=== PATIENT | male | born 1935 | race Caucasian/White ===

== ENCOUNTER 2016-05-16 05:19 | Emergency (ER) | payer MEDICARE ==
[~2016-05-16] VITALS: Ht 195.6 cm; Wt 102.0 kg
[~2016-05-16 05:19] MED LIST: ALLO100T PO; ASPI81TA45 PO; ATOR40TA PO; GLIM2TAB PO; GLIM4 PO; HYDR-2768 PO; KETO2%T TOP; LISI40TA PO; METF500 PO; METO25 PO
[2016-05-16 05:22] VITALS: BP 165/77; PULSE 86; RESP 16; TEMP 98.1; O2SAT 97
[2016-05-16] MEDS ORDERED: HYDR25TA5 PO (05:30)
[2016-05-16] MEDS ORDERED: METO25TA3 PO (05:30)
[2016-05-16] MEDS ORDERED: LISI40TA PO (05:30)
[2016-05-16] MEDS ORDERED: KETO2CRE TOPICAL (05:30)
[2016-05-16] MEDS ORDERED: GLIM2TAB PO (05:30)
[2016-05-16] MEDS ORDERED: ENTE325T PO (05:30)
[2016-05-16] MEDS ORDERED: ATOR40TA16 PO (05:30)
[2016-05-16] MEDS ORDERED: METF500T PO (05:30)
[2016-05-16] MEDS ORDERED: ALLO100T PO (05:30)
--- NOTE | 2016-05-16 05:36 | PD ---
HPI Chief Complaint: General Weakness Time Seen by Provider: 05:31 Travel History International Travel<30 days: No Contact w/Intl Traveler<30days: No Traveled to known affect area: No History of Present Illness HPI The patient is an 81-year-old male that apparently fell to his knees in the shower early tonight, no loss of consciousness, and no injury. The patient states he feels fine but he is had a "cold" for the last 3 or 4 days and his niece wanted him checked out in the ambulance to take him to the emergency department. The patient denies any fever, shortness of breath, chest pain, abdominal pain, nausea, vomiting or diarrhea. He does have a cough and rhinorrhea. The cough is mostly nonproductive. He denies any sore throat or ear pain. PFS Past Medical History Atrial Fibrillation: Yes Diabetes: Yes Patient Takes Glucophage: Yes Gout: Yes Hypertension: Yes ?: Not Past Surgical History Abdominal Surgery: Yes (HERNIA REPAIR) Social History Alcohol Use: Yes (RARE) Tobacco Use: No Substance Use: No Allergies-Medications (Allergen,Severity, Reaction): Coded Allergies: No Known Allergies (Unverified , 05/16/16) Reported Meds & Prescriptions Reported Meds & Active Scripts Active Reported Metoprolol Tartrate 25 Mg Tab 25 Mg PO BID Metformin (Metformin HCl) 500 Mg Tab 500 Mg PO BIDPC With meals Lisinopril 40 Mg Tab 40 Mg PO BID Ketoconazole Topical 2% Cream 1 Applic TOPICAL BID Hydrochlorothiazide 25 Mg Tab 25 Mg PO DAILY Glimepiride 2 Mg Tab 2 Mg PO DAILY Take with breakfast or first main meal Glimepiride 2 Mg Tab 2 Mg PO DAILY Take with breakfast or first main meal Atorvastatin (Atorvastatin Calcium) 40 Mg Tab 40 Mg PO HS Enteric Coated Aspirin (Aspirin) 325 Mg Tabdr 81 Mg PO DAILY Allopurinol 100 Mg Tab 100 Mg PO DAILY Review of Systems Except as stated in HPI: all other systems reviewed are Neg Physical Exam Narrative GENERAL: The patient is alert, oriented 3 in no apparent distress. Specifically, he is in no respiratory distress. His blood pressure 165/77 and the rest the vital signs are normal. SKIN: Warm and dry. HEAD: Atraumatic. Normocephalic. EYES: Pupils equal and round. No scleral icterus. No injection or drainage. ENT: No nasal bleeding or discharge. Mucous membranes pink and moist. Throat is clear without erythema, exudate or abscess. Neither tympanic membrane can be adequately seen due to heavy wax in both ears. The canals are nontender. NECK: Trachea midline. No JVD. CARDIOVASCULAR: Regular rate and rhythm. No murmur appreciated. RESPIRATORY: No accessory muscle use. Clear to auscultation. Breath sounds equal bilaterally. GASTROINTESTINAL: Abdomen soft, non-tender, nondistended. Hepatic and splenic margins not palpable. No guarding or rebound is present. No surgical scars are present on the abdomen. MUSCULOSKELETAL: No obvious deformities. No clubbing. No cyanosis. No edema. NEUROLOGICAL: Awake and alert. No obvious cranial nerve deficits. Motor grossly within normal limits. Normal speech. PSYCHIATRIC: Appropriate mood and affect; insight and judgment normal. Data Data Last Documented VS Vital Signs Date Time Temp Pulse Resp B/P Pulse Ox O2 Delivery O2 Flow Rate FiO2 05/16/16 05:27 97 Room Air 05/16/16 05:22 98.1 86 16 165/77 Orders Electrocardiogram (05/16/16 05:36) Complete Blood Count With Diff (05/16/16 05:36) Basic Metabolic Panel (Bmp) (05/16/16 05:36) Troponin I (05/16/16 05:36) Chest, Pa & Lat (05/16/16 05:36) Labs Laboratory Tests Test 05/16/16 05:45 White Blood Count 12.6 TH/MM3 Red Blood Count 3.94 MIL/MM3 Hemoglobin 11.8 GM/DL Hematocrit 35.8 % Mean Corpuscular Volume 90.7 FL Mean Corpuscular Hemoglobin 30.0 PG Mean Corpuscular Hemoglobin 33.1 % Concent Red Cell Distribution Width 13.3 % Platelet Count 310 TH/MM3 Mean Platelet Volume 8.6 FL Neutrophils (%) (Auto) 77.3 % Lymphocytes (%) (Auto) 10.9 % Monocytes (%) (Auto) 7.5 % Eosinophils (%) (Auto) 3.7 % Basophils (%) (Auto) 0.6 % Neutrophils # (Auto) 9.8 TH/MM3 Lymphocytes # (Auto) 1.4 TH/MM3 Monocytes # (Auto) 0.9 TH/MM3 Eosinophils # (Auto) 0.5 TH/MM3 Basophils # (Auto) 0.1 TH/MM3 CBC Comment DIFF FINAL Differential Comment Sodium Level 144 MEQ/L Potassium Level 4.6 MEQ/L Chloride Level 109 MEQ/L Carbon Dioxide Level 26.1 MEQ/L Anion Gap 9 MEQ/L Blood Urea Nitrogen 28 MG/DL Creatinine 1.30 MG/DL Estimat Glomerular Filtration 53 ML/MIN Rate Random Glucose 124 MG/DL Calcium Level 9.1 MG/DL Troponin I LESS THAN 0.02 NG/ML MDM Medical Decision Making Medical Screen Exam Complete: Yes Emergency Medical Condition: Yes Medical Record Reviewed: Yes Interpretation(s) The chest x-ray shows no acute cardiopulmonary disease. The right proximal humerus shows an abnormal appearance likely an old fracture. The CBC shows a white count 12,600 with a hemoglobin of 11.8 and hematocrit of 35.8 with 77% neutrophils. The basic metabolic profile shows a BUN of 28, GFR 53, glucose 124 but is otherwise unremarkable. The troponin I is normal. Differential Diagnosis Viral upper respiratory infection, ear infection, pharyngitis, pneumonia, bronchitis, intestinal infection, electrolyte disorder, anemia, dehydration Narrative Course The patient appears to have a viral upper respiratory infection. Diagnosis Primary Impression: Viral upper respiratory infection Additional Instructions: As we discussed, it is necessary to increase your liquid intake. It appears you are slightly dehydrated. This is particularly important when you have a viral illness. Disposition: DISCHARGE HOME Condition: Stable Teo Child MD May 16, 2016 05:36
[2016-05-16 05:55] LABS: AUTOMATED NEUTROPHIL # 9.8 TH/MM3 (1.8-7.7); BASOPHIL # 0.1 TH/MM3 (0-0.2); BASOPHIL % 0.6 % (0.0-2.0); EOSINOPHIL # 0.5 TH/MM3 (0-0.4); EOSINOPHIL % 3.7 % (0.0-4.0); HEMATOCRIT 35.8 % (39.0-51.0); HEMO FLAGS DIFF FINAL; LYMPH % 10.9 % (9.0-44.0); LYMPHOCYTE # 1.4 TH/MM3 (1.0-4.8); MEAN CELL VOLUME 90.7 FL (80.0-100.0); MEAN CORPUSCULAR HGB CONC 33.1 % (32.0-36.0); MONO % 7.5 % (0.0-8.0); NEUT % 77.3 % (16.0-70.0); PLATELET COUNT 310 TH/MM3 (150-450); RED BLOOD COUNT 3.94 MIL/MM3 (4.50-5.90); RED CELL DISTRIBUTION WIDTH 13.3 % (11.6-17.2); WHITE BLOOD COUNT 12.6 TH/MM3 (4.0-11.0)
[2016-05-16 06:12] LABS: CHLORIDE 109 MEQ/L (98-107); POTASSIUM 4.6 MEQ/L (3.5-5.1); SODIUM (NA) 144 MEQ/L (136-145)
[2016-05-16 06:15] LABS: ANION GAP 9 MEQ/L (5-15); BICARBONATE 26.1 MEQ/L (21.0-32.0); BLOOD UREA NITROGEN 28 MG/DL (7-18)
[2016-05-16 06:18] LABS: GLOMERULAR FILTRATION RATE 53 ML/MIN (>89)
--- NOTE | 2016-05-16 06:29 | RADHPO ---
EXAM DATE/TIME: 05/16/2016 05:54 [facility] COMPARISON: No previous studies available for comparison. INDICATIONS : General weakness. MEDICAL HISTORY : Hypertension. AFIB, Gout, Diabetes SURGICAL HISTORY : Hernia repair ENCOUNTER: Initial ACUITY: 1 day PAIN SCORE: 0/10 LOCATION: Bilateral chest FINDINGS: AP and lateral views of the chest demonstrate a normal-sized cardiac silhouette. There is no effusion , consolidation, or pneumothorax. The bones and soft tissues demonstrate no acute abnormality. There are degenerative changes of the thoracic spine. The right proximal humerus has an abnormal appearance likely to old fracture with malunion. CONCLUSION: 1. No acute cardiopulmonary abnormality is identified. 2. Abnormal appearance of the right proximal humerus likely related to old fracture with malunion giv en the appearance. Suggest correlation with the clinical history. Mason Bellamy MD on May 16, 2016 at 6:26 Board Certified Radiologist. This report was verified electronically.
[2016-05-16 06:31] VITALS: BP 177/92; PULSE 87; RESP 16; O2SAT 97
--- NOTE | 2016-05-16 12:13 | EKG ---
Date Performed: 05/16/2016 Time Performed: 05:41:42 PTAGE: 81 years EKG: Sinus rhythm with PVC(s). Right ventricular hypertrophy Since previous tracing, no significant change noted Abnor mal ECG PREVIOUS TRACING : 11/21/2014 17.01 DOCTOR: Lisa Reeder Interpretating Date/Time 05/16/2016 12:12:25
== END 2016-05-16 06:59 | disposition home or self-care (01) ==
LOC: PHED 05:19
DX: J06.9 Acute upper respiratory infection, unspecified (principal); I51.7 Cardiomegaly; I49.3 Ventricular premature depolarization
CPT/HCPCS: 71020; 80048; 84484; 85025; 93005

== ENCOUNTER 2016-09-03 08:03 | Inpatient (IN) | payer MEDICARE ==
[~2016-09-03] VITALS: Ht 182.9 cm; Wt 101.6 kg
[2016-09-03] VITALS (9 sets, daily range): BP systolic 108–125; BP diastolic 58–71; PULSE 90–120; RESP 18–34; TEMP 97.8–99.9; O2SAT 89–99
[~2016-09-03 08:03] MED LIST changes: -ASPI81TA45 PO; -ATOR40TA PO; +ATOR40TA16 PO; +ENTE325T PO; -GLIM4 PO; -HYDR-2768 PO; +HYDR25TA5 PO; -KETO2%T TOP; +KETO2CRE TOPICAL; -METF500 PO; +METF500T PO; -METO25 PO; +METO25TA3 PO
[2016-09-03] MEDS ORDERED: SODIUM CHLOR 0.9% 1000 ML INJ 1,000 ML IV SCH (08:16)
[2016-09-03] MEDS ORDERED: NAME10TA PO (08:17)
[2016-09-03] MEDS ORDERED: PANTOPRAZOLE INJ 80 MG in SODIUM CHLORIDE 0.9% INJ 35 ML IV ONE (08:30)
[2016-09-03] MEDS ORDERED: ONDANSETRON HCL 4 MG/2 ML VIAL IVP ONE (08:30)
[2016-09-03] MEDS ORDERED: SODIUM CHLORIDE 0.9% FLUSH 10 ML FLUSH IVF PRN (08:30)
[2016-09-03 08:36] LABS: AUTOMATED NEUTROPHIL # 15.4 TH/MM3 (1.8-7.7); BASOPHIL # 0.1 TH/MM3 (0-0.2); BASOPHIL % 0.6 % (0.0-2.0); EOSINOPHIL # 0.1 TH/MM3 (0-0.4); EOSINOPHIL % 0.5 % (0.0-4.0); HEMO FLAGS DIFF FINAL; LYMPH % 8.1 % (9.0-44.0); LYMPHOCYTE # 1.5 TH/MM3 (1.0-4.8); MEAN CELL VOLUME 85.2 FL (80.0-100.0); MEAN CORPUSCULAR HEMOGLOBIN 27.5 PG (27.0-34.0); MEAN CORPUSCULAR HGB CONC 32.2 % (32.0-36.0); MONO % 6.2 % (0.0-8.0); NEUT % 84.6 % (16.0-70.0); PLATELET COUNT 404 TH/MM3 (150-450); RED CELL DISTRIBUTION WIDTH 15.3 % (11.6-17.2); WHITE BLOOD COUNT 18.2 TH/MM3 (4.0-11.0)
[2016-09-03 08:45] LABS: APTT (PATIENT) 27.3 SEC (24.3-30.1); INTERNATIONAL NORMALIZED RATIO 1.1 RATIO; PROTHROMBIN TIME - PATIENT 12.4 SEC (9.8-11.6)
[2016-09-03 08:59] LABS: ANION GAP 10 MEQ/L (5-15); AST (GOT) 15 U/L (15-37); BICARBONATE 25.7 MEQ/L (21.0-32.0); BLOOD UREA NITROGEN 39 MG/DL (7-18); CHLORIDE 103 MEQ/L (98-107); GLOMERULAR FILTRATION RATE 40 ML/MIN (>89); POTASSIUM 4.5 MEQ/L (3.5-5.1); SODIUM (NA) 139 MEQ/L (136-145)
[2016-09-03 09:03] LABS: ALKALINE PHOSPHATASE 133 U/L (45-117); ALT (GPT) 19 U/L (12-78); TOTAL BILIRUBIN ADULT 0.2 MG/DL (0.2-1.0)
--- NOTE | 2016-09-03 09:28 | PD ---
HPI Chief Complaint: GI Complaint Time Seen by Provider: 08:16 Travel History International Travel<30 days: No Contact w/Intl Traveler<30days: No Traveled to known affect area: No History of Present Illness HPI Patient is 81 years old and arrives by EMS due to coffee-ground emesis this morning. No bright red blood is been observed in the emesis. EMS reports on scene his heart rate was 110 or so and the blood pressure is 118/60. Evidently one month prior similar event occurred. The patient reports feeling dizzy however has no other medical complaint. He takes no anticoagulation. He denies a history of endoscopy/colonoscopy. No abdominal pain or fever. PFSH Past Medical History Atrial Fibrillation: Yes Diabetes: Yes Patient Takes Glucophage: Yes Gout: Yes Hypertension: Yes Tetanus Vaccination: > 5 Years Influenza Vaccination: Yes Past Surgical History Abdominal Surgery: Yes (HERNIA REPAIR) Social History Alcohol Use: Yes (RARE) Tobacco Use: No Substance Use: No Allergies-Medications (Allergen,Severity, Reaction): Coded Allergies: No Known Allergies (Unverified , 09/03/16) Reported Meds & Prescriptions Reported Meds & Active Scripts Active Reported Namenda (Memantine) 10 Mg Tab 10 Mg PO DAILY Metoprolol Tartrate 25 Mg Tab 25 Mg PO BID Metformin (Metformin HCl) 500 Mg Tab 500 Mg PO BIDPC With meals Lisinopril 40 Mg Tab 40 Mg PO BID Ketoconazole Topical 2% Cream 1 Applic TOPICAL BID Hydrochlorothiazide 25 Mg Tab 25 Mg PO DAILY Glimepiride 2 Mg Tab 2 Mg PO DAILY Take with breakfast or first main meal Glimepiride 2 Mg Tab 2 Mg PO DAILY Take with breakfast or first main meal Atorvastatin (Atorvastatin Calcium) 40 Mg Tab 40 Mg PO HS Enteric Coated Aspirin (Aspirin) 325 Mg Tabdr 81 Mg PO DAILY Allopurinol 100 Mg Tab 100 Mg PO DAILY Review of Systems Except as stated in HPI: all other systems reviewed are Neg General / Constitutional: No: Fever Gastrointestinal: Positive: Vomiting, Hematemesis Physical Exam Narrative GENERAL: 81-year-old male well-nourished well-developed pleasant SKIN: Focused skin assessment warm/dry. Dried coffee-ground emesis about face. HEAD: Atraumatic. Normocephalic. EYES: Pupils equal and round. No scleral icterus. No injection or drainage. ENT: No nasal bleeding or discharge. Mucous membranes pink and moist. NECK: Trachea midline. No JVD. CARDIOVASCULAR: Regular. Minimal tachycardia, rate about 100. RESPIRATORY: No accessory muscle use. Clear to auscultation. Breath sounds equal bilaterally. GASTROINTESTINAL: Abdomen soft, non-tender, nondistended. Hepatic and splenic margins not palpable. MUSCULOSKELETAL: No obvious deformities. No clubbing. No cyanosis. No edema. NEUROLOGICAL: Awake and alert. No obvious cranial nerve deficits. Motor grossly within normal limits. Normal speech. Patient is somewhat forgetful. PSYCHIATRIC: Appropriate mood and affect; insight and judgment normal. Data Data Last Documented VS Vital Signs Date Time Temp Pulse Resp B/P Pulse Ox O2 Delivery O2 Flow Rate FiO2 09/03/16 09:43 110 18 108/61 95 Room Air 09/03/16 08:07 97.8 VS reviewed Orders Complete Blood Count With Diff (09/03/16 08:16) Comprehensive Metabolic Panel (09/03/16 08:16) Lipase (09/03/16 08:16) Prothrombin Time / Inr (Pt) (09/03/16 08:16) Act Partial Throm Time (Ptt) (09/03/16 08:16) Type And Screen (09/03/16 08:16) Red Blood Cells (Rbc) (09/03/16 08:16) Ecg Monitoring (09/03/16 08:16) Iv Access Insert/Monitor (09/03/16 08:16) Oximetry (09/03/16 08:16) Ondansetron Inj (Zofran Inj) (09/03/16 08:30) Sodium Chlor 0.9% 1000 Ml Inj (Ns 1000 M (09/03/16 08:16) Sodium Chloride 0.9% Flush (Ns Flush) (09/03/16 08:30) Pantoprazole Inj (Protonix Inj) (09/03/16 08:30) Pantoprazole Inj (Protonix Inj) (09/03/16 08:30) Ceftriaxone Inj (Rocephin Inj) (09/03/16 09:30) Blood Product Administration .UPON TRANSFUSION (09/03/16 09:28) Sodium Chlor 0.9% 250 Ml Inj (Ns 250 Ml (09/03/16 09:30) Admit To Inpatient (09/03/16 ) Code Status (09/03/16 10:04) Vital Signs (Adult) Q4H (09/03/16 10:04) Activity Oob With Assistance (09/03/16 10:04) Cloth Printer Helper / Telemetry .CONTINUOUS (09/03/16 10:04) Diet Npo (09/03/16 Lunch) Sodium Chloride 0.9% Flush (Ns Flush) (09/03/16 10:15) Sodium Chloride 0.9% Flush (Ns Flush) (09/03/16 21:00) Acetaminophen (Tylenol) (09/03/16 10:15) Ondansetron Inj (Zofran Inj) (09/03/16 10:15) Basic Metabolic Panel (Bmp) (09/04/16 06:00) Complete Blood Count With Diff (09/04/16 06:00) Complete Blood Count With Diff (09/05/16 06:00) Complete Blood Count With Diff (09/06/16 06:00) Complete Blood Count With Diff (09/07/16 06:00) Electrocardiogram (09/03/16 10:04) Resp Oxygen Pedro C Titrat 1-4 L (09/03/16 ) Pt Request For Service (09/03/16 10:04) Scd Bilateral/Knee High KATIE.BID (09/03/16 10:04) Naloxone Inj (Narcan Inj) (09/03/16 10:15) Magnesium Hydroxide Liq (Milk Of Magnesi (09/03/16 10:15) Inpatient Certification (09/03/16 ) Consult Gastroenterology (09/03/16 ) Insulin Aspart Supplemtl Scale (Novolog (09/03/16 11:00) Admit Order (Ed Use Only) (09/03/16 10:09) Labs Laboratory Tests Test 09/03/16 09/03/16 08:20 09:10 White Blood Count 18.2 TH/MM3 Red Blood Count 2.70 MIL/MM3 Hemoglobin 7.4 GM/DL Hematocrit 23.0 % Mean Corpuscular Volume 85.2 FL Mean Corpuscular Hemoglobin 27.5 PG Mean Corpuscular Hemoglobin 32.2 % Concent Red Cell Distribution Width 15.3 % Platelet Count 404 TH/MM3 Mean Platelet Volume 9.5 FL Neutrophils (%) (Auto) 84.6 % Lymphocytes (%) (Auto) 8.1 % Monocytes (%) (Auto) 6.2 % Eosinophils (%) (Auto) 0.5 % Basophils (%) (Auto) 0.6 % Neutrophils # (Auto) 15.4 TH/MM3 Lymphocytes # (Auto) 1.5 TH/MM3 Monocytes # (Auto) 1.1 TH/MM3 Eosinophils # (Auto) 0.1 TH/MM3 Basophils # (Auto) 0.1 TH/MM3 CBC Comment DIFF FINAL Differential Comment Prothrombin Time 12.4 SEC Prothromb Time International 1.1 RATIO Ratio Activated Partial 27.3 SEC Thromboplast Time Sodium Level 139 MEQ/L Potassium Level 4.5 MEQ/L Chloride Level 103 MEQ/L Carbon Dioxide Level 25.7 MEQ/L Anion Gap 10 MEQ/L Blood Urea Nitrogen 39 MG/DL Creatinine 1.64 MG/DL Estimat Glomerular Filtration 40 ML/MIN Rate Random Glucose 284 MG/DL Calcium Level 8.8 MG/DL Total Bilirubin 0.2 MG/DL Aspartate Amino Transf 15 U/L (AST/SGOT) Alanine Aminotransferase 19 U/L (ALT/SGPT) Alkaline Phosphatase 133 U/L Total Protein 6.2 GM/DL Albumin 2.3 GM/DL Lipase 65 U/L Blood Type A POSITIVE A POSITIVE Antibody Screen NEGATIVE Crossmatch Leukocyte-Reduced Red Blood Cells Blood Bank Comment MDM Medical Decision Making Medical Screen Exam Complete: Yes Emergency Medical Condition: Yes Medical Record Reviewed: Yes Differential Diagnosis UGIB, LGIB, hemoptysis, sepsis Narrative Course CBC & BMP Diagram 09/03/16 08:20 Protonix bolus w gtt started 2U PRBCs ordered Rocephin 1g IV d/w Dr Scanlon: endoscopy planned for today, NPO, IVF d/w Dr Mccurdy [place] [facility] [facility] [place] Care Narrative Aggregate critical care time was 35 minutes. Time to perform other separately billable procedures was not included in the critical care time. My time did not include minutes spent treating any other patients simultaneously or on activities that did not directly contribute to the patient's treatment. The services I provided to this patient were to treat and/or prevent clinically significant deterioration that could result in: hemorrhagic shock I provided critical care services requiring my management, as noted below: Chart data review, documentation time, medication orders and management, vital sign assessments/reviewing monitor data, ordering and reviewing lab tests, ordering and interpreting/reviewing x-rays and diagnostic studies, care of the patient and discussion of the patient with the admitting physicians. Diagnosis Primary Impression: UGI bleed Additional Impression: Anemia Admitting Information Admitting Physician Requests: Admit Yair Ness MD September 03, 2016 09:28
[2016-09-03] MEDS ORDERED: cefTRIAXone INJ 1,000 MG in SODIUM CHLORIDE 0.9% INJ 100 ML IV ONE (09:30)
[2016-09-03] MEDS ORDERED: SODIUM CHLOR 0.9% 250 ML INJ 250 ML IV ONE (09:30)
[2016-09-03] MEDS ORDERED: SODIUM CHLORIDE 0.9% FLUSH 10 ML FLUSH IV FLUSH PRN (10:15)
[2016-09-03] MEDS ORDERED: ACETAMINOPHEN 325 MG TAB PO PRN (10:15)
[2016-09-03] MEDS ORDERED: MAGNESIUM HYDROXIDE SUSP 30 ML CUP PO PRN (10:15)
[2016-09-03] MEDS ORDERED: NALOXONE HCL 0.4 MG/ML AMP IV PRN (10:15)
[2016-09-03] MEDS: PANTOPRAZOLE INJ 80 MG in SODIUM CHLORIDE 0.9% INJ 100 ML IV SCH ×2 (10:48→17:48)
[2016-09-03] MEDS: INSULIN ASPART SUPPLEMENTAL SCALE SQ SCH ×3 (11:00→20:20)
--- NOTE | 2016-09-03 11:09 | PD.CONS ---
HPI History of Present Illness This is a 81 year old male with past medical hx of A-fib on Aspirin, DM, gout, HTN is here for upper GI bleed and anemia. Patient states he got up this morning around 6 am to use the bathroom ( urinate) then he felt dizzy where he had to sit down or he was going to fall. Shortly after, he coughed one time and that resulted in bloody output. States this was only one time. Reports nausea but no vomiting. He denies abdomen pain, GERD, melena or hematochezia. He endorses one month duration of diarrhea. This is 2-3 times daily, loose, watery. He denies sick contact, suspicious foods, or recent travel. He was seen at PCP office, stools studies ordered but not done, Metformin was held thinking it maybe causing the diarrhea. He was also told he had anemia and was scheduled to see GI sometimes in September for eval. Patient denies previous hx of this. He denies alcohol or NSAIDs. He never had EGD/colonoscopy before. H&H 7.4/23.0, WBC 18.2, BUN 39, Creat. 1.64, GFR 40. He is receiving blood transfusion. His pants seem to be covered with bloody stains (Elisabet Pedroza) PFSH Past Medical History HTN DM Gout A-fib Past Surgical History Hernia repair (Elisabet Pedroza) Coded Allergies: No Known Allergies (Unverified , 09/03/16) Medications Current Medications Medications (Trade) Dose Ordered Sig/Zachary Route Start Time Stop Time Status Last Admin Sodium Chloride 2 ml 2 ml UNSCH PRN IVF 09/03/16 08:30 Pantoprazole Sodium 80 mg/ Sodium Chloride 100 ml @ 10 mls/hr Q10H IV 09/03/16 08:30 (NS 250 ml Inj) 250 ml @ 15 mls/hr ONCE ONCE IV 09/03/16 09:30 09/04/16 02:09 09/03/16 10:32 (NS Flush) 2 ml UNSCH PRN IV FLUSH 09/03/16 10:15 (NS Flush) 2 ml BID IV FLUSH 09/03/16 21:00 (Tylenol) 650 mg Q4H PRN PO 09/03/16 10:15 (Zofran Inj) 4 mg Q6H PRN IVP 09/03/16 10:15 (Narcan Inj) 0.4 mg UNSCH PRN IV 09/03/16 10:15 (Milk Of Magnesia Liq) 30 ml Q12H PRN PO 09/03/16 10:15 Family History Non contributory Social History No alcohol No smoking No illicit drug use (Elisabet Pedroza) Review of Systems Constitutional: COMPLAINS OF: Fatigue, Dizziness Endocrine: DENIES: Polyuria Eyes: DENIES: Double Vision Respiratory: DENIES: Shortness of breath Cardiovascular: DENIES: Lower Extremity Edema Gastrointestinal: COMPLAINS OF: Diarrhea, Nausea, Hematemesis, DENIES: Abdominal pain, Black stools, Bloody stools, Constipation, Vomiting, Difficulty Swallowing, Anorexia, Odynophagia, Swelling of Abdomen, Heartburn Genitourinary: DENIES: Hematuria Musculoskeletal: DENIES: Neck pain Integumentary: DENIES: Jaundice Hematologic/lymphatic: DENIES: Bruising Immunologic/allergic: DENIES: Eczema Neurologic: DENIES: Abnormal gait Psychiatric: DENIES: Anxiety (Elisabet Pedroza) GI Exam Vitals I&O Vital Signs Date Time Temp Pulse Resp B/P Pulse Ox O2 Delivery O2 Flow Rate FiO2 09/03/16 10:30 98.8 110 18 117/62 96 Room Air 09/03/16 09:43 110 18 108/61 95 Room Air 09/03/16 08:21 20 95 Room Air 09/03/16 08:18 20 09/03/16 08:18 110 20 110/70 95 Room Air 09/03/16 08:07 97.8 117 20 110/70 Laboratory Test 09/03/16 09/03/16 08:20 09:10 White Blood Count 18.2 TH/MM3 Red Blood Count 2.70 MIL/MM3 Hemoglobin 7.4 GM/DL Hematocrit 23.0 % Mean Corpuscular Volume 85.2 FL Mean Corpuscular Hemoglobin 27.5 PG Mean Corpuscular Hemoglobin 32.2 % Concent Red Cell Distribution Width 15.3 % Platelet Count 404 TH/MM3 Mean Platelet Volume 9.5 FL Neutrophils (%) (Auto) 84.6 % Lymphocytes (%) (Auto) 8.1 % Monocytes (%) (Auto) 6.2 % Eosinophils (%) (Auto) 0.5 % Basophils (%) (Auto) 0.6 % Neutrophils # (Auto) 15.4 TH/MM3 Lymphocytes # (Auto) 1.5 TH/MM3 Monocytes # (Auto) 1.1 TH/MM3 Eosinophils # (Auto) 0.1 TH/MM3 Basophils # (Auto) 0.1 TH/MM3 CBC Comment DIFF FINAL Differential Comment Prothrombin Time 12.4 SEC Prothromb Time International 1.1 RATIO Ratio Activated Partial 27.3 SEC Thromboplast Time Sodium Level 139 MEQ/L Potassium Level 4.5 MEQ/L Chloride Level 103 MEQ/L Carbon Dioxide Level 25.7 MEQ/L Anion Gap 10 MEQ/L Blood Urea Nitrogen 39 MG/DL Creatinine 1.64 MG/DL Estimat Glomerular Filtration 40 ML/MIN Rate Random Glucose 284 MG/DL Calcium Level 8.8 MG/DL Total Bilirubin 0.2 MG/DL Aspartate Amino Transf 15 U/L (AST/SGOT) Alanine Aminotransferase 19 U/L (ALT/SGPT) Alkaline Phosphatase 133 U/L Total Protein 6.2 GM/DL Albumin 2.3 GM/DL Lipase 65 U/L Blood Type A POSITIVE A POSITIVE Antibody Screen NEGATIVE Crossmatch Leukocyte-Reduced Red Blood Cells Blood Bank Comment Physical Examination HEENT: normocephalic; atraumatic; no jaundice. NECK: Neck is supple, no JVD, no lymphadenopathy. CHEST: Chest is clear to auscultation and percussion. CARDIAC: tacky cardic ABDOMEN: Soft, nondistended, nontender; no hepatosplenomegaly; bowel sounds are present in all four quadrants. EXTREMITIES: No clubbing, cyanosis, or edema. SKIN: Normal; no rash; no jaundice. BUSINESS SERVICES ANALYST: No focal deficits; alert and oriented times three. (Kasia,Elisabet CAPITAL PROJECT ENGINEER) Assessment and Plan Plan - Anemia/upper GI bleed- Started this am with a cough that resulted in bloody output, no more episodes, no melena or hematochezia No previous hx of this, tacky cardiac, hypotensive he is on ASA . hh 7.4/23.0 , receiving blood, PPI Gtt - Diarrhea X one month- This is 2-3 times daily, loose, watery. He denies sick contact, suspicious foods, or recent travel. He was seen at PCP office, stools studies ordered but not done, Metformin was held thinking it maybe causing the diarrhea - Leukocytosis- likely reactive - Acute kidney failure - HTN, gout, DM, Afib per attending Plan: - NPO - EGD today - If above negative, consider colonoscopy - Stool studies - Cont. PPI Gtt - Monitor HH - Transfuse as needed - Supportive care - Patient seen and examined by Dr. Horvath and myself and this note is written on his behalf (Elisabet Pedroza) Physician Comments Patient seen and examined Agree with above Continue with current supportive care Monitor labs Plan for EGD today (Arnoldo Scanlon MD) Elisabet Pedroza September 03, 2016 11:09 Arnoldo Scanlon MD September 03, 2016 11:55
[2016-09-03] MEDS: SODIUM CHLOR 0.9% 1000 ML INJ 1,000 ML IV SCH ×3 (11:15→13:35)
[2016-09-03] MEDS ORDERED: TRAD5TAB PO (11:17)
[2016-09-03] MEDS ORDERED: PROPOFOL 200 MG/20 ML AMP IV ONE (11:31)
[2016-09-03] MEDS ORDERED: EPINEPHrine HCL (1:10,000) 1 MG/10 ML SYRINGE OTHER ONE (11:40)
--- NOTE | 2016-09-03 11:58 | PD.PROCEDR ---
GI Procedure REFERRING PHYSICIAN Dr. Bradford PROCEDURE PERFORMED EGD with epinephrine injection and cautery and biopsy INDICATION FOR PROCEDURE Coffee-ground emesis PROCEDURE: The procedure, risks and benefits were discussed with Mr. Jo and informed consent was obtained. Anesthesia sedated him with Diprivan. He was placed in the left lateral decubitus position. EGD: The Pentax videoscope was introduced through the oropharynx and advanced to the second portion of the duodenum under direct visualization. Retroflexion was performed in the stomach. FINDINGS: The esophagus this was normal The stomach there was a large clot obscuring vision of the fundus and part of the gastric body there was a large deep ulcer on the lesser curve mostly towards the antrum there was a large clot inside the ulcer which had raised edges the clot was removed but I still couldn't see clearly the base of the ulcer this was diffusely infiltrated with epinephrine and cauterized biopsies were taken from the edges of this is concerning to a degree for a malignancy the antrum was unremarkable The duodenum this too was unremarkable ESTIMATED BLOOD LOSS: No active bleeding during the procedure no blood loss SPECIMENS REMOVED: Antral ulcer biopsies from the edges COMPLICATIONS: None IMPRESSION: Large antral ulcer Incomplete evaluation of the stomach PLAN: Await biopsy Continue Protonix drip Avoid anticoagulants and antiplatelets EGD in 2 months Keep nothing by mouth If any active bleeding then we will ask for embolization Arnoldo Scanlon MD September 03, 2016 11:58
[2016-09-03] MEDS: METOPROLOL TARTRATE 25 MG TAB PO SCH ×2 (12:00→20:18)
[2016-09-03] MEDS ORDERED: *ONDANSETRON 4 MG VIAL PERIprocedural Use ONLY ONE (12:18)
[2016-09-03] MEDS ORDERED: *PROMETHAZINE 25 MG/ML VIAL PERIprocedural use ONLY ONE (12:37)
[2016-09-03] MEDS ORDERED: DO NOT ADM ANY ANTICOAGULANT DRUGS PRN (12:45)
--- NOTE | 2016-09-03 16:02 | HHI.HP ---
HPI Service [facility] Hospitalists Primary Care Physician Dr. Emeka Rivera Admission Diagnosis UGIB, Acute Anemia Chief Complaint: Hematemesis Travel History International Travel<30 Days: No Contact w/Intl Traveler <30 Da: No Traveled to Known Affected Are: No History of Present Illness Mr. Jo is an 81 y/o male with A. fib on ASA, diabetes, HTN, CKD, stage 3, and chronic diastolic CHF who presented to the ED at [facility] on 09/03/16 for reported hematemesis. Patient reportedly woke up this morning around 6AM to use the bathroom and felt dizzy. He then had an episode of regurgitation with some bloody emesis noted. This occurred only once. He denies any previous similar episodes. There was no reported abdominal pain, GERD, melena or hematochezia. He does report that he has been having issues with diarrhea for the last month. He reports that this seems to occur after food intake, around 15 minutes later he will have a loose watery stool. This occurs 2-3 times daily. He denies sick contact, suspicious foods, or recent travel. He was seen by his PCP, Dr. Rivera , a few days ago regarding this and stool studies were ordered but pt had not done this yet. He was prescribed Flagyl as well but he had not started taking this. He was also told at that time that his blood count was low (Hgb 9.4/Hct 30.2) and was scheduled to see GI in September. He takes ASA daily but no other NSAIDs reported. Denies any alcohol use. He never had EGD/colonoscopy before. Labs at admission revealed that his H/H had decreased further to H/H 7.4/23.0. He is receiving blood transfusion. Pt has been seen by GI and underwent evaluation with EGD (09/03) which noted a large antral ulcer, biopsies taken and incomplete evaluation of the stomach. Review of Systems Constitutional: DENIES: Fever, Chills Eyes: DENIES: Vision loss Ears, nose, mouth, throat: DENIES: Hearing loss Respiratory: DENIES: Cough Cardiovascular: DENIES: Chest pain, Palpitations, Lower Extremity Edema Gastrointestinal: COMPLAINS OF: Diarrhea, Nausea, Vomiting, See HPI, DENIES: Abdominal pain, Black stools, Bloody stools, Constipation, GERD Genitourinary: DENIES: Hematuria, Dysuria Integumentary: DENIES: Rash Neurologic: DENIES: Headache Past Family Social History Past Medical History Atrial fibrillation Chronic diastolic CHF CKD, stage 3 Diabetes mellitus HTN Hyperlipidemia Mild cognitive impairment Pulmonary HTN 2D echo (04/29/2014): - Estimated EF 60% - Diastolic dysfunction - LA mildly dilated - Mild mitral regurgitation - Estimated PA pressure is mildly elevated, 43mmHg - Trace tricuspid regurgitation - Trace pulmonic regurgitation - Dilation of the aortic root Past Surgical History Hernia repair Reported Medications -Metoprolol Tartrate 25 Mg PO BID -Metformin 1,000 Mg PO BIDPC -Lisinopril 40 Mg PO BID -Glimepiride 4 Mg PO DAILY -Atorvastatin 40 Mg PO HS -Enteric Coated Aspirin 81 Mg PO DAILY -Allopurinol 100 Mg PO DAILY ?Tradjenta 5 Mg PO DAILY ?Namenda 10 Mg PO DAILY ?Hydrochlorothiazide 25 Mg PO DAILY ?Ketoconazole Topical 2% Cream 1 Applic TOPICAL BID Allergies: Coded Allergies: No Known Allergies (Unverified , 09/03/16) Family History Sister with hx of bone cancer Brother with hx of CAD Social History Hx of tobacco use Denies any alcohol use Pt is a Pt reports that he and his son live in some sort of prison or [place] type setting His niece handles the finances Physical Exam Vital Signs Vital Signs Date Time Temp Pulse Resp B/P Pulse Ox O2 Delivery O2 Flow Rate FiO2 09/03/16 10:45 98.3 120 18 125/71 97 Room Air 09/03/16 10:45 98.3 116 18 125/71 99 Room Air 09/03/16 10:30 98.8 110 18 117/62 96 Room Air 09/03/16 09:43 110 18 108/61 95 Room Air 09/03/16 08:21 20 95 Room Air 09/03/16 08:18 20 09/03/16 08:18 110 20 110/70 95 Room Air 09/03/16 08:07 97.8 117 20 110/70 Physical Exam GENERAL: This is a well-nourished, well-developed patient, in no apparent distress. HEENT: Atraumatic. Normocephalic. Pale conjunctiva. No temporal or scalp tenderness.No scleral icterus. Airway patent. NECK: Trachea midline, supple, nontender. CARDIO: Irregular. RESP: CTA bilaterally. No wheezes, rales, or rhonchi. ABD: +BS, soft, non-tender, nondistended. EXT: Extremities without clubbing, cyanosis, or edema. NEURO: Awake and alert. Motor and sensory grossly within normal limits. Normal speech. Laboratory Laboratory Tests Test 09/03/16 09/03/16 08:20 09:10 White Blood Count 18.2 Red Blood Count 2.70 Hemoglobin 7.4 Hematocrit 23.0 Mean Corpuscular Volume 85.2 Mean Corpuscular Hemoglobin 27.5 Mean Corpuscular Hemoglobin 32.2 Concent Red Cell Distribution Width 15.3 Platelet Count 404 Mean Platelet Volume 9.5 Neutrophils (%) (Auto) 84.6 Lymphocytes (%) (Auto) 8.1 Monocytes (%) (Auto) 6.2 Eosinophils (%) (Auto) 0.5 Basophils (%) (Auto) 0.6 Neutrophils # (Auto) 15.4 Lymphocytes # (Auto) 1.5 Monocytes # (Auto) 1.1 Eosinophils # (Auto) 0.1 Basophils # (Auto) 0.1 CBC Comment DIFF FINAL Differential Comment Prothrombin Time 12.4 Prothromb Time International 1.1 Ratio Activated Partial 27.3 Thromboplast Time Sodium Level 139 Potassium Level 4.5 Chloride Level 103 Carbon Dioxide Level 25.7 Anion Gap 10 Blood Urea Nitrogen 39 Creatinine 1.64 Estimat Glomerular Filtration 40 Rate Random Glucose 284 Calcium Level 8.8 Total Bilirubin 0.2 Aspartate Amino Transf 15 (AST/SGOT) Alanine Aminotransferase 19 (ALT/SGPT) Alkaline Phosphatase 133 Total Protein 6.2 Albumin 2.3 Lipase 65 Blood Type A POSITIVE A POSITIVE Antibody Screen NEGATIVE Crossmatch Leukocyte-Reduced Red Blood Cells Blood Bank Comment Result Diagram: 09/03/1681909/03/16819 Septic Shock Reassessment Heart: Regular rate and rhythm Lungs: Clear Skin: Warm Assessment and Plan Problem List: (1) Anemia Status: Acute Plan: - Pt is an 81 y/o male who presented to the ED after an episode of regurgitation with some bloody emesis and a one month hx of diarrhea. - He was prescribed Flagyl as an outpt had not started taking this. - He was also told at that time that his blood count was low (Hgb 9.4/Hct 30.2) and was scheduled to see GI - Labs at admission revealed that his H/H had decreased further to H/H 7.4/ 23.0. - He is receiving 2 units PRBCs. - Pt has been seen by GI and underwent evaluation with EGD (09/03) which noted a large deep ulcer on the lesser curve mostly towards the antrum there was a large clot inside the ulcer which had raised edges the clot was removed but still couldn't see clearly the base of the ulcer this was diffusely infiltrated with epinephrine and cauterized. Biopsies were taken from the edges. This is concerning to a degree for a malignancy the antrum was unremarkable - Await pathology - Monitor H/H - Protonix gtt - Pt is NPO currently - IVF - Supportive care - DVT prophylaxis with SCDs (2) UGI bleed Status: Acute Plan: - See above. (3) Diarrhea Status: Chronic Plan: - See above. - Stool studies ordered - GI following - May consider Colonoscopy if stool studies are negative. (4) A-fib Status: Chronic Plan: - Cont. Metoprolol 25mg po BID - ASA on hold for now. - Telemetry (5) Diabetes mellitus Status: Chronic Plan: - Hold OHA - NovoLog SSI - Accu checks (6) HTN (hypertension) Status: Chronic Plan: - Home meds resumed except Lisinopril was held for ADRI - Monitor BP - Clonidine PRN (7) Acute kidney injury superimposed on chronic kidney disease Status: Acute Plan: - Pt with some ADRI possibly related to hypovolemia/dehydration with pts reported diarrhea - IVF - Monitor labs (8) Diastolic CHF, chronic Status: Chronic Assessment and Plan Patient examined. Assessment and plan formulated with Yenny Troncoso PA-C. I agree with the above. Physician Certification 2 Midnight Certification Type: Admission for Inpatient Services Order for Inpatient Services The services are ordered in accordance with Medicare regulations or non- Medicare payer requirements, as applicable. In the case of services not specified as inpatient-only, they are appropriately provided as inpatient services in accordance with the 2-midnight benchmark. Estimated LOS (days): 3 3 days is the estimated time the patient will need to remain in the hospital, assuming treatment plan goals are met and no additional complications. Post-Hospital Plan: Not yet determined Problem Qualifiers (1) Anemia: (2) Diabetes mellitus: Yenny Troncoso September 03, 2016 16:02 Norberto Bradford DO September 04, 2016 11:22
[2016-09-03] MEDS: ATORVASTATIN 40 MG TAB PO SCH (20:18)
[2016-09-03] MEDS: SODIUM CHLORIDE 0.9% FLUSH 10 ML FLUSH IV FLUSH SCH (20:18)
[2016-09-04] VITALS (14 sets, daily range): BP systolic 86–162; BP diastolic 58–77; PULSE 66–103; RESP 18–32; TEMP 98.2–99.4; O2SAT 57–96
[2016-09-04] MEDS: SODIUM CHLOR 0.9% 1000 ML INJ 1,000 ML IV SCH (03:15)
[2016-09-04] MEDS: PANTOPRAZOLE INJ 80 MG in SODIUM CHLORIDE 0.9% INJ 100 ML IV SCH (03:15)
[2016-09-04] MEDS: INSULIN ASPART SUPPLEMENTAL SCALE SQ SCH ×4 (06:30→19:44)
[2016-09-04 07:40] LABS: AUTOMATED NEUTROPHIL # 17.9 TH/MM3 (1.8-7.7); BASOPHIL # 0.2 TH/MM3 (0-0.2); BASOPHIL % 0.8 % (0.0-2.0); EOSINOPHIL # 0.1 TH/MM3 (0-0.4); EOSINOPHIL % 0.6 % (0.0-4.0); HEMATOCRIT 26.4 % (39.0-51.0); LYMPH % 6.3 % (9.0-44.0); LYMPHOCYTE # 1.3 TH/MM3 (1.0-4.8); MEAN CORPUSCULAR HEMOGLOBIN 27.4 PG (27.0-34.0); MEAN CORPUSCULAR HGB CONC 32.6 % (32.0-36.0); MONO % 6.6 % (0.0-8.0); NEUT % 85.7 % (16.0-70.0); PLATELET COUNT 312 TH/MM3 (150-450); RED BLOOD COUNT 3.14 MIL/MM3 (4.50-5.90); RED CELL DISTRIBUTION WIDTH 15.7 % (11.6-17.2); WHITE BLOOD COUNT 20.9 TH/MM3 (4.0-11.0)
[2016-09-04 07:45] LABS: HEMO FLAGS AUTO DIFF
[2016-09-04 08:17] LABS: BICARBONATE 22.8 MEQ/L (21.0-32.0); POTASSIUM 4.4 MEQ/L (3.5-5.1)
[2016-09-04 08:33] LABS: SCAN/DIFF AUTO DIFF CONFIRMED
[2016-09-04 08:34] LABS: OVALOCYTES 1+ (NORMAL)
[2016-09-04] MEDS: METOPROLOL TARTRATE 25 MG TAB PO SCH ×2 (08:53→19:44)
[2016-09-04] MEDS: ALLOPURINOL 100 MG TAB PO SCH (08:53)
[2016-09-04] MEDS: SODIUM CHLORIDE 0.9% FLUSH 10 ML FLUSH IV FLUSH SCH ×2 (08:53→19:44)
--- NOTE | 2016-09-04 10:03 | HHI.GIFU ---
Subjective Remarks No bloody or melanotic stools overnight. +Flatus Pt reports some mild diffuse abd discomfort Denies any nausea or any vomiting. (Yenny Troncoso) Objective Vitals I&O Vital Signs Date Time Temp Pulse Resp B/P Pulse Ox O2 Delivery O2 Flow Rate FiO2 09/04/16 08:57 93 Nasal Cannula 1.00 09/04/16 08:00 98.5 101 20 162/77 95 09/04/16 04:00 99.2 103 32 135/69 57 09/04/16 00:00 99.4 84 22 126/67 93 09/03/16 20:00 99.9 98 34 119/66 89 09/03/16 19:50 96 21 09/03/16 19:45 90 23 125/58 95 09/03/16 12:45 92 19 123/58 96 Room Air 09/03/16 12:30 90 27 138/65 98 Room Air 09/03/16 12:15 98.0 93 27 133/60 99 Room Air 09/03/16 10:45 98.3 120 18 125/71 97 Room Air 09/03/16 10:45 98.3 116 18 125/71 99 Room Air 09/03/16 10:30 98.8 110 18 117/62 96 Room Air I/O 09/03/16 09/03/16 09/03/16 09/04/16 09/04/16 09/04/16 07:00 15:00 23:00 07:00 15:00 23:00 Intake Total 730 ml 366 ml 730 ml Output Total 1 ml Balance 730 ml 366 ml 729 ml Intake Oral 0 ml 0 ml IV Total 330 ml 366 ml 730 ml Packed Cells 300 ml Other 100 ml Output Stool Total 1 ml # Voids 2 2 2 Laboratory Laboratory Tests Test 09/04/16 05:25 White Blood Count 20.9 Red Blood Count 3.14 Hemoglobin 8.6 Hematocrit 26.4 Mean Corpuscular Volume 84.0 Mean Corpuscular Hemoglobin 27.4 Mean Corpuscular Hemoglobin 32.6 Concent Red Cell Distribution Width 15.7 Platelet Count 312 Mean Platelet Volume 10.0 Neutrophils (%) (Auto) 85.7 Lymphocytes (%) (Auto) 6.3 Monocytes (%) (Auto) 6.6 Eosinophils (%) (Auto) 0.6 Basophils (%) (Auto) 0.8 Neutrophils # (Auto) 17.9 Lymphocytes # (Auto) 1.3 Monocytes # (Auto) 1.4 Eosinophils # (Auto) 0.1 Basophils # (Auto) 0.2 CBC Comment AUTO DIFF Differential Comment AUTO DIFF CONFIRMED Ovalocytes 1+ Sodium Level 144 Potassium Level 4.4 Chloride Level 112 Carbon Dioxide Level 22.8 Anion Gap 9 Blood Urea Nitrogen 44 Creatinine 1.48 Estimat Glomerular Filtration 46 Rate Random Glucose 151 Calcium Level 8.8 Physical Exam General: NAD, AAOx3 HEENT: Pale conjunctiva CHEST: CTA CARDIAC: Irregular ABDOMEN: +BS, soft, nondistended, nontender EXTREMITIES: No clubbing, cyanosis, or edema. 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 (Yenny Troncoso) Assessment and Plan Plan ASSESSMENT: - Anemia/UGI bleed/PUD. Pt was admitted with one reported episode of regurgitation/cough with reported coffee-ground emesis. H/H at admission was H/ H 7.4/23.0. Pt was transfused with 2 units PRBCs. H/H is improved today to 8.6/26.4. EGD ( 09/03) --> a large deep ulcer on the lesser curve mostly towards the antrum there was a large clot inside the ulcer which had raised edges the clot was removed but still couldn't see clearly the base of the ulcer this was diffusely infiltrated with epinephrine and cauterized. Biopsies were taken from the edges and are pending. This is concerning to a degree for a malignancy the antrum was unremarkable. Protonix gtt. - Diarrhea x 1 month- This is 2-3 times daily, loose, watery. Stool studies are ordered. No diarrhea since admission. May have been related to GIB vs. infectious vs. other. - Leukocytosis- increasing, possibly reactive. - Acute kidney failure - HTN, DM, A. fib on ASA per attending Plan: - Ok for trial of liquids today - Protonix gtt. - Await pathology from EGD - Stool studies ordered if pt has any further diarrhea. - If diarrhea resumes and stool studies are negative, consider colonoscopy - Pt is stable from a GI standpoint for transfer to the floor. - Monitor HH - Transfuse as needed - Supportive care - Patient seen and examined by myself and Dr. Zamorano and this note is written on his behalf (Yenny Troncoso) Physician Comments Seen and examined, plan as above, will start clear liquid diet and follow. Follow HH and continue PPI, will check biopsy results. Further recommendations to follow. (Otilia Zamorano MD) Yenny Troncoso September 04, 2016 10:03 Otilia Zamorano MD September 04, 2016 12:01
[2016-09-04] MEDS: cloNIDine HCL 0.1 MG TAB PO PRN (11:15)
--- NOTE | 2016-09-04 12:50 | HHI.PR ---
Subjective Remarks Pt noted tarry stool. Pt tolerating liquid diet. Objective Vitals Vital Signs Date Time Temp Pulse Resp B/P Pulse Ox O2 Delivery O2 Flow Rate FiO2 09/04/16 10:00 88 09/04/16 08:57 93 Nasal Cannula 1.00 09/04/16 08:00 101 09/04/16 08:00 98.5 101 20 162/77 95 09/04/16 04:00 99.2 103 32 135/69 57 09/04/16 00:00 99.4 84 22 126/67 93 09/03/16 20:00 99.9 98 34 119/66 89 09/03/16 19:50 96 21 09/03/16 19:45 90 23 125/58 95 09/03/16 09/03/16 09/04/16 15:00 23:00 07:00 Intake Total 730 ml 366 ml 730 ml Output Total 1 ml Balance 730 ml 366 ml 729 ml Intake Oral 0 ml 0 ml IV Total 330 ml 366 ml 730 ml Packed Cells 300 ml Other 100 ml Output Stool Total 1 ml # Voids 2 2 2 Result Diagram: 09/04/1652409/04/16524 Objective Remarks GENERAL: This is a well-nourished, well-developed patient, in no apparent distress. CARDIOVASCULAR: Regular rate and rhythm without murmurs, gallops, or rubs. RESPIRATORY: Clear to auscultation. Breath sounds equal bilaterally. No wheezes , rales, or rhonchi. GASTROINTESTINAL: Abdomen soft, non-tender, nondistended. Normal active bowel sounds MUSCULOSKELETAL: Extremities without clubbing, cyanosis, or edema. NEURO: Alert & Oriented x4 to person, place, time, situation. Moves all ext x4 A/P Problem List: (1) Anemia Status: Acute Plan: - Pt is an 81 y/o male who presented to the ED after an episode of regurgitation with some bloody emesis and a one month hx of diarrhea. - He was prescribed Flagyl as an outpt had not started taking this. - He was also told at that time that his blood count was low (Hgb 9.4/Hct 30.2) and was scheduled to see GI - Labs at admission revealed that his H/H had decreased further to H/H 7.4/ 23.0. - Pt received 2 units PRBCs. - Pt has been seen by GI and underwent evaluation with EGD (09/03) which noted a large deep ulcer on the lesser curve mostly towards the antrum there was a large clot inside the ulcer which had raised edges the clot was removed but still couldn't see clearly the base of the ulcer this was diffusely infiltrated with epinephrine and cauterized. Biopsies were taken from the edges. This is concerning to a degree for a malignancy the antrum was unremarkable - Await pathology - Hg improved following 2 units PRBC 7.4 (09/03/16), 8.6 (09/04/16) - IV Protonix BID - trial of full liquid diet - transfer to general medical floor with telemetry - Supportive care - DVT prophylaxis with SCDs (2) Leukocytosis Status: Acute Plan: - likely reactive - NO fever - obtain UA/Cx - obtain CXR - repeat CBC in AM (3) UGI bleed Status: Acute Plan: - See above. (4) Diarrhea Status: Chronic Plan: - See above. - Stool studies ordered - GI following - May consider Colonoscopy if stool studies are negative. (5) A-fib Status: Chronic Plan: - Cont. Metoprolol 25mg po BID - ASA on hold for now. - Telemetry (6) Diabetes mellitus Status: Chronic Plan: - Hold OHA - NovoLog SSI - Accu checks (7) HTN (hypertension) Status: Chronic Plan: - Home meds resumed except Lisinopril was held for ADRI - Monitor BP - Clonidine PRN (8) Acute kidney injury superimposed on chronic kidney disease Status: Acute Plan: - Pt with some ADRI possibly related to hypovolemia/dehydration with pts reported diarrhea - IVF - Monitor labs (9) Diastolic CHF, chronic Status: Chronic Problem Qualifiers (1) Anemia: (2) Leukocytosis: Qualified Code: D72.829 - Leukocytosis, unspecified type (3) Diabetes mellitus: Norberto Bradford DO September 04, 2016 12:50
--- NOTE | 2016-09-04 13:26 | RADRPT ---
EXAM DATE/TIME: 09/04/2016 12:55 [facility] COMPARISON: CHEST PA & LAT, May 16, 2016, 5:54. INDICATIONS : Cough. MEDICAL HISTORY : Hypertension. Atrial fibrillation. Gout. Diabetes. SURGICAL HISTORY : Hernia repair. ENCOUNTER: Subsequent ACUITY: 2 days PAIN SCORE: 0/10 LOCATION: Bilateral chest FINDINGS: 2 AP views of the chest demonstrate a normal-sized cardiac silhouette. Lungs are mildly underinflated . Linear opacity at the right lung base has an appearance favoring atelectasis. No effusion, consolid ation, or pneumothorax is visualized. There are degenerative changes of the thoracic spine. 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 CONCLUSION: 1. No acute cardiopulmonary abnormality is identified. There is mild atelectasis at the right lung ba se. 2. 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 Mason Bellamy MD on September 04, 2016 at 13:23 Board Certified Radiologist. This report was verified electronically.
--- NOTE | 2016-09-04 16:52 | EKG ---
Date Performed: 09/03/2016 Time Performed: 17:13:01 PTAGE: 81 years EKG: SINUS TACHYCARDIA WITH OCCASIONAL SUPRAVENTRICULAR PREMATURE COMPLEXES NONSPECIFIC ST & T-W AVE ABNORMALITY ABNORMAL RHYTHM ECG Since PREVIOUS TRACING 05/16/2016, the PACs are new, ST-T changes are slightly more prominent. PREVIOUS TRACIN05/16/2016 05.41 DOCTOR: Chidi Dunlap Interpretating Date/Time 09/04/2016 16:50:39
[2016-09-04] MEDS: PANTOPRAZOLE SODIUM 40 MG VIAL IV PUSH SCH (18:08)
[2016-09-04 19:24] LABS: BLOOD, URINE TRACE (NEG); COMMENT (UR) CULT NOT INDICATED; CULTURE IF INDICATED CULT NOT INDICATED; GLUCOSE,URINE NEG (NEG); HYALINE CAST, URINE 3 /lpf (RARE); KETONE, URINE TRACE mg/dL (NEG); MUCUS URINE FEW /lpf (OCC); NITRITE,URINE NEG (NEG); PH, URINE 5.5 (5.0-8.5); SQUAMOUS EPITHELIAL CELL URINE <1 /hpf (0-5); URINE COLOR YELLOW (YELLW/STRAW)
[2016-09-04] MEDS: ATORVASTATIN 40 MG TAB PO SCH (19:44)
[2016-09-04] MEDS ORDERED: PANTOPRAZOLE SOD 40 MG DELAYED RELEASE TAB PO SCH (21:00)
[2016-09-05] VITALS (8 sets, daily range): BP systolic 118–160; BP diastolic 60–78; PULSE 75–95; RESP 17–20; TEMP 97.9–99.8; O2SAT 93–95
[2016-09-05] MEDS: PANTOPRAZOLE SODIUM 40 MG VIAL IV PUSH SCH ×2 (04:59→15:52)
[2016-09-05 06:03] LABS: AUTOMATED NEUTROPHIL # 15.4 TH/MM3 (1.8-7.7); BASOPHIL # 0.1 TH/MM3 (0-0.2); BASOPHIL % 0.5 % (0.0-2.0); EOSINOPHIL # 0.5 TH/MM3 (0-0.4); EOSINOPHIL % 2.5 % (0.0-4.0); HEMATOCRIT 23.9 % (39.0-51.0); HEMO FLAGS DIFF FINAL; LYMPHOCYTE # 1.5 TH/MM3 (1.0-4.8); MEAN CELL VOLUME 84.9 FL (80.0-100.0); MEAN CORPUSCULAR HEMOGLOBIN 27.7 PG (27.0-34.0); MEAN CORPUSCULAR HGB CONC 32.7 % (32.0-36.0); MONO % 7.2 % (0.0-8.0); NEUT % 81.8 % (16.0-70.0); PLATELET COUNT 264 TH/MM3 (150-450); RED BLOOD COUNT 2.82 MIL/MM3 (4.50-5.90); RED CELL DISTRIBUTION WIDTH 15.3 % (11.6-17.2); WHITE BLOOD COUNT 18.8 TH/MM3 (4.0-11.0)
[2016-09-05] MEDS: INSULIN ASPART SUPPLEMENTAL SCALE SQ SCH ×4 (06:10→19:48)
[2016-09-05 06:44] LABS: MAGNESIUM 1.9 MG/DL (1.5-2.5); POTASSIUM 3.9 MEQ/L (3.5-5.1)
[2016-09-05] MEDS: METOPROLOL TARTRATE 25 MG TAB PO SCH ×2 (09:42→19:44)
[2016-09-05] MEDS: ALLOPURINOL 100 MG TAB PO SCH (09:42)
[2016-09-05] MEDS: SODIUM CHLORIDE 0.9% FLUSH 10 ML FLUSH IV FLUSH SCH ×2 (09:43→19:45)
[2016-09-05] MEDS: ONDANSETRON HCL 4 MG/2 ML VIAL IVP PRN (15:38)
--- NOTE | 2016-09-05 16:28 | HHI.PR ---
Subjective Remarks Pt had nausea which resolved with nausea. Objective Vitals Vital Signs Date Time Temp Pulse Resp B/P Pulse Ox O2 Delivery O2 Flow Rate FiO2 09/05/16 12:00 99.8 85 20 160/67 95 09/05/16 09:38 85 09/05/16 08:00 98.7 95 20 156/78 95 09/05/16 04:00 99.0 84 17 142/71 95 09/05/16 00:00 98.2 80 18 118/68 93 09/04/16 23:33 95 09/04/16 21:52 84 09/04/16 21:15 98.3 70 19 112/68 92 09/04/16 20:03 96 21 09/04/16 20:00 80 09/04/16 20:00 98.2 80 29 125/58 93 09/04/16 18:00 66 09/04/16 09/04/16 09/05/16 15:00 23:00 07:00 Intake Total 2002 ml 240 ml 240 ml Output Total 400 ml 650 ml 850 ml Balance 1602 ml -410 ml -610 ml Intake Oral 1440 ml 240 ml 240 ml IV Total 562 ml Output Urine Total 400 ml 650 ml 850 ml # Bowel Movements 4 0 0 Result Diagram: 09/05/1614 09/05/1614 Objective Remarks GENERAL: This is a well-nourished, well-developed patient, in no apparent distress. CARDIOVASCULAR: Regular rate and rhythm without murmurs, gallops, or rubs. RESPIRATORY: Clear to auscultation. Breath sounds equal bilaterally. No wheezes , rales, or rhonchi. GASTROINTESTINAL: Abdomen soft, non-tender, nondistended. Normal active bowel sounds MUSCULOSKELETAL: Extremities without clubbing, cyanosis, or edema. NEURO: Alert & Oriented x4 to person, place, time, situation. Moves all ext x4 A/P Problem List: (1) Anemia Status: Acute Plan: - Pt is an 81 y/o male who presented to the ED after an episode of regurgitation with some bloody emesis and a one month hx of diarrhea. - He was prescribed Flagyl as an outpt had not started taking this. - He was also told at that time that his blood count was low (Hgb 9.4/Hct 30.2) and was scheduled to see GI - Labs at admission revealed that his H/H had decreased further to H/H 7.4/ 23.0. - Pt received 2 units PRBCs. - Pt has been seen by GI and underwent evaluation with EGD (09/03) which noted a large deep ulcer on the lesser curve mostly towards the antrum there was a large clot inside the ulcer which had raised edges the clot was removed but still couldn't see clearly the base of the ulcer this was diffusely infiltrated with epinephrine and cauterized. Biopsies were taken from the edges. This is concerning to a degree for a malignancy the antrum was unremarkable - Await pathology - Hg improved following 2 units PRBC 7.4 (09/03/16), 8.6 (09/04/16), 7.8 () - IV Protonix BID - trial ADA diet - Supportive care - DVT prophylaxis with SCDs (2) Leukocytosis Status: Acute Plan: - likely reactive - Tmax = 99.8 (12PM 09/05/16) - UA --> negative - CXR (09/04/16) --> NO infiltrate - repeat CBC in AM (3) UGI bleed Status: Acute Plan: - See above. (4) Diarrhea Status: Chronic Plan: - See above. - Stool studies ordered - GI following - May consider Colonoscopy if stool studies are negative. (5) A-fib Status: Chronic Plan: - Cont. Metoprolol 25mg po BID - ASA on hold for now. - Telemetry (6) Diabetes mellitus Status: Chronic Plan: - Hold OHA - NovoLog SSI - Accu checks (7) HTN (hypertension) Status: Chronic Plan: - resume Lisinopril - metoprolol - Monitor BP - Clonidine PRN (8) Acute kidney injury superimposed on chronic kidney disease Status: Acute Plan: - Pt with some ADRI possibly related to hypovolemia/dehydration with pts reported diarrhea - IVF - Monitor labs (9) Diastolic CHF, chronic Status: Chronic Problem Qualifiers (1) Anemia: (2) Leukocytosis: Qualified Code: D72.829 - Leukocytosis, unspecified type (3) Diabetes mellitus: Norberto Bradford DO September 05, 2016 16:28
[2016-09-05] MEDS: LISINOPRIL 20 MG TAB PO SCH (19:44)
[2016-09-05] MEDS: ATORVASTATIN 40 MG TAB PO SCH (19:44)
[2016-09-06] VITALS (7 sets, daily range): BP systolic 109–168; BP diastolic 54–86; PULSE 82–92; RESP 18–20; TEMP 97.6–99.7; O2SAT 94–95
[2016-09-06] MEDS: PANTOPRAZOLE SODIUM 40 MG VIAL IV PUSH SCH ×2 (04:35→16:11)
[2016-09-06] MEDS: INSULIN ASPART SUPPLEMENTAL SCALE SQ SCH ×4 (06:12→21:13)
--- NOTE | 2016-09-06 08:27 | HHI.PR ---
Subjective Remarks doing ok. makenna food. Objective Vitals heart reg lung cta abd s/nt ext no edema Vital Signs Date Time Temp Pulse Resp B/P Pulse Ox O2 Delivery O2 Flow Rate FiO2 09/06/16 04:00 98.4 86 18 164/82 95 09/06/16 00:00 98.2 82 18 166/86 95 09/05/16 20:07 78 09/05/16 20:00 98.1 75 18 122/60 95 09/05/16 16:00 97.9 88 18 147/72 95 09/05/16 12:00 99.8 85 20 160/67 95 09/05/16 09:38 85 09/05/16 09/05/16 09/06/16 15:00 23:00 07:00 Intake Total 1080 ml 240 ml Output Total 1300 ml 850 ml Balance -220 ml -610 ml Intake Oral 1080 ml 240 ml Output Urine Total 1300 ml 850 ml # Voids 1 # Bowel Movements 0 0 Result Diagram: 09/05/1651309/05/16513 A/P Problem List: (1) Anemia Status: Acute Plan: - Pt is an 81 y/o male who presented to the ED after an episode of regurgitation with some bloody emesis and a one month hx of diarrhea. - He was prescribed Flagyl as an outpt had not started taking this. - He was also told at that time that his blood count was low (Hgb 9.4/Hct 30.2) and was scheduled to see GI - Labs at admission revealed that his H/H had decreased further to H/H 7.4/ 23.0. - Pt received 2 units PRBCs. - Pt has been seen by GI and underwent evaluation with EGD (09/03) which noted a large deep ulcer on the lesser curve mostly towards the antrum there was a large clot inside the ulcer which had raised edges the clot was removed but still couldn't see clearly the base of the ulcer this was diffusely infiltrated with epinephrine and cauterized. Biopsies were taken from the edges. This is concerning to a degree for a malignancy the antrum was unremarkable - Await pathology - Hg improved following 2 units PRBC - IV Protonix BID - tolerating diet. resume amaryl. ssi -increase activity. PT . oob. - Supportive care - DVT prophylaxis with SCDs (2) UGI bleed Status: Acute Plan: - See above. (3) Diarrhea Status: Chronic Plan: - See above. - Stool studies ordered - GI following - May consider Colonoscopy if stool studies are negative. (4) A-fib Status: Chronic Plan: - Cont. Metoprolol 25mg po BID - ASA on hold for now. - Telemetry (5) Acute kidney injury superimposed on chronic kidney disease Status: Acute Plan: - Pt with some ADRI possibly related to hypovolemia/dehydration with pts reported diarrhea - IVF (6) Diabetes mellitus Status: Chronic Plan: see above (7) HTN (hypertension) Status: Chronic Plan: bb, liyah. titrate as needed prn clonidine (8) Diastolic CHF, chronic Status: Chronic Problem Qualifiers (1) Anemia: (2) Diabetes mellitus: Chidi Herrera MD September 06, 2016 08:27
[2016-09-06] MEDS: ALLOPURINOL 100 MG TAB PO SCH (09:47)
[2016-09-06] MEDS: METOPROLOL TARTRATE 25 MG TAB PO SCH ×2 (09:47→21:12)
[2016-09-06] MEDS: SODIUM CHLORIDE 0.9% FLUSH 10 ML FLUSH IV FLUSH SCH ×2 (09:47→21:13)
[2016-09-06] MEDS: LISINOPRIL 20 MG TAB PO SCH ×2 (09:47→21:12)
[2016-09-06 11:42] LABS: AUTOMATED NEUTROPHIL # 10.8 TH/MM3 (1.8-7.7); BASOPHIL # 0.1 TH/MM3 (0-0.2); BASOPHIL % 0.7 % (0.0-2.0); EOSINOPHIL # 0.5 TH/MM3 (0-0.4); EOSINOPHIL % 3.4 % (0.0-4.0); HEMATOCRIT 23.3 % (39.0-51.0); HEMO FLAGS DIFF FINAL; LYMPH % 6.9 % (9.0-44.0); LYMPHOCYTE # 0.9 TH/MM3 (1.0-4.8); MEAN CELL VOLUME 84.6 FL (80.0-100.0); MEAN CORPUSCULAR HEMOGLOBIN 27.5 PG (27.0-34.0); MEAN CORPUSCULAR HGB CONC 32.5 % (32.0-36.0); MONO % 8.2 % (0.0-8.0); NEUT % 80.8 % (16.0-70.0); PLATELET COUNT 287 TH/MM3 (150-450); RED BLOOD COUNT 2.76 MIL/MM3 (4.50-5.90); RED CELL DISTRIBUTION WIDTH 15.4 % (11.6-17.2); WHITE BLOOD COUNT 13.3 TH/MM3 (4.0-11.0)
[2016-09-06 12:07] LABS: BICARBONATE 24.6 MEQ/L (21.0-32.0); POTASSIUM 3.8 MEQ/L (3.5-5.1)
[2016-09-06] MEDS: GLIMEPIRIDE 2 MG TAB PO SCH (16:19)
[2016-09-06] MEDS: ATORVASTATIN 40 MG TAB PO SCH (21:12)
[2016-09-06] MEDS: ONDANSETRON HCL 4 MG/2 ML VIAL IVP PRN (21:59)
[2016-09-07] VITALS (8 sets, daily range): BP systolic 126–179; BP diastolic 69–91; PULSE 67–96; RESP 18–20; TEMP 97.1–98.2; O2SAT 93–98
[2016-09-07] MEDS: GLIMEPIRIDE 2 MG TAB PO SCH ×2 (05:22→17:45)
[2016-09-07] MEDS: PANTOPRAZOLE SODIUM 40 MG VIAL IV PUSH SCH ×2 (05:22→17:43)
[2016-09-07] MEDS: INSULIN ASPART SUPPLEMENTAL SCALE SQ SCH ×4 (05:33→20:39)
[2016-09-07] MEDS: cloNIDine HCL 0.1 MG TAB PO PRN (05:42)
[2016-09-07 06:50] LABS: AUTOMATED NEUTROPHIL # 9.2 TH/MM3 (1.8-7.7); BASOPHIL # 0.1 TH/MM3 (0-0.2); BASOPHIL % 0.6 % (0.0-2.0); EOSINOPHIL # 0.4 TH/MM3 (0-0.4); EOSINOPHIL % 3.3 % (0.0-4.0); HEMATOCRIT 23.6 % (39.0-51.0); HEMO FLAGS DIFF FINAL; LYMPHOCYTE # 1.2 TH/MM3 (1.0-4.8); MEAN CELL VOLUME 84.3 FL (80.0-100.0); MEAN CORPUSCULAR HEMOGLOBIN 27.9 PG (27.0-34.0); MEAN CORPUSCULAR HGB CONC 33.1 % (32.0-36.0); MONO % 9.1 % (0.0-8.0); PLATELET COUNT 317 TH/MM3 (150-450); RED CELL DISTRIBUTION WIDTH 15.2 % (11.6-17.2); WHITE BLOOD COUNT 11.9 TH/MM3 (4.0-11.0)
[2016-09-07] MEDS: SODIUM CHLORIDE 0.9% FLUSH 10 ML FLUSH IV FLUSH SCH ×2 (07:53→20:38)
[2016-09-07] MEDS: METOPROLOL TARTRATE 25 MG TAB PO SCH ×2 (07:53→20:34)
[2016-09-07] MEDS: ALLOPURINOL 100 MG TAB PO SCH (07:53)
[2016-09-07] MEDS: LISINOPRIL 20 MG TAB PO SCH ×2 (07:53→20:34)
--- NOTE | 2016-09-07 08:31 | HHI.PR ---
Subjective Remarks says he was up for short period of time yesterday with PT. denies sob or dizziness. Objective Vitals heent neg heart reg lung cta abd s/nt ext no edema Vital Signs Date Time Temp Pulse Resp B/P Pulse Ox O2 Delivery O2 Flow Rate FiO2 09/07/16 04:50 97.7 74 20 179/91 93 09/07/16 00:40 97.1 78 19 152/71 98 09/06/16 21:59 98.6 82 20 112/65 94 09/06/16 16:16 97.6 87 20 109/54 94 09/06/16 12:00 98.5 84 20 114/66 95 09/06/16 08:38 84 09/06/16 09/06/16 09/07/16 15:00 23:00 07:00 Intake Total 480 ml 240 ml 240 ml Output Total 100 ml 400 ml Balance 380 ml -160 ml 240 ml Intake Oral 480 ml 240 ml 240 ml Output Urine Total 100 ml 400 ml # Voids 4 2 # Bowel Movements 0 0 Result Diagram: 09/07/16 0600 09/06/16 1056 A/P Problem List: (1) Anemia Status: Acute Plan: - Pt is an 81 y/o male who presented to the ED after an episode of regurgitation with some bloody emesis and a one month hx of diarrhea. - He was prescribed Flagyl as an outpt had not started taking this. - He was also told at that time that his blood count was low (Hgb 9.4/Hct 30.2) and was scheduled to see GI - Labs at admission revealed that his H/H had decreased further to H/H 7.4/ 23.0. - Pt received 2 units PRBCs. - Pt has been seen by GI and underwent evaluation with EGD (09/03) which noted a large deep ulcer on the lesser curve mostly towards the antrum there was a large clot inside the ulcer which had raised edges the clot was removed but still couldn't see clearly the base of the ulcer this was diffusely infiltrated with epinephrine and cauterized. Biopsies were taken from the edges. This is concerning to a degree for a malignancy the antrum was unremarkable - Await pathology - s/p 2 units PRBC. still anemic. transfuse additional units if symptomatic. - IV Protonix BID - tolerating diet. resumed amaryl. ssi. plan to resume home dm meds on d/c -increase activity. PT . oob. - DVT prophylaxis with SCDs -pt sounds open to snf if needed. (2) UGI bleed Status: Acute Plan: - See above. (3) Diarrhea Status: Chronic Plan: - See above. - Stool studies ordered - GI following - May consider Colonoscopy if stool studies are negative. (4) A-fib Status: Chronic Plan: - Cont. Metoprolol 25mg po BID - ASA on hold for now. - Telemetry (5) Acute kidney injury superimposed on chronic kidney disease Status: Acute Plan: - Pt with some ADRI possibly related to hypovolemia/dehydration with pts reported diarrhea - IVF (6) Diabetes mellitus Status: Chronic Plan: see above (7) HTN (hypertension) Status: Chronic Plan: bb, liyah. titrate as needed prn clonidine (8) Diastolic CHF, chronic Status: Chronic Problem Qualifiers (1) Anemia: (2) Diabetes mellitus: Chidi Herrera MD September 07, 2016 08:31
--- NOTE | 2016-09-07 14:29 | HHI.GIFU ---
Subjective Remarks Pt sitting on edge of bed, no complaints at this time. Pt has not had BM. No diarrhea, n/v, pain. (Geetha Galan) Objective Vitals I&O Vital Signs Date Time Temp Pulse Resp B/P Pulse Ox O2 Delivery O2 Flow Rate FiO2 09/07/16 12:00 97.8 70 18 126/69 97 09/07/16 09:18 70 09/07/16 08:23 97.7 82 18 166/76 94 09/07/16 04:50 97.7 74 20 179/91 93 09/07/16 00:40 97.1 78 19 152/71 98 09/06/16 21:59 98.6 82 20 112/65 94 09/06/16 16:16 97.6 87 20 109/54 94 I/O 09/06/16 09/06/16 09/06/16 09/07/16 09/07/16 09/07/16 07:00 15:00 23:00 07:00 15:00 23:00 Intake Total 240 ml 480 ml 240 ml 240 ml Output Total 850 ml 100 ml 400 ml Balance -610 ml 380 ml -160 ml 240 ml Intake Oral 240 ml 480 ml 240 ml 240 ml Output Urine Total 850 ml 100 ml 400 ml # Voids 4 2 2 # Bowel Movements 0 0 0 0 Laboratory Laboratory Tests Test 09/07/16 06:00 White Blood Count 11.9 Red Blood Count 2.80 Hemoglobin 7.8 Hematocrit 23.6 Mean Corpuscular Volume 84.3 Mean Corpuscular Hemoglobin 27.9 Mean Corpuscular Hemoglobin 33.1 Concent Red Cell Distribution Width 15.2 Platelet Count 317 Mean Platelet Volume 9.5 Neutrophils (%) (Auto) 77.0 Lymphocytes (%) (Auto) 10.0 Monocytes (%) (Auto) 9.1 Eosinophils (%) (Auto) 3.3 Basophils (%) (Auto) 0.6 Neutrophils # (Auto) 9.2 Lymphocytes # (Auto) 1.2 Monocytes # (Auto) 1.1 Eosinophils # (Auto) 0.4 Basophils # (Auto) 0.1 CBC Comment DIFF FINAL Differential Comment Imaging Last Impressions Chest X-Ray 09/04/16 0000 Signed Impressions: Service Date/Time: Sunday, September 04, 2016 12:55 - CONCLUSION: 1. No acute cardiopulmonary abnormality is identified. There is mild atelectasis at the right lung base. 2. 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 Mason Bellamy MD Physical Exam General: NAD, AAOx3 HEENT: Pale conjunctiva CHEST: CTA CARDIAC: Irregular ABDOMEN: +BS, soft, nondistended, nontender EXTREMITIES: No clubbing, cyanosis, or edema. CAD DRAFTER: No focal deficits; alert and oriented times three. (Geetha Galan) Assessment and Plan Plan ASSESSMENT: - Anemia/UGI bleed/PUD. Pt was admitted with one reported episode of regurgitation/cough with reported coffee-ground emesis. H/H at admission was H/ H 7.4/23.0. Pt was transfused with 2 units PRBCs. HH 5-30 7.8, 23.6. EGD (09/03) --> a large deep ulcer on the lesser curve mostly towards the antrum there was a large clot inside the ulcer which had raised edges the clot was removed but still couldn't see clearly the base of the ulcer this was diffusely infiltrated with epinephrine and cauterized. Biopsies were taken from the edges and are pending. This is concerning to a degree for a malignancy the antrum was unremarkable. Protonix gtt. - Diarrhea x 1 month- This is 2-3 times daily, loose, watery. Stool studies are ordered. No diarrhea since admission. May have been related to GIB vs. infectious vs. other. - Leukocytosis- increasing, possibly reactive. - Acute kidney failure - HTN, DM, A. fib on ASA per attending Plan: - DARION - Protonix gtt. - Await pathology from EGD - Stool studies ordered if pt has any further diarrhea. - If diarrhea resumes and stool studies are negative, consider colonoscopy - Monitor HH - Transfuse as needed - Supportive care - Patient seen and examined by myself and Dr. Zamorano and this note is written on his behalf (Geetha Galan) Physician Comments Seen and examined, plan as above, await biopsy results prior to any further recommendations. (Otilia Zamorano MD) Geetha Galan September 07, 2016 14:29 Otilia Zamorano MD September 07, 2016 15:25
[2016-09-07] MEDS: ATORVASTATIN 40 MG TAB PO SCH (20:34)
[2016-09-08] VITALS (7 sets, daily range): BP systolic 106–147; BP diastolic 56–74; PULSE 72–96; RESP 16–20; TEMP 96.6–97.7; O2SAT 96–97
[2016-09-08] MEDS: PANTOPRAZOLE SODIUM 40 MG VIAL IV PUSH SCH ×2 (05:25→17:37)
[2016-09-08] MEDS: GLIMEPIRIDE 2 MG TAB PO SCH ×2 (05:26→17:37)
[2016-09-08] MEDS: INSULIN ASPART SUPPLEMENTAL SCALE SQ SCH ×4 (05:27→21:44)
[2016-09-08] MEDS: ALLOPURINOL 100 MG TAB PO SCH (08:10)
[2016-09-08] MEDS: METOPROLOL TARTRATE 25 MG TAB PO SCH ×2 (08:10→21:37)
[2016-09-08] MEDS: SODIUM CHLORIDE 0.9% FLUSH 10 ML FLUSH IV FLUSH SCH ×2 (08:10→21:38)
[2016-09-08] MEDS: LISINOPRIL 20 MG TAB PO SCH ×2 (08:10→21:37)
[2016-09-08 09:30] LABS: HEMATOCRIT 24.5 % (39.0-51.0); REVIEW FLAG FINAL
--- NOTE | 2016-09-08 12:04 | HHI.GIFU ---
Subjective Remarks Pt OOB to chair. No n/v, pain. (Geetha Galan) Objective Vitals I&O Vital Signs Date Time Temp Pulse Resp B/P Pulse Ox O2 Delivery O2 Flow Rate FiO2 09/08/16 11:52 97.2 80 20 143/70 96 09/08/16 07:50 96.7 86 20 147/70 96 09/08/16 04:00 97.4 83 20 139/72 97 09/08/16 00:00 97.6 96 20 120/69 96 09/07/16 20:15 91 09/07/16 20:00 97.8 96 20 139/69 95 09/07/16 16:00 98.2 67 18 126/72 94 09/07/16 12:00 97.8 70 18 126/69 97 I/O 09/07/16 09/07/16 09/07/16 09/08/16 09/08/16 09/08/16 07:00 15:00 23:00 07:00 15:00 23:00 Intake Total 240 ml 960 ml 240 ml 220 ml Output Total 200 ml 600 ml Balance 240 ml 960 ml 40 ml -380 ml Intake Oral 240 ml 960 ml 240 ml 220 ml Output Urine Total 200 ml 600 ml # Voids 2 3 # Bowel Movements 0 0 1 4 Laboratory Laboratory Tests Test 09/08/16 08:30 Hemoglobin 7.9 Hematocrit 24.5 Imaging Last Impressions Chest X-Ray 09/04/16 0000 Signed Impressions: Service Date/Time: Sunday, September 04, 2016 12:55 - CONCLUSION: 1. No acute cardiopulmonary abnormality is identified. There is mild atelectasis at the right lung base. 2. 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 Mason Bellamy MD Physical Exam General: NAD, AAOx3 HEENT: Pale conjunctiva CHEST: CTA CARDIAC: Irregular ABDOMEN: +BS, soft, nondistended, nontender EXTREMITIES: No clubbing, cyanosis, or edema. 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 (Geetha Galan) Assessment and Plan Plan ASSESSMENT: - Anemia/UGI bleed/PUD. Pt was admitted with one reported episode of regurgitation/cough with reported coffee-ground emesis. H/H at admission was H/ H 7.4/23.0. Pt was transfused with 2 units PRBCs. HH 09-08 7.9, 24.5. EGD (09/03) --> a large deep ulcer on the lesser curve mostly towards the antrum there was a large clot inside the ulcer which had raised edges the clot was removed but still couldn't see clearly the base of the ulcer this was diffusely infiltrated with epinephrine and cauterized. Biopsies were taken from the edges and neg for dysplasia, intestinal metaplasia but + H pylori. Protonix gtt. - Diarrhea x 1 month- This is 2-3 times daily, loose, watery. Stool studies are ordered. No diarrhea since admission. May have been related to GIB vs. infectious vs. other. - Leukocytosis- increasing, possibly reactive. - Acute kidney failure - HTN, DM, A. fib on ASA per attending Plan: - amoxicillin 1g BID 10d - clarithromycin 500mg BID 10d - DRAION - Protonix gtt. - Stool studies ordered if pt has any further diarrhea. - Monitor HH - Transfuse as needed - Supportive care - Patient seen and examined by myself and Dr. Zamorano and this note is written on his behalf (Geetha Galan) Physician Comments Seen and examined, plan as above. Will sign off for now, please notify us if needed. (Otilia Zamorano MD) Geetha Galan September 08, 2016 12:04 Otilia Zamorano MD September 08, 2016 12:13
--- NOTE | 2016-09-08 19:22 | HHI.PR ---
Subjective Remarks had bm. dark stool per RN denies dizziness or lh or sob Objective Vitals heent neg heart reg lng cta abd s/nt ext no edema Vital Signs Date Time Temp Pulse Resp B/P Pulse Ox O2 Delivery O2 Flow Rate FiO2 09/08/16 15:50 96.6 72 20 106/56 97 09/08/16 11:52 97.2 80 20 143/70 96 09/08/16 08:17 78 09/08/16 07:50 96.7 86 20 147/70 96 09/08/16 04:00 97.4 83 20 139/72 97 09/08/16 00:00 97.6 96 20 120/69 96 09/07/16 20:15 91 09/07/16 20:00 97.8 96 20 139/69 95 09/07/16 09/07/16 09/08/16 15:00 23:00 07:00 Intake Total 960 ml 240 ml 220 ml Output Total 200 ml 600 ml Balance 960 ml 40 ml -380 ml Intake Oral 960 ml 240 ml 220 ml Output Urine Total 200 ml 600 ml # Voids 3 # Bowel Movements 0 1 4 Result Diagram: 09/08/16 0830 09/06/16 1056 A/P Problem List: (1) Anemia Status: Acute Plan: - Pt is an 81 y/o male who presented to the ED after an episode of regurgitation with some bloody emesis and a one month hx of diarrhea. - He was prescribed Flagyl as an outpt had not started taking this. - He was also told at that time that his blood count was low (Hgb 9.4/Hct 30.2) and was scheduled to see GI - Labs at admission revealed that his H/H had decreased further to H/H 7.4/ 23.0. - Pt received 2 units PRBCs. - Pt has been seen by GI and underwent evaluation with EGD (09/03) which noted a large deep ulcer on the lesser curve mostly towards the antrum there was a large clot inside the ulcer which had raised edges the clot was removed but still couldn't see clearly the base of the ulcer this was diffusely infiltrated with epinephrine and cauterized. Biopsies were taken from the edges. This is concerning to a degree for a malignancy the antrum was unremarkable -pathology shows no malignancy and only H pylori - Triple therapy started for H. pylori -Check h/h in AM and if stable d/c to snf -discussed plan with POA who agrees f/u with GI for probably repeat egd 2 months - s/p 2 units PRBC. still anemic. transfuse additional units if symptomatic. - Protonix BID - tolerating diet. resumed amaryl. but will increase. ssi. plan to resume home dm meds on d/c -increase activity. PT . oob. - DVT prophylaxis with SCDs (2) UGI bleed Status: Acute Plan: - See above. (3) Diarrhea Status: Chronic Plan: - See above. - Stool studies ordered - GI following - May consider Colonoscopy if stool studies are negative. (4) A-fib Status: Chronic Plan: - Cont. Metoprolol 25mg po BID - ASA on hold for now. - Telemetry (5) Acute kidney injury superimposed on chronic kidney disease Status: Acute Plan: - Pt with some ADRI possibly related to hypovolemia/dehydration with pts reported diarrhea - IVF (6) Diabetes mellitus Status: Chronic Plan: see above (7) HTN (hypertension) Status: Chronic Plan: bb, liyah. titrate as needed prn clonidine (8) Diastolic CHF, chronic Status: Chronic Problem Qualifiers (1) Anemia: (2) Diabetes mellitus: Chidi Herrera MD September 08, 2016 19:22
[2016-09-08] MEDS: CLARITHROMYCIN 500 MG TAB PO SCH (21:37)
[2016-09-08] MEDS: ATORVASTATIN 40 MG TAB PO SCH (21:37)
[2016-09-08] MEDS: AMOXICILLIN (TRIHYDRATE) 500 MG CAP PO SCH (21:37)
[2016-09-09] VITALS (8 sets, daily range): BP systolic 118–143; BP diastolic 56–76; PULSE 81–108; RESP 16–20; TEMP 96.7–98.6; O2SAT 94–99
[2016-09-09] MEDS: PANTOPRAZOLE SODIUM 40 MG VIAL IV PUSH SCH ×2 (05:28→18:02)
[2016-09-09] MEDS: INSULIN ASPART SUPPLEMENTAL SCALE SQ SCH ×4 (05:28→21:02)
[2016-09-09] MEDS: GLIMEPIRIDE 4 MG TAB PO SCH ×2 (05:28→18:02)
[2016-09-09 07:35] LABS: HEMATOCRIT 26.6 % (39.0-51.0); REVIEW FLAG FINAL
--- NOTE | 2016-09-09 08:00 | HHI.PR ---
Subjective Remarks no bleeding eating breakfast denies symptoms of anemia Objective Vitals heart reg lung cta abd s/nt ext no edema Vital Signs Date Time Temp Pulse Resp B/P Pulse Ox O2 Delivery O2 Flow Rate FiO2 09/09/16 04:00 97.8 81 16 143/74 99 09/09/16 00:00 97.9 83 16 128/76 94 09/08/16 20:00 97.7 88 16 135/74 97 09/08/16 20:00 82 09/08/16 15:50 96.6 72 20 106/56 97 09/08/16 11:52 97.2 80 20 143/70 96 09/08/16 08:17 78 09/08/16 09/08/16 09/09/16 15:00 23:00 07:00 Intake Total 480 ml 480 ml 360 ml Output Total 100 ml 600 ml 600 ml Balance 380 ml -120 ml -240 ml Intake Oral 480 ml 480 ml 360 ml Output Urine Total 100 ml 600 ml 600 ml # Voids 2 # Bowel Movements 0 Result Diagram: 09/09/16 0622 09/06/16 1056 A/P Problem List: (1) Anemia Status: Acute Plan: - Pt is an 81 y/o male who presented to the ED after an episode of regurgitation with some bloody emesis and a one month hx of diarrhea. - He was prescribed Flagyl as an outpt had not started taking this. - He was also told at that time that his blood count was low (Hgb 9.4/Hct 30.2) and was scheduled to see GI - Labs at admission revealed that his H/H had decreased further to H/H 7.4/ 23.0. - Pt received 2 units PRBCs. - Pt has been seen by GI and underwent evaluation with EGD (09/03) which noted a large deep ulcer on the lesser curve mostly towards the antrum there was a large clot inside the ulcer which had raised edges the clot was removed but still couldn't see clearly the base of the ulcer this was diffusely infiltrated with epinephrine and cauterized. Biopsies were taken from the edges. This is concerning to a degree for a malignancy the antrum was unremarkable -pathology shows no malignancy and only H pylori - Triple therapy started for H. pylori h/h stable. -discussed plan with POA who agrees f/u with GI for probably repeat egd 2 months - s/p 2 units PRBC. still anemic. transfuse additional units if symptomatic. - Protonix BID - tolerating diet. resumed amaryl. but will increase. ssi. plan to resume home dm meds on d/c -increase activity. PT . oob. - DVT prophylaxis with SCDs dc to snf today. (2) UGI bleed Status: Acute Plan: - See above. (3) Diarrhea Status: Chronic Plan: - See above. - Stool studies ordered - GI following - May consider Colonoscopy if stool studies are negative. (4) A-fib Status: Chronic Plan: - Cont. Metoprolol 25mg po BID - ASA on hold for now. - Telemetry (5) Acute kidney injury superimposed on chronic kidney disease Status: Acute Plan: - Pt with some ADRI possibly related to hypovolemia/dehydration with pts reported diarrhea - IVF (6) Diabetes mellitus Status: Chronic Plan: see above (7) HTN (hypertension) Status: Chronic Plan: bb, liyah. titrate as needed prn clonidine (8) Diastolic CHF, chronic Status: Chronic Problem Qualifiers (1) Anemia: (2) Diabetes mellitus: Chidi Herrera MD Sep 09, 2016 08:00
[2016-09-09] MEDS ORDERED: LISI-515 PO (08:04)
[2016-09-09] MEDS ORDERED: CLAR500T PO (08:04)
[2016-09-09] MEDS ORDERED: PROT40TA PO (08:04)
[2016-09-09] MEDS ORDERED: AMOX500C PO (08:04)
--- NOTE | 2016-09-09 08:04 | HHI.DCPOC ---
Discharge Care Plan Diagnosis: (1) H pylori ulcer (2) UGI bleed (3) Anemia (4) CKD (chronic kidney disease) stage 3, GFR 30-59 ml/min (5) Diabetes mellitus (6) A-fib (7) HTN (hypertension) (8) Diastolic CHF, chronic Goals to Promote Your Health * To prevent worsening of your condition and complications * To maintain your health at the optimal level Directions to Meet Your Goals Take your medications as prescribed Follow your dietary instruction Follow activity as directed Keep your appointments as scheduled Take your immunizations and boosters as scheduled If your symptoms worsen call your PCP, if no PCP go to Urgent Care Center or Emergency Room Smoking is Dangerous to Your Health. Avoid second hand smoke Call the 24-hour hour crisis hotline for domestic abuse at Chidi Herrera MD Sep 09, 2016 08:04
[2016-09-09] MEDS: AMOXICILLIN (TRIHYDRATE) 500 MG CAP PO SCH ×2 (08:41→20:52)
[2016-09-09] MEDS: SODIUM CHLORIDE 0.9% FLUSH 10 ML FLUSH IV FLUSH SCH ×2 (08:41→20:52)
[2016-09-09] MEDS: LISINOPRIL 20 MG TAB PO SCH ×2 (08:41→20:52)
[2016-09-09] MEDS: METOPROLOL TARTRATE 25 MG TAB PO SCH ×2 (08:41→20:52)
[2016-09-09] MEDS: CLARITHROMYCIN 500 MG TAB PO SCH ×2 (08:41→20:51)
[2016-09-09] MEDS: ALLOPURINOL 100 MG TAB PO SCH (08:41)
[2016-09-09] MEDS: ATORVASTATIN 40 MG TAB PO SCH (20:52)
[2016-09-10] VITALS: BP 129/71; PULSE 94; RESP 18; TEMP 96.3; O2SAT 98
[2016-09-10 04:00] VITALS: BP 136/65; PULSE 77; RESP 16; TEMP 97.7; O2SAT 97
[2016-09-10] MEDS: PANTOPRAZOLE SODIUM 40 MG VIAL IV PUSH SCH ×2 (05:57→16:14)
[2016-09-10] MEDS: INSULIN ASPART SUPPLEMENTAL SCALE SQ SCH ×3 (06:01→16:00)
--- NOTE | 2016-09-10 07:53 | HHI.DS ---
Discharge Summary Admission Date September 03, 2016 at 10:12 Discharge Date: Sep 10, 2016 Admitting Diagnosis UGIB, Acute Anemia (1) H pylori ulcer Diagnosis: Principal (2) Anemia Diagnosis: Principal (3) UGI bleed Diagnosis: Principal (4) Diarrhea Diagnosis: Principal (5) A-fib (6) Acute kidney injury superimposed on chronic kidney disease Diagnosis: Principal (7) Diabetes mellitus Diagnosis: Secondary (8) HTN (hypertension) Diagnosis: Secondary (9) Diastolic CHF, chronic Diagnosis: Secondary Brief History Mr. Jo is an 81 y/o male with A. fib on ASA, diabetes, HTN, CKD, stage 3, and chronic diastolic CHF who presented to the ED at [facility] on 09/03/16 for reported hematemesis. Patient reportedly woke up this morning around 6AM to use the bathroom and felt dizzy. He then had an episode of regurgitation with some bloody emesis noted. This occurred only once. He denies any previous similar episodes. There was no reported abdominal pain, GERD, melena or hematochezia. He does report that he has been having issues with diarrhea for the last month. He reports that this seems to occur after food intake, around 15 minutes later he will have a loose watery stool. This occurs 2-3 times daily. He denies sick contact, suspicious foods, or recent travel. He was seen by his PCP, Dr. Rivera , a few days ago regarding this and stool studies were ordered but pt had not done this yet. He was prescribed Flagyl as well but he had not started taking this. He was also told at that time that his blood count was low (Hgb 9.4/Hct 30.2) and was scheduled to see GI in September. He takes ASA daily but no other NSAIDs reported. Denies any alcohol use. He never had EGD/colonoscopy before. Labs at admission revealed that his H/H had decreased further to H/H 7.4/23.0. He is receiving blood transfusion. Pt has been seen by GI and underwent evaluation with EGD (09/03) which noted a large antral ulcer, biopsies taken and incomplete evaluation of the stomach. CBC/BMP: 09/09/16 0622 09/06/16 1056 Significant Findings Laboratory Tests Test 09/08/16 09/09/16 08:30 06:22 Hemoglobin 7.9 GM/DL 8.3 GM/DL (13.0-17.0) (13.0-17.0) Hematocrit 24.5 % 26.6 % (39.0-51.0) (39.0-51.0) Hospital Course - Pt is an 81 y/o male who presented to the ED after an episode of regurgitation with some bloody emesis and a one month hx of diarrhea. - He was prescribed Flagyl as an outpt had not started taking this. - He was also told at that time that his blood count was low (Hgb 9.4/Hct 30.2) and was scheduled to see GI - Labs at admission revealed that his H/H had decreased further to H/H 7.4/ 23.0. - Pt received 2 units PRBCs. - Pt has been seen by GI and underwent evaluation with EGD (09/03) which noted a large deep ulcer on the lesser curve mostly towards the antrum there was a large clot inside the ulcer which had raised edges the clot was removed but still couldn't see clearly the base of the ulcer this was diffusely infiltrated with epinephrine and cauterized. Biopsies were taken from the edges. This is concerning to a degree for a malignancy the antrum was unremarkable -pathology shows no malignancy and only H pylori - Triple therapy started for H. pylori -h/h stable. -discussed plan with POA who agrees -f/u with GI for probably repeat egd 2 months - s/p 2 units PRBC. still anemic. transfuse additional units if symptomatic. - Protonix BID -dc to snf today. Chidi Herrera MD Sep 09, 2016 08:00 Pt Condition on Discharge: Stable Discharge Disposition: Discharge to SNF Discharge Instructions DIET: Follow Instructions for: Diabetic Diet Activities you can perform: Regular-No Restrictions Follow up Referrals: Gastroenterology - 2 Weeks @ [facility] New Medications: Pantoprazole (Protonix) 40 Mg Tab 40 MG PO BID ulcer #60 Ref 0 TAB Amoxicillin (Amoxicillin) 500 Mg Cap 1000 MG PO BID Infection Days 10 CAP Clarithromycin (Clarithromycin) 500 Mg Tab 500 MG PO Q12HR Infection Days 10 TAB Lisinopril (Lisinopril) 20 Mg Tab 20 MG PO Q12HR hold for sbp less 110 htn #0 TAB Continued Medications: Allopurinol (Allopurinol) 100 Mg Tab 100 MG PO DAILY Gout #30 Ref 0 TAB Atorvastatin (Atorvastatin) 40 Mg Tab 40 MG PO HS Cholesterol Management #30 Ref 0 TAB Glimepiride (Glimepiride) 2 Mg Tab 4 MG PO DAILY Take with breakfast or first main meal Blood Sugar Management #30 Ref 0 TAB Linagliptin (Tradjenta) 5 Mg Tab 5 MG PO DAILY Blood Sugar Management #30 Ref 0 TAB Memantine (Namenda) 10 Mg Tab 10 MG PO DAILY Alzheimer Disease #30 Ref 0 TAB Metoprolol Tartrate (Metoprolol Tartrate) 25 Mg Tab 25 MG PO BID #60 Ref 0 TAB Discontinued Medications: Aspirin DR (Enteric Coated Aspirin) 325 Mg Tabdr 81 MG PO DAILY Ref 0 TAB Hydrochlorothiazide (Hydrochlorothiazide) 25 Mg Tab 25 MG PO DAILY #30 Ref 0 TAB Ketoconazole Topical (Ketoconazole Topical) 2% Cream 1 APPLIC TOPICAL BID Fungal Infection #15 Ref 0 GM Lisinopril (Lisinopril) 40 Mg Tab 40 MG PO BID Blood Pressure Management #30 Ref 0 TAB Metformin (Metformin) 500 Mg Tab 1000 MG PO BIDPC With meals Blood Sugar Management #60 Ref 0 TAB Chidi Herrera MD Sep 10, 2016 07:53
[2016-09-10 08:00] VITALS: BP 142/60; PULSE 98; RESP 16; TEMP 97.6; O2SAT 95
[2016-09-10 08:08] VITALS: PULSE 109
[2016-09-10] MEDS: ALLOPURINOL 100 MG TAB PO SCH (08:35)
[2016-09-10] MEDS: AMOXICILLIN (TRIHYDRATE) 500 MG CAP PO SCH (08:35)
[2016-09-10] MEDS: LISINOPRIL 20 MG TAB PO SCH (08:35)
[2016-09-10] MEDS: METOPROLOL TARTRATE 25 MG TAB PO SCH (08:35)
[2016-09-10] MEDS: GLIMEPIRIDE 4 MG TAB PO SCH ×2 (08:35→17:18)
[2016-09-10] MEDS: CLARITHROMYCIN 500 MG TAB PO SCH (08:35)
[2016-09-10] MEDS: SODIUM CHLORIDE 0.9% FLUSH 10 ML FLUSH IV FLUSH SCH (08:36)
[2016-09-10 11:54] VITALS: BP 142/69; PULSE 90; RESP 18; TEMP 97.2; O2SAT 98
== END 2016-09-10 17:18 | DRG 378 ==
LOC: NEPE 08:03 → NEDA 10:12 → HIMW 13:15 → HOCA 09-04 20:40
PROVIDERS: ADMIT Hospitalist; ATTEND Hospitalist
PROC: 0DB78ZX Excision of Stomach, Pylorus, Via Natural or Artificial Opening Endoscopic, Diagnostic (ICD-10-PCS; 2016-09-03)
PROC: 0W3P8ZZ Control Bleeding in Gastrointestinal Tract, Via Natural or Artificial Opening Endoscopic (ICD-10-PCS; 2016-09-03)
PROC: 0D568ZZ Destruction of Stomach, Via Natural or Artificial Opening Endoscopic (ICD-10-PCS; 2016-09-03)
PROC: 30233N1 Transfusion of Nonautologous Red Blood Cells into Peripheral Vein, Percutaneous Approach (ICD-10-PCS; principal; 2016-09-03 11:11)
DX: K92.0 Hematemesis (principal); I50.32 Chronic diastolic (congestive) heart failure; N17.9 Acute kidney failure, unspecified; K25.9 Gastric ulcer, unspecified as acute or chronic, without hemorrhage or perforation; B96.81 Helicobacter pylori [H. pylori] as the cause of diseases classified elsewhere; E11.22 Type 2 diabetes mellitus with diabetic chronic kidney disease; I13.0 Hypertensive heart and chronic kidney disease with heart failure and stage 1 through stage 4 chronic kidney disease, or unspecified chronic kidney disease; I48.91 Unspecified atrial fibrillation; I27.2 Other secondary pulmonary hypertension; E86.1 Hypovolemia; I08.1 Rheumatic disorders of both mitral and tricuspid valves; E78.5 Hyperlipidemia, unspecified; M10.9 Gout, unspecified; G31.84 Mild cognitive impairment of uncertain or unknown etiology; N18.3 Chronic kidney disease, stage 3 (moderate); D64.9 Anemia, unspecified; Z79.84 Long term (current) use of oral hypoglycemic drugs; R42 Dizziness and giddiness; R19.7 Diarrhea, unspecified; Z87.891 Personal history of nicotine dependence
CPT/HCPCS: 36430; 71010; 80048; 80053; 81001; 82948; 83690; 83735; 85014; 85018; 85025; 85610; 85730; 86850; 86900; 86901; 86920; 88305; 88312; 93005; 96365; 96368; 96374; C9113; J0171; J0696; J1815; J2405; J2550; J7030; J7050; P9016

== ENCOUNTER 2016-09-20 15:37 | Inpatient (IN) | payer MEDICARE ==
[~2016-09-20] VITALS: Ht 182.9 cm; Wt 100.0 kg
[~2016-09-20 15:37] MED LIST changes: +AMOX500C PO; +CLAR500T PO; -ENTE325T PO; -HYDR25TA5 PO; -KETO2CRE TOPICAL; +LISI-515 PO; -LISI40TA PO; -METF500T PO; +NAME10TA PO; +PROT40TA PO; +TRAD5TAB PO
[2016-09-20 15:45] VITALS: BP 144/83; PULSE 92; RESP 18; TEMP 88.2; O2SAT 100
[2016-09-20] MEDS ORDERED: SODIUM CHLOR 0.9% 1000 ML INJ 1,000 ML IV SCH (16:08)
[2016-09-20 16:10] VITALS: RESP 18; O2SAT 99
[2016-09-20 17:08] LABS: AUTOMATED NEUTROPHIL # 8.9 TH/MM3 (1.8-7.7); BASOPHIL # 0.1 TH/MM3 (0-0.2); BASOPHIL % 1.1 % (0.0-2.0); EOSINOPHIL # 0.5 TH/MM3 (0-0.4); EOSINOPHIL % 4.4 % (0.0-4.0); HEMATOCRIT 24.8 % (39.0-51.0); HEMO FLAGS DIFF FINAL; LYMPH % 11.3 % (9.0-44.0); LYMPHOCYTE # 1.4 TH/MM3 (1.0-4.8); MEAN CELL VOLUME 84.5 FL (80.0-100.0); MEAN CORPUSCULAR HEMOGLOBIN 25.9 PG (27.0-34.0); MEAN CORPUSCULAR HGB CONC 30.6 % (32.0-36.0); MONO % 9.5 % (0.0-8.0); NEUT % 73.7 % (16.0-70.0); PLATELET COUNT 329 TH/MM3 (150-450); RED BLOOD COUNT 2.94 MIL/MM3 (4.50-5.90); RED CELL DISTRIBUTION WIDTH 15.8 % (11.6-17.2)
[2016-09-20 17:22] LABS: APTT (PATIENT) 32.4 SEC (24.3-30.1); INTERNATIONAL NORMALIZED RATIO 1.1 RATIO; PROTHROMBIN TIME - PATIENT 12.3 SEC (9.8-11.6)
[2016-09-20 17:24] LABS: ALT (GPT) 28 U/L (12-78); ANION GAP 8 MEQ/L (5-15); AST (GOT) 25 U/L (15-37); BICARBONATE 22.3 MEQ/L (21.0-32.0); BLOOD UREA NITROGEN 46 MG/DL (7-18); CHLORIDE 112 MEQ/L (98-107); GLOMERULAR FILTRATION RATE 30 ML/MIN (>89); POTASSIUM 4.8 MEQ/L (3.5-5.1); SODIUM (NA) 142 MEQ/L (136-145)
[2016-09-20 17:26] LABS: ALKALINE PHOSPHATASE 119 U/L (45-117); TOTAL BILIRUBIN ADULT 0.2 MG/DL (0.2-1.0)
[2016-09-20] MEDS ORDERED: SODIUM CHLOR 0.9% 1000 ML INJ 1,000 ML IV ONE (18:00)
[2016-09-20] MEDS: SODIUM CHLORIDE 0.9% FLUSH 10 ML FLUSH IVF PRN (18:21)
[2016-09-20 18:22] VITALS: BP 166/70; PULSE 89; RESP 17; O2SAT 100
--- NOTE | 2016-09-20 18:25 | PD ---
HPI Chief Complaint: Abnormal Results Time Seen by Provider: 16:08 Travel History International Travel<30 days: No Contact w/Intl Traveler<30days: No Traveled to known affect area: No History of Present Illness HPI This is an 81-year-old male who presents from the snf with complaints of low hemoglobin. The patient reportedly has no symptoms at this time. The patient apparently had blood work done which showed a hemoglobin of 7.6. The snf sent him at the request of physician. Initially they stated that there was questionable weakness. Patient denies any weakness. He denies any chest pain, chest dictations. Patient denies any shortness of breath. The patient denies any dizziness. The patient does give history that he has dark stool. There are no other complaints time my examination. PFSH Past Medical History Atrial Fibrillation: Yes Diabetes: Yes Patient Takes Glucophage: Yes (GLIMEPERIDE) Gout: Yes Hypertension: Yes Past Surgical History Abdominal Surgery: Yes (HERNIA REPAIR) Social History Alcohol Use: No (RARE) Tobacco Use: No Substance Use: No Allergies-Medications (Allergen,Severity, Reaction): Coded Allergies: No Known Allergies (Unverified , 09/20/16) Reported Meds & Prescriptions Reported Meds & Active Scripts Active Protonix (Pantoprazole Sodium) 40 Mg Tab 40 Mg PO BID Amoxicillin 500 Mg Cap 1,000 Mg PO BID 10 Days Clarithromycin 500 Mg Tab 500 Mg PO Q12HR 10 Days Lisinopril 20 Mg Tab 20 Mg PO Q12HR hold for sbp less 110 Reported Tradjenta (Linagliptin) 5 Mg Tab 5 Mg PO DAILY Namenda (Memantine) 10 Mg Tab 10 Mg PO DAILY Metoprolol Tartrate 25 Mg Tab 25 Mg PO BID Glimepiride 2 Mg Tab 4 Mg PO DAILY Take with breakfast or first main meal Atorvastatin (Atorvastatin Calcium) 40 Mg Tab 40 Mg PO HS Allopurinol 100 Mg Tab 100 Mg PO DAILY Review of Systems Except as stated in HPI: all other systems reviewed are Neg General / Constitutional: No: Fever HENT: No: Headaches, Vertigo, Lightheadedness Cardiovascular: No: Chest Pain or Discomfort, Palpitations Respiratory: No: Cough, Shortness of Breath Gastrointestinal: Positive: Other (black stools), No: Nausea, Vomiting, Diarrhea, Abdominal Pain Musculoskeletal: No: Weakness, Pain Neurologic: No: Weakness, Dizziness, Headache Physical Exam Narrative GENERAL: Well-developed well-nourished gentleman in no acute respiratory distress. SKIN: Focused skin assessment warm/dry. HEAD: Atraumatic. Normocephalic. EYES: Pale conjunctiva. ENT: No nasal bleeding or discharge. Mucous membranes are pale and moist. NECK: Trachea midline. No JVD. Supple. CARDIOVASCULAR: Regular rate and rhythm. No murmur appreciated. RESPIRATORY: No accessory muscle use. Clear to auscultation. Breath sounds equal bilaterally. GASTROINTESTINAL: Abdomen soft, non-tender, nondistended. RECTAL EXAM: Performed by Liliana Palafox PA-C. Mucous with no stool. Hemoccult negative. MUSCULOSKELETAL: No obvious deformities. No clubbing. No cyanosis. No edema. NEUROLOGICAL: Awake and alert. No obvious cranial nerve deficits. Motor grossly within normal limits. Normal speech. PSYCHIATRIC: Appropriate mood and affect; insight and judgment normal. Data Data Last Documented VS Vital Signs Date Time Temp Pulse Resp B/P Pulse Ox O2 Delivery O2 Flow Rate FiO2 09/20/16 16:10 18 99 Room Air 09/20/16 15:51 90 09/20/16 15:45 88.2 144/83 Orders Complete Blood Count With Diff (09/20/16 16:08) Comprehensive Metabolic Panel (09/20/16 16:08) Prothrombin Time / Inr (Pt) (09/20/16 16:08) Act Partial Throm Time (Ptt) (09/20/16 16:08) Urinalysis - C+S If Indicated (09/20/16 16:08) Type And Screen (09/20/16 16:08) Ecg Monitoring (09/20/16 16:08) Iv Access Insert/Monitor (09/20/16 16:08) Oximetry (09/20/16 16:08) Sodium Chlor 0.9% 1000 Ml Inj (Ns 1000 M (09/20/16 16:08) Sodium Chloride 0.9% Flush (Ns Flush) (09/20/16 16:15) Admit Order (Ed Use Only) (09/20/16 17:45) Sodium Chlor 0.9% 1000 Ml Inj (Ns 1000 M (09/20/16 18:00) Labs Laboratory Tests Test 09/20/16 09/20/16 15:14 16:22 White Blood Count 12.0 TH/MM3 Red Blood Count 2.94 MIL/MM3 Hemoglobin 7.6 GM/DL Hematocrit 24.8 % Mean Corpuscular Volume 84.5 FL Mean Corpuscular Hemoglobin 25.9 PG Mean Corpuscular Hemoglobin 30.6 % Concent Red Cell Distribution Width 15.8 % Platelet Count 329 TH/MM3 Mean Platelet Volume 9.5 FL Neutrophils (%) (Auto) 73.7 % Lymphocytes (%) (Auto) 11.3 % Monocytes (%) (Auto) 9.5 % Eosinophils (%) (Auto) 4.4 % Basophils (%) (Auto) 1.1 % Neutrophils # (Auto) 8.9 TH/MM3 Lymphocytes # (Auto) 1.4 TH/MM3 Monocytes # (Auto) 1.1 TH/MM3 Eosinophils # (Auto) 0.5 TH/MM3 Basophils # (Auto) 0.1 TH/MM3 CBC Comment DIFF FINAL Differential Comment Prothrombin Time 12.3 SEC Prothromb Time International 1.1 RATIO Ratio Activated Partial 32.4 SEC Thromboplast Time Sodium Level 142 MEQ/L Potassium Level 4.8 MEQ/L Chloride Level 112 MEQ/L Carbon Dioxide Level 22.3 MEQ/L Anion Gap 8 MEQ/L Blood Urea Nitrogen 46 MG/DL Creatinine 2.15 MG/DL Estimat Glomerular Filtration 30 ML/MIN Rate Random Glucose 193 MG/DL Calcium Level 9.1 MG/DL Total Bilirubin 0.2 MG/DL Aspartate Amino Transf 25 U/L (AST/SGOT) Alanine Aminotransferase 28 U/L (ALT/SGPT) Alkaline Phosphatase 119 U/L Total Protein 7.0 GM/DL Albumin 2.5 GM/DL Blood Type A POSITIVE Blood Bank Comment [facility] Medical Decision Making Medical Screen Exam Complete: Yes Emergency Medical Condition: Yes Differential Diagnosis Chronic anemia versus GI bleed versus dilution Narrative Course 81-year-old sent from the snf for a low hemoglobin. Report was that he was weak. Patient denies weakness, shortness of breath, dizziness, palpitations. Patient's hemoglobin is 7.6. He has been typed and crossed for 2 units. He is noted to be dehydrated with an elevated BUN and creatinine. He does have chronic kidney disease. He'll be given an liter of IV fluid. The patient was discussed with Dr. Tejinder Arthur who agreed for observation. He will follow hemoglobin. There is a chance that he is single may drop further once hydrated. Diagnosis Primary Impression: Anemia Additional Impressions: CKD (chronic kidney disease) stage 3, GFR 30-59 ml/min Dehydration John Loaiza MD Sep 20, 2016 18:25
[2016-09-20] MEDS ORDERED: FERR324T4 PO (18:27)
[2016-09-20] MEDS ORDERED: ASPI81CH PO (18:27)
--- NOTE | 2016-09-20 20:18 | HHI.HP ---
HPI Service CP Hospitalists Primary Care Physician Non-Staff Admission Diagnosis anemia. Dehydration. Chief Complaint: Sent from SNF for worsening anemia Travel History International Travel<30 Days: No Contact w/Intl Traveler <30 Da: No Traveled to Known Affected Are: No History of Present Illness This is an 81-year-old male who presents from the retirement with complaints of low hemoglobin. The patient reportedly has little to no symptoms at this time. The patient had blood work done which showed a hemoglobin of 7.6. The retirement sent him at the request of physician, Dr Vazquez. Initially they stated that there was questionable weakness and dark stool. Patient denies any weakness. He denies any chest pain, heart palpitations. Patient denies any shortness of breath. The patient denies any dizziness. The patient does give history that he has dark stool. Patient has no other complaints but states that he was sent here to "get some blood." Review of his chart reveals a recent admission September 03 for GI bleed. During that stay he had an EGD which revealed an antral ulcer. He was transfused 2 units of blood during that stay. His sav hemoglobin at that time was 7.4 with a discharge hemoglobin of 8.3. His hemoglobin was 8.1 on September 13 and was 7.4 earlier today prompting his transportation to the ER. Review of Systems Constitutional: COMPLAINS OF: Fatigue, DENIES: Diaphoretic episodes, Fever, Weight gain, Weight loss, Chills, Dizziness, Change in appetite, Night Sweats Endocrine: DENIES: Heat/cold intolerance, Polydipsia, Polyuria, Polyphagia Ears, nose, mouth, throat: COMPLAINS OF: Hearing loss, DENIES: Tinnitus, Vertigo, Nasal discharge, Oral lesions, Throat pain, Hoarseness, Ear Pain, Running Nose, Epistaxis, Sinus Pain, Toothache, Odynophagia Respiratory: DENIES: Apneas, Cough, Snoring, Wheezing, Hemoptysis, Sputum production, Shortness of breath Cardiovascular: COMPLAINS OF: Lower Extremity Edema, DENIES: Chest pain, Palpitations, Syncope, Dyspnea on Exertion, PND, Orthopnea, Claudication Gastrointestinal: COMPLAINS OF: Black stools, Diarrhea, Reflux, DENIES: Abdominal pain, Bloody stools, BRB per rectum, Constipation, GERD, Nausea, Vomiting, Difficulty Swallowing, Anorexia, See HPI Musculoskeletal: COMPLAINS OF: Joint pain, Back pain Neurologic: COMPLAINS OF: Abnormal gait Psychiatric: COMPLAINS OF: Confusion Past Family Social History Past Medical History Atrial fibrillation Chronic diastolic heart failure 2 diabetes Hypertension DJD stage III Hyperlipidemia Primary hypertension with mildly elevated pulmonary pressure of 43 mmHg on 2015 echo Mild cognitive impairment/dementia Gout Past Surgical History Hernia repair Reported Medications Protonix (Pantoprazole Sodium) 40 Mg Tab 40 Mg PO BID Amoxicillin 500 Mg Cap 1,000 Mg PO BID 10 Days Clarithromycin 500 Mg Tab 500 Mg PO Q12HR 10 Days Lisinopril 20 Mg Tab 20 Mg PO Q12HR hold for sbp less 110 Tradjenta (Linagliptin) 5 Mg Tab 5 Mg PO DAILY Namenda (Memantine) 10 Mg Tab 10 Mg PO DAILY Metoprolol Tartrate 25 Mg Tab 25 Mg PO BID Glimepiride 2 Mg Tab 4 Mg PO DAILY Take with breakfast or first main meal Atorvastatin (Atorvastatin Calcium) 40 Mg Tab 40 Mg PO HS Allopurinol 100 Mg Tab 100 Mg PO DAILY Allergies: Coded Allergies: No Known Allergies (Unverified , 09/20/16) Family History Noncontributory Social History Patient is a and has a distant history of tobacco use Denies alcohol or illicit drug use His adult son lives with him in either an [place] or alf facility setting His niece lives locally and is his power of county attorney and handles his finances. Physical Exam Vital Signs Vital Signs Date Time Temp Pulse Resp B/P Pulse Ox O2 Delivery O2 Flow Rate FiO2 09/20/16 18:22 89 17 166/70 100 Room Air 09/20/16 16:10 18 99 Room Air 09/20/16 15:51 90 18 100 Room Air 09/20/16 15:45 88.2 92 18 144/83 100 Physical Exam GENERAL: This is a well-nourished, well-developed patient, in no apparent distress. He is slightly confused but generally answers questions appropriately and responds to simple commands appropriately. SKIN: Patient has some cirrhotic changes and venous stasis in lower extremities. Cool and dry. HEAD: Atraumatic. Normocephalic. No temporal or scalp tenderness. EYES: Pupils equal round and reactive. Extraocular motions intact. No scleral icterus. No injection or drainage. ENT: Nose without bleeding, purulent drainage or septal hematoma. Airway patent. NECK: Trachea midline. No JVD or lymphadenopathy. Supple, nontender, no meningeal signs. CARDIOVASCULAR: Irregular. RESPIRATORY: Clear to auscultation. No increased work of breathing. No audible wheezes, rales, or rhonchi. GASTROINTESTINAL: Abdomen soft, non-tender, mildly distended. No hepato- splenomegaly, or palpable masses. No guarding. MUSCULOSKELETAL: Trace edema in distal lower extremities. No joint tenderness, effusion, or edema noted. No calf tenderness. NEUROLOGICAL: Awake and alert. Mildly confused. Cranial nerves II through XII intact. Motor and sensory grossly within normal limits. Five out of 5 muscle strength in all muscle groups. Normal speech. Laboratory Laboratory Tests Test 09/20/16 09/20/16 15:14 16:22 White Blood Count 12.0 Red Blood Count 2.94 Hemoglobin 7.6 Hematocrit 24.8 Mean Corpuscular Volume 84.5 Mean Corpuscular Hemoglobin 25.9 Mean Corpuscular Hemoglobin 30.6 Concent Red Cell Distribution Width 15.8 Platelet Count 329 Mean Platelet Volume 9.5 Neutrophils (%) (Auto) 73.7 Lymphocytes (%) (Auto) 11.3 Monocytes (%) (Auto) 9.5 Eosinophils (%) (Auto) 4.4 Basophils (%) (Auto) 1.1 Neutrophils # (Auto) 8.9 Lymphocytes # (Auto) 1.4 Monocytes # (Auto) 1.1 Eosinophils # (Auto) 0.5 Basophils # (Auto) 0.1 CBC Comment DIFF FINAL Differential Comment Prothrombin Time 12.3 Prothromb Time International 1.1 Ratio Activated Partial 32.4 Thromboplast Time Sodium Level 142 Potassium Level 4.8 Chloride Level 112 Carbon Dioxide Level 22.3 Anion Gap 8 Blood Urea Nitrogen 46 Creatinine 2.15 Estimat Glomerular Filtration 30 Rate Random Glucose 193 Calcium Level 9.1 Total Bilirubin 0.2 Aspartate Amino Transf 25 (AST/SGOT) Alanine Aminotransferase 28 (ALT/SGPT) Alkaline Phosphatase 119 Total Protein 7.0 Albumin 2.5 Blood Type A POSITIVE Antibody Screen NEGATIVE Blood Bank Comment Result Diagram: 09/20/16 1514 09/20/16 1514 Assessment and Plan Problem List: (1) Anemia Status: Chronic Plan: Recent admission with GI evaluation as noted above. A large antral ulcer noted. We'll continue Protonix His current hemoglobin may actually be an overestimate as his renal indices are worse. We'll gently hydrate the patient and follow up hemoglobin. Vital signs are stable. We'll transfuse if hemoglobin drops below 7. Patient appears quite stable currently. At this point will place in observation to see how his vital signs and hemoglobin do overnight. If he remains relatively stable hopefully discharge back to retirement tomorrow. We'll hold his aspirin. (2) Acute kidney injury superimposed on chronic kidney disease Status: Acute Plan: As noted. Gentle hydration. Recheck. (3) Diastolic CHF, chronic Status: Chronic Plan: EF 60% in 2015. Does not appear to be in overt failure. Follow clinically. (4) HTN (hypertension) Status: Chronic Plan: Continue medication. Fair control. (5) A-fib Status: Chronic Plan: Rate relatively well controlled. We'll avoid anticoagulants given his advanced age and recent GI bleed This obviously places him at increased risk for stroke but given the recent bleeds and the current falling hemoglobin we will refrain from anticoagulant. (6) Diabetes mellitus Status: Chronic Plan: Will use sliding scale insulin here. Code Status Full Discussed Condition With Patient and ER physician. Problem Qualifiers (1) HTN (hypertension): Qualified Code: I10 - Essential hypertension (2) Diabetes mellitus: Tejinder Arthur MD PhD Sep 20, 2016 20:18
[2016-09-20] MEDS: PANTOPRAZOLE SOD 40 MG DELAYED RELEASE TAB PO SCH (21:00)
[2016-09-20 21:52] LABS: BLOOD, URINE NEG (NEG); COMMENT (UR) CULTURE INDICATED; CULTURE IF INDICATED CULTURE INDICATED; GLUCOSE,URINE NEG (NEG); KETONE, URINE NEG (NEG); NITRITE,URINE NEG (NEG); URINE COLOR YELLOW (YELLW/STRAW)
[2016-09-20] MEDS: AMOXICILLIN (TRIHYDRATE) 500 MG CAP PO SCH (23:07)
[2016-09-20] MEDS: LISINOPRIL 20 MG TAB PO SCH (23:07)
[2016-09-20] MEDS: METOPROLOL TARTRATE 25 MG TAB PO SCH (23:07)
[2016-09-20] MEDS: ATORVASTATIN 40 MG TAB PO SCH (23:07)
[2016-09-20] MEDS: CLARITHROMYCIN 500 MG TAB PO SCH (23:07)
[2016-09-20 23:40] LABS: AUTOMATED NEUTROPHIL # 8.7 TH/MM3 (1.8-7.7); BASOPHIL # 0.1 TH/MM3 (0-0.2); BASOPHIL % 0.8 % (0.0-2.0); EOSINOPHIL # 0.4 TH/MM3 (0-0.4); EOSINOPHIL % 3.1 % (0.0-4.0); HEMATOCRIT 23.5 % (39.0-51.0); HEMO FLAGS DIFF FINAL; LYMPH % 9.8 % (9.0-44.0); LYMPHOCYTE # 1.1 TH/MM3 (1.0-4.8); MEAN CELL VOLUME 83.7 FL (80.0-100.0); MEAN CORPUSCULAR HEMOGLOBIN 26.2 PG (27.0-34.0); MEAN CORPUSCULAR HGB CONC 31.3 % (32.0-36.0); MONO % 9.4 % (0.0-8.0); NEUT % 76.9 % (16.0-70.0); PLATELET COUNT 302 TH/MM3 (150-450); RED BLOOD COUNT 2.81 MIL/MM3 (4.50-5.90); RED CELL DISTRIBUTION WIDTH 15.8 % (11.6-17.2); WHITE BLOOD COUNT 11.3 TH/MM3 (4.0-11.0)
[2016-09-21 02:00] VITALS: BP 138/74; PULSE 66; RESP 16; TEMP 98.4; O2SAT 92
[2016-09-21 04:00] VITALS: BP 148/78; PULSE 74; RESP 16; TEMP 98.8; O2SAT 94
[2016-09-21 05:23] LABS: AUTOMATED NEUTROPHIL # 8.3 TH/MM3 (1.8-7.7); BASOPHIL # 0.1 TH/MM3 (0-0.2); EOSINOPHIL # 0.4 TH/MM3 (0-0.4); EOSINOPHIL % 3.8 % (0.0-4.0); HEMATOCRIT 24.1 % (39.0-51.0); HEMO FLAGS DIFF FINAL; LYMPH % 11.3 % (9.0-44.0); LYMPHOCYTE # 1.3 TH/MM3 (1.0-4.8); MEAN CORPUSCULAR HEMOGLOBIN 26.8 PG (27.0-34.0); MEAN CORPUSCULAR HGB CONC 31.6 % (32.0-36.0); MONO % 11.1 % (0.0-8.0); NEUT % 72.8 % (16.0-70.0); PLATELET COUNT 303 TH/MM3 (150-450); RED BLOOD COUNT 2.84 MIL/MM3 (4.50-5.90); RED CELL DISTRIBUTION WIDTH 15.6 % (11.6-17.2); WHITE BLOOD COUNT 11.4 TH/MM3 (4.0-11.0)
[2016-09-21 05:35] LABS: POTASSIUM 4.6 MEQ/L (3.5-5.1)
[2016-09-21 07:11] VITALS: BP 140/73; PULSE 99; RESP 20; TEMP 97.7; O2SAT 97
[2016-09-21] MEDS: PANTOPRAZOLE SOD 40 MG DELAYED RELEASE TAB PO SCH ×2 (08:09→20:32)
[2016-09-21] MEDS: CLARITHROMYCIN 500 MG TAB PO SCH (08:09)
[2016-09-21] MEDS: MEMANTINE HCL 10 MG TAB PO SCH (08:09)
[2016-09-21] MEDS: AMOXICILLIN (TRIHYDRATE) 500 MG CAP PO SCH (08:09)
[2016-09-21] MEDS: LISINOPRIL 20 MG TAB PO SCH (08:09)
[2016-09-21] MEDS: METOPROLOL TARTRATE 25 MG TAB PO SCH ×2 (08:09→20:32)
[2016-09-21] MEDS: FERROUS SULFATE 325 MG (65 MG ELEMENTAL IRON) TAB PO SCH (08:09)
[2016-09-21] MEDS: SODIUM CHLORIDE 0.9% FLUSH 10 ML FLUSH IVF PRN (08:10)
--- NOTE | 2016-09-21 08:24 | HHI.PR ---
Subjective Remarks Pt without any specific complaints. He states that he had a dark BM two days ago but none since then Denies any abdominal pain, SOB or chest pain Objective Vitals Vital Signs Date Time Temp Pulse Resp B/P Pulse Ox O2 Delivery O2 Flow Rate FiO2 09/21/16 07:11 97.7 99 20 140/73 97 09/21/16 04:00 98.8 74 16 148/78 94 09/21/16 02:00 98.4 66 16 138/74 92 09/20/16 18:22 89 17 166/70 100 Room Air 09/20/16 16:10 18 99 Room Air 09/20/16 15:51 90 18 100 Room Air 09/20/16 15:45 88.2 92 18 144/83 100 09/20/16 09/20/16 09/21/16 14:59 22:59 06:59 Intake Total 300 ml Balance 300 ml Intake Oral 300 ml Result Diagram: 09/21/16 0429 09/21/16 0429 Other Results Laboratory Tests Test 09/20/16 09/20/16 09/20/16 09/20/16 15:14 16:22 21:00 23:21 White Blood Count 12.0 TH/MM3 11.3 TH/MM3 Red Blood Count 2.94 MIL/MM3 2.81 MIL/MM3 Hemoglobin 7.6 GM/DL 7.4 GM/DL Hematocrit 24.8 % 23.5 % Mean Corpuscular Volume 84.5 FL 83.7 FL Mean Corpuscular Hemoglobin 25.9 PG 26.2 PG Mean Corpuscular Hemoglobin 30.6 % 31.3 % Concent Red Cell Distribution Width 15.8 % 15.8 % Platelet Count 329 TH/MM3 302 TH/MM3 Mean Platelet Volume 9.5 FL 8.9 FL Neutrophils (%) (Auto) 73.7 % 76.9 % Lymphocytes (%) (Auto) 11.3 % 9.8 % Monocytes (%) (Auto) 9.5 % 9.4 % Eosinophils (%) (Auto) 4.4 % 3.1 % Basophils (%) (Auto) 1.1 % 0.8 % Neutrophils # (Auto) 8.9 TH/MM3 8.7 TH/MM3 Lymphocytes # (Auto) 1.4 TH/MM3 1.1 TH/MM3 Monocytes # (Auto) 1.1 TH/MM3 1.1 TH/MM3 Eosinophils # (Auto) 0.5 TH/MM3 0.4 TH/MM3 Basophils # (Auto) 0.1 TH/MM3 0.1 TH/MM3 CBC Comment DIFF FINAL DIFF FINAL Differential Comment Prothrombin Time 12.3 SEC Prothromb Time International 1.1 RATIO Ratio Activated Partial 32.4 SEC Thromboplast Time Sodium Level 142 MEQ/L Potassium Level 4.8 MEQ/L Chloride Level 112 MEQ/L Carbon Dioxide Level 22.3 MEQ/L Anion Gap 8 MEQ/L Blood Urea Nitrogen 46 MG/DL Creatinine 2.15 MG/DL Estimat Glomerular Filtration 30 ML/MIN Rate Random Glucose 193 MG/DL Calcium Level 9.1 MG/DL Total Bilirubin 0.2 MG/DL Aspartate Amino Transf 25 U/L (AST/SGOT) Alanine Aminotransferase 28 U/L (ALT/SGPT) Alkaline Phosphatase 119 U/L Total Protein 7.0 GM/DL Albumin 2.5 GM/DL Blood Type A POSITIVE Antibody Screen NEGATIVE Blood Bank Comment Urine Color YELLOW Urine Turbidity CLEAR Urine pH 5.0 Urine Specific [place] 1.012 Urine Protein 30 mg/dL Urine Glucose (UA) NEG mg/dL Urine Ketones NEG mg/dL Urine Occult Blood NEG Urine Nitrite NEG Urine Bilirubin NEG Urine Urobilinogen LESS THAN 2.0 MG/DL Urine Leukocyte Esterase MOD Urine RBC 1 /hpf Urine WBC 8 /hpf Microscopic Urinalysis Comment CULTURE INDICATED Test 09/21/16 04:29 White Blood Count 11.4 TH/MM3 Red Blood Count 2.84 MIL/MM3 Hemoglobin 7.6 GM/DL Hematocrit 24.1 % Mean Corpuscular Volume 85.0 FL Mean Corpuscular Hemoglobin 26.8 PG Mean Corpuscular Hemoglobin 31.6 % Concent Red Cell Distribution Width 15.6 % Platelet Count 303 TH/MM3 Mean Platelet Volume 9.2 FL Neutrophils (%) (Auto) 72.8 % Lymphocytes (%) (Auto) 11.3 % Monocytes (%) (Auto) 11.1 % Eosinophils (%) (Auto) 3.8 % Basophils (%) (Auto) 1.0 % Neutrophils # (Auto) 8.3 TH/MM3 Lymphocytes # (Auto) 1.3 TH/MM3 Monocytes # (Auto) 1.3 TH/MM3 Eosinophils # (Auto) 0.4 TH/MM3 Basophils # (Auto) 0.1 TH/MM3 CBC Comment DIFF FINAL Differential Comment Sodium Level 143 MEQ/L Potassium Level 4.6 MEQ/L Chloride Level 115 MEQ/L Carbon Dioxide Level 16.0 MEQ/L Anion Gap 12 MEQ/L Blood Urea Nitrogen 44 MG/DL Creatinine 2.00 MG/DL Estimat Glomerular Filtration 32 ML/MIN Rate Random Glucose 133 MG/DL Calcium Level 9.1 MG/DL Objective Remarks General: NAD, AAOx3 Chest: CTA Cardiac: Regular Abd: +BS, soft mildly distended, nontender Ext: Bilateral LE pitting edema, R>L to the thighs A/P Problem List: (1) Anemia Status: Chronic Plan: - Pt sent from local SNF for acute on chronic anemia. - Pt was recently admitted for anemia and GIB. Pt underwent evaluation with EGD at that time which noted a large antral ulcer. - Pts discharge hemoglobin was 8.3 on 09/09/16. His hemoglobin was 8.1 on September 13 and was 7.4 at admission on 09/20 prompting him to be sent to the ED. - Continue Protonix - Pt appeared to be a bit on the dry side at admission with increased renal functions at admission. - He received some gentle IVF hydration upon admission - Repeat hemoglobin 7.6 this morning. - Vital signs are stable. - PT evaluation today to see how he feels with ambulation. - Pt has some LE pitting edema so will hold off on continued IVF and encouraged oral intake to try to continue to improve renal indices. - Weight pt on bedside stand up scale - We will give him one dose of Albumin IV followed by one dose of IV Lasix - JARON hose and if unable to place JARON hose then wrap the LE from the feet to the thighs - Hold aspirin. (2) Acute kidney injury superimposed on chronic kidney disease Status: Acute Plan: - As noted above. - Pt received gentle hydration overnight. - Repeat labs today with some improvement in Cr to 2.0 from 2.12 at admission - Encourage oral intake - Recheck in AM (3) Diastolic CHF, chronic Status: Chronic Plan: - EF 60% in 2014. - JARON hose - Elevate legs when in bed - Follow clinically. (4) HTN (hypertension) Status: Chronic Plan: - Continue medication. - Fair control. (5) A-fib Status: Chronic Plan: - Rate relatively well controlled. - We'll avoid anticoagulants given his advanced age and recent GI bleed - This obviously places him at increased risk for stroke but given the recent bleeds and the current falling hemoglobin we will refrain from anticoagulant. (6) Diabetes mellitus Status: Chronic Plan: - NovoLog sliding scale insulin Assessment and Plan Patient examined. Assessment and plan formulated with Yenny Troncoso PA-C. I agree with the above. recent admission for gastric ulcer. H pylori. just completing triple therapy. given 4 units blood on that admission. pt feels well. sent back from snf because of slight drop of hgb from 8 to 7. also his cr is worsening. Pt noted to have quite a bit of lower ext edema up to thighs. will need to give some iv albumen and lasix and then recheck cr before further dosing. elevate legs and jaron hose. will need to go back to snf after. Problem Qualifiers (1) HTN (hypertension): Qualified Code: I10 - Essential hypertension (2) Diabetes mellitus: Yenny Troncoso Sep 21, 2016 08:24 Chidi Herrera MD Sep 21, 2016 15:32
[2016-09-21] MEDS ORDERED: PNEUMOCOCCAL POLYVALENT INJ 25 MCG/0.5 ML SYR IM ONE (10:00)
[2016-09-21 11:23] VITALS: BP 129/80; PULSE 79; RESP 19; TEMP 97.8; O2SAT 98
[2016-09-21] MEDS ORDERED: cloNIDine HCL 0.1 MG TAB PO PRN (15:00)
[2016-09-21] MEDS ORDERED: FUROSEMIDE 40 MG/4 ML VIAL IV PUSH ONE (15:15)
[2016-09-21] MEDS ORDERED: ALBUMIN HUMAN 25% 25 GM/100 ML BAGP IV ONE (15:15)
[2016-09-21 15:26] VITALS: BP 130/63; PULSE 74; RESP 19; TEMP 98.3; O2SAT 99
[2016-09-21 20:00] VITALS: BP 128/67; PULSE 77; RESP 18; TEMP 98; O2SAT 97
[2016-09-21] MEDS: ATORVASTATIN 40 MG TAB PO SCH (20:33)
[2016-09-22 03:00] VITALS: BP 131/72; PULSE 77; RESP 18; TEMP 98.8; O2SAT 97
[2016-09-22 07:22] LABS: BICARBONATE 18.4 MEQ/L (21.0-32.0); MAGNESIUM 2.1 MG/DL (1.5-2.5); POTASSIUM 4.7 MEQ/L (3.5-5.1)
[2016-09-22 07:42] VITALS: BP 136/63; PULSE 84; RESP 16; TEMP 97.9; O2SAT 98
--- NOTE | 2016-09-22 08:40 | HHI.PR ---
Subjective Remarks Pt is without any specific complaints Objective Vitals Vital Signs Date Time Temp Pulse Resp B/P Pulse Ox O2 Delivery O2 Flow Rate FiO2 09/22/16 07:42 97.9 84 16 136/63 98 09/22/16 03:00 98.8 77 18 131/72 97 09/21/16 20:00 98.0 77 18 128/67 97 09/21/16 15:26 98.3 74 19 130/63 99 09/21/16 11:23 97.8 79 19 129/80 98 09/21/16 09/21/16 09/22/16 15:00 23:00 07:00 Intake Total 200 ml 300 ml 200 ml Balance 200 ml 300 ml 200 ml Intake Oral 200 ml 300 ml 200 ml # Voids 3 Result Diagram: 09/21/16 0429 09/22/16 0625 Other Results Laboratory Tests Test 09/20/16 09/20/16 09/20/16 09/20/16 15:14 16:22 21:00 23:21 White Blood Count 12.0 TH/MM3 11.3 TH/MM3 Red Blood Count 2.94 MIL/MM3 2.81 MIL/MM3 Hemoglobin 7.6 GM/DL 7.4 GM/DL Hematocrit 24.8 % 23.5 % Mean Corpuscular Volume 84.5 FL 83.7 FL Mean Corpuscular Hemoglobin 25.9 PG 26.2 PG Mean Corpuscular Hemoglobin 30.6 % 31.3 % Concent Red Cell Distribution Width 15.8 % 15.8 % Platelet Count 329 TH/MM3 302 TH/MM3 Mean Platelet Volume 9.5 FL 8.9 FL Neutrophils (%) (Auto) 73.7 % 76.9 % Lymphocytes (%) (Auto) 11.3 % 9.8 % Monocytes (%) (Auto) 9.5 % 9.4 % Eosinophils (%) (Auto) 4.4 % 3.1 % Basophils (%) (Auto) 1.1 % 0.8 % Neutrophils # (Auto) 8.9 TH/MM3 8.7 TH/MM3 Lymphocytes # (Auto) 1.4 TH/MM3 1.1 TH/MM3 Monocytes # (Auto) 1.1 TH/MM3 1.1 TH/MM3 Eosinophils # (Auto) 0.5 TH/MM3 0.4 TH/MM3 Basophils # (Auto) 0.1 TH/MM3 0.1 TH/MM3 CBC Comment DIFF FINAL DIFF FINAL Differential Comment Prothrombin Time 12.3 SEC Prothromb Time International 1.1 RATIO Ratio Activated Partial 32.4 SEC Thromboplast Time Sodium Level 142 MEQ/L Potassium Level 4.8 MEQ/L Chloride Level 112 MEQ/L Carbon Dioxide Level 22.3 MEQ/L Anion Gap 8 MEQ/L Blood Urea Nitrogen 46 MG/DL Creatinine 2.15 MG/DL Estimat Glomerular Filtration 30 ML/MIN Rate Random Glucose 193 MG/DL Calcium Level 9.1 MG/DL Total Bilirubin 0.2 MG/DL Aspartate Amino Transf 25 U/L (AST/SGOT) Alanine Aminotransferase 28 U/L (ALT/SGPT) Alkaline Phosphatase 119 U/L Total Protein 7.0 GM/DL Albumin 2.5 GM/DL Blood Type A POSITIVE Antibody Screen NEGATIVE Blood Bank Comment Urine Color YELLOW Urine Turbidity CLEAR Urine pH 5.0 Urine Specific Randolph 1.012 Urine Protein 30 mg/dL Urine Glucose (UA) NEG mg/dL Urine Ketones NEG mg/dL Urine Occult Blood NEG Urine Nitrite NEG Urine Bilirubin NEG Urine Urobilinogen LESS THAN 2.0 MG/DL Urine Leukocyte Esterase MOD Urine RBC 1 /hpf Urine WBC 8 /hpf Microscopic Urinalysis Comment CULTURE INDICATED Test 09/21/16 09/22/16 04:29 06:25 White Blood Count 11.4 TH/MM3 Red Blood Count 2.84 MIL/MM3 Hemoglobin 7.6 GM/DL Hematocrit 24.1 % Mean Corpuscular Volume 85.0 FL Mean Corpuscular Hemoglobin 26.8 PG Mean Corpuscular Hemoglobin 31.6 % Concent Red Cell Distribution Width 15.6 % Platelet Count 303 TH/MM3 Mean Platelet Volume 9.2 FL Neutrophils (%) (Auto) 72.8 % Lymphocytes (%) (Auto) 11.3 % Monocytes (%) (Auto) 11.1 % Eosinophils (%) (Auto) 3.8 % Basophils (%) (Auto) 1.0 % Neutrophils # (Auto) 8.3 TH/MM3 Lymphocytes # (Auto) 1.3 TH/MM3 Monocytes # (Auto) 1.3 TH/MM3 Eosinophils # (Auto) 0.4 TH/MM3 Basophils # (Auto) 0.1 TH/MM3 CBC Comment DIFF FINAL Differential Comment Sodium Level 143 MEQ/L 141 MEQ/L Potassium Level 4.6 MEQ/L 4.7 MEQ/L Chloride Level 115 MEQ/L 113 MEQ/L Carbon Dioxide Level 16.0 MEQ/L 18.4 MEQ/L Anion Gap 12 MEQ/L 10 MEQ/L Blood Urea Nitrogen 44 MG/DL 47 MG/DL Creatinine 2.00 MG/DL 2.38 MG/DL Estimat Glomerular Filtration 32 ML/MIN 26 ML/MIN Rate Random Glucose 133 MG/DL 77 MG/DL Calcium Level 9.1 MG/DL 8.8 MG/DL Magnesium Level 2.1 MG/DL Objective Remarks General: NAD, AAOx3 Chest: CTA Cardiac: Regular Abd: +BS, soft mildly distended, nontender Ext: Bilateral LE pitting edema, R>L to the thighs, less than yesterday A/P Problem List: (1) Anemia Status: Chronic Plan: - Pt sent from local SNF for acute on chronic anemia. - Pt was recently admitted for anemia and GIB. Pt underwent evaluation with EGD at that time which noted a large antral ulcer. - Pts discharge hemoglobin was 8.3 on 09/09/16. His hemoglobin was 8.1 on September 13 and was 7.4 at admission on 09/20 prompting him to be sent to the ED. - Continue Protonix - Pt appeared to be a bit on the dry side at admission with increased renal functions at admission. - He received some gentle IVF hydration upon admission - Repeat hemoglobin 7.6 on 09/21. Await repeat labs today - Vital signs are stable. - Pt had LE pitting edema to the thighs noted yesterday and was given one dose of Albumin IV followed by one dose of IV Lasix - ONI hose placed - Weight pt daily - Still with some LE edema today but is improved from yesterday. - Pts Cr bumped to 2.38 today - Consult Nephrology - Encourage oral intake. - Hold aspirin. (2) Acute kidney injury superimposed on chronic kidney disease Status: Acute Plan: - As noted above. - Pt received gentle hydration following admission - Repeat labs today with increased Cr to 2.38 today - Encourage oral intake - Recheck in AM (3) Diastolic CHF, chronic Status: Chronic Plan: - EF 60% in 2014. - ONI hose - Elevate legs when in bed - Follow clinically. (4) HTN (hypertension) Status: Chronic Plan: - Continue medication. - Fair control. (5) A-fib Status: Chronic Plan: - Rate relatively well controlled. - We'll avoid anticoagulants given his advanced age and recent GI bleed - This obviously places him at increased risk for stroke but given the recent bleeds and the current falling hemoglobin we will refrain from anticoagulant. (6) Diabetes mellitus Status: Chronic Plan: - NovoLog sliding scale insulin Assessment and Plan Patient examined. Assessment and plan formulated with Yenny Troncoso PA-C. I agree with the above. recent admission for gastric ulcer. H pylori. just completing triple therapy. given 4 units blood on that admission. pt feels well. sent back from snf because of slight drop of hgb from 8 to 7. also his cr is worsening. Pt noted to have quite a bit of lower ext edema up to thighs.given iv lasix and albumen with improvement but cr rising. await nephrology. Problem Qualifiers (1) HTN (hypertension): Qualified Code: I10 - Essential hypertension (2) Diabetes mellitus: Yenny Troncoso Sep 22, 2016 08:40 Chidi Herrera MD Sep 22, 2016 16:44
[2016-09-22] MEDS: MEMANTINE HCL 10 MG TAB PO SCH (10:01)
[2016-09-22] MEDS: PANTOPRAZOLE SOD 40 MG DELAYED RELEASE TAB PO SCH ×2 (10:02→21:36)
[2016-09-22] MEDS: FERROUS SULFATE 325 MG (65 MG ELEMENTAL IRON) TAB PO SCH (10:02)
[2016-09-22] MEDS: METOPROLOL TARTRATE 25 MG TAB PO SCH ×2 (10:02→21:36)
[2016-09-22 10:24] LABS: AUTOMATED NEUTROPHIL # 7.5 TH/MM3 (1.8-7.7); BASOPHIL # 0.1 TH/MM3 (0-0.2); BASOPHIL % 0.9 % (0.0-2.0); EOSINOPHIL # 0.3 TH/MM3 (0-0.4); EOSINOPHIL % 3.5 % (0.0-4.0); HEMATOCRIT 22.5 % (39.0-51.0); HEMO FLAGS DIFF FINAL; MEAN CELL VOLUME 83.9 FL (80.0-100.0); MEAN CORPUSCULAR HEMOGLOBIN 26.7 PG (27.0-34.0); MEAN CORPUSCULAR HGB CONC 31.9 % (32.0-36.0); MONO % 9.5 % (0.0-8.0); NEUT % 76.1 % (16.0-70.0); PLATELET COUNT 249 TH/MM3 (150-450); RED BLOOD COUNT 2.68 MIL/MM3 (4.50-5.90); RED CELL DISTRIBUTION WIDTH 15.9 % (11.6-17.2); WHITE BLOOD COUNT 9.8 TH/MM3 (4.0-11.0)
[2016-09-22 11:26] VITALS: BP 145/67; PULSE 84; RESP 20; TEMP 97.9; O2SAT 97
[2016-09-22 15:50] VITALS: BP 149/87; PULSE 76; RESP 16; TEMP 98.2; O2SAT 100
--- NOTE | 2016-09-22 18:44 | PD.CONS ---
HPI Service Nephrology Consult Requested By Dr. Herrera Reason for Consult Acute renal insufficiency Primary Care Physician Non-Staff History of Present Illness Patient is an 81-year-old white male who has been noticed to have anemia, he gives history of the coughing up blood 3 weeks ago, he had the been admitted at that time at [facility] and upper endoscopy showed large gastric antral ulcer he has gradual anemia he has noticed some dark stools as well he's been admitted for further evaluation it was noticed that his creatinine is 2.3, baseline creatinine is around 1.4 patient denies prior knowledge of kidney disease, his hemoglobin is drifting down and last one is 7.2, he received triple therapy for H pylori infection Review of Systems Constitutional: COMPLAINS OF: Fatigue Gastrointestinal: COMPLAINS OF: Black stools Past Family Social History Allergies: Coded Allergies: No Known Allergies (Unverified , 09/20/16) Past Medical History Atrial fibrillation Chronic diastolic heart failure 2 diabetes Hypertension DJD stage III Hyperlipidemia Primary hypertension with mildly elevated pulmonary pressure of 43 mmHg on 2014 echo Mild cognitive impairment/dementia Gout Past Surgical History Hernia repair Reported Medications Reported Meds & Active Scripts Active Protonix (Pantoprazole Sodium) 40 Mg Tab 40 Mg PO BID Amoxicillin 500 Mg Cap 1,000 Mg PO BID 10 Days Clarithromycin 500 Mg Tab 500 Mg PO Q12HR 10 Days Lisinopril 20 Mg Tab 20 Mg PO Q12HR hold for sbp less 110 Reported Aspirin 81 Mg Chew 81 Mg PO DAILY Ferrous Sulfate DR (Ferrous Sulfate) 324 Mg Tabdr 325 Mg PO DAILY Tradjenta (Linagliptin) 5 Mg Tab 5 Mg PO DAILY Namenda (Memantine) 10 Mg Tab 10 Mg PO DAILY Metoprolol Tartrate 25 Mg Tab 25 Mg PO BID Glimepiride 2 Mg Tab 4 Mg PO DAILY Take with breakfast or first main meal Atorvastatin (Atorvastatin Calcium) 40 Mg Tab 40 Mg PO HS Allopurinol 100 Mg Tab 100 Mg PO DAILY Active Ordered Medications Current Medications Medications (Trade) Dose Ordered Sig/Zachary Route Start Time Stop Time Status Last Admin (NS Flush) 2 ml UNSCH PRN IVF 09/20/16 16:15 09/21/16 08:10 (Protonix) 40 mg Q12HR PO 09/20/16 21:00 09/22/16 10:02 (Lipitor) 40 mg HS PO 09/20/16 21:00 09/21/16 20:33 (Namenda) 10 mg DAILY PO 09/21/16 09:00 09/22/16 10:01 (Lopressor) 25 mg BID PO 09/20/16 21:00 09/22/16 10:02 (Ferrous Sulfate) 325 mg DAILY PO 09/21/16 09:00 09/22/16 10:02 (Catapres) 0.1 mg Q6H PRN PO 09/21/16 15:00 Patient Own Medication PT OWN MED: Linaglip... DAILY PO 09/23/16 09:00 Family History Noncontributory Social History Stayed in retirement and denies the smoking or alcohol use Physical Exam Vital Signs Vital Signs Date Time Temp Pulse Resp B/P Pulse Ox O2 Delivery O2 Flow Rate FiO2 09/22/16 15:50 98.2 76 16 149/87 100 09/22/16 11:26 97.9 84 20 145/67 97 09/22/16 07:42 97.9 84 16 136/63 98 09/22/16 03:00 98.8 77 18 131/72 97 09/21/16 20:00 98.0 77 18 128/67 97 Physical Exam GENERAL: Well-nourished, well-developed patient. SKIN: Warm and dry. HEAD: Normocephalic. EYES: No scleral icterus. No injection or drainage. NECK: Supple, trachea midline. No JVD or lymphadenopathy. CARDIOVASCULAR: Regular rate and rhythm without murmurs, gallops, or rubs. RESPIRATORY: Breath sounds equal bilaterally. No accessory muscle use. GASTROINTESTINAL: Abdomen soft, non-tender, nondistended. EXTREMITIES: No cyanosis, 1 plus edema. NEUROLOGICAL: Awake, alert, and oriented x 3. Non-focal. Laboratory Laboratory Tests Test 09/22/16 09/22/16 06:25 09:39 Sodium Level 141 Potassium Level 4.7 Chloride Level 113 Carbon Dioxide Level 18.4 Anion Gap 10 Blood Urea Nitrogen 47 Creatinine 2.38 Estimat Glomerular Filtration 26 Rate Random Glucose 77 Calcium Level 8.8 Magnesium Level 2.1 White Blood Count 9.8 Red Blood Count 2.68 Hemoglobin 7.2 Hematocrit 22.5 Mean Corpuscular Volume 83.9 Mean Corpuscular Hemoglobin 26.7 Mean Corpuscular Hemoglobin 31.9 Concent Red Cell Distribution Width 15.9 Platelet Count 249 Mean Platelet Volume 9.1 Neutrophils (%) (Auto) 76.1 Lymphocytes (%) (Auto) 10.0 Monocytes (%) (Auto) 9.5 Eosinophils (%) (Auto) 3.5 Basophils (%) (Auto) 0.9 Neutrophils # (Auto) 7.5 Lymphocytes # (Auto) 1.0 Monocytes # (Auto) 0.9 Eosinophils # (Auto) 0.3 Basophils # (Auto) 0.1 CBC Comment DIFF FINAL Differential Comment Date/Time Procedure Status Source Growth 09/20/16 21:00 Urine Culture - Final Complete Urine Random Urine <10,000 CFU/ML GRAM POSITIVE GEOFFREY Result Diagram: 09/22/16 0939 09/22/16 0625 Assessment and Plan Problem List: (1) Acute kidney injury superimposed on chronic kidney disease Plan: This is likely due to hypoperfusion he is severely anemic and the hemoglobin is less than 8 slowly drifting down to 7.2 indicating possible bleeding and I would prefer to have 1 unit of packed red blood cell to perfuse the kidney better I will obtain a baseline kidney ultrasound Monitor BMP in the morning Avoid gadolinium or dye studies (2) Diabetes mellitus Plan: Continue to monitor while in the hospital (3) UGI bleed Plan: He has a upper endoscopy in August showing antral gastric ulcer (4) Anemia Plan: Due to gastric ulcer Problem Qualifiers (1) Diabetes mellitus: Stu Jones MD Sep 22, 2016 18:44
[2016-09-22] MEDS ORDERED: diphenhydrAMINE HCL 25 MG CAP PO PRN (19:00)
[2016-09-22] MEDS ORDERED: ACETAMINOPHEN 325 MG TAB PO PRN (19:00)
[2016-09-22] MEDS ORDERED: SODIUM CHLOR 0.9% 250 ML INJ 250 ML IV ONE (19:00)
[2016-09-22 20:59] VITALS: BP 131/78; PULSE 68; RESP 18; TEMP 98; O2SAT 94
[2016-09-22] MEDS: ATORVASTATIN 40 MG TAB PO SCH (21:36)
[2016-09-23] VITALS (13 sets, daily range): BP systolic 101–130; BP diastolic 52–78; PULSE 68–90; RESP 16–18; TEMP 97.6–98.4; O2SAT 94–97
--- NOTE | 2016-09-23 00:15 | RADRPT ---
EXAM DATE/TIME: 09/22/2016 23:04 This report includes an Addendum and supersedes previous reports for this exam. [facility] COMPARISON: No previous studies available for comparison. INDICATIONS : Increased BUN/Creatinine. MEDICAL HISTORY : Hypertension. Hearing loss. Confusion. Afib. Gout. Weakness. Anxiety. SURGICAL HISTORY : Left inguinal hernia repair. ENCOUNTER: Initial ACUITY: 1 day PAIN SCORE: 0/10 LOCATION: Bilateral flank MEASUREMENTS: RIGHT KIDNEY: 12.9 x 6.1 x 6.4 cm LEFT KIDNEY: 14.6 x 6.7 x 7.6 cm FINDINGS: The bladder is distended with almost 2564 ml of urine within it. There are cysts in both kidneys the largest measures 4 cm on the left. There is also slight hydronephrosis in both kidneys. CONCLUSION: Slight hydronephrosis in both kidneys could be due to distended bladder, however the exact etiology i s not evident. Aleksander Giles MD on September 23, 2016 at 0:12 Board Certified Radiologist. This report was verified electronically. ADDENDUM: Findings were reported by [place] magnetic resonance technologist to Jose Martin the patient's nurse at the time of this addendum. Aleksander Giles MD on September 23, 2016 at 0:21 Board Certified Radiologist. This report was verified electronically.
[2016-09-23 07:46] LABS: AUTOMATED NEUTROPHIL # 7.2 TH/MM3 (1.8-7.7); BASOPHIL % 0.5 % (0.0-2.0); EOSINOPHIL # 0.3 TH/MM3 (0-0.4); EOSINOPHIL % 2.9 % (0.0-4.0); HEMATOCRIT 22.5 % (39.0-51.0); HEMO FLAGS DIFF FINAL; LYMPH % 9.7 % (9.0-44.0); LYMPHOCYTE # 0.9 TH/MM3 (1.0-4.8); MEAN CELL VOLUME 83.9 FL (80.0-100.0); MEAN CORPUSCULAR HGB CONC 32.1 % (32.0-36.0); MONO % 9.5 % (0.0-8.0); NEUT % 77.4 % (16.0-70.0); PLATELET COUNT 199 TH/MM3 (150-450); RED BLOOD COUNT 2.68 MIL/MM3 (4.50-5.90); RED CELL DISTRIBUTION WIDTH 15.9 % (11.6-17.2); WHITE BLOOD COUNT 9.3 TH/MM3 (4.0-11.0)
[2016-09-23 08:09] LABS: MAGNESIUM 1.9 MG/DL (1.5-2.5); POTASSIUM 4.2 MEQ/L (3.5-5.1)
[2016-09-23] MEDS: PANTOPRAZOLE SOD 40 MG DELAYED RELEASE TAB PO SCH ×2 (08:31→20:44)
[2016-09-23] MEDS: MEMANTINE HCL 10 MG TAB PO SCH (08:31)
[2016-09-23] MEDS: METOPROLOL TARTRATE 25 MG TAB PO SCH ×2 (08:32→20:44)
[2016-09-23] MEDS: FERROUS SULFATE 325 MG (65 MG ELEMENTAL IRON) TAB PO SCH (08:33)
--- NOTE | 2016-09-23 08:59 | HHI.PR ---
Subjective Remarks Pt had a renal US last night which noted a distended bladder with over 2500cc of urine present and mild bilateral hydronephrosis. Pt had a Tristan catheter placed last night with initially 2400cc of urine out and he had out about 1200cc overnight with noted bloody urine. The pt had not had any noted hematuria prior to Tristan placement. Pt received one unit of PRBCs last night. Objective Vitals Vital Signs Date Time Temp Pulse Resp B/P Pulse Ox O2 Delivery O2 Flow Rate FiO2 09/23/16 07:52 97.7 90 16 130/76 97 09/23/16 04:00 98.0 77 18 121/62 94 09/23/16 03:06 97.8 68 18 127/78 96 09/23/16 02:06 98.2 72 16 120/58 97 09/23/16 01:06 98.2 68 16 116/56 95 09/23/16 00:36 97.6 77 18 103/55 97 09/23/16 00:21 97.6 76 18 109/56 09/23/16 00:06 97.6 74 18 113/53 09/23/16 00:00 97.8 77 18 128/68 97 09/22/16 20:59 98.0 68 18 131/78 94 09/22/16 15:50 98.2 76 16 149/87 100 09/22/16 11:26 97.9 84 20 145/67 97 09/22/16 09/22/16 09/23/16 15:00 23:00 07:00 Bladder Scan Volume Amount 999 ml # Voids 3 Result Diagram: 09/23/16 0625 09/23/16 0630 Other Results Laboratory Tests Test 09/22/16 09/22/16 09/22/16 09/22/16 06:25 09:39 18:48 20:42 Sodium Level 141 MEQ/L Potassium Level 4.7 MEQ/L Chloride Level 113 MEQ/L Carbon Dioxide Level 18.4 MEQ/L Anion Gap 10 MEQ/L Blood Urea Nitrogen 47 MG/DL Creatinine 2.38 MG/DL Estimat Glomerular Filtration 26 ML/MIN Rate Random Glucose 77 MG/DL Calcium Level 8.8 MG/DL Magnesium Level 2.1 MG/DL White Blood Count 9.8 TH/MM3 Red Blood Count 2.68 MIL/MM3 Hemoglobin 7.2 GM/DL Hematocrit 22.5 % Mean Corpuscular Volume 83.9 FL Mean Corpuscular Hemoglobin 26.7 PG Mean Corpuscular Hemoglobin 31.9 % Concent Red Cell Distribution Width 15.9 % Platelet Count 249 TH/MM3 Mean Platelet Volume 9.1 FL Neutrophils (%) (Auto) 76.1 % Lymphocytes (%) (Auto) 10.0 % Monocytes (%) (Auto) 9.5 % Eosinophils (%) (Auto) 3.5 % Basophils (%) (Auto) 0.9 % Neutrophils # (Auto) 7.5 TH/MM3 Lymphocytes # (Auto) 1.0 TH/MM3 Monocytes # (Auto) 0.9 TH/MM3 Eosinophils # (Auto) 0.3 TH/MM3 Basophils # (Auto) 0.1 TH/MM3 CBC Comment DIFF FINAL Differential Comment Blood Type A POSITIVE A POSITIVE Crossmatch Leukocyte-Reduced Red Blood Cells Blood Bank Comment Test 09/23/16 09/23/16 06:25 06:30 White Blood Count 9.3 TH/MM3 Red Blood Count 2.68 MIL/MM3 Hemoglobin 7.2 GM/DL Hematocrit 22.5 % Mean Corpuscular Volume 83.9 FL Mean Corpuscular Hemoglobin 27.0 PG Mean Corpuscular Hemoglobin 32.1 % Concent Red Cell Distribution Width 15.9 % Platelet Count 199 TH/MM3 Mean Platelet Volume 9.1 FL Neutrophils (%) (Auto) 77.4 % Lymphocytes (%) (Auto) 9.7 % Monocytes (%) (Auto) 9.5 % Eosinophils (%) (Auto) 2.9 % Basophils (%) (Auto) 0.5 % Neutrophils # (Auto) 7.2 TH/MM3 Lymphocytes # (Auto) 0.9 TH/MM3 Monocytes # (Auto) 0.9 TH/MM3 Eosinophils # (Auto) 0.3 TH/MM3 Basophils # (Auto) 0.0 TH/MM3 CBC Comment DIFF FINAL Differential Comment Sodium Level 137 MEQ/L Potassium Level 4.2 MEQ/L Chloride Level 109 MEQ/L Carbon Dioxide Level 20.0 MEQ/L Anion Gap 8 MEQ/L Blood Urea Nitrogen 51 MG/DL Creatinine 2.66 MG/DL Estimat Glomerular Filtration 23 ML/MIN Rate Random Glucose 118 MG/DL Calcium Level 8.2 MG/DL Magnesium Level 1.9 MG/DL Imaging Last Impressions Renal Ultrasound 09/22/16 0000 Signed Impressions: Service Date/Time: Thursday, September 22, 2016 23:04 - CONCLUSION: Slight hydronephrosis in both kidneys could be due to distended bladder, however the exact etiology is not evident. Aleksander Giles MD ADDENDUM: Findings were reported by [place] cardiopulmonary technologist to Jose Martin the patient's nurse at the time of this addendum. Aleksander Giles MD Objective Remarks General: NAD, AAOx3 Chest: CTA Cardiac: Regular Abd: +BS, soft mildly distended, nontender Ext: Bilateral LE pitting edema, R>L to the thighs, less than yesterday A/P Problem List: (1) Anemia Status: Chronic Plan: - Pt sent from local SNF for acute on chronic anemia. - Pt was recently admitted for anemia and GIB. Pt underwent evaluation with EGD at that time which noted a large antral ulcer. - Pts discharge hemoglobin was 8.3 on 09/09/16. His hemoglobin was 8.1 on September 13 and was 7.4 at admission on 09/20 prompting him to be sent to the ED. - Continue Protonix - Pt appeared to be a bit on the dry side at admission with increased renal functions at admission. - He received some gentle IVF hydration upon admission - Vital signs are stable. - Pt had LE pitting edema to the thighs noted yesterday and was given one dose of Albumin IV followed by one dose of IV Lasix - ONI hose placed - Weigh pt daily - Pts Cr bumped to 2.66 today - Appreciate Nephrology consultation. They felt that the worsening renal function may be secondary to hypoperfusion secondary to his anemia. - Pt was given one unit of PRBCs last night. - Hemoglobin 7.2 on 09/22 and received one units of PRBCs last night and repeat Hgb this morning was 7.2. - Pt had renal US last night which noted a distended bladder with over 2500cc of urine present and mild bilateral hydronephrosis. - Pt had a Tristan catheter placed last night with initially 2400cc of urine out and he had out about 1200cc overnight with noted bloody urine. - The pt had not had any noted hematuria prior to Tristan placement, likely secondary to Tristan trauma. - Repeat H/H this afternoon and if decreasing H/H then we will likely need to consult Urology and give more PRBCs - Encourage oral intake. - Hold aspirin. (2) Acute kidney injury superimposed on chronic kidney disease Status: Acute Plan: - As noted above. - Pt received gentle hydration following admission - Repeat labs today with increased Cr to 2.66 today - Encourage oral intake - Recheck in AM (3) Diastolic CHF, chronic Status: Chronic Plan: - EF 60% in 2015. - ONI hose - Elevate legs when in bed - Follow clinically. (4) HTN (hypertension) Status: Chronic Plan: - Continue medication. - Fair control. (5) A-fib Status: Chronic Plan: - Rate relatively well controlled. - We'll avoid anticoagulants given his advanced age and recent GI bleed - This obviously places him at increased risk for stroke but given the recent bleeds and the current falling hemoglobin we will refrain from anticoagulant. (6) Diabetes mellitus Status: Chronic Plan: - NovoLog sliding scale insulin Assessment and Plan Patient examined. Assessment and plan formulated with Yenny Troncoso PA-C. I agree with the above. recent admission for gastric ulcer. H pylori. just completing triple therapy. given 4 units blood on that admission. pt feels well. sent back from snf because of slight drop of hgb from 8 to 7. also his cr is worsening. Pt noted to have quite a bit of lower ext edema up to thighs.given iv lasix and albumen with improvement but cr rising. noted to have 2500 cc urine retention and tristan placed. hematuria and tristan trauma noted..slowly improving. monitor for cr improvement. probably some bph..will add flomax and try to remove tristan in a few days. Problem Qualifiers (1) HTN (hypertension): Qualified Code: I10 - Essential hypertension (2) Diabetes mellitus: Yenny Troncoso Sep 23, 2016 08:59 Chidi Herrera MD Sep 23, 2016 12:22
--- NOTE | 2016-09-23 13:47 | HHI.NPPN ---
Subjective History of Present Illness 81 year old with ARF anemia GI bleeding. Hematuria Interval History US Kidneys showed distended bladder 2.5 L urine a Ruiz catheter was placed with 2.4 L of bloody urine Objective Data Data 09/22/16 09/23/16 19:00 07:00 Bladder Scan Volume Amount 999 ml # Voids 3 Vital Signs Date Time Temp Pulse Resp B/P Pulse Ox O2 Delivery O2 Flow Rate FiO2 09/23/16 11:22 98.1 78 18 121/58 96 09/23/16 07:52 97.7 90 16 130/76 97 09/23/16 04:00 98.0 77 18 121/62 94 09/23/16 03:06 97.8 68 18 127/78 96 09/23/16 02:06 98.2 72 16 120/58 97 09/23/16 01:06 98.2 68 16 116/56 95 09/23/16 00:36 97.6 77 18 103/55 97 09/23/16 00:21 97.6 76 18 109/56 09/23/16 00:06 97.6 74 18 113/53 09/23/16 00:00 97.8 77 18 128/68 97 09/22/16 20:59 98.0 68 18 131/78 94 09/22/16 15:50 98.2 76 16 149/87 100 -: 09/23/16 0625 09/23/16 0630 Physical Exam General Appearance: Well Developed, Well Nourished Neck Neck Exam: Neck Supple Pulmonary Resp Exam: Clear Bilaterally, No Distress Cardiology CV Exam: Regular, Normal Sinus Rhythm Gastrointestinal/Abdomen GI Exam: Soft, Non-Tender, Bowel Sounds Present Extremeties Extremities Exam: Trace Edema Assessment/Plan Problem List: (1) Acute kidney injury superimposed on chronic kidney disease Plan: Above noted Obstructive uropathy with severe Urinary retention caused renal failure post Ruiz diuresis Cr 2.6 Continue to hydrate Hb 7.2 post PRBC given (2) Diabetes mellitus Plan: Continue to monitor while in the hospital (3) UGI bleed Plan: He has a upper endoscopy in August showing antral gastric ulcer (4) Anemia Plan: Due to gastric ulcer Problem Qualifiers (1) Diabetes mellitus: Stu Jones MD Sep 23, 2016 13:47
[2016-09-23 13:59] LABS: HEMATOCRIT 23.9 % (39.0-51.0); REVIEW FLAG FINAL
[2016-09-23] MEDS: ATORVASTATIN 40 MG TAB PO SCH (20:44)
[2016-09-23] MEDS: TAMSULOSIN HCL 0.4 MG CAP PO SCH (20:44)
[2016-09-24 00:14] VITALS: BP 131/60; PULSE 78; RESP 18; TEMP 97.8; O2SAT 97
[2016-09-24 04:29] LABS: AUTOMATED NEUTROPHIL # 6.4 TH/MM3 (1.8-7.7); BASOPHIL # 0.1 TH/MM3 (0-0.2); BASOPHIL % 0.9 % (0.0-2.0); EOSINOPHIL # 0.2 TH/MM3 (0-0.4); EOSINOPHIL % 2.8 % (0.0-4.0); HEMATOCRIT 23.1 % (39.0-51.0); HEMO FLAGS DIFF FINAL; LYMPH % 14.8 % (9.0-44.0); LYMPHOCYTE # 1.3 TH/MM3 (1.0-4.8); MEAN CELL VOLUME 83.3 FL (80.0-100.0); MEAN CORPUSCULAR HGB CONC 32.4 % (32.0-36.0); MONO % 10.5 % (0.0-8.0); PLATELET COUNT 197 TH/MM3 (150-450); RED BLOOD COUNT 2.78 MIL/MM3 (4.50-5.90); RED CELL DISTRIBUTION WIDTH 15.9 % (11.6-17.2)
[2016-09-24 04:57] LABS: BICARBONATE 22.9 MEQ/L (21.0-32.0); MAGNESIUM 1.8 MG/DL (1.5-2.5); POTASSIUM 4.7 MEQ/L (3.5-5.1)
[2016-09-24 08:00] VITALS: BP 129/62; PULSE 85; RESP 17; TEMP 96.6; O2SAT 93
[2016-09-24] MEDS: FERROUS SULFATE 325 MG (65 MG ELEMENTAL IRON) TAB PO SCH (08:43)
[2016-09-24] MEDS: PANTOPRAZOLE SOD 40 MG DELAYED RELEASE TAB PO SCH ×2 (08:43→22:05)
[2016-09-24] MEDS: MEMANTINE HCL 10 MG TAB PO SCH (08:43)
[2016-09-24] MEDS: METOPROLOL TARTRATE 25 MG TAB PO SCH ×2 (08:43→22:04)
--- NOTE | 2016-09-24 09:31 | HHI.PR ---
Subjective Remarks No new complaints. Urine is no longer bloody Afebrile Objective Vitals Vital Signs Date Time Temp Pulse Resp B/P Pulse Ox O2 Delivery O2 Flow Rate FiO2 09/24/16 08:00 96.6 85 17 129/62 93 09/24/16 00:14 97.8 78 18 131/60 97 09/23/16 21:24 98.2 72 17 118/65 95 09/23/16 20:13 98.4 76 18 101/52 97 09/23/16 16:21 98.3 73 18 110/58 97 09/23/16 11:22 98.1 78 18 121/58 96 09/23/16 09/23/16 09/24/16 15:00 23:00 07:00 Intake Total 360 ml 360 ml Output Total 2900 ml 1950 ml 1000 ml Balance -2900 ml -1590 ml -640 ml Intake Oral 360 ml 360 ml Output Urine Total 2900 ml 1950 ml 1000 ml Result Diagram: 09/24/16 0353 09/24/16 0353 Other Results Laboratory Tests Test 09/22/16 09/22/16 09/22/16 09/23/16 09:39 18:48 20:42 06:25 White Blood Count 9.8 TH/MM3 9.3 TH/MM3 Red Blood Count 2.68 MIL/MM3 2.68 MIL/MM3 Hemoglobin 7.2 GM/DL 7.2 GM/DL Hematocrit 22.5 % 22.5 % Mean Corpuscular Volume 83.9 FL 83.9 FL Mean Corpuscular Hemoglobin 26.7 PG 27.0 PG Mean Corpuscular Hemoglobin 31.9 % 32.1 % Concent Red Cell Distribution Width 15.9 % 15.9 % Platelet Count 249 TH/MM3 199 TH/MM3 Mean Platelet Volume 9.1 FL 9.1 FL Neutrophils (%) (Auto) 76.1 % 77.4 % Lymphocytes (%) (Auto) 10.0 % 9.7 % Monocytes (%) (Auto) 9.5 % 9.5 % Eosinophils (%) (Auto) 3.5 % 2.9 % Basophils (%) (Auto) 0.9 % 0.5 % Neutrophils # (Auto) 7.5 TH/MM3 7.2 TH/MM3 Lymphocytes # (Auto) 1.0 TH/MM3 0.9 TH/MM3 Monocytes # (Auto) 0.9 TH/MM3 0.9 TH/MM3 Eosinophils # (Auto) 0.3 TH/MM3 0.3 TH/MM3 Basophils # (Auto) 0.1 TH/MM3 0.0 TH/MM3 CBC Comment DIFF FINAL DIFF FINAL Differential Comment Blood Type A POSITIVE A POSITIVE Crossmatch Leukocyte-Reduced Red Blood Cells Blood Bank Comment Test 09/23/16 09/23/16 09/24/16 06:30 13:28 03:53 Sodium Level 137 MEQ/L 145 MEQ/L Potassium Level 4.2 MEQ/L 4.7 MEQ/L Chloride Level 109 MEQ/L 114 MEQ/L Carbon Dioxide Level 20.0 MEQ/L 22.9 MEQ/L Anion Gap 8 MEQ/L 8 MEQ/L Blood Urea Nitrogen 51 MG/DL 46 MG/DL Creatinine 2.66 MG/DL 2.30 MG/DL Estimat Glomerular Filtration 23 ML/MIN 27 ML/MIN Rate Random Glucose 118 MG/DL 123 MG/DL Calcium Level 8.2 MG/DL 9.0 MG/DL Magnesium Level 1.9 MG/DL 1.8 MG/DL Hemoglobin 7.6 GM/DL 7.5 GM/DL Hematocrit 23.9 % 23.1 % White Blood Count 9.0 TH/MM3 Red Blood Count 2.78 MIL/MM3 Mean Corpuscular Volume 83.3 FL Mean Corpuscular Hemoglobin 27.0 PG Mean Corpuscular Hemoglobin 32.4 % Concent Red Cell Distribution Width 15.9 % Platelet Count 197 TH/MM3 Mean Platelet Volume 9.3 FL Neutrophils (%) (Auto) 71.0 % Lymphocytes (%) (Auto) 14.8 % Monocytes (%) (Auto) 10.5 % Eosinophils (%) (Auto) 2.8 % Basophils (%) (Auto) 0.9 % Neutrophils # (Auto) 6.4 TH/MM3 Lymphocytes # (Auto) 1.3 TH/MM3 Monocytes # (Auto) 0.9 TH/MM3 Eosinophils # (Auto) 0.2 TH/MM3 Basophils # (Auto) 0.1 TH/MM3 CBC Comment DIFF FINAL Differential Comment Imaging Last Impressions Renal Ultrasound 09/22/16 0000 Signed Impressions: Service Date/Time: Thursday, September 22, 2016 23:04 - CONCLUSION: Slight hydronephrosis in both kidneys could be due to distended bladder, however the exact etiology is not evident. Aleksander Giles MD ADDENDUM: Findings were reported by [place] polysomnographic technologist to Jose Martin the patient's nurse at the time of this addendum. Aleksander Giles MD Objective Remarks General: NAD, AAOx3 Chest: CTA Cardiac: Regular Abd: +BS, soft nondistended, nontender Ext: Bilateral LE pitting edema, R>L to the thighs, improving A/P Problem List: (1) Anemia Status: Chronic Plan: - Pt sent from local SNF for acute on chronic anemia. - Pt was recently admitted for anemia and GIB. Pt underwent evaluation with EGD at that time which noted a large antral ulcer. - Pts discharge hemoglobin was 8.3 on 09/09/16. His hemoglobin was 8.1 on September 13 and was 7.4 at admission on 09/20 prompting him to be sent to the ED. - Continue Protonix - Pt appeared to be a bit on the dry side at admission with increased renal functions at admission. - He received some gentle IVF hydration upon admission - Vital signs are stable. - Pt had LE pitting edema to the thighs noted following admission and was given one dose of Albumin IV followed by one dose of IV Lasix - ONI hose placed - Weigh pt daily - Pts Cr bumped to 2.66 on 09/23 - Appreciate Nephrology consultation. They felt that the worsening renal function may be secondary to hypoperfusion secondary to his anemia and pt was given one unit of PRBCs last night - Pt had renal US on 09/22 which noted a distended bladder with over 2500cc of urine present and mild bilateral hydronephrosis. - Pt had a Tristan catheter placed with initially 2400cc of urine out and he had out about 1200cc overnight with noted bloody urine. - The pt had not had any noted hematuria prior to Tristan placement, likely secondary to Tristan trauma. This has improved and urine is clear currently. - Pt was started on Flomax 0.4mg HS on 09/23 - Hemoglobin stable at 7.5 and Renal function is slightly improved today to Cr 2.3 - Encourage oral intake. - Hold aspirin. (2) Acute kidney injury superimposed on chronic kidney disease Status: Acute Plan: - As noted above. (3) Diastolic CHF, chronic Status: Chronic Plan: - EF 60% in 2014. - ONI hose - Elevate legs when in bed - Follow clinically. (4) HTN (hypertension) Status: Chronic Plan: - Continue medication. - Fair control. (5) A-fib Status: Chronic Plan: - Rate relatively well controlled. - We'll avoid anticoagulants given his advanced age and recent GI bleed - This obviously places him at increased risk for stroke but given the recent bleeds and the current falling hemoglobin we will refrain from anticoagulant. (6) Diabetes mellitus Status: Chronic Plan: - NovoLog sliding scale insulin Assessment and Plan Patient examined. Assessment and plan formulated with Yenny Troncoso PA-C. I agree with the above. anderson. obstruction and urine retention. bph. cont tristan and flomax. try to remove over the weekend after few days of flomax. monitor bmp. Problem Qualifiers (1) HTN (hypertension): Qualified Code: I10 - Essential hypertension (2) Diabetes mellitus: Yenny Troncoso Sep 24, 2016 09:31 Chidi Herrera MD Sep 24, 2016 10:46
[2016-09-24 12:00] VITALS: BP 132/65; PULSE 75; RESP 18; TEMP 98.3; O2SAT 95
--- NOTE | 2016-09-24 12:27 | HHI.NPPN ---
Subjective History of Present Illness 81 year old with ARF anemia GI bleeding. Hematuria Objective Data Data 09/23/16 09/24/16 19:00 07:00 Intake Total 720 ml Output Total 3850 ml 2000 ml Balance -3850 ml -1280 ml Intake Oral 720 ml Output Urine Total 3850 ml 2000 ml Vital Signs Date Time Temp Pulse Resp B/P Pulse Ox O2 Delivery O2 Flow Rate FiO2 09/24/16 12:00 98.3 75 18 132/65 95 09/24/16 08:00 96.6 85 17 129/62 93 09/24/16 00:14 97.8 78 18 131/60 97 09/23/16 21:24 98.2 72 17 118/65 95 09/23/16 20:13 98.4 76 18 101/52 97 09/23/16 16:21 98.3 73 18 110/58 97 -: 09/24/16 0353 09/24/16 0353 Physical Exam General Appearance: Well Developed, Well Nourished Neck Neck Exam: Neck Supple Pulmonary Resp Exam: Clear Bilaterally, No Distress Cardiology CV Exam: Regular, Normal Sinus Rhythm Gastrointestinal/Abdomen GI Exam: Soft, Non-Tender, Bowel Sounds Present Extremeties Extremities Exam: Trace Edema Assessment/Plan Problem List: (1) Acute kidney injury superimposed on chronic kidney disease Plan: Above noted Obstructive uropathy with severe Urinary retention caused renal failure post Ruiz diuresis Cr 2.3 Continue to hydrate Hb 7.5 post PRBC Hx of GI bleed recently (2) Diabetes mellitus Plan: Continue to monitor while in the hospital (3) UGI bleed Plan: He has a upper endoscopy in August showing antral gastric ulcer (4) Anemia Plan: Due to gastric ulcer Problem Qualifiers (1) Diabetes mellitus: Stu Jones MD Sep 24, 2016 12:26
[2016-09-24 16:00] VITALS: BP 167/71; PULSE 75; RESP 19; TEMP 96.9; O2SAT 94
[2016-09-24 20:00] VITALS: BP 152/81; PULSE 79; RESP 20; TEMP 97.4; O2SAT 99
[2016-09-24] MEDS: TAMSULOSIN HCL 0.4 MG CAP PO SCH (22:04)
[2016-09-24] MEDS: ATORVASTATIN 40 MG TAB PO SCH (22:04)
[2016-09-25] VITALS: BP 162/74; PULSE 86; RESP 20; TEMP 97.2; O2SAT 98
[2016-09-25 08:00] VITALS: BP 158/76; PULSE 88; RESP 17; TEMP 96; O2SAT 96
[2016-09-25] MEDS: MEMANTINE HCL 10 MG TAB PO SCH (08:18)
[2016-09-25] MEDS: PANTOPRAZOLE SOD 40 MG DELAYED RELEASE TAB PO SCH ×2 (08:18→20:26)
[2016-09-25] MEDS: METOPROLOL TARTRATE 25 MG TAB PO SCH ×2 (08:18→20:26)
[2016-09-25] MEDS: FERROUS SULFATE 325 MG (65 MG ELEMENTAL IRON) TAB PO SCH (08:18)
--- NOTE | 2016-09-25 10:27 | HHI.NPPN ---
Subjective History of Present Illness 81 year old with ARF anemia GI bleeding. Hematuria Interval History Post obstructive diuresis. No new labs available today. Objective Data Data 09/24/16 09/25/16 19:00 07:00 Intake Total 720 ml 1920 ml Output Total 1900 ml 3600 ml Balance -1180 ml -1680 ml Intake Oral 720 ml 1920 ml Output Urine Total 1900 ml 3600 ml # Bowel Movements 1 Vital Signs Date Time Temp Pulse Resp B/P Pulse Ox O2 Delivery O2 Flow Rate FiO2 09/25/16 08:00 96.0 88 17 158/76 96 09/25/16 00:00 97.2 86 20 162/74 98 09/24/16 20:00 97.4 79 20 152/81 99 09/24/16 16:00 96.9 75 19 167/71 94 09/24/16 12:00 98.3 75 18 132/65 95 -: 09/24/16 0353 09/24/16 0353 Physical Exam General Appearance: Well Developed, Well Nourished Neck Neck Exam: Neck Supple Pulmonary Resp Exam: Clear Bilaterally, No Distress Cardiology CV Exam: Regular, Normal Sinus Rhythm Gastrointestinal/Abdomen GI Exam: Soft, Non-Tender, Bowel Sounds Present Extremeties Extremities Exam: Trace Edema Assessment/Plan Problem List: (1) Acute kidney injury superimposed on chronic kidney disease Plan: ADRI due to obstructive uropathy. Repeat labs. Renal function had improved. (2) Diabetes mellitus Plan: Continue to monitor while in the hospital (3) UGI bleed Plan: He has a upper endoscopy in August showing antral gastric ulcer (4) Anemia Plan: History of GI bleeding. Transfuse prn. Problem Qualifiers (1) Diabetes mellitus: Prabhu Trevizo MD Sep 25, 2016 10:26
[2016-09-25 12:00] VITALS: BP 144/67; PULSE 75; RESP 17; TEMP 98.3; O2SAT 96
[2016-09-25 12:54] LABS: BICARBONATE 19.6 MEQ/L (21.0-32.0); POTASSIUM 4.3 MEQ/L (3.5-5.1)
[2016-09-25 16:00] VITALS: BP 123/66; PULSE 83; RESP 17; TEMP 97.5; O2SAT 96
--- NOTE | 2016-09-25 17:28 | HHI.PR ---
Subjective Remarks doing ok Objective Vitals heart reg sarwat gcta abd s/nt ext pedal edema/oni hose tristan Vital Signs Date Time Temp Pulse Resp B/P Pulse Ox O2 Delivery O2 Flow Rate FiO2 09/25/16 16:00 97.5 83 17 123/66 96 09/25/16 12:00 98.3 75 17 144/67 96 09/25/16 08:00 96.0 88 17 158/76 96 09/25/16 00:00 97.2 86 20 162/74 98 09/24/16 20:00 97.4 79 20 152/81 99 09/24/16 09/24/16 09/25/16 15:00 23:00 07:00 Intake Total 720 ml 720 ml 1200 ml Output Total 1900 ml 1100 ml 2500 ml Balance -1180 ml -380 ml -1300 ml Intake Oral 720 ml 720 ml 1200 ml Output Urine Total 1900 ml 1100 ml 2500 ml # Bowel Movements 1 Result Diagram: 09/24/16 0353 09/25/16 1117 Imaging Last Impressions Renal Ultrasound 09/22/16 0000 Signed Impressions: Service Date/Time: Thursday, September 22, 2016 23:04 - CONCLUSION: Slight hydronephrosis in both kidneys could be due to distended bladder, however the exact etiology is not evident. Aleksander Giles MD ADDENDUM: Findings were reported by [place] medical technologist generalist to Jose Martin the patient's nurse at the time of this addendum. Aleksander Giles MD A/P Problem List: (1) Anemia Status: Chronic Plan: - Pt sent from local SNF for acute on chronic anemia. - Pt was recently admitted for anemia and GIB. Pt underwent evaluation with EGD at that time which noted a large antral ulcer. - Pts discharge hemoglobin was 8.3 on 09/09/16. His hemoglobin was 8.1 on September 13 and was 7.4 at admission on 09/20 prompting him to be sent to the ED. - Continue Protonix - Pt appeared to be a bit on the dry side at admission with increased renal functions at admission. - He received some gentle IVF hydration upon admission - Vital signs are stable. - Pt had LE pitting edema to the thighs noted following admission and was given one dose of Albumin IV followed by one dose of IV Lasix - ONI hose placed - Weigh pt daily - Pts Cr bumped to 2.66 on 09/23 - Appreciate Nephrology consultation. They felt that the worsening renal function may be secondary to hypoperfusion secondary to his anemia and pt was given one unit of PRBCs - Pt had renal US on 09/22 which noted a distended bladder with over 2500cc of urine present and mild bilateral hydronephrosis. - Pt had a Tristan catheter placed with initially 2400cc of urine out and he had out about 1200cc overnight with noted bloody urine. - The pt had not had any noted hematuria prior to Tristan placement, likely secondary to Tristan trauma. This has improved and urine is clear currently. - Pt was started on Flomax 0.4mg HS on 09/23 pt urine clear and hematuria resolved. cr slowly improved. keep tristan for few days then remove. cont flomax plan for snf. updated pt and poa today (2) Acute kidney injury superimposed on chronic kidney disease Status: Acute Plan: - As noted above. (3) Diastolic CHF, chronic Status: Chronic Plan: - EF 60% in 2014. - ONI hose - Elevate legs when in bed - Follow clinically. (4) HTN (hypertension) Status: Chronic Plan: - Continue medication. - Fair control. (5) A-fib Status: Chronic Plan: - Rate relatively well controlled. - We'll avoid anticoagulants given his advanced age and recent GI bleed - This obviously places him at increased risk for stroke but given the recent bleeds and the current falling hemoglobin we will refrain from anticoagulant. (6) Diabetes mellitus Status: Chronic Plan: - NovoLog sliding scale insulin Problem Qualifiers (1) HTN (hypertension): Qualified Code: I10 - Essential hypertension (2) Diabetes mellitus: Chidi Herrera MD Sep 25, 2016 17:28
[2016-09-25 20:00] VITALS: BP 150/84; PULSE 94; RESP 18; TEMP 96.3; O2SAT 96
[2016-09-25] MEDS: ATORVASTATIN 40 MG TAB PO SCH (20:26)
[2016-09-25] MEDS: TAMSULOSIN HCL 0.4 MG CAP PO SCH (20:26)
[2016-09-26] VITALS (12 sets, daily range): BP systolic 98–148; BP diastolic 55–81; PULSE 97–140; RESP 15–19; TEMP 96.4–97.6; O2SAT 95–98
[2016-09-26 06:18] LABS: BICARBONATE 23.4 MEQ/L (21.0-32.0); POTASSIUM 4.6 MEQ/L (3.5-5.1)
[2016-09-26] MEDS: METOPROLOL TARTRATE 25 MG TAB PO SCH ×2 (07:32→20:33)
[2016-09-26] MEDS: MEMANTINE HCL 10 MG TAB PO SCH (07:32)
[2016-09-26] MEDS: PANTOPRAZOLE SOD 40 MG DELAYED RELEASE TAB PO SCH ×2 (07:32→20:33)
[2016-09-26] MEDS: FERROUS SULFATE 325 MG (65 MG ELEMENTAL IRON) TAB PO SCH (07:32)
--- NOTE | 2016-09-26 10:07 | HHI.PR ---
Subjective Remarks c/o dizziness today. no h/a no focal weakness. looks pale. no diaphoresis. Objective Vitals heent neg heart irreg lung cta abd s/nt ext pedal edema oni hose. Vital Signs Date Time Temp Pulse Resp B/P Pulse Ox O2 Delivery O2 Flow Rate FiO2 09/26/16 08:00 96.7 104 15 148/65 96 09/26/16 00:00 97.5 127 18 106/81 98 09/25/16 20:00 96.3 94 18 150/84 96 09/25/16 16:00 97.5 83 17 123/66 96 09/25/16 12:00 98.3 75 17 144/67 96 09/25/16 09/25/16 09/26/16 15:00 23:00 07:00 Intake Total 1200 ml 480 ml 480 ml Output Total 1450 ml 1000 ml 2500 ml Balance -250 ml -520 ml -2020 ml Intake Oral 1200 ml 480 ml 480 ml IV Total 0 ml Output Urine Total 1450 ml 1000 ml 2500 ml # Bowel Movements 1 Result Diagram: 09/24/16 0353 09/26/16 0515 Imaging Last Impressions Renal Ultrasound 09/22/16 0000 Signed Impressions: Service Date/Time: Thursday, September 22, 2016 23:04 - CONCLUSION: Slight hydronephrosis in both kidneys could be due to distended bladder, however the exact etiology is not evident. Aleksander Giles MD ADDENDUM: Findings were reported by [place] staff nuclear medicine technologist to Jose Martin the patient's nurse at the time of this addendum. Aleksander Giles MD A/P Problem List: (1) Anemia Status: Chronic Plan: - Pt sent from local SNF for acute on chronic anemia. - Pt was recently admitted for anemia and GIB. Pt underwent evaluation with EGD at that time which noted a large antral ulcer. - Pts discharge hemoglobin was 8.3 on 09/09/16. His hemoglobin was 8.1 on September 13 and was 7.4 at admission on 09/20 prompting him to be sent to the ED. - Continue Protonix - Pt appeared to be a bit on the dry side at admission with increased renal functions at admission. - He received some gentle IVF hydration upon admission - Vital signs are stable. - Pt had LE pitting edema to the thighs noted following admission and was given one dose of Albumin IV followed by one dose of IV Lasix - ONI hose placed - Weigh pt daily - Pts Cr bumped to 2.66 on 09/23 - Appreciate Nephrology consultation. They felt that the worsening renal function may be secondary to hypoperfusion secondary to his anemia and pt was given one unit of PRBCs - Pt had renal US on 09/22 which noted a distended bladder with over 2500cc of urine present and mild bilateral hydronephrosis. - Pt had a Tristan catheter placed with initially 2400cc of urine out and he had out about 1200cc overnight with noted bloody urine. - The pt had not had any noted hematuria prior to Tristan placement, likely secondary to Tristan trauma. This has improved and urine is clear currently. - Pt was started on Flomax 0.4mg HS on 09/23 pt urine clear and hematuria resolved. cr slowly improved.d/c tristan in AM for voiding trial.. cont flomax c/o dizziness today. check tele and ekg for arrhythmia and rate control. will give blood transfusion as his hgb continues to be low] and he looks quite pale. also resume an asa. If persists might need to do brain imaging to exclude cva from afib. discussed with nursing. plan for snf once stable. addendum: ekg shows afib/rvr. give extra metoprolol now. blood transfusion ordered. has been off anticoagulation due to recent gib/ulcer. (2) Acute kidney injury superimposed on chronic kidney disease Status: Acute Plan: - As noted above. (3) Diastolic CHF, chronic Status: Chronic Plan: - EF 60% in 2014. - ONI hose - Elevate legs when in bed - Follow clinically. (4) HTN (hypertension) Status: Chronic Plan: - Continue medication. - Fair control. (5) A-fib Status: Acute Plan: see above (6) Diabetes mellitus Status: Chronic Plan: - NovoLog sliding scale insulin Problem Qualifiers (1) HTN (hypertension): Qualified Code: I10 - Essential hypertension (2) Diabetes mellitus: Chidi Herrera MD Sep 26, 2016 10:07 Chidi Herrera MD Sep 26, 2016 10:07
[2016-09-26] MEDS ORDERED: METOPROLOL TARTRATE 50 MG TAB PO STA (10:18)
--- NOTE | 2016-09-26 10:19 | HHI.NPPN ---
Subjective History of Present Illness 81 year old with ARF anemia GI bleeding. Hematuria Interval History sitting on a chair. Complains of lightheadedness and dizziness. He is anemic. Objective Data Data 09/25/16 09/26/16 19:00 07:00 Intake Total 1200 ml 960 ml Output Total 1450 ml 3500 ml Balance -250 ml -2540 ml Intake Oral 1200 ml 960 ml IV Total 0 ml Output Urine Total 1450 ml 3500 ml # Bowel Movements 1 Vital Signs Date Time Temp Pulse Resp B/P Pulse Ox O2 Delivery O2 Flow Rate FiO2 09/26/16 08:00 96.7 104 15 148/65 96 09/26/16 00:00 97.5 127 18 106/81 98 09/25/16 20:00 96.3 94 18 150/84 96 09/25/16 16:00 97.5 83 17 123/66 96 09/25/16 12:00 98.3 75 17 144/67 96 -: 09/24/16 0353 09/26/16 0515 Physical Exam General Appearance: Well Developed, Well Nourished Neck Neck Exam: Neck Supple Pulmonary Resp Exam: Clear Bilaterally, No Distress Cardiology CV Exam: Regular, Normal Sinus Rhythm Gastrointestinal/Abdomen GI Exam: Soft, Non-Tender, Bowel Sounds Present Extremeties Extremities Exam: Trace Edema Assessment/Plan Problem List: (1) Acute kidney injury superimposed on chronic kidney disease Plan: ADRI due to obstructive uropathy. Renal function has improved. (2) Diabetes mellitus Plan: Continue to monitor while in the hospital (3) UGI bleed Plan: He has a upper endoscopy in August showing antral gastric ulcer (4) Anemia Plan: History of GI bleeding. May need blood transfusion. Problem Qualifiers (1) Diabetes mellitus: Prabhu Trevizo MD Sep 26, 2016 10:19
[2016-09-26] MEDS ORDERED: ASPIRIN 81 MG CHEW TAB CHEW ONE (10:30)
[2016-09-26] MEDS ORDERED: FUROSEMIDE 20 MG/2 ML VIAL IV PUSH ONE (11:00)
--- NOTE | 2016-09-26 12:07 | EKG ---
Date Performed: 09/26/2016 Time Performed: 10:11:07 PTAGE: 81 years EKG: ATRIAL FIBRILLATION WITH RAPID VENTRICULAR RESPONSE NONSPECIFIC T-WAVE ABNORMALITY ABNORMAL ECG PREVIOUS TRACING : 09/03/2016 17.13 Compared to prior tracing no significant change DOCTOR: Nguyễn Escobar Interpretating Date/Time 09/26/2016 12:06:33
[2016-09-26 20:03] LABS: HEMATOCRIT 28.3 % (39.0-51.0); REVIEW FLAG FINAL
[2016-09-26] MEDS: TAMSULOSIN HCL 0.4 MG CAP PO SCH (20:33)
[2016-09-26] MEDS: ATORVASTATIN 40 MG TAB PO SCH (20:33)
[2016-09-27] VITALS (11 sets, daily range): BP systolic 114–133; BP diastolic 69–90; PULSE 78–149; RESP 17–20; TEMP 96–98; O2SAT 94–96
[2016-09-27] MEDS: METOPROLOL TARTRATE 25 MG TAB PO SCH ×2 (06:04→21:16)
[2016-09-27] MEDS: PANTOPRAZOLE SOD 40 MG DELAYED RELEASE TAB PO SCH ×2 (08:21→21:16)
[2016-09-27] MEDS: ASPIRIN 81 MG CHEW TAB CHEW SCH (08:21)
[2016-09-27] MEDS: FERROUS SULFATE 325 MG (65 MG ELEMENTAL IRON) TAB PO SCH (08:21)
[2016-09-27] MEDS: MEMANTINE HCL 10 MG TAB PO SCH (08:21)
[2016-09-27] MEDS ORDERED: DILTIAZEM HCL 25 MG/5 ML VIAL IVP ONE (09:30)
[2016-09-27] MEDS: DILTIAZEM INJ 125 MG in SODIUM CHLORIDE 0.9% INJ 100 ML IV SCH (11:34)
--- NOTE | 2016-09-27 13:43 | HHI.NPPN ---
Subjective History of Present Illness 81 year old with ARF anemia GI bleeding. Hematuria Objective Data Data 09/26/16 09/27/16 19:00 07:00 Intake Total 1440 ml 720 ml Output Total 1200 ml 3550 ml Balance 240 ml -2830 ml Intake Oral 1440 ml 720 ml Output Urine Total 1200 ml 3550 ml # Bowel Movements 1 2 Vital Signs Date Time Temp Pulse Resp B/P Pulse Ox O2 Delivery O2 Flow Rate FiO2 09/27/16 12:15 111 115/74 09/27/16 12:00 97.9 133 20 125/90 96 09/27/16 12:00 113 18 114/75 09/27/16 11:45 110 18 123/72 09/27/16 11:30 97.9 133 20 125/90 96 09/27/16 08:02 113 09/27/16 08:00 96.2 78 17 126/79 94 09/27/16 04:00 96.0 82 18 133/83 95 09/26/16 22:30 102 09/26/16 20:00 96.4 140 19 111/59 95 09/26/16 19:49 107 09/26/16 16:50 96.5 105 17 103/66 98 09/26/16 16:29 96.8 97 17 98/55 96 09/26/16 16:00 97.2 120 17 99/55 96 09/26/16 15:39 103 09/26/16 13:51 97.5 106 17 106/62 98 -: 09/26/16 1952 09/26/16 0515 Physical Exam General Appearance: Well Developed, Well Nourished Neck Neck Exam: Neck Supple Pulmonary Resp Exam: Clear Bilaterally, No Distress Cardiology CV Exam: Regular, Normal Sinus Rhythm Gastrointestinal/Abdomen GI Exam: Soft, Non-Tender, Bowel Sounds Present Extremeties Extremities Exam: Trace Edema Assessment/Plan Problem List: (1) Acute kidney injury superimposed on chronic kidney disease Plan: ADRI due to obstructive uropathy. Renal function has improved. Ruiz out voiding trial otherwise need to reinsert Ruiz follow with Urology (2) Diabetes mellitus Plan: Continue to monitor while in the hospital (3) UGI bleed Plan: He has a upper endoscopy in August showing antral gastric ulcer (4) Anemia Plan: History of GI bleeding. Problem Qualifiers (1) Diabetes mellitus: Stu Jones MD Sep 27, 2016 13:43
[2016-09-27] MEDS: 1/2 NS + KCL 20 MEQ INJ 1,000 ML IV SCH ×2 (15:58→21:16)
--- NOTE | 2016-09-27 16:14 | HHI.PR ---
Subjective Remarks Pt developed Afib RVR this AM. Pt transferred to and started on cardizem gtt. Pt with poor urine output and started on IVFs. Pt denies chest pain, palpitations, or SOB. Objective Vitals Vital Signs Date Time Temp Pulse Resp B/P Pulse Ox O2 Delivery O2 Flow Rate FiO2 09/27/16 13:30 Room Air 09/27/16 12:15 111 115/74 09/27/16 12:00 97.9 133 20 125/90 96 09/27/16 12:00 113 18 114/75 09/27/16 11:45 110 18 123/72 09/27/16 11:30 97.9 133 20 125/90 96 09/27/16 08:02 113 09/27/16 08:00 96.2 78 17 126/79 94 09/27/16 04:00 96.0 82 18 133/83 95 09/26/16 22:30 102 09/26/16 20:00 96.4 140 19 111/59 95 09/26/16 19:49 107 09/26/16 16:50 96.5 105 17 103/66 98 09/26/16 16:29 96.8 97 17 98/55 96 09/26/16 09/26/16 09/27/16 15:00 23:00 07:00 Intake Total 1440 ml 360 ml 360 ml Output Total 1200 ml 1850 ml 1700 ml Balance 240 ml -1490 ml -1340 ml Intake Oral 1440 ml 360 ml 360 ml Output Urine Total 1200 ml 1850 ml 1700 ml # Bowel Movements 1 1 1 Result Diagram: 09/26/16 19509/26/16 0515 Imaging Last Impressions Renal Ultrasound 09/22/16 0000 Signed Impressions: Service Date/Time: Thursday, September 22, 2016 23:04 - CONCLUSION: Slight hydronephrosis in both kidneys could be due to distended bladder, however the exact etiology is not evident. Aleksander Giles MD ADDENDUM: Findings were reported by [place] fibre technologist to Jose Martin the patient's nurse at the time of this addendum. Aleksander Giles MD Objective Remarks GENERAL: This is a well-nourished, well-developed patient, in no apparent distress. CARDIOVASCULAR: Regular rate and rhythm without murmurs, gallops, or rubs. RESPIRATORY: Clear to auscultation. Breath sounds equal bilaterally. No wheezes , rales, or rhonchi. GASTROINTESTINAL: Abdomen soft, non-tender, nondistended. Normal active bowel sounds MUSCULOSKELETAL: Extremities without clubbing, cyanosis, or edema. NEURO: Alert & Oriented x4 to person, place, time, situation. Moves all ext x4 A/P Problem List: (1) A-fib Status: Acute Plan: - pt developed RVR this AM with HR sustaining in the 140s to 150s (09/27/16) - pt transferred to [facility], telemetry - continue metoprolol - IVFs - Pt started on cardizem drip - will start transitioning to PO cardizem 09/28, if pt remains stable. - recent GIB, hold on anticoagulation for now, except ASA 81mg. Will d/w Cardiology. (2) Anemia Status: Chronic Plan: - Pt sent from local SNF for acute on chronic anemia. - Pt was recently admitted for anemia and GIB. Pt underwent evaluation with EGD at that time which noted a large antral ulcer. - Pts discharge hemoglobin was 8.3 on 09/09/16. His hemoglobin was 8.1 on September 13 and was 7.4 at admission on 09/20 prompting him to be sent to the ED. - Continue Protonix - Pt appeared to be a bit on the dry side at admission with increased renal functions at admission. - He received some gentle IVF hydration upon admission - Vital signs are stable. - Pt had LE pitting edema to the thighs noted following admission and was given one dose of Albumin IV followed by one dose of IV Lasix - ONI hose placed - Weigh pt daily - Pts Cr bumped to 2.66 on 09/23 - Appreciate Nephrology consultation. They felt that the worsening renal function may be secondary to hypoperfusion secondary to his anemia and pt was given one unit of PRBCs - Pt had renal US on 09/22 which noted a distended bladder with over 2500cc of urine present and mild bilateral hydronephrosis. - Pt had a Tristan catheter placed with initially 2400cc of urine out and he had out about 1200cc overnight with noted bloody urine. - The pt had not had any noted hematuria prior to Tristan placement, likely secondary to Tristan trauma. This has improved and urine is clear currently. - Pt was started on Flomax 0.4mg HS on 09/23 pt urine clear and hematuria resolved. cr slowly improved.d/c tristan in AM for voiding trial.. cont flomax c/o dizziness today. check tele and ekg for arrhythmia and rate control. will give blood transfusion as his hgb continues to be low] and he looks quite pale. also resume an asa. If persists might need to do brain imaging to exclude cva from afib. discussed with nursing. plan for snf once stable. addendum: ekg shows afib/rvr. give extra metoprolol now. blood transfusion ordered. has been off anticoagulation due to recent gib/ulcer. (3) Acute kidney injury superimposed on chronic kidney disease Status: Acute Plan: - As noted above. (4) Diastolic CHF, chronic Status: Chronic Plan: - EF 60% in 2014. - ONI hose - Elevate legs when in bed - Follow clinically. (5) HTN (hypertension) Status: Chronic Plan: - Continue medication. - Fair control. (6) Diabetes mellitus Status: Chronic Plan: - NovoLog sliding scale insulin Problem Qualifiers (1) HTN (hypertension): Qualified Code: I10 - Essential hypertension (2) Diabetes mellitus: Norberto Bradford DO Sep 27, 2016 16:14
[2016-09-27] MEDS: TAMSULOSIN HCL 0.4 MG CAP PO SCH (21:16)
[2016-09-27] MEDS: ATORVASTATIN 40 MG TAB PO SCH (21:16)
[2016-09-28] VITALS (8 sets, daily range): BP systolic 106–134; BP diastolic 64–88; PULSE 69–119; RESP 18–20; TEMP 97.4–98.4; O2SAT 94–97
[2016-09-28] MEDS: DILTIAZEM INJ 125 MG in SODIUM CHLORIDE 0.9% INJ 100 ML IV SCH (01:05)
[2016-09-28] MEDS: ASPIRIN 81 MG CHEW TAB CHEW SCH (08:15)
[2016-09-28] MEDS: FERROUS SULFATE 325 MG (65 MG ELEMENTAL IRON) TAB PO SCH (08:15)
[2016-09-28] MEDS: PANTOPRAZOLE SOD 40 MG DELAYED RELEASE TAB PO SCH ×2 (08:15→21:37)
[2016-09-28] MEDS: MEMANTINE HCL 10 MG TAB PO SCH (08:16)
[2016-09-28 08:18] LABS: AUTOMATED NEUTROPHIL # 8.6 TH/MM3 (1.8-7.7); BASOPHIL # 0.1 TH/MM3 (0-0.2); BASOPHIL % 0.9 % (0.0-2.0); EOSINOPHIL # 0.3 TH/MM3 (0-0.4); EOSINOPHIL % 3.1 % (0.0-4.0); HEMO FLAGS DIFF FINAL; LYMPH % 9.1 % (9.0-44.0); MEAN CELL VOLUME 82.7 FL (80.0-100.0); MEAN CORPUSCULAR HGB CONC 32.6 % (32.0-36.0); MONO % 9.1 % (0.0-8.0); NEUT % 77.8 % (16.0-70.0); PLATELET COUNT 210 TH/MM3 (150-450); RED BLOOD COUNT 3.87 MIL/MM3 (4.50-5.90); RED CELL DISTRIBUTION WIDTH 16.2 % (11.6-17.2); WHITE BLOOD COUNT 11.1 TH/MM3 (4.0-11.0)
[2016-09-28] MEDS: 1/2 NS + KCL 20 MEQ INJ 1,000 ML IV SCH (08:18)
[2016-09-28 08:44] LABS: BICARBONATE 21.8 MEQ/L (21.0-32.0); MAGNESIUM 1.4 MG/DL (1.5-2.5); POTASSIUM 4.4 MEQ/L (3.5-5.1)
[2016-09-28] MEDS: METOPROLOL TARTRATE 25 MG TAB PO SCH ×3 (09:00→21:37)
--- NOTE | 2016-09-28 09:30 | RADRPT ---
EXAM DATE/TIME: 09/28/2016 09:17 [place] COMPARISON: CHEST PA & LAT, May 16, 2016, 5:54. INDICATIONS : Cough. MEDICAL HISTORY : Hypertension. Hearing loss. Confusion. Afib. Gout. Weakness. Anxiety. SURGICAL HISTORY : Left inguinal hernia repair. ENCOUNTER: Initial ACUITY: 2 days PAIN SCORE: 0/10 LOCATION: Bilateral chest FINDINGS: The heart size is normal. The lungs are clear. Mild effusions are seen posteriorly bilaterally on the lateral view. There is a chronic fracture deformity of the proximal right humerus. CONCLUSION: Mild bilateral pleural effusions. Mason Lou MD on September 28, 2016 at 9:27 Board Certified Radiologist. This report was verified electronically.
[2016-09-28] MEDS ORDERED: DIGOXIN 0.5 MG/2 ML VIAL IV PUSH ONE (10:15)
--- NOTE | 2016-09-28 12:57 | MB ---
cc: MICH LLOYD MD DATE OF CONSULTATION 09/28/2016 HISTORY OF PRESENT ILLNESS This is an 81-year-old gentleman who was brought to the hospital because of severe anemia. He has a history of anemia diagnosed several months ago secondary to a gastric ulcer. His hemoglobin had been running in the 8 to 9 range and was found to be 7.6 at the half-way. He was sent to the hospital where he has subsequently been admitted. He is essentially asymptomatic. He has a history of atrial fibrillation in the past and developed atrial fibrillation yesterday with a rapid ventricular response. He has been put on a Cardizem drip and we have been asked to see him in that regard. The patient is asymptomatic from a cardiovascular standpoint. He denies any problems with palpitations, lightheadedness, dizziness, chest pain or dyspnea. He does have a history of renal disease and his kidney function actually has been improving since his admission from a value with a creatinine of 2.66 on admission to the latest value of 1.57. Electrolytes have been normal. The patient has had as noted above a history of atrial fibrillation in the past, although he does not recall it; this information is from his outpatient chart. He was offered warfarin therapy at the time and declined it. PAST MEDICAL HISTORY Otherwise been significant for - 1. Hypertension. 2. Hyperlipidemia. 3. Mild cognitive impairment MEDICATIONS AT HOME 1. Lisinopril. 2. Tradjenta. 3. Namenda. 4. Metoprolol. 5. Glimepiride. 6. Protonix. 7. Amoxicillin. ALLERGIES None. SOCIAL HISTORY The patient is a former smoker but stopped 30 years ago. He has not use alcohol or recreational drugs. [facility]. PHYSICAL EXAMINATION GENERAL: He is awake and alert. He is in no acute distress. VITAL SIGNS: His blood pressure is 120/70, pulse is approximately 110 and irregular. NECK: There is no neck vein distension. Carotids are normal. LUNGS: Clear. CARDIOVASCULAR: Exam reveals an irregularly irregular rhythm. No significant murmur is noted. There is no gallop. EXTREMITIES: No edema. ASSESSMENT AND RECOMMENDATIONS The patient has had a recurrence of his atrial fibrillation. He is on a Cardizem drip for rate control and will increase his metoprolol to see if we can control him with oral medications and wean his Cardizem. At this point in time he certainly is not a candidate for warfarin or oral anticoagulants in view of his profound anemia and possible GI bleeding. MD OLINDA Brennan/JAYLEN /12:38 PM /12:53 PM
--- NOTE | 2016-09-28 15:06 | HHI.PR ---
Subjective Remarks Pt with NO new complaints. No chest pain, palpitations, or SOB. Objective Vitals Vital Signs Date Time Temp Pulse Resp B/P Pulse Ox O2 Delivery O2 Flow Rate FiO2 09/28/16 14:00 Room Air 09/28/16 12:00 97.4 103 20 127/73 96 09/28/16 08:00 97.5 119 20 106/74 96 09/28/16 08:00 Room Air 09/28/16 04:00 98.4 94 20 123/64 94 09/28/16 00:00 97.9 98 18 134/88 96 09/27/16 20:15 Room Air 09/27/16 20:00 101 09/27/16 20:00 97.3 80 18 127/69 95 09/27/16 18:06 Room Air 09/27/16 16:00 98.0 120 18 127/70 95 09/27/16 09/27/16 09/28/16 15:00 23:00 07:00 Intake Total 240 ml 280 ml 360 ml Output Total 50 ml 300 ml 1000 ml Balance 190 ml -20 ml -640 ml Intake Oral 240 ml 280 ml 360 ml Output Urine Total 50 ml 300 ml 1000 ml Bladder Scan Volume Amount 127 ml # Bowel Movements 0 0 Result Diagram: 09/28/16 0737 09/28/16 0737 Imaging Last Impressions Renal Ultrasound 09/22/16 0000 Signed Impressions: Service Date/Time: Thursday, September 22, 2016 23:04 - CONCLUSION: Slight hydronephrosis in both kidneys could be due to distended bladder, however the exact etiology is not evident. Aleksander Giles MD ADDENDUM: Findings were reported by [place] pharmacy technologist to Jose Martin the patient's nurse at the time of this addendum. Aleksander Giles MD Objective Remarks GENERAL: This is a well-nourished, well-developed patient, in no apparent distress. CARDIOVASCULAR: Regular rate and rhythm without murmurs, gallops, or rubs. RESPIRATORY: Clear to auscultation. Breath sounds equal bilaterally. No wheezes , rales, or rhonchi. GASTROINTESTINAL: Abdomen soft, non-tender, nondistended. Normal active bowel sounds MUSCULOSKELETAL: Extremities without clubbing, cyanosis, or edema. NEURO: Alert & Oriented x4 to person, place, time, situation. Moves all ext x4 A/P Problem List: (1) A-fib Status: Acute Plan: - Despite Cardizem gtt, pt with RVR - HR in the 120s and trending hypotensive - Pt given digoxin 0.5mg IV - Cardiology consulted, Case d/w Dr. Zafar - PO metoprolol increased to 75mg BID - will start transitioning to PO cardizem 09/29, if pt remains stable. - recent GIB, hold on anticoagulation for now, except ASA 81mg. (2) Anemia Status: Chronic Plan: - Pt sent from local SNF for acute on chronic anemia. - Pt was recently admitted for anemia and GIB. Pt underwent evaluation with EGD at that time which noted a large antral ulcer. - Pts discharge hemoglobin was 8.3 on 09/09/16. His hemoglobin was 8.1 on September 13 and was 7.4 at admission on 09/20 prompting him to be sent to the ED. - Continue Protonix - Pt appeared to be a bit on the dry side at admission with increased renal functions at admission. - He received some gentle IVF hydration upon admission - Vital signs are stable. - Pt had LE pitting edema to the thighs noted following admission and was given one dose of Albumin IV followed by one dose of IV Lasix - ONI hose placed - Weigh pt daily - Pts Cr bumped to 2.66 on 09/23 - Appreciate Nephrology consultation. They felt that the worsening renal function may be secondary to hypoperfusion secondary to his anemia and pt was given one unit of PRBCs - Pt had renal US on 09/22 which noted a distended bladder with over 2500cc of urine present and mild bilateral hydronephrosis. - Pt had a Tristan catheter placed with initially 2400cc of urine out and he had out about 1200cc overnight with noted bloody urine. - The pt had not had any noted hematuria prior to Tristan placement, likely secondary to Tristan trauma. This has improved and urine is clear currently. - Pt was started on Flomax 0.4mg HS on 09/23 pt urine clear and hematuria resolved. cr slowly improved.d/c tristan in AM for voiding trial.. cont flomax c/o dizziness today. check tele and ekg for arrhythmia and rate control. will give blood transfusion as his hgb continues to be low] and he looks quite pale. also resume an asa. If persists might need to do brain imaging to exclude cva from afib. discussed with nursing. plan for snf once stable. addendum: ekg shows afib/rvr. give extra metoprolol now. blood transfusion ordered. has been off anticoagulation due to recent gib/ulcer. (3) Acute kidney injury superimposed on chronic kidney disease Status: Acute Plan: - As noted above. (4) Diastolic CHF, chronic Status: Chronic Plan: - EF 60% in 2015. - ONI hose - Elevate legs when in bed - Follow clinically. (5) HTN (hypertension) Status: Chronic Plan: - Continue medication. - Fair control. (6) Diabetes mellitus Status: Chronic Plan: - NovoLog sliding scale insulin Problem Qualifiers (1) HTN (hypertension): Qualified Code: I10 - Essential hypertension (2) Diabetes mellitus: Norberto Bradford DO Sep 28, 2016 15:06
[2016-09-28] MEDS: MAGNESIUM SULFATE 1 GM PREMIX 100 ML IV SCH ×2 (15:31→16:35)
[2016-09-28] MEDS ORDERED: METOPROLOL TARTRATE 25 MG TAB PO SCH (21:00)
[2016-09-28] MEDS: TAMSULOSIN HCL 0.4 MG CAP PO SCH (21:37)
[2016-09-28] MEDS: ATORVASTATIN 40 MG TAB PO SCH (21:37)
[2016-09-29 03:45] VITALS: BP 131/65; PULSE 86; RESP 18; TEMP 97.6; O2SAT 98
[2016-09-29 07:11] LABS: BICARBONATE 21.5 MEQ/L (21.0-32.0); MAGNESIUM 1.9 MG/DL (1.5-2.5); POTASSIUM 4.9 MEQ/L (3.5-5.1)
[2016-09-29 07:23] LABS: DIGOXIN 0.8 NG/ML (0.8-2.0)
[2016-09-29 07:35] LABS: AUTOMATED NEUTROPHIL # 8.3 TH/MM3 (1.8-7.7); BASOPHIL # 0.1 TH/MM3 (0-0.2); BASOPHIL % 0.7 % (0.0-2.0); EOSINOPHIL # 0.6 TH/MM3 (0-0.4); EOSINOPHIL % 5.1 % (0.0-4.0); HEMATOCRIT 33.3 % (39.0-51.0); HEMO FLAGS DIFF FINAL; LYMPH % 9.6 % (9.0-44.0); LYMPHOCYTE # 1.1 TH/MM3 (1.0-4.8); MEAN CELL VOLUME 85.9 FL (80.0-100.0); MEAN CORPUSCULAR HEMOGLOBIN 27.3 PG (27.0-34.0); MEAN CORPUSCULAR HGB CONC 31.8 % (32.0-36.0); MONO % 10.5 % (0.0-8.0); NEUT % 74.1 % (16.0-70.0); PLATELET COUNT 192 TH/MM3 (150-450); RED BLOOD COUNT 3.87 MIL/MM3 (4.50-5.90); RED CELL DISTRIBUTION WIDTH 16.7 % (11.6-17.2); WHITE BLOOD COUNT 11.2 TH/MM3 (4.0-11.0)
[2016-09-29 08:00] VITALS: BP 139/80; PULSE 113; RESP 18; TEMP 98.3; O2SAT 98
--- NOTE | 2016-09-29 08:06 | PD.CARD.PN ---
Subjective Subjective Remarks denies CV complaints Objective Vital Signs / I&O Vital Signs Date Time Temp Pulse Resp B/P Pulse Ox O2 Delivery O2 Flow Rate FiO2 09/29/16 03:45 97.6 86 18 131/65 98 09/28/16 22:45 97.9 98 18 112/69 97 09/28/16 21:40 Room Air 09/28/16 20:00 69 09/28/16 19:45 97.8 76 18 119/78 97 09/28/16 16:00 97.4 110 20 126/80 97 09/28/16 16:00 Room Air 09/28/16 14:00 Room Air 09/28/16 12:00 97.4 103 20 127/73 96 I/O 09/28/16 09/28/16 09/28/16 09/29/16 09/29/16 09/29/16 07:00 15:00 23:00 07:00 15:00 23:00 Intake Total 360 ml 1440 ml 450 ml Output Total 1000 ml 275 ml 450 ml 100 ml Balance -640 ml 1165 ml 0 ml -100 ml Intake Oral 360 ml 720 ml 450 ml IV Total 720 ml Output Urine Total 1000 ml 275 ml 450 ml 100 ml # Voids 2 1 # Bowel Movements 0 1 Physical Exam GENERAL: Well-nourished, well-developed patient in no apparent distress. NECK: No JVD. No carotid bruit. CARDIOVASCULAR: IR IR. S1/S2 no murmur, rub, or gallop. RESPIRATORY: No accessory muscle use. Clear to auscultation. Breath sounds equal bilaterally. GASTROINTESTINAL: Abdomen soft, non-tender, nondistended. MUSCULOSKELETAL: Extremities without clubbing, cyanosis, or edema. Laboratory Laboratory Tests Test 09/29/16 05:17 White Blood Count 11.2 TH/MM3 Red Blood Count 3.87 MIL/MM3 Hemoglobin 10.6 GM/DL Hematocrit 33.3 % Mean Corpuscular Volume 85.9 FL Mean Corpuscular Hemoglobin 27.3 PG Mean Corpuscular Hemoglobin 31.8 % Concent Red Cell Distribution Width 16.7 % Platelet Count 192 TH/MM3 Mean Platelet Volume 9.9 FL Neutrophils (%) (Auto) 74.1 % Lymphocytes (%) (Auto) 9.6 % Monocytes (%) (Auto) 10.5 % Eosinophils (%) (Auto) 5.1 % Basophils (%) (Auto) 0.7 % Neutrophils # (Auto) 8.3 TH/MM3 Lymphocytes # (Auto) 1.1 TH/MM3 Monocytes # (Auto) 1.2 TH/MM3 Eosinophils # (Auto) 0.6 TH/MM3 Basophils # (Auto) 0.1 TH/MM3 CBC Comment DIFF FINAL Differential Comment Sodium Level 139 MEQ/L Potassium Level 4.9 MEQ/L Chloride Level 109 MEQ/L Carbon Dioxide Level 21.5 MEQ/L Anion Gap 9 MEQ/L Blood Urea Nitrogen 36 MG/DL Creatinine 1.60 MG/DL Estimat Glomerular Filtration 42 ML/MIN Rate Random Glucose 170 MG/DL Calcium Level 8.9 MG/DL Magnesium Level 1.9 MG/DL Digoxin Level 0.8 NG/ML Assessment and Plan Problem List: (1) A-fib Assessment and Plan rate controlled on metoprolol. We can have further discussion concerning anticoagulation once anemia resolves and GI work up is done. sign off call with further questions Carlitos Sanz Sep 29, 2016 08:06
[2016-09-29] MEDS: PANTOPRAZOLE SOD 40 MG DELAYED RELEASE TAB PO SCH ×2 (09:28→21:25)
[2016-09-29] MEDS: MEMANTINE HCL 10 MG TAB PO SCH (09:28)
[2016-09-29] MEDS: FERROUS SULFATE 325 MG (65 MG ELEMENTAL IRON) TAB PO SCH (09:28)
[2016-09-29] MEDS: ASPIRIN 81 MG CHEW TAB CHEW SCH (09:28)
[2016-09-29] MEDS: METOPROLOL TARTRATE 100 MG TAB PO SCH ×2 (09:34→21:25)
[2016-09-29 12:00] VITALS: BP 125/75; PULSE 93; RESP 20; TEMP 98.2; O2SAT 97
--- NOTE | 2016-09-29 15:35 | HHI.PR ---
Subjective Remarks No new complaints. Objective Vitals Vital Signs Date Time Temp Pulse Resp B/P Pulse Ox O2 Delivery O2 Flow Rate FiO2 09/29/16 12:00 98.2 93 20 125/75 97 09/29/16 09:30 Room Air 09/29/16 08:00 98.3 113 18 139/80 98 09/29/16 03:45 97.6 86 18 131/65 98 09/28/16 22:45 97.9 98 18 112/69 97 09/28/16 21:40 Room Air 09/28/16 20:00 69 09/28/16 19:45 97.8 76 18 119/78 97 09/28/16 16:00 97.4 110 20 126/80 97 09/28/16 16:00 Room Air 09/28/16 09/28/16 09/29/16 15:00 23:00 07:00 Intake Total 1440 ml 450 ml Output Total 275 ml 450 ml 100 ml Balance 1165 ml 0 ml -100 ml Intake Oral 720 ml 450 ml IV Total 720 ml Output Urine Total 275 ml 450 ml 100 ml # Voids 2 1 # Bowel Movements 1 Result Diagram: 09/29/16 0517 09/29/16 0517 Imaging Last Impressions Renal Ultrasound 09/22/16 0000 Signed Impressions: Service Date/Time: Thursday, September 22, 2016 23:04 - CONCLUSION: Slight hydronephrosis in both kidneys could be due to distended bladder, however the exact etiology is not evident. Aleksander Giles MD ADDENDUM: Findings were reported by [place] blood bank technologist to Jose Martin the patient's nurse at the time of this addendum. Aleksander Giles MD Objective Remarks GENERAL: This is a well-nourished, well-developed patient, in no apparent distress. CARDIOVASCULAR: Regular rate and rhythm without murmurs, gallops, or rubs. RESPIRATORY: Clear to auscultation. Breath sounds equal bilaterally. No wheezes , rales, or rhonchi. GASTROINTESTINAL: Abdomen soft, non-tender, nondistended. Normal active bowel sounds MUSCULOSKELETAL: Extremities without clubbing, cyanosis, or edema. NEURO: Alert & Oriented x4 to person, place, time, situation. Moves all ext x4 A/P Problem List: (1) A-fib Status: Acute Plan: - comgmt with Cardiology, Dr. Zafar - Telemetry: HR 90-110 - Cardizem gtt, off - Pt given digoxin 0.5mg IV (09/28/16) - PO metoprolol increased to 100mg BID - recent GIB, hold on anticoagulation for now, except ASA 81mg. (2) Anemia Status: Chronic Plan: - Pt sent from local SNF for acute on chronic anemia. - Pt was recently admitted for anemia and GIB. Pt underwent evaluation with EGD at that time which noted a large antral ulcer. - Pts discharge hemoglobin was 8.3 on 09/09/16. His hemoglobin was 8.1 on September 13 and was 7.4 at admission on 09/20 prompting him to be sent to the ED. - Continue Protonix - Pt appeared to be a bit on the dry side at admission with increased renal functions at admission. - He received some gentle IVF hydration upon admission - Vital signs are stable. - Pt had LE pitting edema to the thighs noted following admission and was given one dose of Albumin IV followed by one dose of IV Lasix - ONI hose placed - Weigh pt daily - Pts Cr bumped to 2.66 on 09/23 - Appreciate Nephrology consultation. They felt that the worsening renal function may be secondary to hypoperfusion secondary to his anemia and pt was given one unit of PRBCs - Pt had renal US on 09/22 which noted a distended bladder with over 2500cc of urine present and mild bilateral hydronephrosis. - Pt had a Tristan catheter placed with initially 2400cc of urine out and he had out about 1200cc overnight with noted bloody urine. - The pt had not had any noted hematuria prior to Tristan placement, likely secondary to Tristan trauma. This has improved and urine is clear currently. - Pt was started on Flomax 0.4mg HS on 09/23 pt urine clear and hematuria resolved. cr slowly improved.d/c tristan in AM for voiding trial.. cont flomax c/o dizziness today. check tele and ekg for arrhythmia and rate control. will give blood transfusion as his hgb continues to be low] and he looks quite pale. also resume an asa. If persists might need to do brain imaging to exclude cva from afib. discussed with nursing. plan for snf once stable. addendum: ekg shows afib/rvr. give extra metoprolol now. blood transfusion ordered. has been off anticoagulation due to recent gib/ulcer. (3) Acute kidney injury superimposed on chronic kidney disease Status: Acute Plan: - As noted above. (4) Diastolic CHF, chronic Status: Chronic Plan: - EF 60% in 2015. - ONI hose - Elevate legs when in bed - Follow clinically. (5) HTN (hypertension) Status: Chronic Plan: - Continue medication. - Fair control. (6) Diabetes mellitus Status: Chronic Plan: - NovoLog sliding scale insulin Problem Qualifiers (1) HTN (hypertension): Qualified Code: I10 - Essential hypertension (2) Diabetes mellitus: Norberto Bradford DO Sep 29, 2016 15:35 Norberto Bradford DO Sep 29, 2016 15:35
[2016-09-29 16:00] VITALS: BP 136/76; PULSE 93; RESP 20; TEMP 97.9; O2SAT 97
[2016-09-29 20:00] VITALS: BP 146/74; PULSE 98; RESP 18; TEMP 97.8; O2SAT 97
[2016-09-29] MEDS: ATORVASTATIN 40 MG TAB PO SCH (21:25)
[2016-09-29] MEDS: TAMSULOSIN HCL 0.4 MG CAP PO SCH (21:25)
[2016-09-29 23:10] VITALS: PULSE 107
[2016-09-30] VITALS (9 sets, daily range): BP systolic 105–154; BP diastolic 58–81; PULSE 84–107; RESP 18–24; TEMP 97.3–98.1; O2SAT 96–99
[2016-09-30] MEDS: METOPROLOL TARTRATE 100 MG TAB PO SCH ×2 (08:27→20:47)
[2016-09-30] MEDS: PANTOPRAZOLE SOD 40 MG DELAYED RELEASE TAB PO SCH ×2 (08:27→20:47)
[2016-09-30] MEDS: ASPIRIN 81 MG CHEW TAB CHEW SCH (08:27)
[2016-09-30] MEDS: FERROUS SULFATE 325 MG (65 MG ELEMENTAL IRON) TAB PO SCH (08:28)
[2016-09-30] MEDS: MEMANTINE HCL 10 MG TAB PO SCH (08:28)
--- NOTE | 2016-09-30 14:02 | HHI.PR ---
Subjective Remarks No new complaints. No chest pain, no palpitations, or SOB. Objective Vitals Vital Signs Date Time Temp Pulse Resp B/P Pulse Ox O2 Delivery O2 Flow Rate FiO2 09/30/16 12:00 97.3 84 20 133/81 98 09/30/16 08:00 98.0 107 20 105/58 98 09/30/16 07:00 Room Air 09/30/16 07:00 84 09/30/16 04:00 98.0 93 20 125/72 98 09/30/16 00:00 97.5 96 24 133/70 99 09/29/16 23:10 107 09/29/16 23:10 Room Air 09/29/16 20:00 97.8 98 18 146/74 97 09/29/16 16:00 97.9 93 20 136/76 97 09/29/16 09/29/16 09/30/16 15:00 23:00 07:00 Intake Total 1200 ml Output Total 200 ml 150 ml Balance 1200 ml -200 ml -150 ml Intake Oral 1200 ml Output Urine Total 200 ml 150 ml # Voids 3 # Bowel Movements 0 Result Diagram: 09/29/16 0517 09/29/16 0517 Imaging Last Impressions Renal Ultrasound 09/22/16 0000 Signed Impressions: Service Date/Time: Thursday, September 22, 2016 23:04 - CONCLUSION: Slight hydronephrosis in both kidneys could be due to distended bladder, however the exact etiology is not evident. Aleksander Giles MD ADDENDUM: Findings were reported by [place] marketing technologist to Jose Martin the patient's nurse at the time of this addendum. Aleksander Giles MD Objective Remarks GENERAL: This is a well-nourished, well-developed patient, in no apparent distress. CARDIOVASCULAR: Regular rate and rhythm without murmurs, gallops, or rubs. RESPIRATORY: Clear to auscultation. Breath sounds equal bilaterally. No wheezes , rales, or rhonchi. GASTROINTESTINAL: Abdomen soft, non-tender, nondistended. Normal active bowel sounds MUSCULOSKELETAL: Extremities without clubbing, cyanosis, or edema. NEURO: Alert & Oriented x4 to person, place, time, situation. Moves all ext x4 A/P Problem List: (1) A-fib Status: Acute Plan: - comgmt with Cardiology, Dr. Zafar - Telemetry reviewed: - currently running 80-90 bpm, afib - earlier this AM pt was running 120-130 - Cardizem gtt, off - Pt given digoxin 0.5mg IV (09/28/16) - PO metoprolol increased to 100mg BID (09/29/16) - recent GIB, hold on anticoagulation for now, except ASA 81mg. - if HR remains stable, then will d/c to home 10/01/16 (2) Anemia Status: Chronic Plan: - Pt sent from local SNF for acute on chronic anemia. - Pt was recently admitted for anemia and GIB. Pt underwent evaluation with EGD at that time which noted a large antral ulcer. - Pts discharge hemoglobin was 8.3 on 09/09/16. His hemoglobin was 8.1 on September 13 and was 7.4 at admission on 09/20 prompting him to be sent to the ED. - Continue Protonix - Pt appeared to be a bit on the dry side at admission with increased renal functions at admission. - He received some gentle IVF hydration upon admission - Vital signs are stable. - Pt had LE pitting edema to the thighs noted following admission and was given one dose of Albumin IV followed by one dose of IV Lasix - ONI hose placed - Weigh pt daily - Pts Cr bumped to 2.66 on 09/23 - Appreciate Nephrology consultation. They felt that the worsening renal function may be secondary to hypoperfusion secondary to his anemia and pt was given one unit of PRBCs - Pt had renal US on 09/22 which noted a distended bladder with over 2500cc of urine present and mild bilateral hydronephrosis. - Pt had a Tristan catheter placed with initially 2400cc of urine out and he had out about 1200cc overnight with noted bloody urine. - The pt had not had any noted hematuria prior to Tristan placement, likely secondary to Tristan trauma. This has improved and urine is clear currently. - Pt was started on Flomax 0.4mg HS on 09/23 pt urine clear and hematuria resolved. cr slowly improved.d/c tristan in AM for voiding trial.. cont flomax c/o dizziness today. check tele and ekg for arrhythmia and rate control. will give blood transfusion as his hgb continues to be low] and he looks quite pale. also resume an asa. If persists might need to do brain imaging to exclude cva from afib. discussed with nursing. plan for snf once stable. addendum: ekg shows afib/rvr. give extra metoprolol now. blood transfusion ordered. has been off anticoagulation due to recent gib/ulcer. (3) Acute kidney injury superimposed on chronic kidney disease Status: Acute Plan: - As noted above. (4) Diastolic CHF, chronic Status: Chronic Plan: - EF 60% in 2015. - ONI hose - Elevate legs when in bed - Follow clinically. (5) HTN (hypertension) Status: Chronic Plan: - Continue medication. - Fair control. (6) Diabetes mellitus Status: Chronic Plan: - NovoLog sliding scale insulin Problem Qualifiers (1) HTN (hypertension): Qualified Code: I10 - Essential hypertension (2) Diabetes mellitus: Norberto Bradford DO Sep 30, 2016 14:02
[2016-09-30] MEDS: SODIUM CHLORIDE 0.9% FLUSH 10 ML FLUSH IVF PRN (20:47)
[2016-09-30] MEDS: TAMSULOSIN HCL 0.4 MG CAP PO SCH (20:47)
[2016-09-30] MEDS: ATORVASTATIN 40 MG TAB PO SCH (20:47)
[2016-10-01] VITALS (7 sets, daily range): BP systolic 120–147; BP diastolic 72–91; PULSE 92–107; RESP 18–20; TEMP 97.5–98.2; O2SAT 97–99
[2016-10-01] MEDS: ASPIRIN 81 MG CHEW TAB CHEW SCH (08:10)
[2016-10-01] MEDS: MEMANTINE HCL 10 MG TAB PO SCH (08:11)
[2016-10-01] MEDS: FERROUS SULFATE 325 MG (65 MG ELEMENTAL IRON) TAB PO SCH (08:11)
[2016-10-01] MEDS: METOPROLOL TARTRATE 100 MG TAB PO SCH ×2 (08:11→21:28)
[2016-10-01] MEDS: PANTOPRAZOLE SOD 40 MG DELAYED RELEASE TAB PO SCH ×2 (08:11→21:28)
[2016-10-01] MEDS: SODIUM CHLORIDE 0.9% FLUSH 10 ML FLUSH IVF PRN (08:12)
--- NOTE | 2016-10-01 15:08 | HHI.PR ---
Subjective Remarks No new complaints. Objective Vitals Vital Signs Date Time Temp Pulse Resp B/P Pulse Ox O2 Delivery O2 Flow Rate FiO2 10/01/16 12:00 97.5 100 18 135/78 97 10/01/16 08:00 98.2 107 20 122/89 98 10/01/16 04:00 Room Air 10/01/16 04:00 97.6 92 18 142/72 98 10/01/16 00:00 98.0 93 18 120/89 99 10/01/16 00:00 Room Air 09/30/16 20:16 104 09/30/16 20:00 Room Air 09/30/16 20:00 97.6 104 20 154/70 99 09/30/16 16:00 98.1 97 18 120/75 96 09/30/16 09/30/16 10/01/16 15:00 23:00 07:00 Intake Total 720 ml 480 ml 0 ml Output Total 100 ml 150 ml Balance 720 ml 380 ml -150 ml Intake Oral 720 ml 480 ml 0 ml Output Urine Total 100 ml 150 ml # Voids 4 1 1 # Bowel Movements 1 1 0 Result Diagram: 09/29/16 0517 09/29/16 0517 Imaging Last Impressions Renal Ultrasound 09/22/16 0000 Signed Impressions: Service Date/Time: Thursday, September 22, 2016 23:04 - CONCLUSION: Slight hydronephrosis in both kidneys could be due to distended bladder, however the exact etiology is not evident. Aleksander Giles MD ADDENDUM: Findings were reported by [place] fastener technologist to Jose Martin the patient's nurse at the time of this addendum. Aleksander Giles MD Objective Remarks GENERAL: This is a well-nourished, well-developed patient, in no apparent distress. CARDIOVASCULAR: Regular rate and rhythm without murmurs, gallops, or rubs. RESPIRATORY: Clear to auscultation. Breath sounds equal bilaterally. No wheezes , rales, or rhonchi. GASTROINTESTINAL: Abdomen soft, non-tender, nondistended. Normal active bowel sounds MUSCULOSKELETAL: Extremities without clubbing, cyanosis, or edema. NEURO: Alert & Oriented x4 to person, place, time, situation. Moves all ext x4 A/P Problem List: (1) A-fib Status: Acute Plan: - comgmt with Cardiology, Dr. Zafar - Telemetry reviewed: - currently running 80-90 bpm, afib - earlier this AM pt was running 120-130 - Cardizem gtt, off - Pt given digoxin 0.5mg IV (09/28/16) - PO metoprolol increased to 100mg BID (09/29/16) - recent GIB, hold on anticoagulation for now, except ASA 81mg. - Pt continues to have frequent episodes of tachycardia - will start pt on cardizem 30mg q6hrs, observe for hypotension - anticipate d/c to SNF in 2-3 days. (2) Anemia Status: Chronic Plan: - Pt sent from local SNF for acute on chronic anemia. - Pt was recently admitted for anemia and GIB. Pt underwent evaluation with EGD at that time which noted a large antral ulcer. - Pts discharge hemoglobin was 8.3 on 09/09/16. His hemoglobin was 8.1 on September 13 and was 7.4 at admission on 09/20 prompting him to be sent to the ED. - Continue Protonix - Pt appeared to be a bit on the dry side at admission with increased renal functions at admission. - He received some gentle IVF hydration upon admission - Vital signs are stable. - Pt had LE pitting edema to the thighs noted following admission and was given one dose of Albumin IV followed by one dose of IV Lasix - ONI hose placed - Weigh pt daily - Pts Cr bumped to 2.66 on 09/23 - Appreciate Nephrology consultation. They felt that the worsening renal function may be secondary to hypoperfusion secondary to his anemia and pt was given one unit of PRBCs - Pt had renal US on 09/22 which noted a distended bladder with over 2500cc of urine present and mild bilateral hydronephrosis. - Pt had a Ruiz catheter placed with initially 2400cc of urine out and he had out about 1200cc overnight with noted bloody urine. - The pt had not had any noted hematuria prior to Ruiz placement, likely secondary to Ruiz trauma. This has improved and urine is clear currently. - Pt was started on Flomax 0.4mg HS on 09/23 (3) Acute kidney injury superimposed on chronic kidney disease Status: Acute Plan: - As noted above. (4) Diastolic CHF, chronic Status: Chronic Plan: - EF 60% in 2014. - ONI hose - Elevate legs when in bed - Follow clinically. (5) HTN (hypertension) Status: Chronic Plan: - Continue medication. - Fair control. (6) Diabetes mellitus Status: Chronic Plan: - NovoLog sliding scale insulin Problem Qualifiers (1) HTN (hypertension): Qualified Code: I10 - Essential hypertension (2) Diabetes mellitus: Norberto Bradford DO Oct 01, 2016 15:07
[2016-10-01] MEDS: DILTIAZEM HCL 30 MG TAB PO SCH ×2 (18:13→21:28)
[2016-10-01] MEDS: TAMSULOSIN HCL 0.4 MG CAP PO SCH (21:28)
[2016-10-01] MEDS: ATORVASTATIN 40 MG TAB PO SCH (21:28)
[2016-10-02] VITALS (10 sets, daily range): BP systolic 111–139; BP diastolic 56–74; PULSE 70–103; RESP 18–20; TEMP 97.3–98.1; O2SAT 98–99
[2016-10-02] MEDS: DILTIAZEM HCL 30 MG TAB PO SCH ×2 (05:10→10:46)
[2016-10-02] MEDS: ASPIRIN 81 MG CHEW TAB CHEW SCH (08:47)
[2016-10-02] MEDS: FERROUS SULFATE 325 MG (65 MG ELEMENTAL IRON) TAB PO SCH (08:47)
[2016-10-02] MEDS: METOPROLOL TARTRATE 100 MG TAB PO SCH ×2 (08:48→21:18)
[2016-10-02] MEDS: PANTOPRAZOLE SOD 40 MG DELAYED RELEASE TAB PO SCH ×2 (08:49→21:18)
[2016-10-02] MEDS: MEMANTINE HCL 10 MG TAB PO SCH (08:49)
--- NOTE | 2016-10-02 13:25 | HHI.PR ---
Subjective Remarks No new complaints. Objective Vitals Vital Signs Date Time Temp Pulse Resp B/P Pulse Ox O2 Delivery O2 Flow Rate FiO2 10/02/16 12:06 97.3 96 19 134/69 99 10/02/16 11:23 98 Room Air 10/02/16 10:46 70 136/72 10/02/16 08:06 98.1 101 20 111/56 98 10/02/16 04:00 97.5 100 20 120/69 98 10/02/16 04:00 Room Air 10/02/16 00:00 97.4 102 20 119/65 99 10/02/16 00:00 Room Air 10/01/16 20:21 92 10/01/16 20:00 Room Air 10/01/16 20:00 97.9 104 18 144/91 99 10/01/16 16:00 98.2 100 20 147/87 97 10/01/16 10/01/16 10/02/16 15:00 23:00 07:00 Intake Total 720 ml 0 ml 0 ml Output Total 100 ml Balance 620 ml 0 ml 0 ml Intake Oral 720 ml 0 ml 0 ml Output Urine Total 100 ml # Voids 2 1 2 # Bowel Movements 1 1 2 Result Diagram: 09/29/16 0517 09/29/16 0517 Imaging Last Impressions Renal Ultrasound 09/22/16 0000 Signed Impressions: Service Date/Time: Thursday, September 22, 2016 23:04 - CONCLUSION: Slight hydronephrosis in both kidneys could be due to distended bladder, however the exact etiology is not evident. Aleksander Giles MD ADDENDUM: Findings were reported by [place] dairy manufacturing technologist to Jose Martin the patient's nurse at the time of this addendum. Aleksander Giles MD Objective Remarks GENERAL: This is a well-nourished, well-developed patient, in no apparent distress. CARDIOVASCULAR: irregular RESPIRATORY: Clear to auscultation. Breath sounds equal bilaterally. No wheezes , rales, or rhonchi. GASTROINTESTINAL: Abdomen soft, non-tender, nondistended. Normal active bowel sounds MUSCULOSKELETAL: Extremities without clubbing, cyanosis, or edema. NEURO: Alert & Oriented x4 to person, place, time, situation. Moves all ext x4 A/P Problem List: (1) A-fib Status: Acute Plan: - comgmt with Cardiology, Dr. Zafar - Telemetry reviewed: - currently running 90-100 bpm, afib; pt sitting - Cardizem gtt, off - Pt given digoxin 0.5mg IV (09/28/16) - PO metoprolol increased to 100mg BID (09/29/16) - recent GIB, hold on anticoagulation for now, except ASA 81mg. - BP readings stable - HR improving - increase cardizem to 60mg q6hrs, observe for hypotension - anticipate d/c to SNF in 2-3 days. (2) Diastolic CHF, chronic Status: Chronic Plan: - EF 60% in 2014. - ONI hose - Elevate legs when in bed - now with 1-2+ LE edema - start IV lasix - observe (3) Anemia Status: Chronic Plan: - Pt sent from local SNF for acute on chronic anemia. - Pt was recently admitted for anemia and GIB. Pt underwent evaluation with EGD at that time which noted a large antral ulcer. - Pts discharge hemoglobin was 8.3 on 09/09/16. His hemoglobin was 8.1 on September 13 and was 7.4 at admission on 09/20 prompting him to be sent to the ED. - Continue Protonix - Pt appeared to be a bit on the dry side at admission with increased renal functions at admission. - He received some gentle IVF hydration upon admission - Vital signs are stable. - Pt had LE pitting edema to the thighs noted following admission and was given one dose of Albumin IV followed by one dose of IV Lasix - ONI hose placed - Weigh pt daily - Pts Cr bumped to 2.66 on 09/23 - Appreciate Nephrology consultation. They felt that the worsening renal function may be secondary to hypoperfusion secondary to his anemia and pt was given one unit of PRBCs - Pt had renal US on 09/22 which noted a distended bladder with over 2500cc of urine present and mild bilateral hydronephrosis. - Pt had a Ruiz catheter placed with initially 2400cc of urine out and he had out about 1200cc overnight with noted bloody urine. - The pt had not had any noted hematuria prior to Ruiz placement, likely secondary to Ruiz trauma. This has improved and urine is clear currently. - Pt was started on Flomax 0.4mg HS on 09/23 - repeat CBC in AM (4) Acute kidney injury superimposed on chronic kidney disease Status: Acute Plan: - As noted above. (5) HTN (hypertension) Status: Chronic Plan: - Continue medication. - Fair control. (6) Diabetes mellitus Status: Chronic Plan: - NovoLog sliding scale insulin Problem Qualifiers (1) HTN (hypertension): Qualified Code: I10 - Essential hypertension (2) Diabetes mellitus: Norberto Bradford DO Oct 02, 2016 13:25
[2016-10-02] MEDS: FUROSEMIDE 40 MG/4 ML VIAL IV PUSH SCH ×2 (13:43→17:45)
[2016-10-02] MEDS: DILTIAZEM HCL 60 MG TAB PO SCH ×2 (17:45→23:23)
[2016-10-02] MEDS: ATORVASTATIN 40 MG TAB PO SCH (21:18)
[2016-10-02] MEDS: TAMSULOSIN HCL 0.4 MG CAP PO SCH (21:18)
[2016-10-02] MEDS: SODIUM CHLORIDE 0.9% FLUSH 10 ML FLUSH IVF PRN (21:19)
[2016-10-03] VITALS (8 sets, daily range): BP systolic 113–135; BP diastolic 66–93; PULSE 82–103; RESP 18; TEMP 97.1–97.7; O2SAT 97–98
[2016-10-03] MEDS: DILTIAZEM HCL 60 MG TAB PO SCH ×3 (05:24→18:21)
[2016-10-03] MEDS: ASPIRIN 81 MG CHEW TAB CHEW SCH (08:34)
[2016-10-03] MEDS: FUROSEMIDE 40 MG/4 ML VIAL IV PUSH SCH (08:34)
[2016-10-03] MEDS: FERROUS SULFATE 325 MG (65 MG ELEMENTAL IRON) TAB PO SCH (08:34)
[2016-10-03] MEDS: MEMANTINE HCL 10 MG TAB PO SCH (08:35)
[2016-10-03] MEDS: PANTOPRAZOLE SOD 40 MG DELAYED RELEASE TAB PO SCH ×2 (08:35→20:12)
[2016-10-03] MEDS: METOPROLOL TARTRATE 100 MG TAB PO SCH ×2 (08:39→20:12)
[2016-10-03 09:00] LABS: AUTOMATED NEUTROPHIL # 8.5 TH/MM3 (1.8-7.7); BASOPHIL # 0.1 TH/MM3 (0-0.2); BASOPHIL % 0.8 % (0.0-2.0); EOSINOPHIL # 0.6 TH/MM3 (0-0.4); HEMATOCRIT 32.7 % (39.0-51.0); HEMO FLAGS DIFF FINAL; LYMPH % 10.4 % (9.0-44.0); LYMPHOCYTE # 1.2 TH/MM3 (1.0-4.8); MEAN CELL VOLUME 83.7 FL (80.0-100.0); MEAN CORPUSCULAR HEMOGLOBIN 27.4 PG (27.0-34.0); MEAN CORPUSCULAR HGB CONC 32.8 % (32.0-36.0); NEUT % 74.8 % (16.0-70.0); PLATELET COUNT 259 TH/MM3 (150-450); RED BLOOD COUNT 3.91 MIL/MM3 (4.50-5.90); RED CELL DISTRIBUTION WIDTH 16.7 % (11.6-17.2); WHITE BLOOD COUNT 11.4 TH/MM3 (4.0-11.0)
[2016-10-03 09:22] LABS: BICARBONATE 24.2 MEQ/L (21.0-32.0); MAGNESIUM 1.8 MG/DL (1.5-2.5); POTASSIUM 4.2 MEQ/L (3.5-5.1)
--- NOTE | 2016-10-03 12:45 | HHI.PR ---
Subjective Remarks No new complaints. No chest pain, no palpitations. Objective Vitals Vital Signs Date Time Temp Pulse Resp B/P Pulse Ox O2 Delivery O2 Flow Rate FiO2 10/03/16 12:37 97.1 92 18 129/76 97 10/03/16 07:30 97.5 91 18 113/67 97 10/03/16 07:15 97 Room Air 10/03/16 04:00 97.6 102 18 135/87 98 10/03/16 00:00 97.5 94 18 133/93 98 10/02/16 20:14 101 10/02/16 20:00 97.6 103 18 139/74 98 10/02/16 20:00 Room Air 10/02/16 17:49 96 120/74 10/02/16 16:06 97.6 81 19 120/72 98 10/02/16 15:17 100 10/02/16 10/02/16 10/03/16 15:00 23:00 07:00 Intake Total 720 ml 240 ml 120 ml Balance 720 ml 240 ml 120 ml Intake Oral 720 ml 240 ml 120 ml IV Total 0 ml # Voids 3 4 5 # Bowel Movements 0 0 0 Result Diagram: 10/03/16 0802 10/03/16 0802 Imaging Last Impressions Renal Ultrasound 09/22/16 0000 Signed Impressions: Service Date/Time: Thursday, September 22, 2016 23:04 - CONCLUSION: Slight hydronephrosis in both kidneys could be due to distended bladder, however the exact etiology is not evident. Aleksander Giles MD ADDENDUM: Findings were reported by [place] instrument technologist to Jose Martin the patient's nurse at the time of this addendum. Aleksander Giles MD Objective Remarks GENERAL: This is a well-nourished, well-developed patient, in no apparent distress. CARDIOVASCULAR: irregular RESPIRATORY: Clear to auscultation. Breath sounds equal bilaterally. No wheezes , rales, or rhonchi. GASTROINTESTINAL: Abdomen soft, non-tender, nondistended. Normal active bowel sounds MUSCULOSKELETAL: Extremities without clubbing, cyanosis, or edema. NEURO: Alert & Oriented x4 to person, place, time, situation. Moves all ext x4 A/P Problem List: (1) A-fib Status: Acute Plan: - comgmt with Cardiology, Dr. Zafar - Telemetry reviewed: - currently running 90-100 bpm, afib; pt sitting - Cardizem gtt, off - Pt given digoxin 0.5mg IV (09/28/16) - PO metoprolol increased to 100mg BID (09/29/16) - recent GIB, hold on anticoagulation for now, except ASA 81mg. - BP readings stable - HR improving - cardizem to 60mg q6hrs, transition to cardizem CD 120mg in AM - anticipate d/c to SNF in 1-2 days (2) Diastolic CHF, chronic Status: Acute Plan: - EF 60% in 2014. - ONI hose - Elevate legs when in bed - now with 1-2+ LE edema - received 2 doses of IV lasix 40mg with worsening of pt's renal function - creatinine increased from 1.6 (09/29/16) to 2.16 (10/03) - stop lasix - repeat BMP in AM - observe (3) Anemia Status: Acute Plan: - Pt sent from local SNF for acute on chronic anemia. - Pt was recently admitted for anemia and GIB. Pt underwent evaluation with EGD at that time which noted a large antral ulcer. - Pts discharge hemoglobin was 8.3 on 09/09/16. His hemoglobin was 8.1 on September 13 and was 7.4 at admission on 09/20 prompting him to be sent to the ED. - Continue Protonix - Pt appeared to be a bit on the dry side at admission with increased renal functions at admission. - He received some gentle IVF hydration upon admission - Vital signs are stable. - Pt had LE pitting edema to the thighs noted following admission and was given one dose of Albumin IV followed by one dose of IV Lasix - ONI mullen placed - Weigh pt daily - Pts Cr bumped to 2.66 on 09/23 - Appreciate Nephrology consultation. They felt that the worsening renal function may be secondary to hypoperfusion secondary to his anemia and pt was given one unit of PRBCs - Pt had renal US on 09/22 which noted a distended bladder with over 2500cc of urine present and mild bilateral hydronephrosis. - Pt had a Ruiz catheter placed with initially 2400cc of urine out and he had out about 1200cc overnight with noted bloody urine. - The pt had not had any noted hematuria prior to Ruiz placement, likely secondary to Ruiz trauma. This has improved and urine is clear currently. - Pt was started on Flomax 0.4mg HS on 09/23 - repeat CBC in AM (4) Acute kidney injury superimposed on chronic kidney disease Status: Acute Plan: - As noted above. (5) HTN (hypertension) Status: Chronic Plan: - Continue medication. - Fair control. (6) Diabetes mellitus Status: Chronic Plan: - NovoLog sliding scale insulin Problem Qualifiers (1) HTN (hypertension): Qualified Code: I10 - Essential hypertension (2) Diabetes mellitus: Norberto Bradford DO Oct 03, 2016 12:45
[2016-10-03] MEDS: ATORVASTATIN 40 MG TAB PO SCH (20:12)
[2016-10-03] MEDS: TAMSULOSIN HCL 0.4 MG CAP PO SCH (20:12)
[2016-10-03] MEDS: SODIUM CHLORIDE 0.9% FLUSH 10 ML FLUSH IVF PRN (20:13)
[2016-10-04] VITALS (8 sets, daily range): BP systolic 108–136; BP diastolic 59–77; PULSE 78–113; RESP 16–20; TEMP 97.4–99.5; O2SAT 95–98
[2016-10-04] MEDS: DILTIAZEM HCL 60 MG TAB PO SCH (00:31)
[2016-10-04] MEDS: DILTIAZEM-CD 120 MG CAP ER PO SCH ×2 (05:46→09:00)
[2016-10-04 08:56] LABS: AUTOMATED NEUTROPHIL # 8.5 TH/MM3 (1.8-7.7); BASOPHIL # 0.1 TH/MM3 (0-0.2); EOSINOPHIL # 0.5 TH/MM3 (0-0.4); HEMATOCRIT 32.7 % (39.0-51.0); HEMO FLAGS DIFF FINAL; LYMPH % 11.6 % (9.0-44.0); LYMPHOCYTE # 1.3 TH/MM3 (1.0-4.8); MEAN CELL VOLUME 83.4 FL (80.0-100.0); MEAN CORPUSCULAR HEMOGLOBIN 27.3 PG (27.0-34.0); MEAN CORPUSCULAR HGB CONC 32.8 % (32.0-36.0); NEUT % 74.4 % (16.0-70.0); PLATELET COUNT 268 TH/MM3 (150-450); RED BLOOD COUNT 3.93 MIL/MM3 (4.50-5.90); RED CELL DISTRIBUTION WIDTH 15.8 % (11.6-17.2); WHITE BLOOD COUNT 11.5 TH/MM3 (4.0-11.0)
[2016-10-04 09:26] LABS: BICARBONATE 24.2 MEQ/L (21.0-32.0); MAGNESIUM 1.7 MG/DL (1.5-2.5)
[2016-10-04] MEDS: PANTOPRAZOLE SOD 40 MG DELAYED RELEASE TAB PO SCH ×2 (09:38→22:51)
[2016-10-04] MEDS: MEMANTINE HCL 10 MG TAB PO SCH (09:38)
[2016-10-04] MEDS: METOPROLOL TARTRATE 100 MG TAB PO SCH ×2 (09:38→22:51)
[2016-10-04] MEDS: FERROUS SULFATE 325 MG (65 MG ELEMENTAL IRON) TAB PO SCH (09:38)
[2016-10-04] MEDS: ASPIRIN 81 MG CHEW TAB CHEW SCH (09:38)
--- NOTE | 2016-10-04 09:42 | HHI.PR ---
Subjective Remarks eager for rehab. says legs are less swollen Objective Vitals heart reg lung cta abd s/nt ext 1-2 plus pitting edema to knees. Vital Signs Date Time Temp Pulse Resp B/P Pulse Ox O2 Delivery O2 Flow Rate FiO2 10/04/16 08:00 99.5 78 18 108/65 98 10/04/16 04:00 97.4 83 18 124/77 97 10/04/16 00:00 97.6 89 18 125/75 98 10/03/16 20:22 103 10/03/16 20:00 97.7 82 18 121/66 97 10/03/16 19:30 Room Air 10/03/16 17:57 85 10/03/16 15:40 97.4 87 18 120/79 97 10/03/16 12:37 97.1 92 18 129/76 97 10/03/16 10/03/16 10/04/16 15:00 23:00 07:00 Intake Total 240 ml 120 ml Balance 240 ml 120 ml Intake Oral 240 ml 120 ml IV Total 0 ml # Voids 2 4 # Bowel Movements 0 1 Result Diagram: 10/04/16 0600 10/04/16 0826 Imaging Last Impressions Renal Ultrasound 09/22/16 0000 Signed Impressions: Service Date/Time: Thursday, September 22, 2016 23:04 - CONCLUSION: Slight hydronephrosis in both kidneys could be due to distended bladder, however the exact etiology is not evident. Aleksander Giles MD ADDENDUM: Findings were reported by [place] marketing technologist to Jose Martin the patient's nurse at the time of this addendum. Aleksander Giles MD A/P Problem List: (1) A-fib Status: Acute Plan: afib/rvr..better cont carfdizem and metoprolol - Cardizem gtt, off - recent GIB, hold on anticoagulation for now, except ASA 81mg. Pt has had problems with anderson and urine retention Also alot of leg edema from diastolic dysfunction check bladder scan today to assure retention not worsening again ...if so then d/c to snf with tristan and urology follow up. cont flomax. - (2) Diastolic CHF, chronic Status: Acute Plan: - EF 60% in 2014. - ONI mullen see above (3) Anemia Status: Acute Plan: - Pt sent from local SNF for acute on chronic anemia. - Pt was recently admitted for anemia and GIB. Pt underwent evaluation with EGD at that time which noted a large antral ulcer. - Pts discharge hemoglobin was 8.3 on 09/09/16. His hemoglobin was 8.1 on September 13 and was 7.4 at admission on 09/20 prompting him to be sent to the ED. (4) Acute kidney injury superimposed on chronic kidney disease Status: Acute Plan: - Pt appeared to be a bit on the dry side at admission with increased renal functions at admission. - He received some gentle IVF hydration upon admission - Pt had LE pitting edema to the thighs noted following admission and was given one dose of Albumin IV followed by one dose of IV Lasix - ONI hose placed - Nephrology felt that the worsening renal function may be secondary to hypoperfusion secondary to his anemia and pt was given one unit of PRBCs - Pt had renal US on 09/22 which noted a distended bladder with over 2500cc of urine present and mild bilateral hydronephrosis. - Pt had a Tristan catheter placed with initially 2400cc of urine out and he had out about 1200cc overnight with noted bloody urine. - The pt had not had any noted hematuria prior to Tristan placement, likely secondary to Tristan trauma. This has improved and urine is clear currently. - Pt was started on Flomax 0.4mg HS on 09/23 Tristan was removed last week. cr now trending up check bladder scan today. (5) HTN (hypertension) Status: Chronic Plan: - Continue medication. - Fair control. (6) Diabetes mellitus Status: Chronic Plan: - NovoLog sliding scale insulin Problem Qualifiers (1) HTN (hypertension): Qualified Code: I10 - Essential hypertension (2) Diabetes mellitus: Chidi Herrera MD Oct 04, 2016 09:41
[2016-10-04] MEDS ORDERED: BUMETANIDE 1 MG TAB PO ONE (10:00)
[2016-10-04] MEDS: ATORVASTATIN 40 MG TAB PO SCH (22:51)
[2016-10-04] MEDS: TAMSULOSIN HCL 0.4 MG CAP PO SCH (22:51)
[2016-10-05 05:10] VITALS: BP 131/81; PULSE 93; RESP 16; TEMP 97.8; O2SAT 97
[2016-10-05 08:00] VITALS: BP 107/65; PULSE 105; PULSE 108; RESP 20; TEMP 98; O2SAT 97
[2016-10-05] MEDS: FERROUS SULFATE 325 MG (65 MG ELEMENTAL IRON) TAB PO SCH (08:06)
[2016-10-05] MEDS: PANTOPRAZOLE SOD 40 MG DELAYED RELEASE TAB PO SCH ×2 (08:07→21:03)
[2016-10-05] MEDS: ASPIRIN 81 MG CHEW TAB CHEW SCH (08:07)
[2016-10-05] MEDS: MEMANTINE HCL 10 MG TAB PO SCH (08:07)
[2016-10-05] MEDS: DILTIAZEM-CD 120 MG CAP ER PO SCH (08:07)
[2016-10-05] MEDS: METOPROLOL TARTRATE 100 MG TAB PO SCH ×2 (08:08→21:03)
--- NOTE | 2016-10-05 09:30 | HHI.PR ---
Subjective Remarks in chair no c/o Objective Vitals heart reg lung cta abd s/nt ext 1plus edema tristan. yellow urine Vital Signs Date Time Temp Pulse Resp B/P Pulse Ox O2 Delivery O2 Flow Rate FiO2 10/05/16 05:10 97.8 93 16 131/81 97 10/04/16 23:27 98.1 110 16 136/77 97 10/04/16 20:27 97.6 112 16 116/67 95 10/04/16 19:54 113 10/04/16 19:45 Room Air 10/04/16 16:00 98.0 91 18 120/75 96 10/04/16 12:00 97.5 97 20 123/59 97 10/04/16 10/04/16 10/05/16 15:00 23:00 07:00 Intake Total 600 ml 480 ml 0 ml Output Total 4350 ml 2150 ml Balance 600 ml -3870 ml -2150 ml Intake Oral 600 ml 480 ml 0 ml Output Urine Total 4350 ml 2150 ml # Voids 2 # Bowel Movements 0 0 0 Result Diagram: 10/04/16 0600 10/04/16 0826 Imaging Last Impressions Renal Ultrasound 09/22/16 0000 Signed Impressions: Service Date/Time: Thursday, September 22, 2016 23:04 - CONCLUSION: Slight hydronephrosis in both kidneys could be due to distended bladder, however the exact etiology is not evident. Aleksander Giles MD ADDENDUM: Findings were reported by Hortencia clinical technologist to Jose Martin the patient's nurse at the time of this addendum. Aleksander Giles MD A/P Problem List: (1) A-fib Status: Acute Plan: .....afib/rvr..currently controlled cont carfdizem and metoprolol recent GIB, hold on anticoagulation for now, except ASA 81mg. ....Pt has had problems with anderson and urine retention probably bph earlier had over 2500 cc urine retention. flomax started and tristan removed last week. now yesterday with over 1 L retention again and tristan reinserted. Also alot of leg edema from diastolic dysfunction ...tristan replaced for urine retention. cont flomax. establish with Urology and will most likely d/c to snf in next 24hrs with tristan and attempt removal as outpt. ...await bmp today and give diuretic as tolerated for edema (2) Diastolic CHF, chronic Status: Acute Plan: - EF 60% in 2014. - ONI mullen see above (3) Anemia Status: Acute Plan: - Pt sent from local SNF for acute on chronic anemia. - Pt was recently admitted for anemia and GIB. Pt underwent evaluation with EGD at that time which noted a large antral ulcer. - Pts discharge hemoglobin was 8.3 on 09/09/16. His hemoglobin was 8.1 on September 13 and was 7.4 at admission on 09/20 prompting him to be sent to the ED. (4) Acute kidney injury superimposed on chronic kidney disease Status: Acute Plan: - Pt appeared to be a bit on the dry side at admission with increased renal functions at admission. - He received some gentle IVF hydration upon admission - Pt had LE pitting edema to the thighs noted following admission and was given one dose of Albumin IV followed by one dose of IV Lasix - ONI mullen placed - Nephrology felt that the worsening renal function may be secondary to hypoperfusion secondary to his anemia and pt was given one unit of PRBCs - Pt had renal US on 09/22 which noted a distended bladder with over 2500cc of urine present and mild bilateral hydronephrosis. - Pt had a Tristan catheter placed with initially 2400cc of urine out and had another 1200cc immediately after. - The pt had not had any noted hematuria prior to Tristan placement, likely secondary to Tristan trauma. This has improved and urine is clear currently. - Pt was started on Flomax 0.4mg HS on 09/23 Tristan was removed last week. cr now trending up see above (5) HTN (hypertension) Status: Chronic Plan: - Continue medication. - Fair control. (6) Diabetes mellitus Status: Chronic Plan: - NovoLog sliding scale insulin Problem Qualifiers (1) HTN (hypertension): Qualified Code: I10 - Essential hypertension (2) Diabetes mellitus: Chidi Herrera MD Oct 05, 2016 09:30
[2016-10-05 11:01] LABS: BICARBONATE 24.4 MEQ/L (21.0-32.0); POTASSIUM 4.4 MEQ/L (3.5-5.1)
[2016-10-05 12:00] VITALS: BP 133/61; PULSE 95; RESP 20; TEMP 98.1; O2SAT 97
[2016-10-05 16:00] VITALS: BP 124/72; PULSE 97; RESP 18; TEMP 97.8; O2SAT 97
[2016-10-05 20:00] VITALS: BP 113/79; PULSE 101; PULSE 115; RESP 19; TEMP 97.7; O2SAT 97
[2016-10-05] MEDS: TAMSULOSIN HCL 0.4 MG CAP PO SCH (21:03)
[2016-10-05] MEDS: ATORVASTATIN 40 MG TAB PO SCH (21:03)
[2016-10-06] VITALS: BP 110/71; PULSE 95; RESP 20; TEMP 97.3; O2SAT 97
[2016-10-06 04:00] VITALS: BP 125/76; PULSE 95; RESP 20; TEMP 97.5; O2SAT 98
[2016-10-06 08:00] VITALS: BP 111/76; PULSE 97; PULSE 98; RESP 18; TEMP 98; O2SAT 96
[2016-10-06] MEDS: ASPIRIN 81 MG CHEW TAB CHEW SCH (09:19)
[2016-10-06] MEDS: MEMANTINE HCL 10 MG TAB PO SCH (09:19)
[2016-10-06] MEDS: METOPROLOL TARTRATE 100 MG TAB PO SCH (09:19)
[2016-10-06] MEDS: PANTOPRAZOLE SOD 40 MG DELAYED RELEASE TAB PO SCH (09:19)
[2016-10-06] MEDS: DILTIAZEM-CD 120 MG CAP ER PO SCH (09:19)
[2016-10-06] MEDS: FERROUS SULFATE 325 MG (65 MG ELEMENTAL IRON) TAB PO SCH (09:19)
--- NOTE | 2016-10-06 10:19 | HHI.PR ---
Subjective Remarks eager for d/c Objective Vitals heart reg lung cta abd s/nt ext trace edema tristan Vital Signs Date Time Temp Pulse Resp B/P Pulse Ox O2 Delivery O2 Flow Rate FiO2 10/06/16 08:00 98.0 97 18 111/76 96 10/06/16 04:00 97.5 95 20 125/76 98 10/06/16 00:00 97.3 95 20 110/71 97 10/05/16 22:12 Room Air 10/05/16 20:00 97.7 101 19 113/79 97 10/05/16 20:00 115 10/05/16 16:00 97.8 97 18 124/72 97 10/05/16 12:00 98.1 95 20 133/61 97 10/05/16 10/05/16 10/06/16 15:00 23:00 07:00 Intake Total 720 ml 240 ml 240 ml Output Total 1550 ml 975 ml 1375 ml Balance -830 ml -735 ml -1135 ml Intake Oral 720 ml 240 ml 240 ml Output Urine Total 1550 ml 975 ml 1375 ml # Bowel Movements 0 3 Result Diagram: 10/04/16 0600 10/05/16 0848 Imaging Last Impressions Renal Ultrasound 09/22/16 0000 Signed Impressions: Service Date/Time: Thursday, September 22, 2016 23:04 - CONCLUSION: Slight hydronephrosis in both kidneys could be due to distended bladder, however the exact etiology is not evident. Aleksander Giles MD ADDENDUM: Findings were reported by Hawthorne geodetic surveyor technologist to Jose Martin the patient's nurse at the time of this addendum. Aleksander Giles MD A/P Problem List: (1) A-fib Status: Acute Plan: .....afib/rvr..currently controlled cont carfdizem and metoprolol recent GIB, hold on anticoagulation for now, except ASA 81mg. ....Pt has had problems with anderson and urine retention probably bph earlier had over 2500 cc urine retention. flomax started and tristan removed last week. now yesterday with over 1 L retention again and tristan reinserted. Also alot of leg edema from diastolic dysfunction ...tristan replaced for urine retention. cont flomax. edema improved and urine output improved after tristan spoke with Dr Davis Urology who will see the pt in office and says pt will most likely need turp. keep tristan in and d/c to snf today. (2) Diastolic CHF, chronic Status: Acute Plan: - EF 60% in 2014. - ONI mullen see above (3) Anemia Status: Acute Plan: - Pt sent from local SNF for acute on chronic anemia. - Pt was recently admitted for anemia and GIB. Pt underwent evaluation with EGD at that time which noted a large antral ulcer. - Pts discharge hemoglobin was 8.3 on 09/09/16. His hemoglobin was 8.1 on September 13 and was 7.4 at admission on 09/20 prompting him to be sent to the ED. (4) Acute kidney injury superimposed on chronic kidney disease Status: Acute Plan: - Pt appeared to be a bit on the dry side at admission with increased renal functions at admission. - He received some gentle IVF hydration upon admission - Pt had LE pitting edema to the thighs noted following admission and was given one dose of Albumin IV followed by one dose of IV Lasix - ONI mullen placed - Nephrology felt that the worsening renal function may be secondary to hypoperfusion secondary to his anemia and pt was given one unit of PRBCs - Pt had renal US on 09/22 which noted a distended bladder with over 2500cc of urine present and mild bilateral hydronephrosis. - Pt had a Tristan catheter placed with initially 2400cc of urine out and had another 1200cc immediately after. - The pt had not had any noted hematuria prior to Tristan placement, likely secondary to Tristan trauma. This has improved and urine is clear currently. - Pt was started on Flomax 0.4mg HS on 09/23 Tristan was removed last week. cr now trending up see above (5) HTN (hypertension) Status: Chronic Plan: - Continue medication. - Fair control. (6) Diabetes mellitus Status: Chronic Plan: - NovoLog sliding scale insulin Problem Qualifiers (1) HTN (hypertension): Qualified Code: I10 - Essential hypertension (2) Diabetes mellitus: Chidi Herrera MD Oct 06, 2016 10:19
[2016-10-06] MEDS ORDERED: TAMS5CAP PO (10:21)
[2016-10-06] MEDS ORDERED: METO-338 PO (10:21)
[2016-10-06] MEDS ORDERED: CARD120C4 PO (10:21)
--- NOTE | 2016-10-06 10:22 | HHI.DCPOC ---
Discharge Care Plan Diagnosis: (1) Acute kidney injury superimposed on chronic kidney disease (2) Urine retention (3) Diastolic CHF, chronic (4) Anemia (5) A-fib (6) HTN (hypertension) (7) Diabetes mellitus (8) H pylori ulcer Goals to Promote Your Health * To prevent worsening of your condition and complications * To maintain your health at the optimal level Directions to Meet Your Goals Take your medications as prescribed Follow your dietary instruction Follow activity as directed Keep your appointments as scheduled Take your immunizations and boosters as scheduled If your symptoms worsen call your PCP, if no PCP go to Urgent Care Center or Emergency Room Smoking is Dangerous to Your Health. Avoid second hand smoke Call the 24-hour hour crisis hotline for domestic abuse at Chidi Herrera MD Oct 06, 2016 10:22
[2016-10-06 12:00] VITALS: BP 123/69; PULSE 96; RESP 20; TEMP 97.8; O2SAT 97
[2016-10-06 12:35] LABS: BICARBONATE 25.5 MEQ/L (21.0-32.0); POTASSIUM 4.4 MEQ/L (3.5-5.1)
--- NOTE | 2016-10-07 14:06 | HHI.DS ---
Discharge Summary Admission Date Sep 22, 2016 at 12:33 Discharge Date: Oct 06, 2016 Admitting Diagnosis anemia. Dehydration. (1) Urine retention Diagnosis: Principal (2) A-fib Diagnosis: Principal (3) Diastolic CHF, chronic Diagnosis: Principal (4) Anemia Diagnosis: Principal (5) HTN (hypertension) Diagnosis: Secondary (6) Diabetes mellitus Diagnosis: Secondary (7) CKD (chronic kidney disease) stage 3, GFR 30-59 ml/min Diagnosis: Secondary (8) H pylori ulcer Diagnosis: Secondary Brief History This is an 81-year-old male who presents from the group home with complaints of low hemoglobin. The patient reportedly has little to no symptoms at this time. The patient had blood work done which showed a hemoglobin of 7.6. The group home sent him at the request of physician, Dr Vazquez. Initially they stated that there was questionable weakness and dark stool. Patient denies any weakness. He denies any chest pain, heart palpitations. Patient denies any shortness of breath. The patient denies any dizziness. The patient does give history that he has dark stool. Patient has no other complaints but states that he was sent here to "get some blood." Review of his chart reveals a recent admission September 03 for GI bleed. During that stay he had an EGD which revealed an antral ulcer. He was transfused 2 units of blood during that stay. His sav hemoglobin at that time was 7.4 with a discharge hemoglobin of 8.3. His hemoglobin was 8.1 on September 13 and was 7.4 earlier today prompting his transportation to the ER. CBC/BMP: 10/04/16 0600 10/06/16 1127 Significant Findings Laboratory Tests Test 10/05/16 10/06/16 08:48 11:27 Blood Urea Nitrogen 43 MG/DL (7-18) 35 MG/DL (7-18) Creatinine 1.80 MG/DL 1.55 MG/DL (0.60-1.30) (0.60-1.30) Estimat Glomerular Filtration 36 ML/MIN (>89) 43 ML/MIN (>89) Rate Random Glucose 273 MG/DL 273 MG/DL (74-106) (74-106) Hospital Course afib/rvr..currently controlled Cont cardizem and metoprolol recent GIB, hold on anticoagulation for now, except ASA 81mg. ....Pt has had problems with anderson and urine retention probably bph earlier had over 2500 cc urine retention. flomax started and tristan removed last week. now yesterday with over 1 L retention again and tristan reinserted. Also alot of leg edema from diastolic dysfunction ...tristan replaced for urine retention. cont flomax. edema improved and urine output improved after tristan spoke with Dr Davis Urology who will see the pt in office and says pt will most likely need turp. keep tristan in and d/c to snf today. - Pt sent from local SNF for acute on chronic anemia. - Pt was recently admitted for anemia and GIB. Pt underwent evaluation with EGD at that time which noted a large antral ulcer. - Pts discharge hemoglobin was 8.3 on 09/09/16. His hemoglobin was 8.1 on September 13 and was 7.4 at admission on 09/20 prompting him to be sent to the ED. - Pt appeared to be a bit on the dry side at admission with increased renal functions at admission. - He received some gentle IVF hydration upon admission - Pt had LE pitting edema to the thighs noted following admission and was given one dose of Albumin IV followed by one dose of IV Lasix - ONI hose placed - Nephrology felt that the worsening renal function may be secondary to hypoperfusion secondary to his anemia and pt was given one unit of PRBCs - Pt had renal US on 09/22 which noted a distended bladder with over 2500cc of urine present and mild bilateral hydronephrosis. - Pt had a Tristan catheter placed with initially 2400cc of urine out and had another 1200cc immediately after. - The pt had not had any noted hematuria prior to Tristan placement, likely secondary to Tristan trauma. This has improved and urine is clear currently. - Pt was started on Flomax 0.4mg HS on 09/23 Tristan was removed last week. cr now trending up Pt Condition on Discharge: Stable Discharge Disposition: Discharge to SNF Discharge Instructions DIET: Follow Instructions for: Diabetic Diet Activities you can perform: Regular-No Restrictions Follow up Referrals: SNF/[facility]/ with [facility] - 1 Week with Gage Davis MD New Medications: Diltiazem CD 24 HR (Cardizem CD 24 HR) 120 Mg Caper 120 MG PO DAILY afib #30 Ref 3 CAP Metoprolol Tartrate (Lopressor) 100 Mg Tab 100 MG PO BID A. fib #60 TAB Tamsulosin (Flomax) 0.4 Mg Cap 0.4 MG PO HS Urine retention #30 Ref 3 CAP Continued Medications: Allopurinol (Allopurinol) 100 Mg Tab 100 MG PO DAILY Gout #30 Ref 0 TAB Aspirin (Aspirin) 81 Mg Chew 81 MG PO DAILY Ref 0 TAB Atorvastatin (Atorvastatin) 40 Mg Tab 40 MG PO HS Cholesterol Management #30 Ref [address] (Ferrous Sulfate DR) 324 Mg Tabdr 325 MG PO DAILY Nutritional Supplement #30 Ref 0 TAB Memantine (Namenda) 10 Mg Tab 10 MG PO DAILY Alzheimer Disease #30 Ref 0 TAB Pantoprazole (Protonix) 40 Mg Tab 40 MG PO BID ulcer #60 Ref 0 TAB Discontinued Medications: Amoxicillin (Amoxicillin) 500 Mg Cap 1000 MG PO BID Infection Days 10 CAP Clarithromycin (Clarithromycin) 500 Mg Tab 500 MG PO Q12HR Infection Days 10 TAB Glimepiride (Glimepiride) 2 Mg Tab 4 MG PO DAILY Take with breakfast or first main meal Blood Sugar Management #30 Ref 0 TAB Linagliptin (Tradjenta) 5 Mg Tab 5 MG PO DAILY Blood Sugar Management #30 Ref 0 TAB Lisinopril (Lisinopril) 20 Mg Tab 20 MG PO Q12HR hold for sbp less 110 htn #0 TAB Metoprolol Tartrate (Metoprolol Tartrate) 25 Mg Tab 25 MG PO BID #60 Ref 0 TAB Chidi Herrera MD Oct 07, 2016 14:06
--- NOTE | 2016-10-07 14:36 | PQ ---
Physician Query Response Document PATIENT: JOSR SCOTT : 1935 ADMIT DATE: 09/22/2016 12:33 PM DISCH DATE: 10/06/2016 12:45 PM RESPONDING PROVIDER #: Rbraithw QUERY TEXT: Anemia Type Anemia is documented in the Medical Record. Please specify the cause (includes suspected or probable cause) Such as: -- Due to acute blood loss -- Due to chronic blood loss -- Due to iron deficiency -- Due to postoperative blood loss/acute -- Due to chronic disease -- Other, please specify If you have any additional question/comments and or concerns please call [email or web address] The patient's Clinical Indicators include: dR. Herrera, please clarify diagnosis of anemia. Please review the question below and answer to the best of your ability. HH on admision 7.7/24.8. Patient was transfused 1 unit of RBC on 09-22-16 Query created by: Mauri Mancera on 10/07/2016 10:45 AM RESPONSE TEXT: Pt had initially developed anemia during last admission due to acute blood loss. This admission he st ill has chronic anemia. QUERY TEXT: Anemia Type Anemia is documented in the Medical Record. Please specify the cause (includes suspected or probable cause) Such as: -- Due to acute blood loss -- Due to chronic blood loss -- Due to iron deficiency -- Due to postoperative blood loss -- Due to chronic disease -- Other, please specify The patient's Clinical Indicators include: Progress note 09/24/16 : Anemia: Appreciate Nephrology consultation. They felt that the worsening kirti l function may be secondary to hypoperfusion secondary to his anemia and pt was given one unit of PRB Cs last night Nephrology consult 09/22/16: nemia Plan: Due to gastric ulcer Query created by: Everardo Eng on 09/24/2016 11:01 AM RESPONSE TEXT: Pt had acute blood loss anemia from gastric ulcer last admission. His anemia has persisted and he has chronic anemia. QUERY TEXT: Kidney Disease, Chronic CKD Stage Chronic Kidney Disease (CKD) is documented in the Medical Record. Please specify the disease stage ( includes probable or suspected) Such as: -- Chronic kidney disease Stage 1 -- Chronic kidney disease Stage 2 -- Chronic kidney disease Stage 3 -- Chronic kidney disease Stage 4 -- Chronic kidney disease Stage 5 -- Chronic kidney disease Stage 5, requiring dialysis -- End Stage Renal Disease -- Other, please specify Stages are defined by the [employer] as follows: CKD Stage I GFR >= 90 ml / min per 1.73 m2 and persistent albuminuria CKD Stage 2 GFR between 60 and 89 with persistent albuminuria CKD Stage 3 GFR between 30 and 59 CKD Stage 4 GFR between 15 and 29 CKD Stage 5 GFR between <15 or End Stage Renal Disease The patient's Clinical Indicators include: Progress note 09/24/16: Acute kidney injury super imposed on chronic kidney disease GFR 09/20/16: 30 GFR 09/21/16: 32 GFR 09/22/16: 26 GFR 09/23/16: 23 GFR 09/24/16: 27 Query created by: Everardo Eng on 09/24/2016 11:05 AM RESPONSE TEXT: Pt has ckd 3. Electronically signed by: Chidi Herrera MD 10/07/2016 2:32 PM
== END 2016-10-06 12:45 | DRG 812 ==
LOC: NEPE 15:37 → NEDA 17:52 → NEPGCP 20:51 → OBSVTOIN 09-22 12:33 → N07A 09-23 21:03 → N04A 09-27 11:11
PROVIDERS: ADMIT Hospitalist; ATTEND Hospitalist
PROC: 30233N1 Transfusion of Nonautologous Red Blood Cells into Peripheral Vein, Percutaneous Approach (ICD-10-PCS; principal; 2016-09-22)
PROC: 0T9B70Z Drainage of Bladder with Drainage Device, Via Natural or Artificial Opening (ICD-10-PCS; 2016-09-23)
DX: D64.89 Other specified anemias (principal); N17.9 Acute kidney failure, unspecified; E11.22 Type 2 diabetes mellitus with diabetic chronic kidney disease; I50.32 Chronic diastolic (congestive) heart failure; E86.0 Dehydration; F03.90 Unspecified dementia, unspecified severity, without behavioral disturbance, psychotic disturbance, mood disturbance, and anxiety; I13.0 Hypertensive heart and chronic kidney disease with heart failure and stage 1 through stage 4 chronic kidney disease, or unspecified chronic kidney disease; I48.91 Unspecified atrial fibrillation; N13.30 Unspecified hydronephrosis; E78.5 Hyperlipidemia, unspecified; B96.81 Helicobacter pylori [H. pylori] as the cause of diseases classified elsewhere; M10.9 Gout, unspecified; G31.84 Mild cognitive impairment of uncertain or unknown etiology; N18.3 Chronic kidney disease, stage 3 (moderate); Z87.11 Personal history of peptic ulcer disease; M19.90 Unspecified osteoarthritis, unspecified site; Z87.891 Personal history of nicotine dependence; I87.8 Other specified disorders of veins; N40.1 Benign prostatic hyperplasia with lower urinary tract symptoms; R33.8 Other retention of urine
CPT/HCPCS: 36430; 71020; 76775; 80048; 80053; 80069; 80162; 81001; 83735; 85014; 85018; 85025; 85610; 85730; 86850; 86900; 86901; 86920; 87086; 93005; 96360; G0378; G8987-GP; G8988-GP; J1160; J1940; J3475; J7030; P9016; P9047

== ENCOUNTER 2016-10-29 07:00 | Inpatient (IN) | payer MEDICARE ==
[2016-10-29] VITALS (21 sets, daily range): BP systolic 73–118; BP diastolic 54–78; PULSE 90–145; RESP 15–26; TEMP 97.9–98.3; O2SAT 96–100
[~2016-10-29] VITALS: Ht 198.1 cm; Wt 111.4 kg
[~2016-10-29 07:00] MED LIST changes: -AMOX500C PO; +ASPI81CH PO; +CARD120C4 PO; -CLAR500T PO; +FERR324T4 PO; -GLIM2TAB PO; -LISI-515 PO; +METO-338 PO; -METO25TA3 PO; +TAMS5CAP PO; -TRAD5TAB PO
[2016-10-29] MEDS ORDERED: SODIUM CHLOR 0.9% 1000 ML INJ 1,000 ML IV SCH (07:15)
[2016-10-29] MEDS ORDERED: DILTIAZEM INJ 125 MG in SODIUM CHLORIDE 0.9% INJ 100 ML IV SCH (07:15)
[2016-10-29] MEDS ORDERED: KETO2CRE TOPICAL (07:16)
[2016-10-29] MEDS ORDERED: GLIM2TAB PO (07:16)
[2016-10-29] MEDS ORDERED: METF1000 PO (07:16)
[2016-10-29] MEDS ORDERED: METO25TA3 PO (07:16)
[2016-10-29] MEDS ORDERED: LISI40TA PO (07:16)
[2016-10-29] MEDS ORDERED: ASPI81TA11 PO (07:16)
[2016-10-29] MEDS ORDERED: HYDR25TA5 PO (07:16)
[2016-10-29] MEDS ORDERED: GLIM4TAB PO (07:16)
--- NOTE | 2016-10-29 07:20 | PD ---
HPI Chief Complaint: weakness Time Seen by Provider: 07:03 Travel History International Travel<30 days: No Contact w/Intl Traveler<30days: No Traveled to known affect area: No History of Present Illness HPI 81-year-old male complains of generalized malaise. Patient was noticed to have generalized if this morning at local [facility]. Pulse reported to be in the 30s. EMS was called. Patient was found to be in A. fib with RVR. Patient was given normal saline solution 600 cc IV bolus and Cardizem 20 mg IV [address] the way to ED. Patient denies any headache. Patient denies any chest pain or shortness of breath. Patient denies abdominal pain. Patient denies any nausea vomiting diarrhea. Patient states that he feeling thirsty. Patient denies any fever chills. Patient was admitted to [facility] September 22 and discharged October 06 with diagnosis including GI bleed, urinary retention, atrial fibrillation, diastolic CHF, anemia, hypertension, diabetes, chronic kidney disease stage III, H. pylori ulcer. Patient had blood transfusion. Patient states that he's has been doing well and has no complaint except some mild generalized malaise. For the A. fib with RVR, patient was discharged from [facility] at the end of September with instruction to take Diltiazem CD 120 mg daily and metoprolol 100 mg twice a day. Family member states that patient has been taking the medications as directed. PFSH Past Medical History Asthma: No Atrial Fibrillation: Yes Blood Disorders: No Anxiety: No (he gets mild anxiety when he cannot remember things) Depression: No Heart Rhythm Problems: No Cancer: No Cardiovascular Problems: Yes (hyper tension) High Cholesterol: No Chemotherapy: No Chest Pain: No Congestive Heart Failure: No COPD: No Diabetes: No Endocrine: No Gout: Yes Genitourinary: No Hypertension: Yes Immune Disorder: No Musculoskeletal: Yes (weakness with aging process) Neurologic: No Psychiatric: No Reproductive: No (unsteady stream of urine, ongoing problem) Respiratory: No Radiation Therapy: No Sleep Apnea: No Thyroid Disease: No Past Surgical History Abdominal Surgery: Yes (HERNIA REPAIR) Body Medical Devices: walker Social History Alcohol Use: No (RARE) Tobacco Use: No Substance Use: No Allergies-Medications (Allergen,Severity, Reaction): Coded Allergies: No Known Allergies (Unverified , 10/29/16) Reported Meds & Prescriptions Reported Meds & Active Scripts Active Cardizem CD 24 HR (Diltiazem CD 24 HR) 120 Mg Caper 120 Mg PO DAILY Flomax (Tamsulosin HCl) 0.4 Mg Cap 0.4 Mg PO HS Protonix (Pantoprazole Sodium) 40 Mg Tab 40 Mg PO BID Reported Metoprolol Tartrate 25 Mg Tab 25 Mg PO BID Metformin (Metformin HCl) 1,000 Mg Tab 1,000 Mg PO BIDPC With meals Ketoconazole Topical 2% Cream 1 Applic TOPICAL BID Hydrochlorothiazide 25 Mg Tab 25 Mg PO DAILY Glimepiride 2 Mg Tab 2 Mg PO HS Glimepiride 4 Mg Tab 4 Mg PO DAILY Take with breakfast or first main meal Aspirin EC (Aspirin) 81 Mg Tabdr 81 Mg PO DAILY Ferrous Sulfate DR (Ferrous Sulfate) 324 Mg Tabdr 325 Mg PO DAILY Namenda (Memantine) 10 Mg Tab 10 Mg PO DAILY Atorvastatin (Atorvastatin Calcium) 40 Mg Tab 40 Mg PO HS Allopurinol 100 Mg Tab 100 Mg PO DAILY Review of Systems General / Constitutional: No: Fever Eyes: No: Visual changes HENT: No: Headaches Cardiovascular: No: Chest Pain or Discomfort Respiratory: No: Shortness of Breath Gastrointestinal: No: Abdominal Pain Genitourinary: No: Dysuria Musculoskeletal: No: Pain Skin: No Rash Neurologic: No: Weakness Psychiatric: No: Depression Endocrine: No: Polydipsia Hematologic/Lymphatic: No: Easy Bruising Physical Exam Narrative GENERAL: Well-nourished, well-developed patient. SKIN: Focused skin assessment warm/dry. Patient has a stress blister on the right heel. HEAD: Normocephalic. EYES: No scleral icterus. No injection or drainage. NECK: Supple, trachea midline. No JVD or lymphadenopathy. CARDIOVASCULAR: Irregularly irregular rate and rhythm without murmurs, gallops, or rubs. RESPIRATORY: Breath sounds equal bilaterally. No accessory muscle use. GASTROINTESTINAL: Abdomen soft, non-tender, nondistended. Rectal exam Hemoccult negative. MUSCULOSKELETAL: No cyanosis. Patient has +1 pitting Edema lower extremity. BACK: Nontender without obvious deformity. No CVA tenderness. Neurologic exam normal. Data Data Last Documented VS Vital Signs Date Time Temp Pulse Resp B/P Pulse Ox O2 Delivery O2 Flow Rate FiO2 10/29/16 08:57 130 16 85/69 99 Room Air 10/29/16 08:29 98.1 Orders Electrocardiogram (10/29/16 07:03) Complete Blood Count With Diff (10/29/16 07:03) Comprehensive Metabolic Panel (10/29/16 07:03) Creatine Kinase (Cpk) (10/29/16 07:03) Troponin I (10/29/16 07:03) B-Type Natriuretic Peptide (10/29/16 07:03) Prothrombin Time / Inr (Pt) (10/29/16 07:03) Act Partial Throm Time (Ptt) (10/29/16 07:03) Urinalysis - C+S If Indicated (10/29/16 07:03) Thyroid Stimulating Hormone (10/29/16 07:03) Chest, Single Ap (10/29/16 07:03) Iv Access Insert/Monitor (10/29/16 07:03) Ecg Monitoring (10/29/16 07:03) Oximetry (10/29/16 07:03) Vital Signs (Adult) Q15MX4,Q4H (10/29/16 07:03) [place]rier / Telemetry KATIE.Q8H (10/29/16 07:03) Cardiac Rhythm KATIE.Q8H (10/29/16 07:03) Notify Dr: Other (10/29/16 07:03) Diltiazem Inj (Cardizem Inj) (10/29/16 07:15) Sodium Chlor 0.9% 1000 Ml Inj (Ns 1000 M (10/29/16 07:15) Digoxin Inj (Lanoxin Inj) (10/29/16 07:30) Sodium Chlorid 0.9% 500 Ml Inj (Ns 500 M (10/29/16 08:00) Urine Culture (10/29/16 08:20) Ceftriaxone Inj (Rocephin Inj) (10/29/16 09:00) Admit Order (Ed Use Only) (10/29/16 09:14) Labs Laboratory Tests Test 10/29/16 10/29/16 07:00 08:20 White Blood Count 9.4 TH/MM3 Red Blood Count 3.29 MIL/MM3 Hemoglobin 8.8 GM/DL Hematocrit 27.1 % Mean Corpuscular Volume 82.5 FL Mean Corpuscular Hemoglobin 26.6 PG Mean Corpuscular Hemoglobin 32.2 % Concent Red Cell Distribution Width 16.2 % Platelet Count 229 TH/MM3 Mean Platelet Volume 8.7 FL Neutrophils (%) (Auto) 74.1 % Lymphocytes (%) (Auto) 10.3 % Monocytes (%) (Auto) 14.8 % Eosinophils (%) (Auto) 0.3 % Basophils (%) (Auto) 0.5 % Neutrophils # (Auto) 7.0 TH/MM3 Lymphocytes # (Auto) 1.0 TH/MM3 Monocytes # (Auto) 1.4 TH/MM3 Eosinophils # (Auto) 0.0 TH/MM3 Basophils # (Auto) 0.0 TH/MM3 CBC Comment DIFF FINAL Differential Comment Prothrombin Time 13.7 SEC Prothromb Time International 1.2 RATIO Ratio Activated Partial 36.3 SEC Thromboplast Time Sodium Level 139 MEQ/L Potassium Level 4.1 MEQ/L Chloride Level 108 MEQ/L Carbon Dioxide Level 21.2 MEQ/L Anion Gap 10 MEQ/L Blood Urea Nitrogen 62 MG/DL Creatinine 2.80 MG/DL Estimat Glomerular Filtration 22 ML/MIN Rate Random Glucose 75 MG/DL Calcium Level 7.6 MG/DL Total Bilirubin 0.3 MG/DL Aspartate Amino Transf 61 U/L (AST/SGOT) Alanine Aminotransferase 46 U/L (ALT/SGPT) Alkaline Phosphatase 168 U/L Total Creatine Kinase 39 U/L Troponin I 0.04 NG/ML B-Type Natriuretic Peptide 755 PG/ML Total Protein 6.0 GM/DL Albumin 1.8 GM/DL Thyroid Stimulating Hormone 1.640 uIU/ML 3rd Gen Urine Collection Type VOIDED Urine Color STRAW Urine Turbidity CLOUDY Urine pH 7.5 Urine Specific [place] 1.010 Urine Protein 100 mg/dL Urine Glucose (UA) NEG mg/dL Urine Ketones NEG mg/dL Urine Occult Blood SMALL Urine Nitrite NEG Urine Bilirubin NEG Urine Leukocyte Esterase LARGE Urine WBC INNUM /hpf Urine Squamous Epithelial 0-5 /hpf Cells Urine Bacteria MANY /hpf Microscopic Urinalysis Comment CULTURE INDICATED MDM Medical Decision Making Medical Screen Exam Complete: Yes Emergency Medical Condition: Yes Interpretation(s) Last Impressions Chest X-Ray 10/29/16 0703 Signed Impressions: Service Date/Time: Saturday, October 29, 2016 07:14 - CONCLUSION: No acute cardiopulmonary process. Eugene Mcintosh MD 8:50 AM. CBC WBC 9.4. Hemoglobin 8.8 hematocrit 27.1. BUN 62. Creatinine 2.8. GFR 22. BNP 755. INR 1.2. UA positive for WBC and bacteria. Differential Diagnosis Differential diagnosis including atrial fibrillation with RVR, dehydration, electrolyte imbalance, GI bleed, Narrative Course 81-year-old male with generalized malaise. History of GI bleed and atrial fibrillation. Patient was given IV fluid and Cardizem bolus by EMS. Patient's in A. fib with RVR. Normal saline solution 500 cc IV bolus. Normal saline solution 100 cc an hour. Cardizem drip was not initiated because of the hypotension. Digoxin 0.25 mg IV given. Repeated digoxin 0.25 mg IV. HemaPrompt Point of Care Internal Pos. & Neg. Controls: Passed Fecal Specimen Occult Blood: Negative Diagnosis Primary Impression: Atrial fibrillation with RVR Additional Impressions: Anemia Qualified Code: D64.9 - Anemia, unspecified type UTI (urinary tract infection) Qualified Code: N30.00 - Acute cystitis without hematuria Admitting Information Admitting Physician Requests: Admit Arthur Ojeda MD Oct 29, 2016 07:20
[2016-10-29 07:24] LABS: BASOPHIL % 0.5 % (0.0-2.0); EOSINOPHIL % 0.3 % (0.0-4.0); HEMATOCRIT 27.1 % (39.0-51.0); HEMO FLAGS DIFF FINAL; LYMPH % 10.3 % (9.0-44.0); MEAN CELL VOLUME 82.5 FL (80.0-100.0); MEAN CORPUSCULAR HEMOGLOBIN 26.6 PG (27.0-34.0); MEAN CORPUSCULAR HGB CONC 32.2 % (32.0-36.0); MONO % 14.8 % (0.0-8.0); NEUT % 74.1 % (16.0-70.0); PLATELET COUNT 229 TH/MM3 (150-450); RED BLOOD COUNT 3.29 MIL/MM3 (4.50-5.90); RED CELL DISTRIBUTION WIDTH 16.2 % (11.6-17.2); WHITE BLOOD COUNT 9.4 TH/MM3 (4.0-11.0)
--- NOTE | 2016-10-29 07:26 | RADRPT ---
EXAM DATE/TIME: 10/29/2016 07:14 [facility] COMPARISON: CHEST SINGLE AP, September 04, 2016, 12:55. INDICATIONS : Short of breath, dizziness. MEDICAL HISTORY : Hypertension. Afib SURGICAL HISTORY : None. ENCOUNTER: Initial ACUITY: 1 day PAIN SCORE: 0/10 LOCATION: Bilateral chest FINDINGS: The lungs are hyperinflated. There is chronic appearing interstitial prominence. There is no evidence of significant congestion or consolidating airspace disease. Heart and mediastinal structures are stable. 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 CONCLUSION: No acute cardiopulmonary process. Eugene Mcintosh MD on October 29, 2016 at 7:23 Board Certified Radiologist. This report was verified electronically.
[2016-10-29 07:27] LABS: CHLORIDE 108 MEQ/L (98-107); POTASSIUM 4.1 MEQ/L (3.5-5.1); SODIUM (NA) 139 MEQ/L (136-145)
[2016-10-29] MEDS ORDERED: DIGOXIN 0.5 MG/2 ML VIAL IV PUSH ONE ×2 (07:30→09:30)
[2016-10-29 07:31] LABS: ANION GAP 10 MEQ/L (5-15); APTT (PATIENT) 36.3 SEC (24.3-30.1); BICARBONATE 21.2 MEQ/L (21.0-32.0); BLOOD UREA NITROGEN 62 MG/DL (7-18); INTERNATIONAL NORMALIZED RATIO 1.2 RATIO; PROTHROMBIN TIME - PATIENT 13.7 SEC (9.8-11.6)
[2016-10-29 07:34] LABS: ALT (GPT) 46 U/L (12-78); AST (GOT) 61 U/L (15-37); GLOMERULAR FILTRATION RATE 22 ML/MIN (>89)
[2016-10-29 07:36] LABS: TOTAL BILIRUBIN ADULT 0.3 MG/DL (0.2-1.0)
[2016-10-29 07:37] LABS: ALKALINE PHOSPHATASE 168 U/L (45-117)
[2016-10-29] MEDS ORDERED: SODIUM CHLORID 0.9% 500 ML INJ 500 ML IV ONE ×2 (08:00→16:00)
[2016-10-29 08:15] LABS: CREATINE KINASE 39 U/L (39-308)
[2016-10-29 08:32] LABS: BLOOD, URINE SMALL (NEG); GLUCOSE,URINE NEG (NEG); KETONE, URINE NEG (NEG); NITRITE,URINE NEG (NEG); PH, URINE 7.5 (5.0-8.5)
[2016-10-29 08:34] LABS: METHOD OF COLLECTION VOIDED; URINE COLOR STRAW (YELLW/STRAW)
[2016-10-29 08:37] LABS: WBC, URINE INNUM /hpf (0-5)
[2016-10-29 08:38] LABS: BACTERIA, URINE MANY /hpf; COMMENT (UR) CULTURE INDICATED; CULTURE IF INDICATED CULTURE INDICATED; SQUAMOUS EPITHELIAL CELL URINE 0-5 /hpf (0-5)
--- NOTE | 2016-10-29 08:43 | EKG ---
Date Performed: 10/29/2016 Time Performed: 07:18:01 PTAGE: 81 years EKG: ATRIAL FIBRILLATION WITH RAPID VENTRICULAR RESPONSE NONSPECIFIC T-WAVE ABNORMALITY ABNORMAL RHYTHM ECG PREVIOUS TRACING : 09/26/2016 10.11 Compared to prior tracing no significant change DOCTOR: Nguyễn Escobar Interpretating Date/Time 10/29/2016 08:42:06
[2016-10-29] MEDS ORDERED: cefTRIAXone INJ 1,000 MG in SODIUM CHLORIDE 0.9% INJ 100 ML IV ONE (09:00)
[2016-10-29] MEDS ORDERED: RESP: IPRATROPIUM 0.5 MG/2.5 ML NEB INH PRN (12:30)
[2016-10-29] MEDS ORDERED: BISACODYL 10 MG SUPP RECTAL PRN (12:30)
[2016-10-29] MEDS ORDERED: MISCELLANEOUS NURSING INFORMATION XX SCH (12:30)
[2016-10-29] MEDS ORDERED: SENNOSIDES 8.6 MG TAB PO PRN (12:30)
[2016-10-29] MEDS ORDERED: CHLORHEXIDINE GLUCONATE 2 % 1 PACK (2 CLOTHS) TOP PRN (12:30)
[2016-10-29] MEDS: PANTOPRAZOLE SODIUM 40 MG VIAL IV SCH (12:53)
[2016-10-29] MEDS: RESP: ALBUTEROL 2.5 MG/IPRATROPIUM 0.5 MG NEB (SCH) INH ×2 (13:16→22:32)
[2016-10-29] MEDS: PIPERACIL-TAZO 2.25 GM PREMIX 50 ML IV SCH ×2 (14:21→20:42)
--- NOTE | 2016-10-29 14:45 | RADRPT ---
EXAM DATE/TIME: 10/29/2016 13:28 [facility] COMPARISON: US KIDNEY/RENAL/BLADDER, September 22, 2016, 23:04. INDICATIONS : Elevated liver function tests. Acute renal failure. MEDICAL HISTORY : Hypercholesterolemia. Congestive heart failure. Afib. COPD. Gout. Diabetes. Anxiety. SURGICAL HISTORY : Hernia repair. ENCOUNTER: Initial ACUITY: 1 day PAIN SCORE: 0/10 LOCATION: Abdomen. MEASUREMENTS: LIVER: 21.4 cm length COMMON DUCT: 6 mm RIGHT KIDNEY: 12.2 x 6.3 x 7.4 cm LEFT KIDNEY: 14.2 x 6.1 x 7.7 cm SPLEEN: 9.7 cm length AORTA: 2.3cm maximal FINDINGS: LIVER: Normal echotexture without focal lesion or ductal dilatation. COMMON DUCT: No intraluminal mass or stone visualized. GALLBLADDER: Contains no stones, demonstrates no wall thickening or pericholecystic fluid. PANCREAS: The visualized portions are within normal limits. RIGHT KIDNEY: There is hydronephrosis and hydroureter. Right ureter is visualized to the lower abdomen. There is a simple appearing cyst at the upper pole measuring 2.4 cm. LEFT KIDNEY: There is hydronephrosis with a lower pole cyst measuring 4.3 cm. SPLEEN: No focal lesion. AORTA: Non aneurysmal. IVC: Within normal limits. Urinary bladder is very distended with estimated volume of 2.1 L. CONCLUSION: 1. Bilateral hydronephrosis. Etiology is uncertain but given the very distended urinary bladder it co uld be related to bladder outlet obstruction or potentially reflux. 2. Mild hepatomegaly. 3. Bilateral renal cysts. Mason Bellamy MD on October 29, 2016 at 14:38 Board Certified Radiologist. This report was verified electronically.
[2016-10-29] MEDS ORDERED: DEXTROSE 50% IN WATER 50 ML VIAL(D50) IV PRN (15:30)
[2016-10-29] MEDS ORDERED: GLUCAGON 1 MG/ML VIAL OTHER PRN (15:30)
[2016-10-29] MEDS ORDERED: DILTIAZEM HCL 25 MG/5 ML VIAL IV ONE (16:00)
[2016-10-29] MEDS: DEXT 5%-NACL 0.9% 1000 ML INJ 1,000 ML IV SCH (16:01)
[2016-10-29] MEDS: DILTIAZEM INJ 125 MG in SODIUM CHLORIDE 0.9% INJ 100 ML IV SCH (16:34)
--- NOTE | 2016-10-29 16:36 | MH ---
cc: ZACARIAS TEAGUE M.D. DATE OF ADMISSION: 10/29/2016 HISTORY OF PRESENT ILLNESS: The patient is an 81-year-old male with past medical history of diastolic congestive heart failure, hypertension, diabetes mellitus. GI bleed, chronic kidney disease and chronic atrial fibrillation. He initially presented to the [place] ED with generalized malaise and the patient was found to be in atrial fibrillation with RVR. He was given IV fluids normal saline 600 mL IV bolus and Cardizem 20 mg IV push on the way to the emergency department. The patient is fairly asymptomatic. He denies any chest pain, shortness of breath, nausea, vomiting or abdominal pain. In addition, he denies any fever, chills or any constitutional symptoms. He was recently discharged from the hospital after he was admitted back on September 22 for GI bleed, urinary retention, atrial fibrillation. On arrival to the emergency room, he was tachycardiac with heart rate of 130s to 140s and hypotensive with a systolic blood pressure 80s to 90s. The patient was given 1 liter bolus of normal saline total and digoxin 0.25 mg IV push. EKG showed atrial fibrillation with RVR at rate of 136 beats per minute and nonspecific S-T-T wave abnormalities. His laboratory data showed a hemoglobin of 8.8, which is down from 10.7 his baseline. He was transferred to [facility] for possible endoscopy. En route to [facility], he was given Cardizem 10 mg IV push. The patient is on room air oxygen when seen. Asymptomatic with the current blood pressure of 102/54 with a pulse of 102 and saturation 98% on room air. PAST MEDICAL HISTORY: The past medical history is significant for: 1. Hypertension. 2. Diabetes. 3. Diastolic congestive heart failure. 4. History of GI bleed. 5. Chronic kidney disease. 6. Chronic atrial fibrillation. PAST SURGICAL HISTORY: 1. Previous hernia repair. SOCIAL HISTORY: Nonsmoker and non-drinker. ALLERGIES: NO KNOWN DRUG ALLERGIES. FAMILY HISTORY: Reviewed and noncontributory. REPORTED MEDICATIONS: 1. Diltiazem CD 120 milligrams daily. 2. Flomax. 3. Protonix. 4. Metoprolol. 5. Metformin. 6. Hydrochlorothiazide. 7. Aspirin. 8. Ferrous sulfate. 9. Atorvastatin. 10. Allopurinol. REVIEW OF SYSTEMS: The review of systems is as per the history of present illness, and the rest of the review of systems is unremarkable. PHYSICAL EXAMINATION: GENERAL: An 81-year-old male lying in bed in no acute respiratory distress. VITAL SIGNS: Afebrile, pulse of 102, blood pressure 102/54, saturation 98% on room air. HEAD, EYES, EARS, NOSE, THROAT: Normocephalic and atraumatic. Pupils equal, round and reactive to light and accommodation. Extraocular muscles intact. Conjunctivae are pink. Nonicteric sclerae. Oral mucosa within normal limits. NECK: The neck is supple. No jugular venous distention, adenopathy or thyromegaly. Trachea in the midline. CARDIOVASCULAR: Irregularly irregular. Normal S1-S2. No murmurs, rubs or gallops noted. PULMONARY: Bilateral equal air entry. No crackles or wheezing. ABDOMEN: The abdomen is soft, nontender and no distention. Positive bowel sounds. EXTREMITIES: No cyanosis, clubbing or edema. NEUROLOGIC: No focal sensory deficit. LABORATORY DATA: WBC 9.4, hemoglobin 8.8, hematocrit 27, platelet count 229,000. Sodium 139, potassium 4.1, chloride 108, carbon dioxide 21, BUN 62, creatinine 2.80, glucose of 75. AST of 61, ALT 46, total bilirubin 0.3. Troponin 0.04. Total CK 39. BNP 755. TSH 1.64. INR 1.2. PT 13.7. Urinalysis - large leukocyte esterase and innumerable WBCs. RADIOGRAPHY: Chest x-ray showed no acute cardiopulmonary disease. Ultrasound abdomen obtained at this afternoon showed bilateral hydronephrosis. IMPRESSION: 1. Atrial fibrillation with rapid ventricular response. 2. Bilateral nephrosis, could be related to a bladder outlet obstruction. 3. Anemia, rule out GI bleed. 4. History of GI bleed. 5. Elevated AST. 6. Urinary tract infection. 7. Hypertension. 8. Diabetes mellitus. 9. History of diastolic congestive heart failure. RECOMMENDATIONS: 1. Monitor neuro status closely and avoid any sedatives. 2. Oxygen p.r.n. to maintain sats above 92%. 3. Bronchodilators in the form of DuoNeb q. 6+ q. 2 p.r.n. for shortness of breath. 4. Monitor heart rate and blood pressure closely and maintain MAP greater than 65 mmHg. The patient was given approximately 1 liter of normal saline in the [facility] emergency department. 5. Will place on maintenance fluids D5 normal saline at 75 an hour. No signs of fluid overload on exam and chest x-ray showed no evidence of any acute cardiopulmonary disease. 6. Monitor cardiac enzymes with troponins and will obtain 2-D echo to evaluate left ventricular function. 7. TSH measured at 1.64. 8. Will consult cardiology service. Once his blood pressure permits, will resume Lopressor 50 milligrams twice a day for rate control. 9. Monitor renal function, intake and output and avoid nephrotoxins. 10. Place on IV fluids as stated above D5 normal saline at 75 an hour. 11. Ultrasound of the abdomen showed bilateral hydronephrosis. Will consult urology service and nephrology service. 12. Will insert Ruiz. 13. Place on antibiotics in the form of Zosyn and monitor for signs of infections which include fever and WBC. 14. Follow up on urine culture. 15. Monitor CBC and place on Protonix 40 mg IV daily for GI prophylaxis. Will consult GI service. 16. Place on sliding scale insulin with Accu-Chek q. 6-hour for glycemic control. 17. GI prophylaxis with Protonix 40 mg IV daily. 18. DVT prophylaxis with SCDs. 19. Will hold off on chemical anticoagulation prophylaxis for a possible GI bleed. CRITICAL CARE TIME: Thirty-five (35) minutes excluding procedures. MD CONCHIS Resendiz/SHAYNE /3:43 PM /4:22 PM
[2016-10-29] MEDS: TAMSULOSIN HCL 0.4 MG CAP PO SCH (17:37)
[2016-10-29] MEDS: INSULIN NovoLIN REGULAR SUPPLEMENTAL SCALE SQ SCH ×2 (17:38→20:00)
--- NOTE | 2016-10-29 17:52 | PD.CONS ---
HPI History of Present Illness This is a 81 year old male with a history of atrial fibrillation, diastolic CHF , anemia, hypertension, diabetes, chronic kidney disease stage III, and recent gastrointestinal bleeding secondary to large H. pylori ulcer, who was sent from a local snf for generalized weakness with bradycardia with HR in the 30 's. EMS was called and on arrival, patient was found to be in atrial fibrillation with RVR. Pt was recently hospitalized in August for GI bleeding and underwent evaluation with EGD (09/03/16)----> Large antral ulcer, incomplete evaluation of the stomach. Pathology revealed gastric antral mucosal biopsies with severe active chronic gastritis, negative for intestinal metaplasia and dysplasia, kavitha stain positive for bacteria consistent with helicobacter. According to the EMR, Dr. Scanlon contacted Radha at [facility] with recommendations to treat the H. Pylori. The patient is currently on Protonix 40mg po BID. He was recently seen in the office on October 20, 2016 and scheduled for a repeat EGD, as well as H. Pylori Stool Ag. He was transferred to [facility] and is currently in the ICU being treated for Atrial fibrillation with RVR, bilateral nephrosis, anemia, elevated AST, UTI, HTN, DM, and diastolic CHF. GI has been consulted for anemia with recent history of GIB. Of note, HH on was 10.7/32.7. Today this is 8.8/27.1. He is currently resting in bed. His heart rate is fluctuating between 110 and 140. He denies any shortness of breath, chest pain, heartburn, reflux, nausea, vomiting, abdominal pain, or obvious GI bleeding. He is somewhat a poor historian. When asked if he has any issues with his bowels, he responded "a little bit," but was not able to elaborate on this. He then denied constipation , diarrhea, melena, or hematochezia. (Nevaeh Fontana) PFSH Past Medical History Anemia Atrial fibrillation BPH Cataracts CHF Chronic kidney disease stage III H. pylori gastric ulcer GI Bleeding Diabetes Neuropathy Glaucoma Gout Hernia Hypertension Hyperlipidemia Obesity Pulmonary hypertension Vitamin D deficiency Past Surgical History EGD with biopsy Hernia repair (Nevaeh Fontana) Coded Allergies: No Known Allergies (Unverified , 10/29/16) Medications Allergies Coded Allergies Type Severity Reaction Last Updated Verified No Known Allergies 10/29/16 No Active Scripts Medications Dose Route/Sig Days Date Category Dose Instructions Metoprolol Tartrate 25 Mg Tab 25 Mg PO BID 10/29/16 Reported Metformin (Metformin HCl) 1,000 Mg Tab 1,000 Mg PO BIDPC 10/29/16 Reported With meals Ketoconazole Topical 2% Cream 1 Applic TOPICAL BID 10/29/16 Reported Hydrochlorothiazide 25 Mg Tab 25 Mg PO DAILY 10/29/16 Reported Glimepiride 2 Mg Tab 2 Mg PO HS 10/29/16 Reported Glimepiride 4 Mg Tab 4 Mg PO DAILY 10/29/16 Reported Take with breakfast or first main meal Aspirin EC (Aspirin) 81 Mg Tabdr 81 Mg PO DAILY 10/29/16 Reported Cardizem CD 24 HR (Diltiazem CD 24 HR) 120 Mg Caper 120 Mg PO DAILY 10/06/16 Rx Flomax (Tamsulosin HCl) 0.4 Mg Cap 0.4 Mg PO HS 10/06/[address] (Ferrous Sulfate) 324 Mg Tabdr 325 Mg PO DAILY 09/20/16 Reported Protonix (Pantoprazole Sodium) 40 Mg Tab 40 Mg PO BID 09/09/16 Rx Namenda (Memantine) 10 Mg Tab 10 Mg PO DAILY 09/03/16 Reported Atorvastatin (Atorvastatin Calcium) 40 Mg Tab 40 Mg PO HS 05/16/16 Reported Allopurinol 100 Mg Tab 100 Mg PO DAILY 05/16/16 Reported Family History Sister with bone cancer Brother with [place] Social History No history of alcohol abuse Remote history of tobacco use quit at age 20 (Nevaeh Fontana) Review of Systems Constitutional: COMPLAINS OF: Fatigue, DENIES: Weight loss, Change in appetite Respiratory: DENIES: Cough, Shortness of breath Cardiovascular: DENIES: Chest pain, Palpitations Gastrointestinal: DENIES: Abdominal pain, Black stools, Bloody stools, Constipation, Diarrhea, Nausea, Heartburn Musculoskeletal: DENIES: Joint pain Hematologic/lymphatic: DENIES: Bruising Psychiatric: DENIES: Confusion (poor historian) (Nevaeh Fontana) GI Exam Vitals I&O Vital Signs Date Time Temp Pulse Resp B/P Pulse Ox O2 Delivery O2 Flow Rate FiO2 10/29/16 16:45 123 19 100/68 98 10/29/16 16:30 139 26 118/78 98 10/29/16 16:15 109 15 97 10/29/16 16:00 98.3 145 16 115/61 97 10/29/16 16:00 140 10/29/16 16:00 140 10/29/16 14:00 102 16 98/67 98 Room Air 10/29/16 13:18 100 21 10/29/16 12:00 90 16 102/54 98 Room Air 10/29/16 11:00 96 16 93/76 98 Room Air 10/29/16 10:32 112 16 104/71 99 Room Air 10/29/16 10:02 115 16 98/70 98 Room Air 10/29/16 09:28 124 18 97/75 98 Room Air 10/29/16 08:57 130 16 85/69 99 Room Air 10/29/16 08:30 130 16 91/67 100 Room Air 10/29/16 08:29 98.1 130 16 91/67 100 Room Air 10/29/16 07:52 120 18 73/59 98 Room Air 10/29/16 07:25 140 18 89/66 98 Room Air 10/29/16 07:10 16 98 Room Air 10/29/16 07:10 98 Room Air 10/29/16 07:05 98.1 136 16 101/68 98 I/O 10/28/16 10/28/16 10/28/16 10/29/16 10/29/16 10/29/16 07:00 15:00 23:00 07:00 15:00 23:00 Intake Total 600 ml 500 ml Output Total 2300 ml Balance 600 ml -1800 ml Intake IV Total 600 ml 500 ml Output Urine Total 2300 ml Imaging Last Impressions Chest X-Ray 10/29/16 0703 Signed Impressions: Service Date/Time: Saturday, October 29, 2016 07:14 - CONCLUSION: No acute cardiopulmonary process. Eugene Mcintosh MD Abdomen Ultrasound 10/29/16 0000 Signed Impressions: Service Date/Time: Saturday, October 29, 2016 13:28 - CONCLUSION: 1. Bilateral hydronephrosis. Etiology is uncertain but given the very distended urinary bladder it could be related to bladder outlet obstruction or potentially reflux. 2. Mild hepatomegaly. 3. Bilateral renal cysts. Mason Bellamy MD Laboratory Test 10/29/16 10/29/16 07:00 08:20 White Blood Count 9.4 TH/MM3 Red Blood Count 3.29 MIL/MM3 Hemoglobin 8.8 GM/DL Hematocrit 27.1 % Mean Corpuscular Volume 82.5 FL Mean Corpuscular Hemoglobin 26.6 PG Mean Corpuscular Hemoglobin 32.2 % Concent Red Cell Distribution Width 16.2 % Platelet Count 229 TH/MM3 Mean Platelet Volume 8.7 FL Neutrophils (%) (Auto) 74.1 % Lymphocytes (%) (Auto) 10.3 % Monocytes (%) (Auto) 14.8 % Eosinophils (%) (Auto) 0.3 % Basophils (%) (Auto) 0.5 % Neutrophils # (Auto) 7.0 TH/MM3 Lymphocytes # (Auto) 1.0 TH/MM3 Monocytes # (Auto) 1.4 TH/MM3 Eosinophils # (Auto) 0.0 TH/MM3 Basophils # (Auto) 0.0 TH/MM3 CBC Comment DIFF FINAL Differential Comment Prothrombin Time 13.7 SEC Prothromb Time International 1.2 RATIO Ratio Activated Partial 36.3 SEC Thromboplast Time Sodium Level 139 MEQ/L Potassium Level 4.1 MEQ/L Chloride Level 108 MEQ/L Carbon Dioxide Level 21.2 MEQ/L Anion Gap 10 MEQ/L Blood Urea Nitrogen 62 MG/DL Creatinine 2.80 MG/DL Estimat Glomerular Filtration 22 ML/MIN Rate Random Glucose 75 MG/DL Calcium Level 7.6 MG/DL Total Bilirubin 0.3 MG/DL Aspartate Amino Transf 61 U/L (AST/SGOT) Alanine Aminotransferase 46 U/L (ALT/SGPT) Alkaline Phosphatase 168 U/L Total Creatine Kinase 39 U/L Troponin I 0.04 NG/ML B-Type Natriuretic Peptide 755 PG/ML Total Protein 6.0 GM/DL Albumin 1.8 GM/DL Thyroid Stimulating Hormone 1.640 uIU/ML 3rd Gen Urine Collection Type VOIDED Urine Color STRAW Urine Turbidity CLOUDY Urine pH 7.5 Urine Specific [place] 1.010 Urine Protein 100 mg/dL Urine Glucose (UA) NEG mg/dL Urine Ketones NEG mg/dL Urine Occult Blood SMALL Urine Nitrite NEG Urine Bilirubin NEG Urine Leukocyte Esterase LARGE Urine WBC INNUM /hpf Urine Squamous Epithelial 0-5 /hpf Cells Urine Bacteria MANY /hpf Microscopic Urinalysis Comment CULTURE INDICATED Date/Time Procedure Status Source Growth 10/29/16 08:20 Urine Culture Received Urine Random Urine Pending Physical Examination HEENT: Normocephalic; atraumatic; no jaundice. CHEST: CTA CARDIAC: Irregular, rate 140's. Cardizem gtt. ABDOMEN: Soft, nondistended, nontender; no hepatosplenomegaly; bowel sounds are present in all four quadrants. EXTREMITIES: No clubbing, cyanosis, or edema. SKIN: Generalized pallor, drsg right ankle d/i. 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 Poor historian (Nevaeh Fonatna) Assessment and Plan Plan ASSESSMENT: - Anemia. Hospitalized for GI bleeding in August of 2016. S/P EGD (09/03/16)----> Large antral ulcer, incomplete evaluation of the stomach. Pathology revealed gastric antral mucosal biopsies with severe active chronic gastritis , negative for intestinal metaplasia and dysplasia, kavitha stain positive for bacteria consistent with helicobacter. According to the EMR, Dr. Scanlon contacted Radha at [facility] with recommendations to treat the H. Pylori. The patient is currently on Protonix 40mg po BID. He was then hospitalized in September for Afib and CHF and found to have anemia at that time, required transfusion. He was recently seen in the office on October 20, 2016 and scheduled for a repeat EGD, as well as H. Pylori Stool Ag. Of note, HH on was 10.7/32.7. Today this is 8.8/27.1. Protonix. Hemoccult negative. Will check H. Pylori Stool Ag. He is not stable for EGD at this time, as he is in Afib with RVR and HR in 140's, started on cardizem gtt. - Elevated LFTs, mild. T. Bili 0.3, AST 61, ALT 46, Alk Phosph 168. Abdomen Ultrasound (10/29/16)----> 1. Bilateral hydronephrosis. Etiology is uncertain but given the very distended urinary bladder it could be related to bladder outlet obstruction or potentially reflux. 2. Mild hepatomegaly. 3. Bilateral renal cysts. Likely this is related to hepatic congestion. - Atrial fibrillation with RVR, Diastolic CHF. Cardizem gtt - ADRI on CKD, Creat 2.80. - HTN, DM per attending PLAN: - Clear liquids - Cont. PPI - Stool for H. Pylori - Monitor HH - Transfuse as necessary - Hemoccult stool x 3 - Consider EGD once condition improves (pt was recently seen and repeat EGD was ordered to follow up on large gastric ulcer) - Supportive care - Further recommendations to follow based on results of above - PT seen and examined by Dr. Benjamin and myself and this note is written on her behalf (Nevaeh Fontana) Physician Comments seen, examined agree with above we will schedule egd before discharge (Fatmata Benjamin MD) Nevaeh Fontana Oct 29, 2016 17:52 Fatmata Benjamin MD Oct 29, 2016 21:00
[2016-10-29 18:57] LABS: HEMATOCRIT 27.2 % (39.0-51.0); REVIEW FLAG FINAL
[2016-10-29 19:21] LABS: POTASSIUM 4.2 MEQ/L (3.5-5.1)
--- NOTE | 2016-10-29 19:30 | MB ---
cc: JANET MCGARRY CHARLI DATE OF CONSULTATION 10/29/16 HISTORY OF PRESENT ILLNESS This is a pleasant 81-year-old male who lives in assisted care facility who presented with findings of bilateral hydronephrosis and a distended bladder on ultrasound. He is somewhat of a poor historian and states that he has a good stream and he essentially does not get up at night but wears a diaper throughout the night. Said he does not have any problems with urination and denies any urinary tract infections. He denies any history of prostate cancer or gross hematuria. He does have a history of diabetes and presented with atrial fibrillation with rapid ventricular response to the emergency room. He denies any fever or chills. PAST MEDICAL HISTORY His medical history noted for atrial fibrillation, gout, hypertension, diabetes. PAST SURGICAL HISTORY Noted for hernia repair. SOCIAL HISTORY Denies smoking, drinking or using drugs and currently lives in assisted living facility. ALLERGIES He has no known allergies. MEDICATIONS For medications please refer to the chart. FAMILY HISTORY Denies family history of prostate cancer. REVIEW OF SYSTEMS Denies any fever or chills or visual changes. Denies any headaches. Denies any chest pain or shortness of breath. Does note minimal abdominal pain. Denies any urinary problems or a weak stream. Does state though he had a Ruiz catheter placed on a prior hospitalization. Denies any rashes. Does note some weakness. Denies depression or polydipsia or heat, cold tolerance. Denies any psychiatric problems. Denies any easy bruising or bleeding problems. The remaining review of systems were reviewed and are negative. PHYSICAL EXAMINATION VITAL SIGNS: Temperature 98.1, heart rate 102, respiratory 16 98/67 is the blood pressure, pulse ox 98%. GENERAL: He is well-developed, well-nourished 81-year-old man, no acute distress. HEENT: Normocephalic, atraumatic. Pupils are equal round, reactive to light. Extraocular movements intact. NECK: Supple HEARR: Sinus tach. Irregular. LUNGS: Breath sounds are bilateral. ABDOMEN: Distended bladder. : Uncircumcised phallus. Testes are descended. Prostate 80 grams, boggy, without firmness. EXTREMITIES: Show 1+ edema. LABORATORY DATA White count 9.4, hemoglobin 8.8, hematocrit 27.1, platelet count 229, sodium 139, potassium 4.1, chloride 108, CO2 21.2, BUN 62, creatinine 2.8, glucose of 75, INR 1.2, PT 13.7, PTT is 36.3. Urinalysis shows innumerable white cells, large leukoesterase, small blood is noted. IMAGING STUDIES Abdominal ultrasound shows bilateral hydronephrosis and large distended bladder. Ruiz catheter was inserted at the bedside and over 2000 cc of clear urine was drained. ASSESSMENT An 81-year-old male with acute urinary retention with what appears to be a history of BPH with obstruction and a large prostate on exam with bilateral hydronephrosis and acute renal failure. Ruiz placed at the bedside, over 2000 cc of clear urine. RECOMMENDATIONS Continue Ruiz drainage. For now Flomax has been started. Monitor serial creatinines daily. Continue IV fluids for now to avoid postobstructive diuresis. Treat atrial fibrillation. Will follow with you. Thank you for the consult. If hematuria develops will just need periodic irrigation at the bedside. Thank you for the consult and allowing me to participate in the care of this patient. Janet HERBERT/RIKY /4:47 PM /7:13 PM
--- NOTE | 2016-10-29 19:59 | PD.CONS ---
HPI Service Nephrology Consult Requested By Dr. Hidalgo Reason for Consult [facility] Primary Care Physician Unknown History of Present Illness Patient is a 81-year-old white male with history of GI bleed, chronic kidney disease, acute renal failure, urinary retention, prostate enlargement who had been told on his facility with atrial fibrillation and rapid ventricular rate he was transferred to the main hospital and he has acute renal failure and urinary retention, he has similar presentation few weeks ago and was supposed to follow-up with urology, Ruiz catheter was inserted and 2 L of urine was obtained, his creatinine ranges around 1.5 currently is at 2.6 Review of Systems Constitutional: COMPLAINS OF: Fatigue Respiratory: COMPLAINS OF: Shortness of breath Cardiovascular: COMPLAINS OF: Palpitations Genitourinary: COMPLAINS OF: Urgency Psychiatric: COMPLAINS OF: Anxiety Past Family Social History Allergies: Coded Allergies: No Known Allergies (Unverified , 10/29/16) Past Medical History Atrial fibrillation Chronic diastolic heart failure 2 diabetes Hypertension DJD stage III Hyperlipidemia Primary hypertension with mildly elevated pulmonary pressure of 43 mmHg on 2014 echo Mild cognitive impairment/dementia Gout Past Surgical History Hernia repair Reported Medications Reported Meds & Active Scripts Active Cardizem CD 24 HR (Diltiazem CD 24 HR) 120 Mg Caper 120 Mg PO DAILY Flomax (Tamsulosin HCl) 0.4 Mg Cap 0.4 Mg PO HS Protonix (Pantoprazole Sodium) 40 Mg Tab 40 Mg PO BID Reported Metoprolol Tartrate 25 Mg Tab 25 Mg PO BID Metformin (Metformin HCl) 1,000 Mg Tab 1,000 Mg PO BIDPC With meals Ketoconazole Topical 2% Cream 1 Applic TOPICAL BID Hydrochlorothiazide 25 Mg Tab 25 Mg PO DAILY Glimepiride 2 Mg Tab 2 Mg PO HS Glimepiride 4 Mg Tab 4 Mg PO DAILY Take with breakfast or first main meal Aspirin EC (Aspirin) 81 Mg Tabdr 81 Mg PO DAILY Ferrous Sulfate DR (Ferrous Sulfate) 324 Mg Tabdr 325 Mg PO DAILY Namenda (Memantine) 10 Mg Tab 10 Mg PO DAILY Atorvastatin (Atorvastatin Calcium) 40 Mg Tab 40 Mg PO HS Allopurinol 100 Mg Tab 100 Mg PO DAILY Active Ordered Medications Current Medications Medications (Trade) Dose Ordered Sig/Zachary Route Start Time Stop Time Status Last Admin (Protonix Inj) 40 mg DAILY IV 10/29/16 12:30 10/29/16 12:53 Miscellaneous Information 1 [id number] XX 10/29/16 12:30 (Chlorhexidine 2% Cloth) 3 pack Taper DAILY@04 TOP 10/30/16 04:00 10/26/17 03:59 (Chlorhexidine 2% Cloth) 3 pack UNSCH PRN TOP 10/29/16 12:30 (Jeny-Colace) 1 tab BID PO 10/29/16 21:00 (Senokot) 17.2 mg Q12H PRN PO 10/29/16 12:30 Bisacodyl 10 mg 10 mg DAILY PRN RECTAL 10/29/16 12:30 Piperacillin Sod/ Tazobactam Sod 50 ml @ 100 mls/hr Q6H IV 10/29/16 14:00 10/29/16 14:21 (D5W-NS 1000 ml Inj) 1,000 ml @ 75 mls/hr [id number] IV 10/29/16 15:30 10/29/16 16:01 (D50w (Vial) Inj) 50 ml UNSCH PRN IV 10/29/16 15:30 (Glucagon Inj) 1 mg UNSCH PRN OTHER 10/29/16 15:30 Insulin Human Regular 1 1 Q4H SQ 10/29/16 16:00 (Cardizem Inj/NS Inj) 125 ml @ 0 mls/hr TITRATE IV 10/29/16 16:00 10/29/16 16:34 (Flomax) 0.4 mg DAILY PO 10/29/16 16:45 10/29/16 17:37 Family History Noncontributory Social History He is a resident of a halfway Physical Exam Vital Signs Vital Signs Date Time Temp Pulse Resp B/P Pulse Ox O2 Delivery O2 Flow Rate FiO2 10/29/16 18:00 103 10/29/16 16:45 123 19 100/68 98 10/29/16 16:30 139 26 118/78 98 10/29/16 16:15 109 15 97 10/29/16 16:00 98.3 145 16 115/61 97 10/29/16 16:00 140 10/29/16 16:00 140 10/29/16 16:00 140 10/29/16 14:00 102 16 98/67 98 Room Air 10/29/16 13:18 100 21 10/29/16 12:00 90 16 102/54 98 Room Air 10/29/16 11:00 96 16 93/76 98 Room Air 10/29/16 10:32 112 16 104/71 99 Room Air 10/29/16 10:02 115 16 98/70 98 Room Air 10/29/16 09:28 124 18 97/75 98 Room Air 10/29/16 08:57 130 16 85/69 99 Room Air 10/29/16 08:30 130 16 91/67 100 Room Air 10/29/16 08:29 98.1 130 16 91/67 100 Room Air 10/29/16 07:52 120 18 73/59 98 Room Air 10/29/16 07:25 140 18 89/66 98 Room Air 10/29/16 07:10 16 98 Room Air 10/29/16 07:10 98 Room Air 10/29/16 07:05 98.1 136 16 101/68 98 Physical Exam GENERAL: Well-nourished, well-developed patient. SKIN: Warm and dry. HEAD: Normocephalic. EYES: No scleral icterus. No injection or drainage. NECK: Supple, trachea midline. No JVD or lymphadenopathy. CARDIOVASCULAR: Irregularly irregular with RVR RESPIRATORY: Breath sounds equal bilaterally. No accessory muscle use. GASTROINTESTINAL: Abdomen soft, non-tender, nondistended. EXTREMITIES: No cyanosis, or edema. Right heel is covered in dressing NEUROLOGICAL: Awake, alert, Laboratory Laboratory Tests Test 10/29/16 10/29/16 10/29/16 10/29/16 07:00 08:20 15:40 18:17 White Blood Count 9.4 Red Blood Count 3.29 Hemoglobin 8.8 9.0 Hematocrit 27.1 27.2 Mean Corpuscular Volume 82.5 Mean Corpuscular Hemoglobin 26.6 Mean Corpuscular Hemoglobin 32.2 Concent Red Cell Distribution Width 16.2 Platelet Count 229 Mean Platelet Volume 8.7 Neutrophils (%) (Auto) 74.1 Lymphocytes (%) (Auto) 10.3 Monocytes (%) (Auto) 14.8 Eosinophils (%) (Auto) 0.3 Basophils (%) (Auto) 0.5 Neutrophils # (Auto) 7.0 Lymphocytes # (Auto) 1.0 Monocytes # (Auto) 1.4 Eosinophils # (Auto) 0.0 Basophils # (Auto) 0.0 CBC Comment DIFF FINAL Differential Comment Prothrombin Time 13.7 Prothromb Time International 1.2 Ratio Activated Partial 36.3 Thromboplast Time Sodium Level 139 140 Potassium Level 4.1 4.2 Chloride Level 108 110 Carbon Dioxide Level 21.2 22.0 Anion Gap 10 8 Blood Urea Nitrogen 62 63 Creatinine 2.80 2.60 Estimat Glomerular Filtration 22 24 Rate Random Glucose 75 66 Calcium Level 7.6 8.5 Total Bilirubin 0.3 Aspartate Amino Transf 61 (AST/SGOT) Alanine Aminotransferase 46 (ALT/SGPT) Alkaline Phosphatase 168 Total Creatine Kinase 39 Troponin I 0.04 0.03 B-Type Natriuretic Peptide 755 Total Protein 6.0 Albumin 1.8 Thyroid Stimulating Hormone 1.640 3rd Gen Urine Collection Type VOIDED Urine Color STRAW Urine Turbidity CLOUDY Urine pH 7.5 Urine Specific [place] 1.010 Urine Protein 100 Urine Glucose (UA) NEG Urine Ketones NEG Urine Occult Blood SMALL Urine Nitrite NEG Urine Bilirubin NEG Urine Leukocyte Esterase LARGE Urine WBC INNUM Urine Squamous Epithelial 0-5 Cells Urine Bacteria MANY Microscopic Urinalysis Comment CULTURE INDICATED Nasal Screen MRSA (PCR) MRSA DETECTED Date/Time Procedure Status Source Growth 10/29/16 08:20 Urine Culture Received Urine Random Urine Pending Result Diagram: 10/29/16181610/29/16 1817 Imaging Last Impressions Chest X-Ray 10/29/16 0703 Signed Impressions: Service Date/Time: Saturday, October 29, 2016 07:14 - CONCLUSION: No acute cardiopulmonary process. Eugene Mcintosh MD Abdomen Ultrasound 10/29/16 0000 Signed Impressions: Service Date/Time: Saturday, October 29, 2016 13:28 - CONCLUSION: 1. Bilateral hydronephrosis. Etiology is uncertain but given the very distended urinary bladder it could be related to bladder outlet obstruction or potentially reflux. 2. Mild hepatomegaly. 3. Bilateral renal cysts. Mason Bellamy MD Assessment and Plan Problem List: (1) Acute kidney injury superimposed on chronic kidney disease Plan: He has similar episode with urinary retention and was to follow-up with the urology, he has 2 L of urine output after putting a Ruiz catheter, acute renal failure should resolve He did have hydronephrosis due to prostate enlargement (2) CKD (chronic kidney disease) stage 3, GFR 30-59 ml/min Plan: Continue to monitor (3) Urine retention Plan: Resolved with Ruiz catheter (4) Atrial fibrillation with RVR Plan: Diltiazem IV (5) UTI (urinary tract infection) Plan: On Zosyn Problem Qualifiers (1) UTI (urinary tract infection): Qualified Code: N30.00 - Acute cystitis without hematuria Stu Jones MD Oct 29, 2016 19:59
[2016-10-29] MEDS: DOCUSATE SODIUM 50 MG/SENNA 8.6 MG TAB PO SCH (20:42)
[2016-10-29] MEDS: CHLORHEXIDINE GLUCONATE 2 % 1 PACK (2 CLOTHS) TOP SCH (20:43)
[2016-10-30] VITALS (13 sets, daily range): BP systolic 106–129; BP diastolic 58–72; PULSE 82–145; RESP 17–23; TEMP 95.2–98.3; O2SAT 93–95
[2016-10-30] MEDS: PIPERACIL-TAZO 2.25 GM PREMIX 50 ML IV SCH ×4 (02:43→20:40)
[2016-10-30] MEDS: DILTIAZEM INJ 125 MG in SODIUM CHLORIDE 0.9% INJ 100 ML IV SCH ×2 (03:06→10:25)
[2016-10-30] MEDS: RESP: ALBUTEROL 2.5 MG/IPRATROPIUM 0.5 MG NEB (SCH) INH ×4 (03:40→20:13)
[2016-10-30] MEDS: INSULIN NovoLIN REGULAR SUPPLEMENTAL SCALE SQ SCH ×6 (04:00→20:00)
[2016-10-30 05:26] LABS: BASOPHIL % 0.4 % (0.0-2.0); EOSINOPHIL # 0.1 TH/MM3 (0-0.4); EOSINOPHIL % 1.1 % (0.0-4.0); HEMATOCRIT 25.9 % (39.0-51.0); HEMO FLAGS DIFF FINAL; LYMPH % 10.4 % (9.0-44.0); LYMPHOCYTE # 0.8 TH/MM3 (1.0-4.8); MEAN CELL VOLUME 82.9 FL (80.0-100.0); MEAN CORPUSCULAR HEMOGLOBIN 27.4 PG (27.0-34.0); MEAN CORPUSCULAR HGB CONC 33.1 % (32.0-36.0); MONO % 10.7 % (0.0-8.0); NEUT % 77.4 % (16.0-70.0); PLATELET COUNT 221 TH/MM3 (150-450); RED BLOOD COUNT 3.12 MIL/MM3 (4.50-5.90); RED CELL DISTRIBUTION WIDTH 17.1 % (11.6-17.2); WHITE BLOOD COUNT 7.7 TH/MM3 (4.0-11.0)
[2016-10-30 05:31] LABS: POTASSIUM 4.1 MEQ/L (3.5-5.1)
[2016-10-30] MEDS: DEXT 5%-NACL 0.9% 1000 ML INJ 1,000 ML IV SCH ×2 (05:37→20:49)
[2016-10-30] MEDS: DOCUSATE SODIUM 50 MG/SENNA 8.6 MG TAB PO SCH ×2 (08:32→20:42)
[2016-10-30] MEDS: PANTOPRAZOLE SODIUM 40 MG VIAL IV SCH (08:33)
[2016-10-30] MEDS: TAMSULOSIN HCL 0.4 MG CAP PO SCH (08:33)
[2016-10-30] MEDS ORDERED: DILTIAZEM HCL 25 MG/5 ML VIAL ONE (08:57)
--- NOTE | 2016-10-30 09:41 | HHI.CCPN ---
Subjective Remarks/Hospital Course The patient is an 81-year-old male with past medical history of diastolic congestive heart failure, hypertension, diabetes mellitus. GI bleed, chronic kidney disease and chronic atrial fibrillation. He initially presented to the [place] ED with generalized malaise and the patient was found to be in atrial fibrillation with RVR. He was given IV fluids normal saline 600 mL IV bolus and Cardizem 20 mg IV push on the way to the emergency department. The patient is fairly asymptomatic. He denies any chest pain, shortness of breath, nausea, vomiting or abdominal pain. In addition, he denies any fever, chills or any constitutional symptoms. He was recently discharged from the hospital after he was admitted back on September 22 for GI bleed, urinary retention, atrial fibrillation. On arrival to the emergency room, he was tachycardiac with heart rate of 130s to 140s and hypotensive with a systolic blood pressure 80s to 90s. The patient was given 1 liter bolus of normal saline total and digoxin 0.25 mg IV push. EKG showed atrial fibrillation with RVR at rate of 136 beats per minute and nonspecific S-T-T wave abnormalities. His laboratory data showed a hemoglobin of 8.8, which is down from 10.7 his baseline. He was transferred to [facility] for possible endoscopy. En route to [facility], he was given Cardizem 10 mg IV push. The patient is on room air oxygen when seen. Asymptomatic with the current blood pressure of 102/54 with a pulse of 102 and saturation 98% on room air. 10/30 Patient is on Cardizem drip 15mg/hr for Afib with RVR. On room air oxygen. Denies any SOB, CP or abdominal pain. H/H stable. Renal function is improving with Cr: 2.25 from 2.80. Objective Vital Signs Date Time Temp Pulse Resp B/P Pulse Ox O2 Delivery O2 Flow Rate FiO2 10/30/16 08:25 94 10/30/16 06:00 92 10/30/16 04:00 98.3 23 114/68 10/29/16 14:00 Room Air 10/29/16 13:18 21 Intake and Output 10/29/16 10/29/16 10/30/16 08:00 16:00 00:00 Intake Total 600 ml 1058 ml Output Total 4200 ml Balance 600 ml -3142 ml Result Diagram: 10/30/16 0356 10/30/16 0356 Other Results Laboratory Tests Test 10/29/16 10/29/16 10/30/16 15:40 18:17 03:56 Nasal Screen MRSA (PCR) MRSA DETECTED Hemoglobin 9.0 GM/DL 8.6 GM/DL Hematocrit 27.2 % 25.9 % Sodium Level 140 MEQ/L 142 MEQ/L Potassium Level 4.2 MEQ/L 4.1 MEQ/L Chloride Level 110 MEQ/L 113 MEQ/L Carbon Dioxide Level 22.0 MEQ/L 19.0 MEQ/L Anion Gap 8 MEQ/L 10 MEQ/L Blood Urea Nitrogen 63 MG/DL 53 MG/DL Creatinine 2.60 MG/DL 2.25 MG/DL Estimat Glomerular Filtration 24 ML/MIN 28 ML/MIN Rate Random Glucose 66 MG/DL 120 MG/DL Calcium Level 8.5 MG/DL 8.4 MG/DL Troponin I 0.03 NG/ML White Blood Count 7.7 TH/MM3 Red Blood Count 3.12 MIL/MM3 Mean Corpuscular Volume 82.9 FL Mean Corpuscular Hemoglobin 27.4 PG Mean Corpuscular Hemoglobin 33.1 % Concent Red Cell Distribution Width 17.1 % Platelet Count 221 TH/MM3 Mean Platelet Volume 8.9 FL Neutrophils (%) (Auto) 77.4 % Lymphocytes (%) (Auto) 10.4 % Monocytes (%) (Auto) 10.7 % Eosinophils (%) (Auto) 1.1 % Basophils (%) (Auto) 0.4 % Neutrophils # (Auto) 6.0 TH/MM3 Lymphocytes # (Auto) 0.8 TH/MM3 Monocytes # (Auto) 0.8 TH/MM3 Eosinophils # (Auto) 0.1 TH/MM3 Basophils # (Auto) 0.0 TH/MM3 CBC Comment DIFF FINAL Differential Comment Imaging Last Impressions Chest X-Ray 10/29/16 0703 Signed Impressions: Service Date/Time: Saturday, October 29, 2016 07:14 - CONCLUSION: No acute cardiopulmonary process. Eugene Mcintosh MD Abdomen Ultrasound 10/29/16 0000 Signed Impressions: Service Date/Time: Saturday, October 29, 2016 13:28 - CONCLUSION: 1. Bilateral hydronephrosis. Etiology is uncertain but given the very distended urinary bladder it could be related to bladder outlet obstruction or potentially reflux. 2. Mild hepatomegaly. 3. Bilateral renal cysts. Mason Bellamy MD Objective Remarks GENERAL: Patient is lying in bed in no resp distress SKIN: Warm and dry. HEAD: Normocephalic. EYES: No scleral icterus. No injection or drainage. NECK: Supple, trachea midline. No JVD or lymphadenopathy. CARDIOVASCULAR: Tachycardic, Irregular without murmurs, gallops, or rubs. RESPIRATORY: Breath sounds equal bilaterally. No accessory muscle use. GASTROINTESTINAL: Abdomen soft, non-tender, nondistended. MUSCULOSKELETAL: No cyanosis, or edema. BACK: Nontender without obvious deformity. No CVA tenderness. Neuro: Awake and alert A/P Assessment and Plan 1. Atrial fibrillation with RVR 2. Bilateral hydronephrosis, urinary retention, BPH 3. Anemia 4. History of GI bleed. 5. Elevated AST. 6. Urinary tract infection. 7. Hypertension. 8. Diabetes mellitus. 9. History of diastolic congestive heart failure. Plan Neuro: Awake and alert -Monitor neuro status and avoid any sedatives. Pulm: Oxygen p.r.n. to maintain sats above 92%. Bronchodilators CV: Continue with Cardizem drip 15mg/hr, Place on Lopressor 50mg BID Monitor HR and BP and maintain MAP>65 mmHg. For 2D echo, cards consulted. TSH measured at 1.64. : Monitor renal function, intake and output and avoid nephrotoxins. Renal function is improving with Cr: 2.25 today from 2.80 on arrival. Renal -Dr. Jones and Urology following. Pateint had approx 2L clear urine once Ruiz was placed. Continue with IVF- D5 NS 75ml an hour to avoid post obstructive diuresis. US abdomen showed bilateral hydronephrosis. Continue Flomax 0.4mg daily ID: Continue with abx(Zosyn) and monitor for signs of infections(fever and WBC). Follow up on urine culture. GI: Monitor CBC,On Protonix 40 mg IV daily for GI prophylaxis. GI is following On Clear Liquid diet Endo: SSI with Accu-Chek q. 6-hour for glycemic control. GI prophylaxis with Protonix 40 mg IV daily. DVT prophylaxis with SCDs. Not on chemical AC prophylaxis due to recent GI bleed and anemia. Will sign off and transfer care to [facility] 3 Marco Hidalgo MD 22, 2017 09:41
[2016-10-30] MEDS ORDERED: METOPROLOL TARTRATE 5 MG/5 ML VIAL IV PUSH ONE (09:45)
[2016-10-30] MEDS: DILTIAZEM HCL 25 MG/5 ML VIAL IV SCH ×2 (10:20→10:23)
[2016-10-30] MEDS: METOPROLOL TARTRATE 50 MG TAB PO SCH ×2 (10:21→20:42)
--- NOTE | 2016-10-30 11:03 | HHI.PR ---
Subjective Patient symptoms today Pt feeling better. Large volume of u/o overnight s/p tristan insertion. Creatinine improved; down to 2.2 today Objective Vital Signs Vital Signs Date Time Temp Pulse Resp B/P Pulse Ox O2 Delivery O2 Flow Rate FiO2 10/30/16 08:25 94 10/30/16 06:00 92 10/30/16 04:00 98.3 100 23 114/68 95 10/30/16 04:00 100 10/30/16 02:00 106 10/30/16 00:00 92 10/30/16 00:00 98.2 92 18 122/58 93 10/29/16 22:00 90 10/29/16 20:00 97.9 98 18 111/59 96 10/29/16 20:00 98 10/29/16 18:00 103 10/29/16 16:45 123 19 100/68 98 10/29/16 16:30 139 26 118/78 98 10/29/16 16:15 109 15 97 10/29/16 16:00 98.3 145 16 115/61 97 10/29/16 16:00 140 10/29/16 16:00 140 10/29/16 16:00 140 10/29/16 14:00 102 16 98/67 98 Room Air 10/29/16 13:18 100 21 10/29/16 12:00 90 16 102/54 98 Room Air Result Diagram: 10/30/16 0356 10/30/16 0356 Objective Remarks Abd:soft,nt,nd Tristan with clear urine and some sediment Medications and IVs Current Medications Medications (Trade) Dose Ordered Sig/Zachary Route Start Time Stop Time Status Last Admin (Protonix Inj) 40 mg DAILY IV 10/29/16 12:30 10/30/16 08:33 Miscellaneous Information 1 Q361D XX 10/29/16 12:30 (Chlorhexidine 2% Cloth) 3 pack Taper DAILY@04 TOP 10/30/16 04:00 10/26/17 03:59 10/29/16 20:43 (Chlorhexidine 2% Cloth) 3 pack UNSCH PRN TOP 10/29/16 12:30 (Jeny-Colace) 1 tab BID PO 10/29/16 21:00 10/30/16 08:32 (Senokot) 17.2 mg Q12H PRN PO 10/29/16 12:30 Bisacodyl 10 mg 10 mg DAILY PRN RECTAL 10/29/16 12:30 Piperacillin Sod/ Tazobactam Sod 50 ml @ 100 mls/hr Q6H IV 10/29/16 14:00 10/30/16 08:33 (D5W-NS 1000 ml Inj) 1,000 ml @ 75 mls/hr [id number] IV 10/29/16 15:30 10/30/16 05:37 (D50w (Vial) Inj) 50 ml UNSCH PRN IV 10/29/16 15:30 (Glucagon Inj) 1 mg UNSCH PRN OTHER 10/29/16 15:30 Insulin Human Regular 1 1 Q4H SQ 10/29/16 16:00 (Cardizem Inj/NS Inj) 125 ml @ 0 mls/hr TITRATE IV 10/29/16 16:00 10/30/16 10:25 (Flomax) 0.4 mg DAILY PO 10/29/16 16:45 10/30/16 08:33 (Lopressor) 50 mg Q12HR PO 10/30/16 10:15 10/30/16 10:21 Assessment and Plan Assessment and Plan 81 y.o male with AUR and ARF Maintain tristan catheter Continue Flomax Trent Ruiz DO Oct 30, 2016 11:03
--- NOTE | 2016-10-30 11:18 | HHI.NPPN ---
Subjective History of Present Illness 81-year-old white male with history of GI bleed, chronic kidney disease, acute renal failure, urinary retention, prostate enlargement who had been told on his facility with atrial fibrillation and rapid ventricular rate he was transferred to the main hospital and he has acute renal failure and urinary retention, he has similar presentation few weeks ago and was supposed to follow-up with urology. Additional Remarks Patient is alert, no SOB, no abd. pain. Review of Systems General Constitutional: Fatigue Objective Data Data 10/29/16 10/30/16 19:00 07:00 Intake Total 1100 ml 1213 ml Output Total 2300 ml 3500 ml Balance -1200 ml -2287 ml Intake IV Total 1100 ml 1213 ml Output Urine Total 2300 ml 3500 ml Vital Signs Date Time Temp Pulse Resp B/P Pulse Ox O2 Delivery O2 Flow Rate FiO2 10/30/16 08:25 94 10/30/16 06:00 92 10/30/16 04:00 98.3 100 23 114/68 95 10/30/16 04:00 100 10/30/16 02:00 106 10/30/16 00:00 92 10/30/16 00:00 98.2 92 18 122/58 93 10/29/16 22:00 90 10/29/16 20:00 97.9 98 18 111/59 96 10/29/16 20:00 98 10/29/16 18:00 103 10/29/16 16:45 123 19 100/68 98 10/29/16 16:30 139 26 118/78 98 10/29/16 16:15 109 15 97 10/29/16 16:00 98.3 145 16 115/61 97 10/29/16 16:00 140 10/29/16 16:00 140 10/29/16 16:00 140 10/29/16 14:00 102 16 98/67 98 Room Air 10/29/16 13:18 100 21 10/29/16 12:00 90 16 102/54 98 Room Air -: 10/30/16 0356 10/30/16 0356 Physical Exam General Appearance: No Acute Distress, Comfortable Eyes Eye Exam: Pupils Equal Throat Throat Exam: Oral Mucosa Knierim & Moist Neck Neck Exam: Neck Supple Pulmonary Resp Exam: Clear Bilaterally, Breath Sounds Equal, No Distress, Decreased Bases Cardiology CV Exam: Regular, Normal Sinus Rhythm Gastrointestinal/Abdomen GI Exam: Soft, Non-Tender, Bowel Sounds Present Extremeties Extremities Exam: No Edema Neurologic Neuro Exam: Alert, Awake, Oriented Psychiatric Psych Exam: Appropriate Responses Assessment/Plan Problem List: (1) Acute kidney injury superimposed on chronic kidney disease Plan: He has similar episode with urinary retention and was to follow-up with the urology, he has 2 L of urine output after putting a Ruiz catheter, acute renal failure should resolve He did have hydronephrosis due to prostate enlargement. Creatinine started improving. Continue IVF, follow the urine out put and BMP. (2) CKD (chronic kidney disease) stage 3, GFR 30-59 ml/min Plan: Continue to monitor (3) Urine retention Plan: Resolved with Ruiz catheter (4) Atrial fibrillation with RVR Plan: Diltiazem IV (5) UTI (urinary tract infection) Plan: On Zosyn Problem Qualifiers (1) UTI (urinary tract infection): Qualified Code: N30.00 - Acute cystitis without hematuria Amos Mcmanus MD Oct 30, 2016 11:18
--- NOTE | 2016-10-30 14:14 | MB ---
cc: ENRIQUE BORRERO MD DATE OF CONSULTATION: 10/30/2016 REASON FOR CONSULTATION: Atrial fibrillation. HISTORY OF PRESENT ILLNESS Mr. Jo is an 81-year-old man you does have a history of hypertension, atrial fibrillation, and mild cognitive impairment. He was seen by Dr. Luis Antonio Zafar last month for atrial fibrillation and was medically managed. He was not placed on any anticoagulation secondary to gastrointestinal bleeding. The patient presented to the hospital this week, [place] in atrial fibrillation with rapid ventricular rate. He was placed on antibiotics in ICU. For atrial fibrillation, rapid ventricular response and bilateral nephrosis. Cardiology was subsequently consulted to assist with his management. PAST MEDICAL HISTORY: 1. GI bleed 2. Anemia 3. Elevated liver function tests. 4. Urinary tract infection. 5. Hypertension. 6. Diabetes. 7. Heart failure. 8. Mild cognitive impairment. 9. Renal insufficiency. MEDICATIONS: Current medications per the record. ALLERGIES NO KNOWN DRUG ALLERGIES FAMILY HISTORY: NONCONTRIBUTORY. SOCIAL HISTORY: He is a custodial resident. PHYSICAL EXAMINATION: VITAL SIGNS: 98.3, heart rate is 92, respiratory rate 20, blood pressure 114/68. IN GENERAL: He is a well-appearing elderly man who is in no apparent distress. NECK: His neck is free from JVD. LUNGS: The lungs are bilaterally clear to auscultation. CARDIOVASCULAR SYSTEM: On cardiovascular examination he has normal S1, S2, the rhythm is irregularly irregular. EXTREMITIES: The extremities are free from edema. LABORATORY VALUES: Significant for a hemoglobin of 8.6. His creatinine is 2.25. ASSESSMENT AND PLAN: Telemetry - currently shows atrial fibrillation with controlled ventricular rate. On his last visit he was switched from Cardizem and placed on Metoprolol. At this point I would again increase his Metoprolol and try to wean off the Cardizem, no anticoagulation in light of his ongoing anemia and recent gastrointestinal bleed. Enrique Borrero M.D. Kd /12:58 PM /1:49 PM
[2016-10-30] MEDS ORDERED: DILTIAZEM INJ 125 MG in SODIUM CHLORIDE 0.9% INJ 100 ML IV SCH (19:45)
[2016-10-31] VITALS (13 sets, daily range): BP systolic 115–134; BP diastolic 60–87; PULSE 90–126; RESP 19–24; TEMP 98–98.4; O2SAT 90–95
[2016-10-31] MEDS: PIPERACIL-TAZO 2.25 GM PREMIX 50 ML IV SCH ×2 (01:47→08:22)
[2016-10-31] MEDS: RESP: ALBUTEROL 2.5 MG/IPRATROPIUM 0.5 MG NEB (SCH) INH ×4 (03:15→20:13)
[2016-10-31] MEDS: CHLORHEXIDINE GLUCONATE 2 % 1 PACK (2 CLOTHS) TOP SCH (04:00)
[2016-10-31 04:41] LABS: AUTOMATED NEUTROPHIL # 6.6 TH/MM3 (1.8-7.7); BASOPHIL # 0.1 TH/MM3 (0-0.2); BASOPHIL % 0.6 % (0.0-2.0); EOSINOPHIL # 0.3 TH/MM3 (0-0.4); EOSINOPHIL % 2.9 % (0.0-4.0); HEMATOCRIT 27.3 % (39.0-51.0); HEMO FLAGS DIFF FINAL; LYMPH % 13.2 % (9.0-44.0); LYMPHOCYTE # 1.2 TH/MM3 (1.0-4.8); MEAN CELL VOLUME 83.2 FL (80.0-100.0); MEAN CORPUSCULAR HEMOGLOBIN 27.2 PG (27.0-34.0); MEAN CORPUSCULAR HGB CONC 32.7 % (32.0-36.0); MONO % 9.9 % (0.0-8.0); NEUT % 73.4 % (16.0-70.0); PLATELET COUNT 238 TH/MM3 (150-450); RED BLOOD COUNT 3.28 MIL/MM3 (4.50-5.90); RED CELL DISTRIBUTION WIDTH 17.2 % (11.6-17.2)
[2016-10-31 05:06] LABS: ALKALINE PHOSPHATASE 149 U/L (45-117); ALT (GPT) 30 U/L (12-78); ANION GAP 9 MEQ/L (5-15); AST (GOT) 23 U/L (15-37); BICARBONATE 20.2 MEQ/L (21.0-32.0); BLOOD UREA NITROGEN 37 MG/DL (7-18); CHLORIDE 113 MEQ/L (98-107); GLOMERULAR FILTRATION RATE 39 ML/MIN (>89); MAGNESIUM 1.7 MG/DL (1.5-2.5); POTASSIUM 3.9 MEQ/L (3.5-5.1); SODIUM (NA) 142 MEQ/L (136-145); TOTAL BILIRUBIN ADULT 0.3 MG/DL (0.2-1.0)
[2016-10-31] MEDS: DEXT 5%-NACL 0.9% 1000 ML INJ 1,000 ML IV SCH (07:30)
[2016-10-31] MEDS: INSULIN NovoLIN REGULAR SUPPLEMENTAL SCALE SQ SCH ×4 (08:00→20:00)
[2016-10-31] MEDS: PANTOPRAZOLE SODIUM 40 MG VIAL IV SCH (08:22)
[2016-10-31] MEDS: TAMSULOSIN HCL 0.4 MG CAP PO SCH (08:22)
[2016-10-31] MEDS: DOCUSATE SODIUM 50 MG/SENNA 8.6 MG TAB PO SCH ×2 (08:22→21:00)
[2016-10-31] MEDS: METOPROLOL TARTRATE 50 MG TAB PO SCH (08:22)
[2016-10-31] MEDS ORDERED: METOPROLOL TARTRATE 50 MG TAB PO ONE (09:15)
[2016-10-31] MEDS ORDERED: DILTIAZEM INJ 125 MG in SODIUM CHLORIDE 0.9% INJ 100 ML IV SCH (09:15)
--- NOTE | 2016-10-31 09:47 | PD.CARD.PN ---
Subjective Subjective Remarks Pt without complaints Objective Medications Current Medications Medications (Trade) Dose Ordered Sig/Zachary Route Start Time Stop Time Status Last Admin (Protonix Inj) 40 mg DAILY IV 10/29/16 12:30 10/31/16 08:22 Miscellaneous Information 1 Q361D XX 10/29/16 12:30 (Chlorhexidine 2% Cloth) 3 pack Taper DAILY@04 TOP 10/30/16 04:00 10/26/17 03:59 10/29/16 20:43 (Chlorhexidine 2% Cloth) 3 pack UNSCH PRN TOP 10/29/16 12:30 (Jeny-Colace) 1 tab BID PO 10/29/16 21:00 10/31/16 08:22 (Senokot) 17.2 mg Q12H PRN PO 10/29/16 12:30 Bisacodyl 10 mg 10 mg DAILY PRN RECTAL 10/29/16 12:30 Piperacillin Sod/ Tazobactam Sod 50 ml @ 100 mls/hr Q6H IV 10/29/16 14:00 10/31/16 08:22 (D5W-NS 1000 ml Inj) 1,000 ml @ 75 mls/hr [id number] IV 10/29/16 15:30 10/30/16 20:49 (D50w (Vial) Inj) 50 ml UNSCH PRN IV 10/29/16 15:30 (Glucagon Inj) 1 mg UNSCH PRN OTHER 10/29/16 15:30 (NovoLIN R SUPPLEMENTAL SCALE) 1 Q4H SQ 10/29/16 16:00 10/30/16 20:00 Tamsulosin HCl 0.4 mg 0.4 mg DAILY PO 10/29/16 16:45 10/31/16 08:22 (Cardizem Inj/NS Inj) 125 ml @ 0 mls/hr TITRATE IV 10/31/16 09:15 (Lopressor) 100 mg Q12HR PO 10/31/16 21:00 (Cardizem) 30 mg QID PO 10/31/16 13:00 Vital Signs / I&O Vital Signs Date Time Temp Pulse Resp B/P Pulse Ox O2 Delivery O2 Flow Rate FiO2 10/31/16 08:13 93 10/31/16 06:00 112 10/31/16 04:00 118 10/31/16 04:00 98.2 118 22 134/60 92 10/31/16 02:00 112 10/31/16 00:00 100 10/31/16 00:00 98.4 100 21 125/76 90 10/30/16 22:00 86 10/30/16 20:00 95.2 145 21 126/72 95 10/30/16 20:00 145 10/30/16 18:00 98 10/30/16 16:00 98.2 97 20 116/58 95 10/30/16 16:00 97 10/30/16 14:00 85 10/30/16 12:00 98.0 82 17 106/58 95 10/30/16 12:00 82 10/30/16 10:00 103 I/O 10/30/16 10/30/16 10/30/16 10/31/16 10/31/16 10/31/16 07:00 15:00 23:00 07:00 15:00 23:00 Intake Total 655 ml 1729 ml 794 ml 556 ml Output Total 1600 ml 1600 ml 1601 ml 1100 ml Balance -945 ml 129 ml -807 ml -544 ml Intake Oral 960 ml 100 ml 50 ml IV Total 655 ml 769 ml 694 ml 506 ml Output Urine Total 1600 ml 1600 ml 1600 ml 1100 ml Stool Total 1 ml 0 ml Physical Exam GENERAL: Well developed, well nourished. No acute distress. HEENT: Jugular venous pressure is normal. CHEST: Lungs clear to auscultation bilaterally. Unlabored respiratory effort. CARDIAC: irregular tachy rate and rhythm without S3, S4, or murmur. ABDOMEN: Soft, nontender, no hepatosplenomegaly. Bowel sounds present. EXTREMITIES: No clubbing, cyanosis, or edema. Laboratory Laboratory Tests Test 10/31/16 03:43 White Blood Count 9.0 TH/MM3 Red Blood Count 3.28 MIL/MM3 Hemoglobin 8.9 GM/DL Hematocrit 27.3 % Mean Corpuscular Volume 83.2 FL Mean Corpuscular Hemoglobin 27.2 PG Mean Corpuscular Hemoglobin 32.7 % Concent Red Cell Distribution Width 17.2 % Platelet Count 238 TH/MM3 Mean Platelet Volume 8.5 FL Neutrophils (%) (Auto) 73.4 % Lymphocytes (%) (Auto) 13.2 % Monocytes (%) (Auto) 9.9 % Eosinophils (%) (Auto) 2.9 % Basophils (%) (Auto) 0.6 % Neutrophils # (Auto) 6.6 TH/MM3 Lymphocytes # (Auto) 1.2 TH/MM3 Monocytes # (Auto) 0.9 TH/MM3 Eosinophils # (Auto) 0.3 TH/MM3 Basophils # (Auto) 0.1 TH/MM3 CBC Comment DIFF FINAL Differential Comment Sodium Level 142 MEQ/L Potassium Level 3.9 MEQ/L Chloride Level 113 MEQ/L Carbon Dioxide Level 20.2 MEQ/L Anion Gap 9 MEQ/L Blood Urea Nitrogen 37 MG/DL Creatinine 1.70 MG/DL Estimat Glomerular Filtration 39 ML/MIN Rate Random Glucose 75 MG/DL Calcium Level 8.5 MG/DL Phosphorus Level 3.0 MG/DL Magnesium Level 1.7 MG/DL Total Bilirubin 0.3 MG/DL Aspartate Amino Transf 23 U/L (AST/SGOT) Alanine Aminotransferase 30 U/L (ALT/SGPT) Alkaline Phosphatase 149 U/L Total Protein 5.8 GM/DL Albumin 1.6 GM/DL Imaging Last 72 hours Impressions Chest X-Ray 10/29/16 0703 Signed Impressions: Service Date/Time: Saturday, October 29, 2016 07:14 - CONCLUSION: No acute cardiopulmonary process. Eugene Mcintosh MD Abdomen Ultrasound 10/29/16 0000 Signed Impressions: Service Date/Time: Saturday, October 29, 2016 13:28 - CONCLUSION: 1. Bilateral hydronephrosis. Etiology is uncertain but given the very distended urinary bladder it could be related to bladder outlet obstruction or potentially reflux. 2. Mild hepatomegaly. 3. Bilateral renal cysts. Mason Bellamy MD Assessment and Plan Assessment and Plan AF- RVR again last evening and persisting -continue change to metoprolol as cardizem has been ineffective -consider amiodarone -no anticoagulation with recent GIB Anemia Hydronephrosis Flor Borrero MD Oct 31, 2016 09:47
--- NOTE | 2016-10-31 10:30 | HHI.PR ---
Subjective Remarks pt feels well. Objective Vitals heart irreg lung cta abd s/nt ext no edema tristan Vital Signs Date Time Temp Pulse Resp B/P Pulse Ox O2 Delivery O2 Flow Rate FiO2 10/31/16 08:13 93 10/31/16 06:00 112 10/31/16 04:00 118 10/31/16 04:00 98.2 118 22 134/60 92 10/31/16 02:00 112 10/31/16 00:00 100 10/31/16 00:00 98.4 100 21 125/76 90 10/30/16 22:00 86 10/30/16 20:00 95.2 145 21 126/72 95 10/30/16 20:00 145 10/30/16 18:00 98 10/30/16 16:00 98.2 97 20 116/58 95 10/30/16 16:00 97 10/30/16 14:00 85 10/30/16 12:00 98.0 82 17 106/58 95 10/30/16 12:00 82 10/30/16 10/30/16 10/31/16 15:00 23:00 07:00 Intake Total 1729 ml 794 ml 556 ml Output Total 1600 ml 1601 ml 1100 ml Balance 129 ml -807 ml -544 ml Intake Oral 960 ml 100 ml 50 ml IV Total 769 ml 694 ml 506 ml Output Urine Total 1600 ml 1600 ml 1100 ml Stool Total 1 ml 0 ml Result Diagram: 10/31/16 0343 10/31/16 0343 A/P Problem List: (1) Atrial fibrillation with RVR Status: Acute Plan: Pt with bph/urine retention and hydro. anderson/ckd 3 related to post obstruction uti wiht proteus afib/rvr anemia. initially blood loss due to hpylor ulcer on prior admit now chronic illness hypotension resolved ivf PT cardiology following ..titrate up bb/ccb and off cardizem gtt. no anticoagulation due to recent gib iv to po abx for uti monitor renal function. improving tristan. flomax. urology following for obstruction scd's repeat egd to eval large ulcer planned (2) Acute kidney injury superimposed on chronic kidney disease Status: Acute Plan: see above (3) CKD (chronic kidney disease) stage 3, GFR 30-59 ml/min Status: Chronic (4) UTI (urinary tract infection) Status: Acute Plan: see above (5) Urine retention Status: Acute Plan: see above (6) Anemia Status: Chronic (7) Diastolic CHF, chronic Status: Chronic Plan: stable.compensated. (8) HTN (hypertension) Status: Chronic (9) Diabetes mellitus Status: Chronic Plan: ssi Problem Qualifiers (1) UTI (urinary tract infection): Qualified Code: N30.00 - Acute cystitis without hematuria (2) Anemia: Qualified Code: D64.9 - Anemia, unspecified type (3) Diabetes mellitus: Chidi Herrera MD Oct 31, 2016 10:30
--- NOTE | 2016-10-31 10:38 | HHI.NPPN ---
Subjective History of Present Illness 81-year-old white male with history of GI bleed, chronic kidney disease, acute renal failure, urinary retention, prostate enlargement who had been told on his facility with atrial fibrillation and rapid ventricular rate he was transferred to the main hospital and he has acute renal failure and urinary retention, he has similar presentation few weeks ago and was supposed to follow-up with urology. Additional Remarks Patient is alert, no SOB, started tolerating liquids, not in distress. Review of Systems General Constitutional: Fatigue Objective Data Data 10/30/16 10/31/16 19:00 07:00 Intake Total 1729 ml 1350 ml Output Total 1600 ml 2701 ml Balance 129 ml -1351 ml Intake Oral 960 ml 150 ml IV Total 769 ml 1200 ml Output Urine Total 1600 ml 2700 ml Stool Total 1 ml Vital Signs Date Time Temp Pulse Resp B/P Pulse Ox O2 Delivery O2 Flow Rate FiO2 10/31/16 10:00 117 10/31/16 08:13 93 10/31/16 08:00 98.1 126 23 128/62 93 10/31/16 08:00 126 10/31/16 06:00 112 10/31/16 04:00 118 10/31/16 04:00 98.2 118 22 134/60 92 10/31/16 02:00 112 10/31/16 00:00 100 10/31/16 00:00 98.4 100 21 125/76 90 10/30/16 22:00 86 10/30/16 20:00 95.2 145 21 126/72 95 10/30/16 20:00 145 10/30/16 18:00 98 10/30/16 16:00 98.2 97 20 116/58 95 10/30/16 16:00 97 10/30/16 14:00 85 10/30/16 12:00 98.0 82 17 106/58 95 10/30/16 12:00 81 -: 10/31/16 0343 10/31/16 0343 Physical Exam General Appearance: No Acute Distress, Comfortable Eyes Eye Exam: Pupils Equal Throat Throat Exam: Oral Mucosa Jenkins & Moist Neck Neck Exam: Neck Supple Pulmonary Resp Exam: Clear Bilaterally, Breath Sounds Equal, No Distress, Decreased Bases Cardiology CV Exam: Regular, Normal Sinus Rhythm Gastrointestinal/Abdomen GI Exam: Soft, Non-Tender, Bowel Sounds Present Extremeties Extremities Exam: No Edema Neurologic Neuro Exam: Alert, Awake, Oriented Psychiatric Psych Exam: Appropriate Responses Assessment/Plan Problem List: (1) Acute kidney injury superimposed on chronic kidney disease Plan: He has similar episode with urinary retention and was to follow-up with the urology, he has 2 L of urine output after putting a Ruiz catheter, acute renal failure should resolve He did have hydronephrosis due to prostate enlargement. Creatinine continue to improve. Continue IVF and follow BMP. (2) CKD (chronic kidney disease) stage 3, GFR 30-59 ml/min Plan: Continue to monitor (3) Urine retention Plan: Resolved with Ruiz catheter (4) Atrial fibrillation with RVR Plan: Diltiazem IV (5) UTI (urinary tract infection) Plan: On Zosyn Problem Qualifiers (1) UTI (urinary tract infection): Qualified Code: N30.00 - Acute cystitis without hematuria Amos Mcmanus MD Oct 31, 2016 10:38
[2016-10-31] MEDS ORDERED: LEVOFLOXACIN 250 MG TAB PO ONE (11:00)
--- NOTE | 2016-10-31 11:15 | HHI.GIFU ---
Subjective Remarks Lying in bed in no distress. Denies abdominal pain. No nausea or vomiting. Requesting to eat. (Mikayla Roland) Objective Vitals I&O Vital Signs Date Time Temp Pulse Resp B/P Pulse Ox O2 Delivery O2 Flow Rate FiO2 10/31/16 10:00 117 10/31/16 08:13 93 10/31/16 08:00 98.1 126 23 128/62 93 10/31/16 08:00 126 10/31/16 06:00 112 10/31/16 04:00 118 10/31/16 04:00 98.2 118 22 134/60 92 10/31/16 02:00 112 10/31/16 00:00 100 10/31/16 00:00 98.4 100 21 125/76 90 10/30/16 22:00 86 10/30/16 20:00 95.2 145 21 126/72 95 10/30/16 20:00 145 10/30/16 18:00 98 10/30/16 16:00 98.2 97 20 116/58 95 10/30/16 16:00 97 10/30/16 14:00 85 10/30/16 12:00 98.0 82 17 106/58 95 10/30/16 12:00 82 I/O 10/30/16 10/30/16 10/30/16 10/31/16 10/31/16 10/31/16 07:00 15:00 23:00 07:00 15:00 23:00 Intake Total 655 ml 1729 ml 794 ml 556 ml Output Total 1600 ml 1600 ml 1601 ml 1100 ml Balance -945 ml 129 ml -807 ml -544 ml Intake Oral 960 ml 100 ml 50 ml IV Total 655 ml 769 ml 694 ml 506 ml Output Urine Total 1600 ml 1600 ml 1600 ml 1100 ml Stool Total 1 ml 0 ml Laboratory Laboratory Tests Test 10/31/16 03:43 White Blood Count 9.0 Red Blood Count 3.28 Hemoglobin 8.9 Hematocrit 27.3 Mean Corpuscular Volume 83.2 Mean Corpuscular Hemoglobin 27.2 Mean Corpuscular Hemoglobin 32.7 Concent Red Cell Distribution Width 17.2 Platelet Count 238 Mean Platelet Volume 8.5 Neutrophils (%) (Auto) 73.4 Lymphocytes (%) (Auto) 13.2 Monocytes (%) (Auto) 9.9 Eosinophils (%) (Auto) 2.9 Basophils (%) (Auto) 0.6 Neutrophils # (Auto) 6.6 Lymphocytes # (Auto) 1.2 Monocytes # (Auto) 0.9 Eosinophils # (Auto) 0.3 Basophils # (Auto) 0.1 CBC Comment DIFF FINAL Differential Comment Sodium Level 142 Potassium Level 3.9 Chloride Level 113 Carbon Dioxide Level 20.2 Anion Gap 9 Blood Urea Nitrogen 37 Creatinine 1.70 Estimat Glomerular Filtration 39 Rate Random Glucose 75 Calcium Level 8.5 Phosphorus Level 3.0 Magnesium Level 1.7 Total Bilirubin 0.3 Aspartate Amino Transf 23 (AST/SGOT) Alanine Aminotransferase 30 (ALT/SGPT) Alkaline Phosphatase 149 Total Protein 5.8 Albumin 1.6 Date/Time Procedure Status Source Growth 10/29/16 08:20 Urine Culture - Final Complete Urine Random Urine Proteus Mirabil[facility] Imaging Last Impressions Chest X-Ray 10/29/16 0703 Signed Impressions: Service Date/Time: Saturday, October 29, 2016 07:14 - CONCLUSION: No acute cardiopulmonary process. Eugene Mcintosh MD Abdomen Ultrasound 10/29/16 0000 Signed Impressions: Service Date/Time: Saturday, October 29, 2016 13:28 - CONCLUSION: 1. Bilateral hydronephrosis. Etiology is uncertain but given the very distended urinary bladder it could be related to bladder outlet obstruction or potentially reflux. 2. Mild hepatomegaly. 3. Bilateral renal cysts. Mason Bellamy MD Physical Exam HEENT: PERRLA NECK: Neck is supple, no JVD, no lymphadenopathy. CHEST: Chest is clear to auscultation and percussion. Bases diminished CARDIAC: Irregular ABDOMEN: Soft, nondistended, nontender; no hepatosplenomegaly; bowel sounds are present x 4 quadrants EXTREMITIES: No clubbing, cyanosis, or edema. SKIN: Normal; no rash; no jaundice. PUBLIC IMPROVEMENT INSPECTOR: No focal deficits; alert and oriented x 3. (Mikayla Roland) Assessment and Plan Plan ASSESSMENT: - Anemia. Hospitalized for GI bleeding in August of 2016. S/P EGD (09/03/16)----> Large antral ulcer, incomplete evaluation of the stomach. Pathology revealed gastric antral mucosal biopsies with severe active chronic gastritis , negative for intestinal metaplasia and dysplasia, kavitha stain positive for bacteria consistent with Helicobacter. According to the EMR, Dr. Scanlon contacted Radha at [facility] with recommendations to treat the H. Pylori. The patient is currently on Protonix 40mg po BID. He was then hospitalized in September for Afib and CHF and found to have anemia at that time, required transfusion. He was recently seen in the office on October 20, 2016 and scheduled for a repeat EGD, as well as H. Pylori Stool Ag. Of note, HH on was 10.7/32.7. Today this is 8.9/27.3. Protonix. Hemoccult negative. Will check H. Pylori Stool Ag. - Elevated LFTs, mild T. Bili 0.3, AST 23, ALT 30, Alk Phosph 149. Abdomen Ultrasound (10/29/16)----> 1. Bilateral hydronephrosis. Etiology is uncertain but given the very distended urinary bladder it could be related to bladder outlet obstruction or potentially reflux. 2. Mild hepatomegaly. 3. Bilateral renal cysts. Likely this is related to hepatic congestion. - Atrial fibrillation with RVR, Diastolic CHF. Cardizem gtt - ADRI on CKD, Creat 1.70. Nephrology following. - HTN, DM per attending PLAN: - NPO after midnight - Plan for EGD tomorrow if patient stable. - Obtain consults - Cont. PPI - Stool for H. Pylori - Monitor HH - Transfuse as necessary - Hemoccult stool x 3 - Supportive care - Further recommendations to follow based on results of above Patient seen and examined by Dr. Benjamin and myself and this note is written on her behalf (Mikayla Roland) Physician Comments seen, examined agree with above (Fatmata Benjamin MD) Mikayla Roland Oct 31, 2016 11:15 Fatmata Benjamin MD Oct 31, 2016 14:48
[2016-10-31] MEDS: SODIUM CHLOR 0.9% 1000 ML INJ 1,000 ML IV SCH (13:00)
[2016-10-31] MEDS ORDERED: DILTIAZEM HCL 30 MG TAB PO SCH (13:00)
--- NOTE | 2016-10-31 16:54 | ECHRPT ---
Indication: ATRIAL FIBRILLATION CONCLUSIONS Normal left ventricular size. Mild concentric left ventricular hypertrophy. The left ventricular systolic function is moderately reduced with an estimated ejection fraction in the range of 45-50%. There is global left ventricular dysfunction. This study was not technically sufficient to allow for evaluation of left ventricular diastolic func tion. Mild mitral annular calcification. Aortic valve sclerosis is present. No aortic valve regurgitation. No aortic valve stenosis. mild to mod mr There is mild to moderate tricuspid valve regurgitation. There is estimated moderate pulmonary hypertension present (range 50-60 mmHg). BP: 106 / 58 HR: 64 Rhythm: MEASUREMENTS (Male / Female) Normal Values Technical Quality: 2D ECHO LV Diastolic Diameter PLAX 4.1 cm 4.2 - 5.9 / 3.9 - 5.3 cm LV Systolic Diameter PLAX 3.4 cm IVS Diastolic Thickness 1.1 cm 0.6 - 1.0 / 0.6 - 0.9 cm LVPW Diastolic Thickness 1.1 cm 0.6 - 1.0 / 0.6 - 0.9 cm LV Relative Wall Thickness 0.5 LVOT Diameter 2.0 cm Aortic Root Diameter 3.2 cm M-MODE AV Cusp Separation MM 2.1 cm DOPPLER LVOT Peak Velocity 89.1 cm/s LVOT Peak Gradient 3.2 mmHg LVOT Velocity Time Integral 14.3 cm LVOT Cardiac Index 1201.0 cm/minm Mitral E Point Velocity 94.6 cm/s LV E' Lateral Velocity 14.4 cm/s Mitral E to LV E' Lateral Ratio 6.6 LV E' Septal Velocity 11.5 cm/s Mitral E to LV E' Septal Ratio 8.2 TR Peak Velocity 320.0 cm/s TR Peak Gradient 41.0 mmHg PV Peak Velocity 63.4 cm/s PV Peak Gradient 1.6 mmHg FINDINGS LEFT VENTRICLE Normal left ventricular size. Mild concentric left ventricular hypertrophy. The left ventricular systolic function is moderately reduced with an estimated ejection fraction in the range of 40-45%. There is global left ventricular dysfunction. This study was not technically sufficient to allow for evaluation of left ventricular diastolic func tion. MITRAL VALVE Mild mitral annular calcification. AORTIC VALVE Aortic valve sclerosis is present. No aortic valve regurgitation. No aortic valve stenosis. TRICUSPID VALVE Structurally normal tricuspid valve. There is mild to moderate tricuspid valve regurgitation. There is estimated moderate pulmonary hypertension present (range 50-60 mmHg). Eros Raymundo MD, FACC, FSCAI (Electronically Signed) Final Date:31 October 2016 16:53
[2016-10-31] MEDS: METOPROLOL TARTRATE 5 MG/5 ML VIAL IV PUSH PRN ×5 (18:52→23:41)
[2016-10-31] MEDS ORDERED: METOPROLOL TARTRATE 100 MG TAB PO SCH (21:00)
[2016-10-31] MEDS ORDERED: METOPROLOL TARTRATE 5 MG/5 ML VIAL IV PUSH SCH (21:00)
[2016-10-31] MEDS ORDERED: METOPROLOL TARTRATE 5 MG/5 ML VIAL IV PUSH PRN (21:10)
[2016-10-31] MEDS ORDERED: SODIUM CHLORID 0.9% 500 ML INJ 500 ML IV SCH (22:30)
[2016-10-31] MEDS ORDERED: METOPROLOL TARTRATE 25 MG TAB PO ONE (22:30)
[2016-11-01] VITALS (14 sets, daily range): BP systolic 109–130; BP diastolic 56–82; PULSE 104–124; RESP 21–24; TEMP 97.9–98.8; O2SAT 95–98
[2016-11-01] MEDS: SODIUM CHLOR 0.9% 1000 ML INJ 1,000 ML IV SCH ×2 (02:53→18:38)
[2016-11-01] MEDS: RESP: ALBUTEROL 2.5 MG/IPRATROPIUM 0.5 MG NEB (SCH) INH ×4 (03:25→22:56)
[2016-11-01] MEDS: METOPROLOL TARTRATE 5 MG/5 ML VIAL IV PUSH PRN ×3 (03:38→12:06)
[2016-11-01] MEDS ORDERED: METOPROLOL TARTRATE 100 MG TAB PO SCH ×2 (04:00→12:00)
[2016-11-01] MEDS: CHLORHEXIDINE GLUCONATE 2 % 1 PACK (2 CLOTHS) TOP SCH (04:00)
[2016-11-01] MEDS: INSULIN NovoLIN REGULAR SUPPLEMENTAL SCALE SQ SCH ×6 (04:00→20:00)
[2016-11-01 06:11] LABS: BICARBONATE 23.1 MEQ/L (21.0-32.0); POTASSIUM 3.8 MEQ/L (3.5-5.1)
--- NOTE | 2016-11-01 08:59 | HHI.PR ---
Subjective Patient symptoms today Pt seen and examined. Feeling better. For EGD today. Objective Vital Signs Vital Signs Date Time Temp Pulse Resp B/P Pulse Ox O2 Delivery O2 Flow Rate FiO2 11/01/16 08:51 95 21 11/01/16 07:45 98.1 11/01/16 06:25 105 11/01/16 04:00 123 11/01/16 04:00 97.9 123 23 121/80 95 11/01/16 02:00 114 11/01/16 00:00 111 11/01/16 00:00 98.0 111 22 130/82 95 10/31/16 22:00 112 10/31/16 20:00 98.0 123 24 121/87 95 10/31/16 20:00 123 10/31/16 18:00 104 10/31/16 16:00 98.1 114 23 115/72 93 10/31/16 16:00 114 10/31/16 14:00 99 10/31/16 12:00 90 10/31/16 12:00 98.3 90 19 115/66 94 10/31/16 10:00 117 Intake & Output 11/01/16 11/01/16 07:00 19:00 Intake Total 2039 ml Output Total 2520 ml Balance -481 ml Intake Oral 500 ml IV Total 1539 ml Output Urine Total 2450 ml Stool Total 70 ml # Bowel Movements 2 Result Diagram: 10/31/16 0343 11/01/16 0511 Objective Remarks Abd:soft,nt,nd Tristan with clear urine and some sediment 11/01 Abd:soft,nt,nd Tristan with clear urine and some sediment Medications and IVs Current Medications Medications (Trade) Dose Ordered Sig/Zachary Route Start Time Stop Time Status Last Admin (Protonix Inj) 40 mg DAILY IV 10/29/16 12:30 10/31/16 08:22 Miscellaneous Information 1 Q361D XX 10/29/16 12:30 (Chlorhexidine 2% Cloth) 3 pack Taper DAILY@04 TOP 10/30/16 04:00 10/26/17 03:59 11/01/16 04:00 (Chlorhexidine 2% Cloth) 3 pack UNSCH PRN TOP 10/29/16 12:30 (Jeny-Colace) 1 tab BID PO 10/29/16 21:00 10/31/16 21:00 (Senokot) 17.2 mg Q12H PRN PO 10/29/16 12:30 (Dulcolax Supp) 10 mg DAILY PRN RECTAL 10/29/16 12:30 (D50w (Vial) Inj) 50 ml UNSCH PRN IV 10/29/16 15:30 (Glucagon Inj) 1 mg UNSCH PRN OTHER 10/29/16 15:30 (NovoLIN R SUPPLEMENTAL SCALE) 1 Q4H SQ 10/29/16 16:00 10/31/16 20:00 (Flomax) 0.4 mg DAILY PO 10/29/16 16:45 10/31/16 08:22 (Lopressor Inj) 5 mg Q2HR PRN IV PUSH 10/31/16 10:00 11/01/16 03:38 Levofloxacin 250 mg 250 mg DAILY PO 11/01/16 09:00 (NS 1000 ml Inj) 1,000 ml @ 75 mls/hr [id number] IV 10/31/16 13:00 11/01/16 02:53 (Lopressor) 100 mg Q8H PO 11/01/16 12:00 Assessment and Plan Assessment and Plan 81 y.o male with AUR and ARF Maintain tristan catheter Continue Flomax 11/01 81 y.o male with AUR and ARF ARF resolving. Creatinine down to 1.6 For EGD today Due to recurrent admissions for ARF secondary to AUR. Recommend TURP as outpt procedure in the future after he recovers from his recent insult. Trent Ruiz DO Nov 01, 2016 08:59
[2016-11-01] MEDS: DOCUSATE SODIUM 50 MG/SENNA 8.6 MG TAB PO SCH ×2 (09:00→21:34)
[2016-11-01] MEDS: PANTOPRAZOLE SODIUM 40 MG VIAL IV SCH (09:09)
--- NOTE | 2016-11-01 09:10 | PD.CARD.PN ---
Subjective Subjective Remarks continue with tachycardia (Carlitos Sanz) Objective Vital Signs / I&O Vital Signs Date Time Temp Pulse Resp B/P Pulse Ox O2 Delivery O2 Flow Rate FiO2 11/01/16 08:51 95 21 11/01/16 07:45 98.1 11/01/16 06:25 105 11/01/16 04:00 123 11/01/16 04:00 97.9 123 23 121/80 95 11/01/16 02:00 114 11/01/16 00:00 111 11/01/16 00:00 98.0 111 22 130/82 95 10/31/16 22:00 112 10/31/16 20:00 98.0 123 24 121/87 95 10/31/16 20:00 123 10/31/16 18:00 104 10/31/16 16:00 98.1 114 23 115/72 93 10/31/16 16:00 114 10/31/16 14:00 99 10/31/16 12:00 90 10/31/16 12:00 98.3 90 19 115/66 94 10/31/16 10:00 117 I/O 10/31/16 10/31/16 10/31/16 11/01/16 11/01/16 11/01/16 07:00 15:00 23:00 07:00 15:00 23:00 Intake Total 556 ml 1850 ml 1308 ml 731 ml Output Total 1100 ml 1800 ml 1490 ml 1030 ml Balance -544 ml 50 ml -182 ml -299 ml Intake Oral 50 ml 1060 ml 500 ml 0 ml IV Total 506 ml 790 ml 808 ml 731 ml Output Urine Total 1100 ml 1800 ml 1450 ml 1000 ml Stool Total 0 ml 40 ml 30 ml # Bowel Movements 1 2 1 Physical Exam GENERAL: Well-nourished, well-developed patient in no apparent distress. NECK: No JVD. No carotid bruit. CARDIOVASCULAR: IR IR. S1/S2 no murmur, rub, or gallop. RESPIRATORY: No accessory muscle use. Clear to auscultation. Breath sounds equal bilaterally. GASTROINTESTINAL: Abdomen soft, non-tender, nondistended. MUSCULOSKELETAL: Extremities without clubbing, cyanosis, or edema. Laboratory Laboratory Tests Test 11/01/16 05:11 Sodium Level 143 MEQ/L Potassium Level 3.8 MEQ/L Chloride Level 112 MEQ/L Carbon Dioxide Level 23.1 MEQ/L Anion Gap 8 MEQ/L Blood Urea Nitrogen 25 MG/DL Creatinine 1.43 MG/DL Estimat Glomerular Filtration 47 ML/MIN Rate Random Glucose 125 MG/DL Calcium Level 8.5 MG/DL (Carlitos Sanz) Assessment and Plan Problem List: (1) Atrial fibrillation with RVR (2) HTN (hypertension) (3) Diastolic CHF, chronic Assessment and Plan A-fib RVR - his tachycardia is likely multifactorial with a-fib an Hgb 8.9. Will add digoxin 125 mcg and get dig level tomorrow No clinic evidence of CHF at this time His blood pressure is well controlled renal insufficiency improving (Carlitos Sanz) Assessment and Plan still tachycardiac with BB. will use combination of CCB and BB and Digoxin. follow dig level. with improving Cr,may be able to titrate dose if needed tachycardia likely to improve once urinary retention resolves call with questions will sign off (Emery Anne MD) Carlitos Sanz Nov 01, 2016 09:10 Emery Anne MD Nov 01, 2016 14:14
--- NOTE | 2016-11-01 09:17 | HHI.PR ---
Subjective Remarks hungry. asking for solid food. Objective Vitals heart irreg lung cta abd s/nt ext no edema tristan Vital Signs Date Time Temp Pulse Resp B/P Pulse Ox O2 Delivery O2 Flow Rate FiO2 11/01/16 08:51 95 21 11/01/16 07:45 98.1 11/01/16 06:25 105 11/01/16 04:00 123 11/01/16 04:00 97.9 123 23 121/80 95 11/01/16 02:00 114 11/01/16 00:00 111 11/01/16 00:00 98.0 111 22 130/82 95 10/31/16 22:00 112 10/31/16 20:00 98.0 123 24 121/87 95 10/31/16 20:00 123 10/31/16 18:00 104 10/31/16 16:00 98.1 114 23 115/72 93 10/31/16 16:00 114 10/31/16 14:00 99 10/31/16 12:00 90 10/31/16 12:00 98.3 90 19 115/66 94 10/31/16 10:00 117 10/31/16 10/31/16 11/01/16 14:59 22:59 06:59 Intake Total 1850 ml 1308 ml 731 ml Output Total 1800 ml 1490 ml 1030 ml Balance 50 ml -182 ml -299 ml Intake Oral 1060 ml 500 ml 0 ml IV Total 790 ml 808 ml 731 ml Output Urine Total 1800 ml 1450 ml 1000 ml Stool Total 40 ml 30 ml # Bowel Movements 1 2 1 Result Diagram: 10/31/16 0343 11/01/16 0511 A/P Problem List: (1) Atrial fibrillation with RVR Status: Acute Plan: Pt with bph/urine retention and hydro. anderson/ckd 3 related to post obstruction uti wiht proteus afib/rvr anemia. initially blood loss due to hpylori ulcer on prior admit now chronic illness hypotension resolved ivf advance diet after egd to reeval ulcer. PT cardiology following ..titrate up bb. dig added. off cardizem gtt. no anticoagulation due to recent gib iv to po abx for uti. levaquin monitor renal function. improving tristan. flomax. urology following for obstruction. spoke to dR Ruiz..maintain tristan and outpt referral for turp. scd's (2) Acute kidney injury superimposed on chronic kidney disease Status: Acute Plan: see above (3) CKD (chronic kidney disease) stage 3, GFR 30-59 ml/min Status: Chronic (4) UTI (urinary tract infection) Status: Acute Plan: see above (5) Urine retention Status: Acute Plan: see above (6) Anemia Status: Chronic (7) Diastolic CHF, chronic Status: Chronic Plan: stable.compensated. (8) HTN (hypertension) Status: Chronic (9) Diabetes mellitus Status: Chronic Plan: ssi Problem Qualifiers (1) UTI (urinary tract infection): Qualified Code: N30.00 - Acute cystitis without hematuria (2) Anemia: Qualified Code: D64.9 - Anemia, unspecified type (3) Diabetes mellitus: Chidi Herrera MD Nov 01, 2016 09:17
[2016-11-01] MEDS: DIGOXIN 0.125 MG TAB PO SCH (09:19)
[2016-11-01] MEDS: LEVOFLOXACIN 250 MG TAB PO SCH (12:56)
[2016-11-01] MEDS: TAMSULOSIN HCL 0.4 MG CAP PO SCH (12:56)
[2016-11-01] MEDS ORDERED: PROPOFOL 200 MG/20 ML AMP IV ONE (15:36)
--- NOTE | 2016-11-01 16:05 | PD.PROCEDR ---
GI Procedure REFERRING PHYSICIAN Dr. Herrera PROCEDURE PERFORMED EGD with biopsy INDICATION FOR PROCEDURE Anemia with history of gastric ulcer PROCEDURE: The procedure, risks and benefits were discussed with Mr. Jo and informed consent was obtained. Anesthesia sedated him with Diprivan. He was placed in the left lateral decubitus position. EGD: The Pentax videoscope was introduced through the oropharynx and advanced to the second portion of the duodenum under direct visualization. Retroflexion was performed in the stomach. FINDINGS: Esophagus this was normal Stomach there was a small hiatal hernia there was also a small healing lesser curve ulcer this was biopsied otherwise the rest of the gastric mucosa was unremarkable The duodenum this is normal ESTIMATED BLOOD LOSS: None SPECIMENS REMOVED: Gastric biopsy COMPLICATIONS: None IMPRESSION: Healing gastric ulcer Small hiatal hernia PLAN: Await biopsy Continue PPI Continue with current supportive care Monitor labs The anemia is probably multifactorial including acute and chronic renal disease and also may be a component of malnutrition with an albumin level of 1.6 and possibly other causes Follow-up with GI post discharge Arnoldo Scanlon MD Nov 01, 2016 16:05
[2016-11-01] MEDS ORDERED: DO NOT ADM ANY ANTICOAGULANT DRUGS PRN (17:15)
[2016-11-01] MEDS: DILTIAZEM HCL 60 MG TAB PO SCH ×2 (18:38→21:34)
[2016-11-01] MEDS: METOPROLOL TARTRATE 100 MG TAB PO SCH (21:34)
[2016-11-02] VITALS (22 sets, daily range): BP systolic 107–152; BP diastolic 61–82; PULSE 88–150; RESP 17–26; TEMP 97.4–98.7; O2SAT 94–99
[2016-11-02] MEDS: INSULIN NovoLIN REGULAR SUPPLEMENTAL SCALE SQ SCH ×5 (00:34→20:49)
[2016-11-02] MEDS: CHLORHEXIDINE GLUCONATE 2 % 1 PACK (2 CLOTHS) TOP SCH (04:00)
[2016-11-02] MEDS: RESP: ALBUTEROL 2.5 MG/IPRATROPIUM 0.5 MG NEB (SCH) INH ×2 (04:22→10:10)
[2016-11-02] MEDS: SODIUM CHLOR 0.9% 1000 ML INJ 1,000 ML IV SCH (05:35)
[2016-11-02 06:56] LABS: HEMATOCRIT 28.6 % (39.0-51.0); MEAN CELL VOLUME 82.9 FL (80.0-100.0); MEAN CORPUSCULAR HEMOGLOBIN 26.6 PG (27.0-34.0); MEAN CORPUSCULAR HGB CONC 32.1 % (32.0-36.0); PLATELET COUNT 289 TH/MM3 (150-450); RED BLOOD COUNT 3.45 MIL/MM3 (4.50-5.90); RED CELL DISTRIBUTION WIDTH 17.1 % (11.6-17.2); REVIEW FLAG FINAL; WHITE BLOOD COUNT 10.3 TH/MM3 (4.0-11.0)
[2016-11-02] MEDS: DOCUSATE SODIUM 50 MG/SENNA 8.6 MG TAB PO SCH ×2 (09:00→20:52)
--- NOTE | 2016-11-02 09:21 | HHI.PR ---
Subjective Remarks makenna. food. no complaints Objective Vitals heart irreg lung cta abd s/nt ext no edema tristan Vital Signs Date Time Temp Pulse Resp B/P Pulse Ox O2 Delivery O2 Flow Rate FiO2 11/02/16 07:32 97.4 11/02/16 06:00 88 11/02/16 04:00 98.4 91 17 124/65 99 11/02/16 04:00 91 11/02/16 02:00 88 11/02/16 00:00 98.7 102 18 123/77 98 11/02/16 00:00 102 11/01/16 22:57 98 Nasal Cannula 2.00 11/01/16 22:00 105 11/01/16 20:00 98.8 113 23 112/60 95 11/01/16 20:00 113 11/01/16 16:30 96 16 119/69 97 Room Air 11/01/16 16:15 96 16 106/70 96 Room Air 11/01/16 16:00 97.0 98 16 109/71 99 11/01/16 13:30 121 24 109/67 95 11/01/16 12:00 109 23 114/69 98 11/01/16 10:00 124 24 112/57 95 11/01/16 11/01/16 11/02/16 15:00 23:00 07:00 Intake Total 581 ml 903 ml 717 ml Output Total 1000 ml 500 ml 550 ml Balance -419 ml 403 ml 167 ml Intake Oral 30 ml 570 ml 250 ml IV Total 551 ml 333 ml 467 ml Output Urine Total 1000 ml 500 ml 550 ml Stool Total 0 ml 0 ml # Bowel Movements 0 Result Diagram: 11/02/16 0544 11/01/16 0511 A/P Problem List: (1) Atrial fibrillation with RVR Status: Acute Plan: Pt with bph/urine retention and hydro. anderson/ckd 3 related to post obstruction uti wiht proteus afib/rvr anemia. initially blood loss due to hpylori ulcer on prior admit now chronic illness hypotension resolved h. pylori gastric ulcer healing on egd 11/01 d/c ivf makenna heart healthy diet. PT cardiology following ..titrate up bb. dig added. resumed on dilt. has been off antic. cont abx for uti monitor renal function. improving tristan. flomax. urology following for obstruction. spoke to dR Ruiz..maintain tristan and outpt referral for turp. scd's transfer to med/surg tele. if stable then d/c in next 24-48hr ...decide on snf vs hhc (2) Acute kidney injury superimposed on chronic kidney disease Status: Acute Plan: see above (3) CKD (chronic kidney disease) stage 3, GFR 30-59 ml/min Status: Chronic (4) UTI (urinary tract infection) Status: Acute Plan: see above (5) Urine retention Status: Acute Plan: see above (6) Anemia Status: Chronic (7) Diastolic CHF, chronic Status: Chronic Plan: stable.compensated. (8) HTN (hypertension) Status: Chronic (9) Diabetes mellitus Status: Chronic Plan: ssi Problem Qualifiers (1) UTI (urinary tract infection): Qualified Code: N30.00 - Acute cystitis without hematuria (2) Anemia: Qualified Code: D64.9 - Anemia, unspecified type (3) Diabetes mellitus: Chidi Herrera MD Nov 02, 2016 09:21
[2016-11-02] MEDS: DILTIAZEM HCL 60 MG TAB PO SCH ×4 (10:03→20:52)
[2016-11-02] MEDS: TAMSULOSIN HCL 0.4 MG CAP PO SCH (10:03)
[2016-11-02] MEDS: DIGOXIN 0.125 MG TAB PO SCH (10:03)
[2016-11-02] MEDS: METOPROLOL TARTRATE 100 MG TAB PO SCH ×2 (10:03→20:52)
[2016-11-02] MEDS: LEVOFLOXACIN 250 MG TAB PO SCH (10:03)
[2016-11-02] MEDS: METOPROLOL TARTRATE 5 MG/5 ML VIAL IV PUSH PRN (11:03)
--- NOTE | 2016-11-02 11:35 | HHI.PR ---
Subjective Patient symptoms today Pt seen and examined. Feeling better. Creatinine improving. Objective Vital Signs Vital Signs Date Time Temp Pulse Resp B/P Pulse Ox O2 Delivery O2 Flow Rate FiO2 11/02/16 10:10 96 21 11/02/16 07:32 97.4 11/02/16 06:00 88 11/02/16 04:00 98.4 91 17 124/65 99 11/02/16 04:00 91 11/02/16 02:00 88 11/02/16 00:00 98.7 102 18 123/77 98 11/02/16 00:00 102 11/01/16 22:57 98 Nasal Cannula 2.00 11/01/16 22:00 105 11/01/16 20:00 98.8 113 23 112/60 95 11/01/16 20:00 113 11/01/16 16:30 96 16 119/69 97 Room Air 11/01/16 16:15 96 16 106/70 96 Room Air 11/01/16 16:00 97.0 98 16 109/71 99 11/01/16 13:30 121 24 109/67 95 11/01/16 12:00 109 23 114/69 98 Intake & Output 11/02/16 11/02/16 07:00 19:00 Intake Total 1220 ml Output Total 1050 ml Balance 170 ml Intake Oral 470 ml IV Total 750 ml Output Urine Total 1050 ml Stool Total 0 ml Result Diagram: 11/02/16 0544 11/01/16 0511 Objective Remarks Abd:soft,nt,nd Tristan with clear urine and some sediment 11/01 Abd:soft,nt,nd Tristan with clear urine and some sediment 11/02 Abd:soft,nt,nd Tristan with clear urine Medications and IVs Current Medications Medications (Trade) Dose Ordered Sig/Zachary Route Start Time Stop Time Status Last Admin Miscellaneous Information 1 Q361D XX 10/29/16 12:30 (Chlorhexidine 2% Cloth) 3 pack Taper DAILY@04 TOP 10/30/16 04:00 10/26/17 03:59 11/02/16 04:00 (Chlorhexidine 2% Cloth) 3 pack UNSCH PRN TOP 10/29/16 12:30 (Jeny-Colace) 1 tab BID PO 10/29/16 21:00 11/01/16 21:34 (Senokot) 17.2 mg Q12H PRN PO 10/29/16 12:30 (Dulcolax Supp) 10 mg DAILY PRN RECTAL 10/29/16 12:30 (D50w (Vial) Inj) 50 ml UNSCH PRN IV 10/29/16 15:30 (Glucagon Inj) 1 mg UNSCH PRN OTHER 10/29/16 15:30 (Flomax) 0.4 mg DAILY PO 10/29/16 16:45 11/02/16 10:03 (Lopressor Inj) 5 mg Q2HR PRN IV PUSH 10/31/16 10:00 11/02/16 11:03 (Levaquin) 250 mg DAILY PO 11/01/16 09:00 11/02/16 10:03 (Lanoxin) 0.125 mg DAILY PO 11/01/16 10:00 11/02/16 10:03 (Lopressor) 100 mg BID PO 11/01/16 21:00 11/02/16 10:03 (Cardizem) 60 mg QID PO 11/01/16 18:00 11/02/16 10:03 Miscellaneous Information ALL NURSING DEPARTME... UNSCH PRN .XX 11/01/16 17:15 11/02/16 17:14 (NovoLIN R SUPPLEMENTAL SCALE) 1 ACHS SQ 11/02/16 11:00 (Protonix) 40 mg DAILY PO 11/03/16 09:00 Assessment and Plan Assessment and Plan 81 y.o male with AUR and ARF Maintain tristan catheter Continue Flomax 11/01 81 y.o male with AUR and ARF ARF resolving. Creatinine down to 1.6 For EGD today Due to recurrent admissions for ARF secondary to AUR. Recommend TURP as outpt procedure in the future after he recovers from his recent insult. 11/02 81 y.o male with AUR and ARF ARF resolving. Creatinine down to 1.4 Will need outpt TURP Pt will go home with tristan in place Trent Ruiz DO Nov 02, 2016 11:35
--- NOTE | 2016-11-02 12:54 | PD.WCN.NOT ---
Wound Consult Description: Wound Management of right heel per Dr Hidalgo/SLAVA on 10/29/16 Communicated with: REYNALDO Naqvi PA Recommendation: RIGHT posterior heel: Single layer Vaseline Gauze, Cover with 4x4, secure with rolled gauze DAILY LEFT posterior heel: [place] with Cavilon skin barrier film BID and PRN While in bed continue use of heel raiser boots Continue to encourage patient to turn and reposition Q2H and PRN for comfort. Additional Information: *Late Entry* Patient seen this morning ~1100 with REYNALDO Naqvi at bedside for assistance. Right heel was removed from blue heel raiser boot to reveal an unroofed blister measuring 5cm x 5cm x <0.1cm with an island of intact eschar surrounded by 100% pink tissue with no drainage and no odor. Wound margins are open and partially closed with left overs of the skin noticed as pushed towards the wound margin from 7-12 o'clock that was left in place. Wound was cleansed with NS and gauze. Vaseline gauze was applied to open areas of heel wound only and covered with 4x4's and rolled gauze to secure. Foot placed back into blue heel raiser boots to float heel off mattress surface. Left heel was removed from heel raiser boot to reveal a blood filled hazy appearing blister indicating a Deep Tissue Injury noted to posterior left heel measuring 2cm x 3cm that was sprayed with Cavilon skin film and left open to air and placed back into heel raiser boot. Connie Christiansen [facility] Nov 02, 2016 12:54
[2016-11-03] VITALS (9 sets, daily range): BP systolic 118–140; BP diastolic 70–83; PULSE 77–101; RESP 16–26; TEMP 97.4–99; O2SAT 93–96
[2016-11-03] MEDS: CHLORHEXIDINE GLUCONATE 2 % 1 PACK (2 CLOTHS) TOP SCH (04:00)
[2016-11-03] MEDS: INSULIN NovoLIN REGULAR SUPPLEMENTAL SCALE SQ SCH ×4 (06:04→22:34)
--- NOTE | 2016-11-03 08:39 | HHI.PR ---
Subjective Remarks no complaints. eager to get more ambulatory Objective Vitals heart irreg lung cta abd /snt ext no edema Vital Signs Date Time Temp Pulse Resp B/P Pulse Ox O2 Delivery O2 Flow Rate FiO2 11/03/16 04:00 97.8 87 18 128/74 93 11/03/16 04:00 Room Air 11/03/16 03:25 83 11/03/16 02:17 97.8 96 19 127/70 93 11/03/16 02:17 Room Air 11/03/16 00:00 101 11/03/16 00:00 99.0 101 26 134/77 11/02/16 22:00 100 11/02/16 20:00 100 11/02/16 20:00 98.2 100 20 120/82 11/02/16 18:00 103 21 130/79 95 11/02/16 17:00 101 18 133/71 11/02/16 16:00 108 22 124/82 94 11/02/16 15:00 97.7 112 25 120/74 95 11/02/16 14:00 124 20 127/74 11/02/16 13:01 149 26 152/61 95 11/02/16 13:00 150 95 11/02/16 12:12 141 26 126/61 94 11/02/16 12:00 139 21 129/74 94 11/02/16 11:00 150 22 107/64 94 11/02/16 10:10 96 21 11/02/16 10:00 123 24 125/75 95 11/02/16 09:00 107 26 127/72 94 11/02/16 11/02/16 11/03/16 15:00 23:00 07:00 Intake Total 480 ml 100 ml 240 ml Output Total 900 ml 1000 ml 850 ml Balance -420 ml -900 ml -610 ml Intake Oral 480 ml 100 ml 240 ml Output Urine Total 900 ml 1000 ml 850 ml # Bowel Movements 1 1 1 Result Diagram: 11/02/16 0544 11/01/16 0511 A/P Problem List: (1) Atrial fibrillation with RVR Status: Acute Plan: Pt with bph/urine retention and hydro. anderson/ckd 3 related to post obstruction uti wiht proteus afib/rvr anemia. initially blood loss due to hpylori ulcer on prior admit now chronic illness hypotension resolved h. pylori gastric ulcer healing on egd 11/01 makenna heart healthy diet. PT cardiology following ..titrate up bb. dig added. resumed on dilt. convert to cardizem cd.has been off antic. cont abx for uti monitor renal function. improving tristan. flomax. urology following for obstruction. spoke to dR Ruiz..maintain tristan and outpt referral for turp. scd's d/c in next 24 hrs...pt reeval. CM eval...pt wants [facility] but will likely need snf again. (2) Acute kidney injury superimposed on chronic kidney disease Status: Acute Plan: see above (3) CKD (chronic kidney disease) stage 3, GFR 30-59 ml/min Status: Chronic (4) UTI (urinary tract infection) Status: Acute Plan: see above (5) Urine retention Status: Acute Plan: see above (6) Anemia Status: Chronic (7) Diastolic CHF, chronic Status: Chronic Plan: stable.compensated. (8) HTN (hypertension) Status: Chronic (9) Diabetes mellitus Status: Chronic Plan: ssi Problem Qualifiers (1) UTI (urinary tract infection): Qualified Code: N30.00 - Acute cystitis without hematuria (2) Anemia: Qualified Code: D64.9 - Anemia, unspecified type (3) Diabetes mellitus: Chidi Herrera MD Nov 03, 2016 08:38
[2016-11-03] MEDS: DOCUSATE SODIUM 50 MG/SENNA 8.6 MG TAB PO SCH ×2 (09:00→21:00)
[2016-11-03] MEDS: PANTOPRAZOLE SOD 40 MG DELAYED RELEASE TAB PO SCH (09:00)
[2016-11-03] MEDS: LEVOFLOXACIN 250 MG TAB PO SCH (10:04)
[2016-11-03] MEDS: METOPROLOL TARTRATE 100 MG TAB PO SCH ×2 (10:04→22:05)
[2016-11-03] MEDS: DILTIAZEM-CD 240 MG CAP ER PO SCH ×2 (10:04→22:05)
[2016-11-03] MEDS: TAMSULOSIN HCL 0.4 MG CAP PO SCH (10:04)
[2016-11-03] MEDS: DIGOXIN 0.125 MG TAB PO SCH (10:04)
[2016-11-03 13:18] LABS: BICARBONATE 23.5 MEQ/L (21.0-32.0); POTASSIUM 3.8 MEQ/L (3.5-5.1)
--- NOTE | 2016-11-03 14:13 | HHI.NPPN ---
Subjective History of Present Illness 81-year-old white male with history of GI bleed, chronic kidney disease, acute renal failure, urinary retention, prostate enlargement who had been told on his facility with atrial fibrillation and rapid ventricular rate he was transferred to the main hospital and he has acute renal failure and urinary retention, he has similar presentation few weeks ago and was supposed to follow-up with urology. Additional Remarks Patient is alert, no SOB, started tolerating liquids, not in distress. Review of Systems General Constitutional: Fatigue Objective Data Data 11/02/16 11/03/16 19:00 07:00 Intake Total 480 ml 340 ml Output Total 900 ml 1850 ml Balance -420 ml -1510 ml Intake Oral 480 ml 340 ml Output Urine Total 900 ml 1850 ml # Bowel Movements 1 2 Vital Signs Date Time Temp Pulse Resp B/P Pulse Ox O2 Delivery O2 Flow Rate FiO2 11/03/16 04:00 97.8 87 18 128/74 93 11/03/16 04:00 Room Air 11/03/16 03:25 83 11/03/16 02:17 97.8 96 19 127/70 93 11/03/16 02:17 Room Air 11/03/16 00:00 101 11/03/16 00:00 99.0 101 26 134/77 11/02/16 22:00 100 11/02/16 20:00 100 11/02/16 20:00 98.2 100 20 120/82 11/02/16 18:00 103 21 130/79 95 11/02/16 17:00 101 18 133/71 11/02/16 16:00 108 22 124/82 94 11/02/16 15:00 97.7 112 25 120/74 95 -: 11/02/16 0544 11/03/16 1220 Physical Exam General Appearance: No Acute Distress, Comfortable Eyes Eye Exam: Pupils Equal Throat Throat Exam: Oral Mucosa [place] & Moist Neck Neck Exam: Neck Supple Pulmonary Resp Exam: Clear Bilaterally, Breath Sounds Equal, No Distress, Decreased Bases Cardiology CV Exam: Regular, Normal Sinus Rhythm Gastrointestinal/Abdomen GI Exam: Soft, Non-Tender, Bowel Sounds Present Extremeties Extremities Exam: No Edema Neurologic Neuro Exam: Alert, Awake, Oriented Psychiatric Psych Exam: Appropriate Responses Assessment/Plan Problem List: (1) Acute kidney injury superimposed on chronic kidney disease Plan: He has similar episode with urinary retention and was to follow-up with the urology, he has 2 L of urine output after putting a Ruiz catheter, acute renal failure should resolve He did have hydronephrosis due to prostate enlargement. Creatinine declined to 1.2 advice to fu with Urology Nephrology to follow as needed (2) CKD (chronic kidney disease) stage 3, GFR 30-59 ml/min Plan: Continue to monitor (3) Urine retention Plan: Resolved with Ruiz catheter (4) Atrial fibrillation with RVR Plan: on Diltiazem Stu Jones MD Nov 03, 2016 14:13
--- NOTE | 2016-11-03 16:25 | HHI.GIFU ---
Subjective Remarks Pt resting in bed, no GI complaints. Feels fine, eating ok. (Geetha Galan) Objective Vitals I&O Vital Signs Date Time Temp Pulse Resp B/P Pulse Ox O2 Delivery O2 Flow Rate FiO2 11/03/16 12:00 97.6 85 16 140/83 96 11/03/16 10:20 96 11/03/16 08:00 98.0 86 16 123/73 93 11/03/16 04:00 97.8 87 18 128/74 93 11/03/16 04:00 Room Air 11/03/16 03:25 83 11/03/16 02:17 97.8 96 19 127/70 93 11/03/16 02:17 Room Air 11/03/16 00:00 101 11/03/16 00:00 99.0 101 26 134/77 11/02/16 22:00 100 11/02/16 20:00 100 11/02/16 20:00 98.2 100 20 120/82 11/02/16 18:00 103 21 130/79 95 11/02/16 17:00 101 18 133/71 I/O 11/02/16 11/02/16 11/02/16 11/03/16 11/03/16 11/03/16 06:59 14:59 22:59 06:59 14:59 22:59 Intake Total 717 ml 580 ml 240 ml Output Total 550 ml 1900 ml 850 ml Balance 167 ml -1320 ml -610 ml Intake Oral 250 ml 580 ml 240 ml IV Total 467 ml Output Urine Total 550 ml 1900 ml 850 ml Stool Total 0 ml # Bowel Movements 2 1 Laboratory Laboratory Tests Test 11/03/16 12:20 Sodium Level 141 Potassium Level 3.8 Chloride Level 110 Carbon Dioxide Level 23.5 Anion Gap 8 Blood Urea Nitrogen 22 Creatinine 1.20 Estimat Glomerular Filtration 58 Rate Random Glucose 268 Calcium Level 8.6 Imaging Last Impressions Chest X-Ray 10/29/16 0703 Signed Impressions: Service Date/Time: Saturday, October 29, 2016 07:14 - CONCLUSION: No acute cardiopulmonary process. Eugene Mcintosh MD Abdomen Ultrasound 10/29/16 0000 Signed Impressions: Service Date/Time: Saturday, October 29, 2016 13:28 - CONCLUSION: 1. Bilateral hydronephrosis. Etiology is uncertain but given the very distended urinary bladder it could be related to bladder outlet obstruction or potentially reflux. 2. Mild hepatomegaly. 3. Bilateral renal cysts. Mason Bellamy MD Physical Exam HEENT: PERRLA NECK: Neck is supple, no JVD, no lymphadenopathy. CHEST: Chest is clear to auscultation and percussion. Bases diminished CARDIAC: Irregular ABDOMEN: Soft, nondistended, nontender; no hepatosplenomegaly; bowel sounds are present x 4 quadrants EXTREMITIES: No clubbing, cyanosis, or edema. SKIN: Normal; no rash; no jaundice. CURRICULUM AND INSTRUCTION DIRECTOR: No focal deficits; alert and oriented x 3. (Geetha Galan POWER MANAGER) Assessment and Plan Plan ASSESSMENT: - Anemia. Hospitalized for GI bleeding in August of 2016. S/P EGD (09/03/16)----> Large antral ulcer, incomplete evaluation of the stomach. Pathology revealed gastric antral mucosal biopsies with severe active chronic gastritis , negative for intestinal metaplasia and dysplasia, kavitha stain positive for bacteria consistent with Helicobacter. According to the EMR, Dr. Scanlon contacted Radha at [facility] with recommendations to treat the H. Pylori. The patient is currently on Protonix 40mg po BID. He was then hospitalized in September for Afib and CHF and found to have anemia at that time, required transfusion. He was recently seen in the office on October 20, 2016 and scheduled for a repeat EGD, as well as H. Pylori Stool Ag. s/p EGD showed healing gastric ulcer, path neg for h pylori, awaiting stool Of note, HH on was 10.7/32.7. stable since yesterday. Protonix. Hemoccult negative. Will check H. Pylori Stool Ag. anemia likely multifactoria, d/t acute on chronic renal dz, malnutrition- albumin 1.6 - Elevated LFTs, mild T. Bili 0.3, AST 23, ALT 30, Alk Phosph 149. Abdomen Ultrasound (10/29/16)----> 1. Bilateral hydronephrosis. Etiology is uncertain but given the very distended urinary bladder it could be related to bladder outlet obstruction or potentially reflux. 2. Mild hepatomegaly. 3. Bilateral renal cysts. Likely this is related to hepatic congestion. - Atrial fibrillation with RVR, Diastolic CHF. Cardizem gtt - ADRI on CKD, Creat 1.70. Nephrology following. - HTN, DM per attending PLAN: - f/u with GI on D/C - Cont. PPI - await Stool for H. Pylori - Monitor HH - Transfuse as necessary - await Hemoccult stool x 3 - Supportive care - Further recommendations to follow based on results of above Patient seen and examined by and myself and this note is written on his behalf (Geetha Galan) Physician Comments Patient seen and examined Agree with above Continue with current supportive care Monitor labs No evidence of GI bleed at this point We will sign off Patient follow-up with GI post discharge (Arnoldo Scanlon MD) Geetha Galan Nov 03, 2016 16:25 Arnoldo Scanlon MD Nov 03, 2016 22:10
[2016-11-04] VITALS: BP 132/83; PULSE 88; RESP 20; TEMP 98.2; O2SAT 95
[2016-11-04 04:00] VITALS: BP 129/80; PULSE 100; RESP 20; TEMP 97.6; O2SAT 93
[2016-11-04] MEDS: CHLORHEXIDINE GLUCONATE 2 % 1 PACK (2 CLOTHS) TOP SCH (04:00)
[2016-11-04] MEDS: INSULIN NovoLIN REGULAR SUPPLEMENTAL SCALE SQ SCH ×2 (06:12→12:45)
[2016-11-04] MEDS: PANTOPRAZOLE SOD 40 MG DELAYED RELEASE TAB PO SCH (07:51)
[2016-11-04] MEDS: TAMSULOSIN HCL 0.4 MG CAP PO SCH (07:51)
[2016-11-04] MEDS: DIGOXIN 0.125 MG TAB PO SCH (07:51)
[2016-11-04] MEDS: DOCUSATE SODIUM 50 MG/SENNA 8.6 MG TAB PO SCH (07:51)
[2016-11-04] MEDS: LEVOFLOXACIN 250 MG TAB PO SCH (07:51)
[2016-11-04] MEDS: DILTIAZEM-CD 240 MG CAP ER PO SCH (07:51)
[2016-11-04] MEDS: METOPROLOL TARTRATE 100 MG TAB PO SCH (07:51)
[2016-11-04 08:00] VITALS: BP 104/66; PULSE 75; PULSE 76; RESP 18; TEMP 98.1; O2SAT 93
--- NOTE | 2016-11-04 09:02 | HHI.PR ---
Subjective Remarks doing well. Objective Vitals heart reg lung cta abd s/nt ext no edema tristan Vital Signs Date Time Temp Pulse Resp B/P Pulse Ox O2 Delivery O2 Flow Rate FiO2 11/04/16 08:10 Room Air 11/04/16 08:00 98.1 75 18 104/66 93 11/04/16 04:00 97.6 100 20 129/80 93 11/04/16 00:00 98.2 88 20 132/83 95 11/03/16 20:00 Room Air 11/03/16 20:00 97.4 84 18 118/70 93 11/03/16 20:00 77 11/03/16 16:00 98.2 87 16 125/82 94 11/03/16 12:00 97.6 85 16 140/83 96 11/03/16 10:20 96 11/03/16 11/03/16 11/04/16 14:59 22:59 06:59 Intake Total 600 ml 120 ml Output Total 850 ml 1000 ml 700 ml Balance -250 ml -880 ml -700 ml Intake Oral 600 ml 120 ml Output Urine Total 850 ml 1000 ml 700 ml # Bowel Movements 0 0 Result Diagram: 11/02/16 0544 11/03/16 1220 A/P Problem List: (1) Atrial fibrillation with RVR Status: Acute Plan: Pt with bph/urine retention and hydro. anderson/ckd 3 related to post obstruction uti wiht proteus afib/rvr anemia. initially blood loss due to hpylori ulcer on prior admit now chronic illness hypotension resolved h. pylori gastric ulcer healing on egd 11/01 makenna heart healthy diet. PT cardiology following ..titrate up bb. dig added. resumed on dilt. convert to cardizem cd.has been off antic. cont abx for uti monitor renal function. improving tristan. flomax. urology following for obstruction. spoke to dR Ruiz..maintain tristan and outpt referral for turp. scd's add back glipizideand titrate and d/c metformin/amaryl due to fluctuating renal function. d/c to snf with f/u's (2) Acute kidney injury superimposed on chronic kidney disease Status: Acute Plan: see above (3) CKD (chronic kidney disease) stage 3, GFR 30-59 ml/min Status: Chronic (4) UTI (urinary tract infection) Status: Acute Plan: see above (5) Urine retention Status: Acute Plan: see above (6) Anemia Status: Chronic (7) Diastolic CHF, chronic Status: Chronic Plan: stable.compensated. (8) HTN (hypertension) Status: Chronic (9) Diabetes mellitus Status: Chronic Plan: ssi Problem Qualifiers (1) UTI (urinary tract infection): Qualified Code: N30.00 - Acute cystitis without hematuria (2) Anemia: Qualified Code: D64.9 - Anemia, unspecified type (3) Diabetes mellitus: Chidi Herrera MD Nov 04, 2016 09:02
[2016-11-04] MEDS ORDERED: METO-338 PO (09:06)
[2016-11-04] MEDS ORDERED: CARD240C6 PO (09:06)
[2016-11-04] MEDS ORDERED: DIGO0.12 PO (09:06)
[2016-11-04] MEDS ORDERED: GLIP5TAB8 PO (09:06)
[2016-11-04] MEDS ORDERED: LEVA250T14 PO (09:06)
--- NOTE | 2016-11-04 09:06 | HHI.DCPOC ---
Discharge Care Plan Diagnosis: (1) Atrial fibrillation with RVR (2) Acute kidney injury superimposed on chronic kidney disease (3) Diabetes mellitus (4) UTI (urinary tract infection) (5) Urine retention Goals to Promote Your Health * To prevent worsening of your condition and complications * To maintain your health at the optimal level Directions to Meet Your Goals Take your medications as prescribed Follow your dietary instruction Follow activity as directed Keep your appointments as scheduled Take your immunizations and boosters as scheduled If your symptoms worsen call your PCP, if no PCP go to Urgent Care Center or Emergency Room Smoking is Dangerous to Your Health. Avoid second hand smoke Call the 24-hour hour crisis hotline for domestic abuse at Chidi Herrera MD Nov 04, 2016 09:06
[2016-11-04 12:00] VITALS: BP 103/61; PULSE 78; RESP 18; TEMP 99; O2SAT 98
== END 2016-11-04 13:13 | DRG 309 ==
LOC: PHED 07:00 → PHEDA 09:16 → HIMN 15:30 → N04B 11-03 01:38
PROVIDERS: ADMIT Hospitalist; ATTEND Hospitalist
PROC: 0DB68ZX Excision of Stomach, Via Natural or Artificial Opening Endoscopic, Diagnostic (ICD-10-PCS; principal; 2016-11-01 13:45)
DX: I48.2 Chronic atrial fibrillation (principal); I13.0 Hypertensive heart and chronic kidney disease with heart failure and stage 1 through stage 4 chronic kidney disease, or unspecified chronic kidney disease; N17.9 Acute kidney failure, unspecified; E11.22 Type 2 diabetes mellitus with diabetic chronic kidney disease; I95.9 Hypotension, unspecified; I50.32 Chronic diastolic (congestive) heart failure; N30.00 Acute cystitis without hematuria; N13.39 Other hydronephrosis; I27.2 Other secondary pulmonary hypertension; E78.5 Hyperlipidemia, unspecified; M10.9 Gout, unspecified; N18.3 Chronic kidney disease, stage 3 (moderate); N40.1 Benign prostatic hyperplasia with lower urinary tract symptoms; R33.8 Other retention of urine; Z87.891 Personal history of nicotine dependence; K25.7 Chronic gastric ulcer without hemorrhage or perforation; K44.9 Diaphragmatic hernia without obstruction or gangrene; E11.42 Type 2 diabetes mellitus with diabetic polyneuropathy; M19.90 Unspecified osteoarthritis, unspecified site; D63.1 Anemia in chronic kidney disease; Z79.84 Long term (current) use of oral hypoglycemic drugs
CPT/HCPCS: 71010; 76700; 80048; 80053; 80162; 81001; 82550; 82948; 83735; 83880; 84100; 84443; 84484; 85014; 85018; 85025; 85027; 85610; 85730; 87077; 87086; 87186; 87641; 88305; 88312; 93005; 93306; 94640; 94664; 96361; 96374; 96375; C9113; J0696; J1160; J2543; J7030; J7040; J7042

== ENCOUNTER 2016-11-24 16:07 | Inpatient (IN) | payer MEDICARE ==
[2016-11-24] VITALS (7 sets, daily range): BP systolic 120–135; BP diastolic 68–77; PULSE 67–100; RESP 14–21; TEMP 96.9–98.2; O2SAT 92–100
[~2016-11-24] VITALS: Ht 180.3 cm; Wt 62.0 kg
[~2016-11-24 16:07] MED LIST changes: -ASPI81CH PO; +ASPI81TA11 PO; -CARD120C4 PO; +CARD240C6 PO; +DIGO0.12 PO; +GLIP5TAB8 PO; +LEVA250T14 PO
--- NOTE | 2016-11-24 16:18 | PD ---
HPI . shortness of breath and edema Chief Complaint: shortness of breath and edema Time Seen by Provider: 16:18 Travel History International Travel<30 days: No Contact w/Intl Traveler<30days: No Traveled to known affect area: No History of Present Illness HPI 81- year old male with a PMHx of CKD, Anemia, HTN, Diabetes and A- fib brought to the ED from assisted living facility by [facility] complaining of generalized edema. Per [facility] the patient had the swelling since Tuesday, however, reportedly it is getting worse. The patient recently had a change in his diuretic and was started on Lasix yesterday. En route the patient was started on 2L of oxygen and was at 94-95%. At the patient's living facility the patient is not on any oxygen, however off O2 he was at 88% on RA. The patient denies any chest pain, shortness of breath, or pain anywhere. The patient's medical history was limited as he is a poor historian and unsure of his medical history. He admits to shortness of breath, but denies any chest pain, fever, chills, abdominal pain, diarrhea, etc. PFSH Past Medical History Arthritis: Yes Asthma: No Atrial Fibrillation: Yes Blood Disorders: No Anxiety: No (he gets mild anxiety when he cannot remember things) Depression: No Heart Rhythm Problems: Yes Cancer: No Cardiovascular Problems: Yes High Cholesterol: No Chemotherapy: No Chest Pain: No Congestive Heart Failure: Yes COPD: No Cerebrovascular Accident: No Diabetes: Yes Endocrine: No Gout: Yes Genitourinary: No Hypertension: Yes Immune Disorder: No Implanted Vascular Access Dvce: Yes Musculoskeletal: Yes (weakness with aging process) Neurologic: No Psychiatric: No Respiratory: Yes (CHF; COPD) Migraines: No Radiation Therapy: No Renal Failure: No Seizures: No Sleep Apnea: No Thyroid Disease: No Ulcer: Yes Past Surgical History Abdominal Surgery: Yes (HERNIA REPAIR) Body Medical Devices: walker Pacemaker: No Other Surgery: Yes (as a child left hernia groin repair) Social History Alcohol Use: No (RARE) Tobacco Use: No Substance Use: No Allergies-Medications (Allergen,Severity, Reaction): Coded Allergies: *MDRO Multi-Drug Resistant Organism (Verified Adverse Reaction, Unknown, MRSA, 11/24/16) MRSA PCR (nares) POSITIVE - 10/29/16 Reported Meds & Prescriptions Reported Meds & Active Scripts Active Cardizem CD 24 HR (Diltiazem CD 24 HR) 240 Mg Caper 240 Mg PO BID Digoxin 0.125 Mg Tab 0.125 Mg PO DAILY Flomax (Tamsulosin HCl) 0.4 Mg Cap 0.4 Mg PO HS Protonix (Pantoprazole Sodium) 40 Mg Tab 40 Mg PO BID Reported Levemir Inj (Insulin Detemir) 1,000 unit/ 10 ML Vial 15 Units SQ BID Do not mix with any other Insulin. Humalog Inj (Insulin Human Lispro) 1,000 Unit/10 Ml Vial 1-9 Units SQ ACHS Max dose at bedtime:( )units; sugars< 70,(0)units; sugars 150-199,(1)unit; sugars 200-249,(3)units; sugars 250-299,(5)units; sugars 300-349,(7)units; sugars more than 349,(9)units. Metoprolol Tartrate 50 Mg Tab 50 Mg PO BID Amoxicillin-Clavulanate 500-125 mg Tab 500 Mg PO BID Furosemide 20 Mg Tab 20 Mg PO BID Zinc Sulfate 220 Mg Cap 220 Mg PO DAILY Multiple Vitamin 1 Tab 1 Tab PO DAILY Aspirin EC (Aspirin) 81 Mg Tabdr 81 Mg PO DAILY Ferrous Sulfate DR (Ferrous Sulfate) 324 Mg Tabdr 325 Mg PO DAILY Namenda (Memantine) 10 Mg Tab 10 Mg PO DAILY Atorvastatin (Atorvastatin Calcium) 40 Mg Tab 40 Mg PO HS Allopurinol 100 Mg Tab 100 Mg PO DAILY Review of Systems ROS Limitations: Poor Historian General / Constitutional: No: Fever, Chills, Weight Gain, Weight Loss, Other Eyes: No: Diploplia, Blurred Vision, Photophobia, Drainage, Redness, Foreign Body Sensation, Pain, Tearing, Blind Spots, Visual changes, Blindness, Other HENT: No: Headaches, Vertigo, Lightheadedness, Sore Throat, Rhinitis, Rhinorrhea, Congestion, Nosebleed, Neck Stiffness, Neck Pain, Masses, Gingival Bleeding, Dental Difficulties, Ear Discharge, Earache, Other Cardiovascular: Positive: Edema, No: Chest Pain or Discomfort, Palpitations, Irregular Rhythm, Tachycardia, Diaphoresis, Syncope, Dyspnea on exertion, Varicosities, Cyanosis, Varicosities, Phlebitis, Claudication, Other Respiratory: No: Cough, Shortness of Breath, Wheezing, Sneezing, Orthopnea, Hemoptysis, Stridor, Night Sweats, Pleuritic Pain, Other Gastrointestinal: No: Nausea, Vomiting, Diarrhea, Abdominal Pain, Hematemesis, Hematochezia, Constipation, Changes in Bowel Habits, Indigestion, Dysphagia, Loss of Appetite, Other Genitourinary: No: Urgency, Frequency, Dysuria, Nocturia, Hematuria, Decreased Urinary Output, Oliguria, Hesitancy, Dribbling, Incontinence, Pelvic Pain, Flank Pain, Dyspareunia, Discharge, Dysmenorrhea, Menorrhagia, Metorrhagia, Vaginal Bleeding, Other Musculoskeletal: No: Myalgias, Arthralgias, Limited ROM, Weakness, Cramping, Edema, Pain, Atrophy, Other Skin: No Rash, No Itching, No Dryness, No Lumps, No Hives, No Change in Pigmentation, No Change in nails, No Alopecia, No Lesions, No Breast Lumps, No Breast Tenderness, No Breast Swelling, No Other Neurologic: No: Weakness, Dizziness, Syncope, Focal Abnormalities, Coordination Problem, Tremor, Ataxia, Headache, Change in Mentation, Slurred Speech, Paresthesia, Incontinence, Seizures, Sensory Disturbance, Other Psychiatric: No: Anxiety, Depression, Suicidal Ideations, Disorder of Thought, Mood Disorder, Substance Abuse, Homicidal Ideation, Other Endocrine: No: Heat Intolerance, Cold Intolerance, Polyuria, Polydipsia, Other Hematologic/Lymphatic: No: Easy Bruising, Lymph Node Enlargement, Other Physical Exam Narrative GENERAL: SKIN: Warm and dry. HEAD: Atraumatic. Normocephalic. EYES: Pupils equal and round. No scleral icterus. No injection or drainage. ENT: No nasal bleeding or discharge. Mucous membranes pink and moist. NECK: Trachea midline. No JVD. CARDIOVASCULAR: Generalized piting edema. Patient in A-fib. RESPIRATORY: No accessory muscle use. Clear to auscultation. Breath sounds equal bilaterally. GASTROINTESTINAL: Abdomen hard and distended, but not tender to palpation. no rebound or guarding, + edema MUSCULOSKELETAL: Extremities without clubbing, cyanosis. 2+ edema in all extremities, abdomen, groin NEUROLOGICAL: Awake and alert. No obvious cranial nerve deficits. Motor grossly within normal limits. Five out of 5 muscle strength in the arms and legs. Normal speech. PSYCHIATRIC: Appropriate mood and affect; insight and judgment normal. Data Data Last Documented VS Vital Signs Date Time Temp Pulse Resp B/P Pulse Ox O2 Delivery O2 Flow Rate FiO2 11/24/16 18:38 67 19 128/76 96 Nasal Cannula 2 11/24/16 16:20 98.2 Orders Complete Blood Count With Diff (11/24/16 16:25) Comprehensive Metabolic Panel (11/24/16 16:25) B-Type Natriuretic Peptide (11/24/16 16:25) Act Partial Throm Time (Ptt) (11/24/16 16:25) Prothrombin Time / Inr (Pt) (11/24/16 16:25) Urinalysis - C+S If Indicated (11/24/16 16:25) Iv Access Insert/Monitor (11/24/16 16:25) Electrocardiogram (11/24/16 16:25) Ecg Monitoring (11/24/16 16:25) Oximetry (11/24/16 16:25) Oxygen Administration (11/24/16 16:25) Chest, Single Ap (11/24/16 16:25) Sodium Chloride 0.9% Flush (Ns Flush) (11/24/16 16:30) Albuterol-Ipratropium Neb (Duoneb Neb) (11/24/16 16:30) Bumetanide Inj (Bumex Inj) (11/24/16 17:00) Ckmb (Isoenzyme) Profile (11/24/16 17:00) Magnesium (Mg) (11/24/16 17:00) Troponin I (11/24/16 17:00) Urinary Catheter Insert/Apply (11/24/16 18:06) Urine Culture (11/24/16 17:40) Admit Order (Ed Use Only) (11/24/16 18:51) Labs Laboratory Tests Test 11/24/16 11/24/16 17:00 17:40 White Blood Count 11.4 TH/MM3 Red Blood Count 3.73 MIL/MM3 Hemoglobin 10.2 GM/DL Hematocrit 31.1 % Mean Corpuscular Volume 83.5 FL Mean Corpuscular Hemoglobin 27.5 PG Mean Corpuscular Hemoglobin 32.9 % Concent Red Cell Distribution Width 19.9 % Platelet Count 299 TH/MM3 Mean Platelet Volume 9.8 FL Neutrophils (%) (Auto) 76.3 % Lymphocytes (%) (Auto) 14.1 % Monocytes (%) (Auto) 8.1 % Eosinophils (%) (Auto) 0.8 % Basophils (%) (Auto) 0.7 % Neutrophils # (Auto) 8.7 TH/MM3 Lymphocytes # (Auto) 1.6 TH/MM3 Monocytes # (Auto) 0.9 TH/MM3 Eosinophils # (Auto) 0.1 TH/MM3 Basophils # (Auto) 0.1 TH/MM3 CBC Comment DIFF FINAL Differential Comment Prothrombin Time 11.9 SEC Prothromb Time International 1.1 RATIO Ratio Activated Partial 33.8 SEC Thromboplast Time Sodium Level 139 MEQ/L Potassium Level 5.5 MEQ/L Chloride Level 106 MEQ/L Carbon Dioxide Level 24.1 MEQ/L Anion Gap 9 MEQ/L Blood Urea Nitrogen 38 MG/DL Creatinine 1.91 MG/DL Estimat Glomerular Filtration 34 ML/MIN Rate Random Glucose 164 MG/DL Calcium Level 8.7 MG/DL Magnesium Level 1.9 MG/DL Total Bilirubin 0.3 MG/DL Aspartate Amino Transf 22 U/L (AST/SGOT) Alanine Aminotransferase 14 U/L (ALT/SGPT) Alkaline Phosphatase 137 U/L Total Creatine Kinase 48 U/L Troponin I 0.02 NG/ML B-Type Natriuretic Peptide 463 PG/ML Total Protein 7.1 GM/DL Albumin 2.4 GM/DL Urine Color YELLOW Urine Turbidity HAZY Urine pH 5.5 Urine Specific [place] 1.017 Urine Protein 100 mg/dL Urine Glucose (UA) NEG mg/dL Urine Ketones NEG mg/dL Urine Occult Blood SMALL Urine Nitrite NEG Urine Bilirubin NEG Urine Urobilinogen LESS THAN 2.0 MG/DL Urine Leukocyte Esterase LARGE Urine RBC 11 /hpf Urine WBC /hpf Urine WBC Clumps OCC Urine Amorphous Sediment RARE Urine Bacteria OCC /hpf Urine Hyaline Casts 7 /lpf Urine Mucus FEW /lpf Urine Yeast with Hyphae FEW Urine Yeast (Budding) MOD Microscopic Urinalysis Comment CULTURE INDICATED MDM Medical Decision Making Medical Screen Exam Complete: Yes Emergency Medical Condition: Yes Medical Record Reviewed: Yes Differential Diagnosis CHF, a fib, COPD, Narrative Course 81 yr old male here with sob and edema. Apparently there was a change in his diuretics. He admits to sob. He is a poor historian. IV access obtained. Patient placed on cardiac monitoring and pulse oximetry. He does have A. fib, but no RVR. On examination he has diminished breath sounds bilaterally. He is edematous throughout his entire body. Labs and chest x-ray have been ordered. Patient given IV Bumex here in the ED. Discussed with Dr. Loaiza Last Impressions Chest X-Ray 11/24/16 5279 Signed Impressions: Service Date/Time: Thursday, November 24, 2016 16:27 - CONCLUSION: New pulmonary opacities and effusions characteristic of congestive heart failure. Elvis Dinh MD Laboratory Tests Test 11/24/16 17:00 White Blood Count 11.4 TH/MM3 Red Blood Count 3.73 MIL/MM3 Hemoglobin 10.2 GM/DL Hematocrit 31.1 % Mean Corpuscular Volume 83.5 FL Mean Corpuscular Hemoglobin 27.5 PG Mean Corpuscular Hemoglobin 32.9 % Concent Red Cell Distribution Width 19.9 % Platelet Count 299 TH/MM3 Mean Platelet Volume 9.8 FL Neutrophils (%) (Auto) 76.3 % Lymphocytes (%) (Auto) 14.1 % Monocytes (%) (Auto) 8.1 % Eosinophils (%) (Auto) 0.8 % Basophils (%) (Auto) 0.7 % Neutrophils # (Auto) 8.7 TH/MM3 Lymphocytes # (Auto) 1.6 TH/MM3 Monocytes # (Auto) 0.9 TH/MM3 Eosinophils # (Auto) 0.1 TH/MM3 Basophils # (Auto) 0.1 TH/MM3 CBC Comment DIFF FINAL Differential Comment Prothrombin Time 11.9 SEC Prothromb Time International 1.1 RATIO Ratio Activated Partial 33.8 SEC Thromboplast Time Sodium Level 139 MEQ/L Potassium Level 5.5 MEQ/L Chloride Level 106 MEQ/L Carbon Dioxide Level 24.1 MEQ/L Anion Gap 9 MEQ/L Blood Urea Nitrogen 38 MG/DL Creatinine 1.91 MG/DL Estimat Glomerular Filtration 34 ML/MIN Rate Random Glucose 164 MG/DL Calcium Level 8.7 MG/DL Magnesium Level 1.9 MG/DL Total Bilirubin 0.3 MG/DL Aspartate Amino Transf 22 U/L (AST/SGOT) Alanine Aminotransferase 14 U/L (ALT/SGPT) Alkaline Phosphatase 137 U/L Total Creatine Kinase 48 U/L Troponin I 0.02 NG/ML B-Type Natriuretic Peptide 463 PG/ML Total Protein 7.1 GM/DL Albumin 2.4 GM/DL Chest x-ray demonstrating CHF.Patient also with ADRI. UTI and Hypoxic on room air. I discussed the case with my attending Dr John Loaiza. He is in agreement with recommended treatment plan. 1809: Request a callback for admission to [facility] 2012: I discussed the case with Dr. lópez here in the emergency department. He will take over care for this patient. Diagnosis Primary Impression: CHF (congestive heart failure) Qualified Code: I50.9 - Acute on chronic congestive heart failure, unspecified congestive heart failure type Additional Impression: ADRI (acute kidney injury) Admitting Information Admitting Physician Requests: Admit Condition: Stable Giovanna Gutierrez Nov 24, 2016 16:18
[2016-11-24] MEDS ORDERED: SODIUM CHLORIDE 0.9% FLUSH 10 ML FLUSH IVF PRN (16:30)
[2016-11-24] MEDS ORDERED: BUMETANIDE INJ 1 MG/4 ML VIAL IV PUSH ONE (17:00)
[2016-11-24] MEDS: RESP: ALBUTEROL 2.5 MG/IPRATROPIUM 0.5 MG NEB (SCH) INH (17:12)
--- NOTE | 2016-11-24 17:13 | RADRPT ---
EXAM DATE/TIME: 11/24/2016 16:27 [facility] COMPARISON: CHEST SINGLE AP, October 29, 2016, 7:14. INDICATIONS : Shortness of breath. MEDICAL HISTORY : Hypertension. Congestive heart failure. Chronic obstructive pulmonary disease. Afib. Diabetes. SURGICAL HISTORY : None. ENCOUNTER: Initial ACUITY: 1 day PAIN SCORE: 0/10 LOCATION: Bilateral chest FINDINGS: A single AP portable erect view of the chest was obtained and demonstrates a new parahilar and bibasi lar alveolar opacities with mild cardiomegaly and blunting of both costophrenic angles consistent wit h effusions. Bony thorax is stable in appearance with an old fracture deformity of the right proximal humerus again visualized. CONCLUSION: New pulmonary opacities and effusions characteristic of congestive heart failure. Elvis Dinh MD on November 24, 2016 at 17:11 Board Certified Radiologist. This report was verified electronically.
[2016-11-24] MEDS ORDERED: AMOX500T2 PO (17:17)
[2016-11-24] MEDS ORDERED: METO50TA PO (17:17)
[2016-11-24] MEDS ORDERED: HUMALOG SQ (17:17)
[2016-11-24] MEDS ORDERED: LEVEMIR SQ (17:17)
[2016-11-24] MEDS ORDERED: FURO20TA PO (17:17)
[2016-11-24] MEDS ORDERED: ZINC220C3 PO (17:17)
[2016-11-24] MEDS ORDERED: MULTTAB67 PO (17:17)
[2016-11-24 17:23] LABS: APTT (PATIENT) 33.8 SEC (24.3-30.1); INTERNATIONAL NORMALIZED RATIO 1.1 RATIO; PROTHROMBIN TIME - PATIENT 11.9 SEC (9.8-11.6)
[2016-11-24 17:28] LABS: AUTOMATED NEUTROPHIL # 8.7 TH/MM3 (1.8-7.7); BASOPHIL # 0.1 TH/MM3 (0-0.2); BASOPHIL % 0.7 % (0.0-2.0); EOSINOPHIL # 0.1 TH/MM3 (0-0.4); EOSINOPHIL % 0.8 % (0.0-4.0); HEMATOCRIT 31.1 % (39.0-51.0); HEMO FLAGS DIFF FINAL; LYMPH % 14.1 % (9.0-44.0); LYMPHOCYTE # 1.6 TH/MM3 (1.0-4.8); MEAN CELL VOLUME 83.5 FL (80.0-100.0); MEAN CORPUSCULAR HEMOGLOBIN 27.5 PG (27.0-34.0); MEAN CORPUSCULAR HGB CONC 32.9 % (32.0-36.0); MONO % 8.1 % (0.0-8.0); NEUT % 76.3 % (16.0-70.0); PLATELET COUNT 299 TH/MM3 (150-450); RED BLOOD COUNT 3.73 MIL/MM3 (4.50-5.90); RED CELL DISTRIBUTION WIDTH 19.9 % (11.6-17.2); WHITE BLOOD COUNT 11.4 TH/MM3 (4.0-11.0)
[2016-11-24 17:37] LABS: ANION GAP 9 MEQ/L (5-15); AST (GOT) 22 U/L (15-37); BICARBONATE 24.1 MEQ/L (21.0-32.0); BLOOD UREA NITROGEN 38 MG/DL (7-18); CHLORIDE 106 MEQ/L (98-107); GLOMERULAR FILTRATION RATE 34 ML/MIN (>89); MAGNESIUM 1.9 MG/DL (1.5-2.5); SODIUM (NA) 139 MEQ/L (136-145)
[2016-11-24 17:38] LABS: POTASSIUM 5.5 MEQ/L (3.5-5.1)
[2016-11-24 17:41] LABS: ALKALINE PHOSPHATASE 137 U/L (45-117); ALT (GPT) 14 U/L (12-78); TOTAL BILIRUBIN ADULT 0.3 MG/DL (0.2-1.0)
[2016-11-24 17:42] LABS: CREATINE KINASE 48 U/L (39-308)
[2016-11-24 18:47] LABS: BACTERIA, URINE OCC /hpf; BLOOD, URINE SMALL (NEG); COMMENT (UR) CULTURE INDICATED; CULTURE IF INDICATED CULTURE INDICATED; GLUCOSE,URINE NEG (NEG); HYALINE CAST, URINE 7 /lpf (RARE); KETONE, URINE NEG (NEG); MUCUS URINE FEW /lpf (OCC); NITRITE,URINE NEG (NEG); PH, URINE 5.5 (5.0-8.5); URINE COLOR YELLOW (YELLW/STRAW)
--- NOTE | 2016-11-24 20:14 | HHI.HP ---
HPI Service [facility] Hospitalists Primary Care Physician Hardik Vazquez Admission Diagnosis CHF/ADRI/UTI Chief Complaint: increasing edema over several days Travel History International Travel<30 Days: No Contact w/Intl Traveler <30 Da: No Traveled to Known Affected Are: No History of Present Illness 81- year old male with a PMHx of CKD, Anemia, HTN, Diabetes and A- fib brought to the ED from assisted living facility by [facility] complaining of generalized edema. Per [facility] the patient had the swelling since Tuesday, however, reportedly it is getting worse. The patient recently had a change in his diuretic and was started on Lasix yesterday. En route the patient was started on 2L of oxygen and was at 94-95%. At the patient's living facility the patient is not on any oxygen, however off O2 he was at 88% on RA. The patient denies any chest pain, shortness of breath, or pain anywhere. The patient's medical history was limited as he is a poor historian and unsure of his medical history. He admits to shortness of breath, but denies any chest pain, fever, chills, abdominal pain, diarrhea, etc. Patient was admitted for similar problems last month. Review of Systems Respiratory: COMPLAINS OF: Shortness of breath Cardiovascular: COMPLAINS OF: Dyspnea on Exertion, Lower Extremity Edema Past Family Social History Past Medical History dm,hypertension,chf diastolic,djd afib,anemia ckd stage 3,anxiety Past Surgical History hernia repair Reported Medications Cardizem CD 24 HR (Diltiazem CD 24 HR) 240 Mg Caper 240 Mg PO BID Digoxin 0.125 Mg Tab 0.125 Mg PO DAILY Flomax (Tamsulosin HCl) 0.4 Mg Cap 0.4 Mg PO HS Protonix (Pantoprazole Sodium) 40 Mg Tab 40 Mg PO BID Reported Levemir Inj (Insulin Detemir) 1,000 unit/ 10 ML Vial 15 Units SQ BID Do not mix with any other Insulin. Humalog Inj (Insulin Human Lispro) 1,000 Unit/10 Ml Vial 1-9 Units SQ ACHS Max dose at bedtime:( )units; sugars< 70,(0)units; sugars 150-199,(1)unit; sugars 200-249,(3)units; sugars 250-299,(5)units; sugars 300-349,(7)units; sugars more than 349,(9)units. Metoprolol Tartrate 50 Mg Tab 50 Mg PO BID Amoxicillin-Clavulanate 500-125 mg Tab 500 Mg PO BID Furosemide 20 Mg Tab 20 Mg PO BID Zinc Sulfate 220 Mg Cap 220 Mg PO DAILY Multiple Vitamin 1 Tab 1 Tab PO DAILY Aspirin EC (Aspirin) 81 Mg Tabdr 81 Mg PO DAILY Ferrous Sulfate DR (Ferrous Sulfate) 324 Mg Tabdr 325 Mg PO DAILY Namenda (Memantine) 10 Mg Tab 10 Mg PO DAILY Atorvastatin (Atorvastatin Calcium) 40 Mg Tab 40 Mg PO HS Allopurinol 100 Mg Tab 100 Mg PO DAILY Allergies: Coded Allergies: *MDRO Multi-Drug Resistant Organism (Verified Adverse Reaction, Unknown, MRSA, 11/24/16) MRSA PCR (nares) POSITIVE - 10/29/16 Social History NS,ND Physical Exam Vital Signs Vital Signs Date Time Temp Pulse Resp B/P Pulse Ox O2 Delivery O2 Flow Rate FiO2 11/24/16 18:38 67 19 128/76 96 Nasal Cannula 2 11/24/16 17:54 Nasal Cannula 2 11/24/16 17:54 97 Nasal Cannula 2 11/24/16 17:12 100 Nasal Cannula 2.00 11/24/16 16:22 92 Nasal Cannula 2 11/24/16 16:20 98.2 68 19 123/74 92 Physical Exam GENERAL: This is a well-nourished, well-developed patient, in no apparent distress. SKIN: No rashes, ecchymoses or lesions. Cool and dry. HEAD: Atraumatic. Normocephalic. No temporal or scalp tenderness. EYES: Pupils equal round and reactive. Extraocular motions intact. No scleral icterus. No injection or drainage. ENT: Nose without bleeding, purulent drainage or septal hematoma. Throat without erythema, tonsillar hypertrophy or exudate. Uvula midline. Airway patent. NECK: Trachea midline. No JVD or lymphadenopathy. Supple, nontender, no meningeal signs. CARDIOVASCULAR: Irreg rate RESPIRATORY: Decrease breath sounds bilateral with rales bases GASTROINTESTINAL: Abdomen soft, non-tender, distended. No hepato-splenomegaly, or palpable masses. No guarding. MUSCULOSKELETAL: Extremities without clubbing, cyanosis,plus 3 edema. No joint tenderness, effusion. No calf tenderness. Negative Homans sign bilaterally. NEUROLOGICAL: Awake and some confusion. Cranial nerves II through XII intact. Motor and sensory grossly within normal limits. Five out of 5 muscle strength in all muscle groups. Normal speech. Laboratory Laboratory Tests Test 11/24/16 11/24/16 17:00 17:40 White Blood Count 11.4 Red Blood Count 3.73 Hemoglobin 10.2 Hematocrit 31.1 Mean Corpuscular Volume 83.5 Mean Corpuscular Hemoglobin 27.5 Mean Corpuscular Hemoglobin 32.9 Concent Red Cell Distribution Width 19.9 Platelet Count 299 Mean Platelet Volume 9.8 Neutrophils (%) (Auto) 76.3 Lymphocytes (%) (Auto) 14.1 Monocytes (%) (Auto) 8.1 Eosinophils (%) (Auto) 0.8 Basophils (%) (Auto) 0.7 Neutrophils # (Auto) 8.7 Lymphocytes # (Auto) 1.6 Monocytes # (Auto) 0.9 Eosinophils # (Auto) 0.1 Basophils # (Auto) 0.1 CBC Comment DIFF FINAL Differential Comment Prothrombin Time 11.9 Prothromb Time International 1.1 Ratio Activated Partial 33.8 Thromboplast Time Sodium Level 139 Potassium Level 5.5 Chloride Level 106 Carbon Dioxide Level 24.1 Anion Gap 9 Blood Urea Nitrogen 38 Creatinine 1.91 Estimat Glomerular Filtration 34 Rate Random Glucose 164 Calcium Level 8.7 Magnesium Level 1.9 Total Bilirubin 0.3 Aspartate Amino Transf 22 (AST/SGOT) Alanine Aminotransferase 14 (ALT/SGPT) Alkaline Phosphatase 137 Total Creatine Kinase 48 Troponin I 0.02 B-Type Natriuretic Peptide 463 Total Protein 7.1 Albumin 2.4 Urine Color YELLOW Urine Turbidity HAZY Urine pH 5.5 Urine Specific [place] 1.017 Urine Protein 100 Urine Glucose (UA) NEG Urine Ketones NEG Urine Occult Blood SMALL Urine Nitrite NEG Urine Bilirubin NEG Urine Urobilinogen LESS THAN 2.0 Urine Leukocyte Esterase LARGE Urine RBC 11 Urine WBC Urine WBC Clumps OCC Urine Amorphous Sediment RARE Urine Bacteria OCC Urine Hyaline Casts 7 Urine Mucus FEW Urine Yeast with Hyphae FEW Urine Yeast (Budding) MOD Microscopic Urinalysis Comment CULTURE INDICATED Date/Time Procedure Status Source Growth 11/24/16 17:40 Urine Culture Received Urine Random Urine Pending Result Diagram: 11/24/16 1700 11/24/16 1700 Imaging Last 24 hours Impressions Chest X-Ray 11/24/16 1625 Signed Impressions: Service Date/Time: Tuesday, November 24, 2016 16:27 - CONCLUSION: New pulmonary opacities and effusions characteristic of congestive heart failure. Elvis Dinh MD Course in er given IV bumex Assessment and Plan Problem List: (1) CHF (congestive heart failure) Status: Acute Plan: patient with chf will continue bumex 1 mg IV bid for total 4 doses follow kidney function,diastolic dysfunction based on previous echo will continue oxygen (2) CKD (chronic kidney disease) stage 3, GFR 30-59 ml/min Status: Chronic Plan: will follow bun/cr (3) Atrial fibrillation with RVR Status: Chronic Plan: continue ccb rate is controlled (4) Diabetes mellitus Status: Chronic Plan: continue current medications Assessment and Plan further plan as case develops Code Status full Discussed Condition With patient Physician Certification 2 Midnight Certification Type: Admission for Inpatient Services Order for Inpatient Services The services are ordered in accordance with Medicare regulations or non- Medicare payer requirements, as applicable. In the case of services not specified as inpatient-only, they are appropriately provided as inpatient services in accordance with the 2-midnight benchmark. Estimated LOS (days): 2 2 days is the estimated time the patient will need to remain in the hospital, assuming treatment plan goals are met and no additional complications. Post-Hospital Plan: Not yet determined Problem Qualifiers (1) CHF (congestive heart failure): Qualified Code: I50.33 - Acute on chronic diastolic congestive heart failure Obinna Kyle MD Nov 24, 2016 20:14
[2016-11-24] MEDS ORDERED: SODIUM CHLORIDE 0.9% FLUSH 10 ML FLUSH IV FLUSH PRN (20:30)
[2016-11-24] MEDS ORDERED: NON-FORMULARY DRUG (Insulin Lispro (Human) Inj (Humalog Inj) 0 UNITS) SQ SCH (21:00)
[2016-11-24] MEDS: INDIVIDUALIZED INSULIN NOVOLOG SUPPLEMENTAL SCALE SQ SCH (21:00)
[2016-11-24] MEDS: METOPROLOL TARTRATE 50 MG TAB PO SCH (21:00)
[2016-11-24] MEDS: SODIUM CHLORIDE 0.9% FLUSH 10 ML FLUSH IV FLUSH SCH (21:00)
[2016-11-25] VITALS: BP 130/84; PULSE 101; RESP 18; TEMP 96.4; O2SAT 97
[2016-11-25] MEDS: DILTIAZEM-CD 240 MG CAP ER PO SCH ×3 (00:18→20:49)
[2016-11-25] MEDS: ATORVASTATIN 40 MG TAB PO SCH ×2 (00:18→20:49)
[2016-11-25] MEDS: PANTOPRAZOLE SOD 40 MG DELAYED RELEASE TAB PO SCH ×3 (00:18→20:49)
[2016-11-25] MEDS: INSULIN DETEMIR 100 UNITS/ML VIAL SQ SCH ×3 (00:23→22:59)
[2016-11-25] MEDS: METOPROLOL TARTRATE 50 MG TAB PO SCH ×2 (00:26→08:22)
[2016-11-25] MEDS: TAMSULOSIN HCL 0.4 MG CAP PO SCH ×2 (00:34→20:49)
[2016-11-25] MEDS: AMOXICILLIN/CLAVULANATE K 500 MG TAB PO SCH ×2 (00:34→09:10)
[2016-11-25 04:00] VITALS: BP 112/65; PULSE 73; RESP 20; TEMP 96.4; O2SAT 96
[2016-11-25] MEDS: INDIVIDUALIZED INSULIN NOVOLOG SUPPLEMENTAL SCALE SQ SCH ×4 (06:04→22:58)
[2016-11-25 06:21] LABS: AUTOMATED NEUTROPHIL # 6.9 TH/MM3 (1.8-7.7); BASOPHIL # 0.1 TH/MM3 (0-0.2); BASOPHIL % 0.9 % (0.0-2.0); EOSINOPHIL # 0.3 TH/MM3 (0-0.4); EOSINOPHIL % 2.7 % (0.0-4.0); HEMATOCRIT 29.1 % (39.0-51.0); HEMO FLAGS DIFF FINAL; LYMPH % 15.9 % (9.0-44.0); LYMPHOCYTE # 1.5 TH/MM3 (1.0-4.8); MEAN CELL VOLUME 84.5 FL (80.0-100.0); MEAN CORPUSCULAR HEMOGLOBIN 27.3 PG (27.0-34.0); MEAN CORPUSCULAR HGB CONC 32.3 % (32.0-36.0); MONO % 9.3 % (0.0-8.0); NEUT % 71.2 % (16.0-70.0); PLATELET COUNT 245 TH/MM3 (150-450); RED BLOOD COUNT 3.45 MIL/MM3 (4.50-5.90); RED CELL DISTRIBUTION WIDTH 19.2 % (11.6-17.2); WHITE BLOOD COUNT 9.7 TH/MM3 (4.0-11.0)
[2016-11-25 06:55] LABS: BICARBONATE 26.3 MEQ/L (21.0-32.0); POTASSIUM 4.2 MEQ/L (3.5-5.1)
[2016-11-25 08:00] VITALS: BP 105/60; PULSE 68; RESP 18; TEMP 97.4; O2SAT 95
[2016-11-25] MEDS: MEMANTINE HCL 10 MG TAB PO SCH (08:21)
[2016-11-25] MEDS: BUMETANIDE INJ 1 MG/4 ML VIAL IVP SCH ×2 (08:21→18:31)
[2016-11-25] MEDS: DIGOXIN 0.125 MG TAB PO SCH (08:21)
[2016-11-25] MEDS: ZINC SULFATE 220 MG CAP PO SCH (08:22)
[2016-11-25] MEDS: ALLOPURINOL 100 MG TAB PO SCH (08:22)
[2016-11-25] MEDS: SODIUM CHLORIDE 0.9% FLUSH 10 ML FLUSH IV FLUSH SCH ×2 (08:22→20:50)
[2016-11-25] MEDS: ASPIRIN EC 81 MG TABEC PO SCH (08:22)
[2016-11-25] MEDS: FERROUS SULFATE 325 MG (65 MG ELEMENTAL IRON) TAB PO SCH (08:22)
[2016-11-25] MEDS: MULTIVITAMIN TAB PO SCH (08:22)
--- NOTE | 2016-11-25 09:11 | EKG ---
Date Performed: 11/24/2016 Time Performed: 18:44:55 PTAGE: 81 years EKG: ATRIAL FIBRILLATION NONSPECIFIC T-WAVE ABNORMALITY ABNORMAL RHYTHM ECG PREVIOUS TRACING : 10/29/2016 07.18 ATRIAL FIBRILLATION WITH RAPID VENTRICULAR RESPONSE IS NO LONGER PRESENT DOCTOR: Nguyễn Escobar Interpretating Date/Time 11/25/2016 09:02:57
[2016-11-25 12:00] VITALS: BP 115/58; PULSE 66; RESP 17; TEMP 97.9; O2SAT 95
[2016-11-25 16:00] VITALS: BP 109/59; PULSE 60; RESP 19; TEMP 97.8; O2SAT 95
--- NOTE | 2016-11-25 17:01 | HHI.PR ---
Subjective Remarks Pt admitted with worsening edema. Recent hospitalization d/t Afib with RVR. Objective Vitals Vital Signs Date Time Temp Pulse Resp B/P Pulse Ox O2 Delivery O2 Flow Rate FiO2 11/25/16 16:00 97.8 60 19 109/59 95 11/25/16 12:00 97.9 66 17 115/58 95 11/25/16 08:00 97.4 68 18 105/60 95 11/25/16 04:00 96.4 73 20 112/65 96 11/25/16 00:00 96.4 101 18 130/84 97 11/24/16 21:25 96.9 100 21 120/68 11/24/16 20:54 98 Nasal Cannula 2.00 11/24/16 20:12 72 14 135/77 96 2 11/24/16 18:38 67 19 128/76 96 Nasal Cannula 2 11/24/16 17:54 Nasal Cannula 2 11/24/16 17:54 97 Nasal Cannula 2 11/24/16 17:12 100 Nasal Cannula 2.00 11/24/16 11/24/16 11/25/16 15:00 23:00 07:00 Intake Total 480 ml Output Total 1000 ml 1000 ml Balance -1000 ml -520 ml Intake Oral 480 ml IV Total 0 ml Output Urine Total 1000 ml 1000 ml Result Diagram: 11/25/16 0458 11/25/16 0458 Imaging Last Impressions Chest X-Ray 11/24/16 1625 Signed Impressions: Service Date/Time: Thursday, November 24, 2016 16:27 - CONCLUSION: New pulmonary opacities and effusions characteristic of congestive heart failure. Elvis Dinh MD Objective Remarks GENERAL: This is a well-nourished, well-developed patient, in no apparent distress. CARDIOVASCULAR: Regular rate and rhythm without murmurs, gallops, or rubs. RESPIRATORY: Clear to auscultation. Breath sounds equal bilaterally. No wheezes , rales, or rhonchi. GASTROINTESTINAL: Abdomen soft, non-tender, nondistended. Normal active bowel sounds MUSCULOSKELETAL: Extremities without clubbing, cyanosis, or edema. NEURO: Alert & Oriented x4 to person, place, time, situation. Moves all ext x4 A/P Problem List: (1) CHF (congestive heart failure) Status: Acute Plan: - h/o diastolic dysfunction - clinical improvement in pt's edema - continue IV Bumex - repeat CXR in AM - repeat BMP, Mag, BNP in AM (2) Atrial fibrillation with RVR Status: Chronic Plan: - case reviewed with Cardiology, Dr. 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
--- NOTE | 2016-11-25 18:59 | MB ---
cc: LUIS ANTONIO ZAFAR MD DATE OF CONSULTATION 11/25/16 HISTORY OF PRESENT ILLNESS This is an 81-year-old gentleman who was [facility] from a prison with generalized edema, has a history of cardiomyopathy with an EF of 35-40%. He also has a long history of atrial fibrillation and has had several admissions for a-fib and rapid response. He was recently in the hospital and discharged to the prison but has noted increasing edema. The patient states that he is here at the hospital because of excess fluid but denies any shortness of breath and otherwise it is not very clear as to how the diagnosis of excess fluid was made. He denies any palpitations, lightheadedness or dizziness except when standing up quickly and no chest pain has been present. We have been asked to see him in as much as his heart rate is somewhat slow he remains in atrial fibrillation but generalized heart rate is approximately 60. Blood pressures has been well maintained and he otherwise denies orthopnea or PND. He has noted ankle edema. PAST MEDICAL HISTORY Otherwise been significant for type 2 diabetes and hypertension. He has also had mild chronic kidney disease and anemia. MEDICATIONS Medications at home have included: 1. Metoprolol 100 milligrams twice daily. 2. Diltiazem 240 milligrams daily. 3. Digoxin 0.125 milligrams daily. 4. Flomax. 5. Protonix. 6. As well as Humalog and Levemir insulin. 7. Namenda. 8. Furosemide 20 milligrams twice a day. 9. Atorvastatin 40 daily. 10. Allopurinol 100 daily. ALLERGIES Allergies are none. SOCIAL HISTORY The patient does not smoke. He does not drink or use recreational drugs. PHYSICAL EXAMINATION VITAL SIGNS: His heart rate is approximately 60. Blood pressure is 110/70. He is afebrile. NECK: There is no neck vein distension. Carotids are normal. LUNGS: Reveal decreased breath sounds in the bases. No wheezes or rhonchi present. CARDIOVASCULAR: Exam reveals an irregularly irregular rhythm. There is no significant murmur present. ABDOMEN: Obese. EXTREMITIES: Reveal pedal edema. IMAGING STUDIES Chest x-ray demonstrates bilateral pleural effusions with some mild pulmonary vascular overload. LABORATORY DATA His laboratory examination demonstrates mild anemia at 9.4 and 29 with a creatinine initially of 1.9 with a follow-up of 1.69. Electrolytes are normal, although his potassium was 5.5 on admission, on a repeat examination was 4.2. BNP is only 490. ASSESSMENT The patient has generalized edema which may be secondary more to anasarca and low proteins. We do note that his urine protein is mildly elevated. Diuresis as been initiated and beta-blockers will be held. Probably will do better if his heart rate is somewhat faster and will watch carefully to try to maintain a heart rate around 70-80. We will happy to follow along with you in consult. Luis Antonio Zafar MD DLW/EO /4:58 PM /6:47 PM
[2016-11-25 20:00] VITALS: BP 128/71; PULSE 70; RESP 22; TEMP 96.2; O2SAT 95
[2016-11-26] VITALS (8 sets, daily range): BP systolic 114–136; BP diastolic 57–64; PULSE 63–79; RESP 18–20; TEMP 95.9–97.4; O2SAT 94–96
[2016-11-26] MEDS: INDIVIDUALIZED INSULIN NOVOLOG SUPPLEMENTAL SCALE SQ SCH ×4 (05:32→21:12)
[2016-11-26 07:08] LABS: BICARBONATE 24.3 MEQ/L (21.0-32.0); MAGNESIUM 1.8 MG/DL (1.5-2.5); POTASSIUM 4.5 MEQ/L (3.5-5.1)
[2016-11-26 07:11] LABS: AUTOMATED NEUTROPHIL # 8.3 TH/MM3 (1.8-7.7); BASOPHIL % 0.4 % (0.0-2.0); EOSINOPHIL # 0.2 TH/MM3 (0-0.4); EOSINOPHIL % 1.7 % (0.0-4.0); HEMO FLAGS DIFF FINAL; LYMPH % 15.3 % (9.0-44.0); LYMPHOCYTE # 1.7 TH/MM3 (1.0-4.8); MEAN CELL VOLUME 85.5 FL (80.0-100.0); MEAN CORPUSCULAR HEMOGLOBIN 27.7 PG (27.0-34.0); MEAN CORPUSCULAR HGB CONC 32.4 % (32.0-36.0); NEUT % 72.6 % (16.0-70.0); PLATELET COUNT 229 TH/MM3 (150-450); RED BLOOD COUNT 3.51 MIL/MM3 (4.50-5.90); RED CELL DISTRIBUTION WIDTH 19.1 % (11.6-17.2); WHITE BLOOD COUNT 11.4 TH/MM3 (4.0-11.0)
--- NOTE | 2016-11-26 08:19 | PD.CARD.PN ---
Subjective Subjective Remarks denies shortness of breath Objective Vital Signs / I&O Vital Signs Date Time Temp Pulse Resp B/P Pulse Ox O2 Delivery O2 Flow Rate FiO2 11/26/16 04:00 95.9 71 20 115/63 95 11/26/16 00:00 96.3 73 20 117/64 95 11/25/16 22:03 Nasal Cannula 2.00 11/25/16 20:00 96.2 70 22 128/71 95 11/25/16 16:00 97.8 60 19 109/59 95 11/25/16 12:00 97.9 66 17 115/58 95 I/O 11/25/16 11/25/16 11/25/16 11/26/16 11/26/16 11/26/16 07:00 15:00 23:00 07:00 15:00 23:00 Intake Total 480 ml 1080 ml 360 ml 120 ml Output Total 1000 ml 601 ml 900 ml 350 ml Balance -520 ml 479 ml -540 ml -230 ml Intake Oral 480 ml 1080 ml 360 ml 120 ml IV Total 0 ml 0 ml 0 ml Output Urine Total 1000 ml 600 ml 900 ml 350 ml Stool Total 1 ml Physical Exam GENERAL: Well-nourished, well-developed patient in no apparent distress. NECK: No JVD. No carotid bruit. CARDIOVASCULAR: IR IR. S1/S2 no murmur, rub, or gallop. RESPIRATORY: No accessory muscle use. Clear to auscultation. Breath sounds equal bilaterally. GASTROINTESTINAL: Abdomen soft, non-tender, nondistended. MUSCULOSKELETAL: Extremities without clubbing, cyanosis, or edema. Laboratory Laboratory Tests Test 11/26/16 04:39 White Blood Count 11.4 TH/MM3 Red Blood Count 3.51 MIL/MM3 Hemoglobin 9.7 GM/DL Hematocrit 30.0 % Mean Corpuscular Volume 85.5 FL Mean Corpuscular Hemoglobin 27.7 PG Mean Corpuscular Hemoglobin 32.4 % Concent Red Cell Distribution Width 19.1 % Platelet Count 229 TH/MM3 Mean Platelet Volume 9.4 FL Neutrophils (%) (Auto) 72.6 % Lymphocytes (%) (Auto) 15.3 % Monocytes (%) (Auto) 10.0 % Eosinophils (%) (Auto) 1.7 % Basophils (%) (Auto) 0.4 % Neutrophils # (Auto) 8.3 TH/MM3 Lymphocytes # (Auto) 1.7 TH/MM3 Monocytes # (Auto) 1.1 TH/MM3 Eosinophils # (Auto) 0.2 TH/MM3 Basophils # (Auto) 0.0 TH/MM3 CBC Comment DIFF FINAL Differential Comment Sodium Level 141 MEQ/L Potassium Level 4.5 MEQ/L Chloride Level 108 MEQ/L Carbon Dioxide Level 24.3 MEQ/L Anion Gap 9 MEQ/L Blood Urea Nitrogen 40 MG/DL Creatinine 1.73 MG/DL Estimat Glomerular Filtration 38 ML/MIN Rate Random Glucose 108 MG/DL Calcium Level 8.7 MG/DL Magnesium Level 1.8 MG/DL B-Type Natriuretic Peptide 312 PG/ML Assessment and Plan Problem List: (1) CHF (congestive heart failure) (2) HTN (hypertension) (3) A-fib Assessment and Plan CHF - continue diuresis, chest x-ray pending A-fib - rate controlled HTN - well controlled Problem Qualifiers (1) CHF (congestive heart failure): Qualified Code: I50.33 - Acute on chronic diastolic congestive heart failure Carlitos Sanz Nov 26, 2016 08:19
--- NOTE | 2016-11-26 09:48 | RADRPT ---
EXAM DATE/TIME: 11/26/2016 09:11 [facility] COMPARISON: CHEST SINGLE AP, November 24, 2016, 16:27. CHEST PA & LAT, September 28, 2016, 9:17. INDICATIONS : Short of breath. Followup pulmonary infiltrates and effusions. MEDICAL HISTORY : Hypertension. Afib SURGICAL HISTORY : None. ENCOUNTER: Initial ACUITY: 2 days PAIN SCORE: 0/10 LOCATION: Bilateral chest FINDINGS: 2 AP erect views of the chest were obtained and again demonstrate hazy opacity in the perihilar regio ns and both lung bases. This appears mildly improved. Both costophrenic angles are blunted consistent with small to moderate effusions. The heart size remains mildly prominent. Atherosclerotic changes a re present in the aorta. There are multiple overlying electrocardiogram leads. The old fracture defor mity of the proximal humerus is again noted. CONCLUSION: Apparent mild improvement in pulmonary edema. Elvis Dinh MD on November 26, 2016 at 9:43 Board Certified Radiologist. This report was verified electronically.
[2016-11-26] MEDS: ZINC SULFATE 220 MG CAP PO SCH (10:00)
[2016-11-26] MEDS: DIGOXIN 0.125 MG TAB PO SCH (10:00)
[2016-11-26] MEDS: DILTIAZEM-CD 240 MG CAP ER PO SCH ×2 (10:00→20:39)
[2016-11-26] MEDS: FERROUS SULFATE 325 MG (65 MG ELEMENTAL IRON) TAB PO SCH (10:00)
[2016-11-26] MEDS: ALLOPURINOL 100 MG TAB PO SCH (10:00)
[2016-11-26] MEDS: MULTIVITAMIN TAB PO SCH (10:00)
[2016-11-26] MEDS: ASPIRIN EC 81 MG TABEC PO SCH (10:01)
[2016-11-26] MEDS: MEMANTINE HCL 10 MG TAB PO SCH (10:01)
[2016-11-26] MEDS: BUMETANIDE INJ 1 MG/4 ML VIAL IVP SCH ×2 (10:01→17:05)
[2016-11-26] MEDS: PANTOPRAZOLE SOD 40 MG DELAYED RELEASE TAB PO SCH ×2 (10:01→20:39)
[2016-11-26] MEDS: INSULIN DETEMIR 100 UNITS/ML VIAL SQ SCH ×2 (10:03→21:13)
[2016-11-26] MEDS: SODIUM CHLORIDE 0.9% FLUSH 10 ML FLUSH IV FLUSH SCH ×2 (10:11→20:40)
--- NOTE | 2016-11-26 15:23 | PD.CONS ---
Consult Service Palliative Care Consult Requested By Dr. Bradford Primary Care Physician Hardik Vazquez Reason for Consultation a. To assist with evaluation and management of symptoms including:dyspnea b. To assist medical decision maker(s) with: better understanding of current medical conditions; weighing benefits/burdens of medical treatment options; making medical treatment decisions. HPI History of Present Illness 81-year-old past medical history of CAD, cardiomyopathy, diastolic heart failure , diabetes, hypertension, anemia, A. chintan was brought to the emergency room on from an [facility] for generalized edema. Per medical record patient recently had a change in diuretic. Patient was started on 2 L oxygen via even back, but her [facility], when patient is not on O2 sats are 88%. In the ER: * Temperature is 98.2, pulse 68, respirations 19, blood pressures 123/74, pulse ox is 92% on 2 L nasal cannula * WBCs 11.4, hemoglobin is 10.2, hematocrit is 31.1, platelets 299 * Sodium is 139, potassium is 5.5, chloride is 106, bicarbonate was 24.1, BUN is 38, creatinine is 1.91, BNP is 463, albumin is 2.4 * PT 7.9, INR is 1.1, PTT is 33.8 * UA shows large amount of leukocyte esterase, negative for nitrate, culture is indicated * Urine culture obtained and showed Escherichia coli and Jolene. Distant to ampicillin and ampicillin/sulbactam * Chest x-ray shows pulmonary opacity and effusion characteristic of congestive heart failure. Patient care was transferred to hospitalist and admitted for CHF. Cardiology was consulted. Patient diuresed with IV Bumex. Cardiology and hospitalist review patient's A. fib and there appears to be positive as, beta anjana was stopped. Digoxin and Cardizem continued. Patient renal status being followed, and creatinine improved from 1.9-1.69. Cardiology noted that patient has overall generalized edema and that patient's has low protein. Which may be contributing to the edema. Palliative care was consulted to review goals of care. Pt denies any dyspnea, pain or discomfort. He struggles to remember her chrissy' s name, but finally able to say Xi. I tried to review code status course of illness, but pt states he says "I don't know, Xi have all of that." I ask him if he was amenable for me to call Xi and discussed his current medical condition, he states yes. I ask do you want Xi to make medical decisions for you, he states yes. I called Xi Martin (POJennifer) and was not able to reach her. I was able to reach Xi's . First time I spoke , he said he will ask Xi to call back. Family did not call back, and I called again. endorses that Xi is in a wake and will not be available, the earliest time available to talk is tomorrow. Discussed with family, that pt has a signed DNR. However given his dementia, and today his desire for Xi to handle his medical decision, I will need to confirm with her if she wish to honor DNR. I told her I will not be present tomorrow, but she can call the hospital and let the nurse know, weather she want to honor the DNR or not. Payton is amenable to plan, and amenable for palliative care to speak with Xi Tuesday. Palliative care is not able to review goals of care today as POA is not available. Function/Cognitive Trajectory Patient recently was hospitalized October 29, 2016 for diastolic congestive heart failure. Spent time in the ICU for A. fib placed on Cardizem drip. Renal function and clinical condition gradually improved. Pt transfer off the ICU and into the care of hospitalists on 10/31/2016. Nephrology was consulted; patient has a history of urinary retention and acute renal failure and was supposed to follow-up with urology. Cardiology was consulted ,2-D echo was done and shows an EF of 45-50%. There is global left ventricular dysfunction. Patient had anemia GI was consulted for EGD. [facility] on 11[facility]2016 In the [facility] pt uses the a walker to ambulate, have some dyspnea on exertion. He denies he is O2 dependent. 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 Humalog Inj (Insulin Human Lispro) 1,000 Unit/10 Ml Vial 1-9 Units SQ ACHS Max dose at bedtime:( )units; sugars< 70,(0)units; sugars 150-199,(1)unit; sugars 200-249,(3)units; sugars 250-299,(5)units; sugars 300-349,(7)units; sugars more than 349,(9)units. Metoprolol Tartrate 50 Mg Tab 50 Mg PO BID Amoxicillin-Clavulanate 500-125 mg Tab 500 Mg PO BID Furosemide 20 Mg Tab 20 Mg PO BID Zinc Sulfate 220 Mg Cap 220 Mg PO DAILY Multiple Vitamin 1 Tab 1 Tab PO DAILY Aspirin EC (Aspirin) 81 Mg Tabdr 81 Mg PO DAILY Ferrous Sulfate DR (Ferrous Sulfate) 324 Mg Tabdr 325 Mg PO DAILY Namenda (Memantine) 10 Mg Tab 10 Mg PO DAILY Atorvastatin (Atorvastatin Calcium) 40 Mg Tab 40 Mg PO HS Current Medications Medications (Trade) Dose Ordered Sig/Zachary Route Start Time Stop Time Status Last Admin (NS Flush) 2 ml UNSCH PRN IVF 11/24/16 16:30 (Zyloprim) 100 mg DAILY PO 11/25/16 09:00 11/26/16 10:00 (Ecotrin Ec) 81 mg DAILY PO 11/25/16 09:00 11/26/16 10:01 (Lipitor) 40 mg HS PO 11/24/16 21:00 11/25/16 20:49 (Lanoxin) 0.125 mg DAILY PO 11/25/16 09:00 11/26/16 10:00 (Cardizem Cd) 240 mg BID PO 11/24/16 21:00 11/26/16 10:00 (Levemir Inj) 15 units BID SQ 11/24/16 21:00 11/26/16 10:03 (Namenda) 10 mg DAILY PO 11/25/16 09:00 11/26/16 10:01 (Protonix) 40 mg BID PO 11/24/16 21:00 11/26/16 10:01 (Flomax) 0.4 mg HS PO 11/24/16 21:00 11/25/16 20:49 (Zinc Sulfate) 220 mg DAILY PO 11/25/16 09:00 11/26/16 10:00 (Ferrous Sulfate) 325 mg DAILY PO 11/25/16 09:00 11/26/16 10:00 (Theragran) 1 tab DAILY PO 11/25/16 09:00 11/26/16 10:00 (NS Flush) 2 ml BID IV FLUSH 11/24/16 21:00 11/26/16 10:11 (NS Flush) 2 ml UNSCH PRN IV FLUSH 11/24/16 20:30 (Bumex Inj) 1 mg BID@ IVP 11/25/16 09:00 11/26/16 10:01 Family History unable to elicit Substance Use Tobacco: No Alcohol: No Prescription med abuse: No Illicits: No Psychosocial History resides in an [facility]PC. There is a reported POA Xi Martin (niece). Pt orignially from [place] Spiritual/Cultural Factors none listed Durable Power of Staff Radiographer: Completed, but not made available Physical Exam Vital Signs Date Time Temp Pulse Resp B/P Pulse Ox O2 Delivery O2 Flow Rate FiO2 11/26/16 12:00 97.4 73 20 114/63 96 11/26/16 10:15 95 Nasal Cannula 2.00 11/26/16 08:00 97.2 63 19 130/61 96 11/26/16 04:00 95.9 71 20 115/63 95 11/26/16 00:00 96.3 73 20 117/64 95 11/25/16 22:03 Nasal Cannula 2.00 11/25/16 20:00 96.2 70 22 128/71 95 11/25/16 16:00 97.8 60 19 109/59 95 11/25/16 11/26/16 19:00 07:00 Intake Total 1200 ml 360 ml Output Total 601 ml 1250 ml Balance 599 ml -890 ml Intake Oral 1200 ml 360 ml IV Total 0 ml Output Urine Total 600 ml 1250 ml Stool Total 1 ml Exam CONSTITUTIONAL/GENERAL: This is an elderly laying in bed. no distress. SKIN: No jaundice, rashes, or lesions. Ecchymoses on upper extremities. No wounds seen anteriorly. Skin temperature appropriate. Not diaphoretic. HEAD: Atraumatic. Normocephalic. EYES: Pupils equal and round and reactive. Extraocular motions intact. No scleral icterus. No injection or drainage. Fundi not examined. ENT: Hearing grossly normal. Nose without bleeding or purulent drainage. NECK: Trachea midline. Supple, nontender. No palpable thyroid enlargement or nodularity. CARDIOVASCULAR: Irregularly irregular. No murmur gallops, or rubs. RESPIRATORY/CHEST: Symmetric, unlabored respirations.. Breath sounds equal bilaterally. No wheezes, rales, or rhonchi. GASTROINTESTINAL: Abdomen soft, non-tender, nondistended. No hepato-splenomegaly , or palpable masses. No guarding. Bowel sounds present. GENITOURINARY: Without palpable bladder distension. Ruiz catheter in place. MUSCULOSKELETAL: Extremities 2+ edema LYMPHATICS: No palpable cervical or supraclavicular adenopathy. NEUROLOGICAL: Awake and alert. Motor and sensory grossly within normal limits. Follows commands. Have memory problems. Moves all extremities. PSYCHIATRIC: No obvious anxiety/depression. no apparent hallucinations or other psychotic thought process. Diagnostic Tests Laboratory Laboratory Tests Test 11/24/16 11/24/16 11/25/16 11/26/16 17:00 17:40 04:58 04:39 Prothrombin Time 11.9 SEC (9.8-11.6) Prothromb Time International 1.1 RATIO Ratio Activated Partial 33.8 SEC Thromboplast Time (24.3-30.1) Sodium Level 139 MEQ/L 140 MEQ/L 141 MEQ/L (136-145) (136-145) (136-145) Potassium Level 5.5 MEQ/L 4.2 MEQ/L 4.5 MEQ/L (3.5-5.1) (3.5-5.1) (3.5-5.1) Chloride Level 106 MEQ/L 107 MEQ/L 108 MEQ/L (98-107) (98-107) (98-107) Carbon Dioxide Level 24.1 MEQ/L 26.3 MEQ/L 24.3 MEQ/L (21.0-32.0) (21.0-32.0) (21.0-32.0) Anion Gap 9 MEQ/L (5-15) 7 MEQ/L (5-15) 9 MEQ/L (5-15) Blood Urea Nitrogen 38 MG/DL (7-18) 37 MG/DL (7-18) 40 MG/DL (7-18) Creatinine 1.91 MG/DL 1.69 MG/DL 1.73 MG/DL (0.60-1.30) (0.60-1.30) (0.60-1.30) Estimat Glomerular Filtration 34 ML/MIN (>89) 39 ML/MIN (>89) 38 ML/MIN (>89) Rate Random Glucose 164 MG/DL 211 MG/DL 108 MG/DL (74-106) (74-106) (74-106) Calcium Level 8.7 MG/DL 8.5 MG/DL 8.7 MG/DL (8.5-10.1) (8.5-10.1) (8.5-10.1) Magnesium Level 1.9 MG/DL 1.8 MG/DL (1.5-2.5) (1.5-2.5) Total Bilirubin 0.3 MG/DL (0.2-1.0) Aspartate Amino Transf 22 U/L (15-37) (AST/SGOT) Alanine Aminotransferase 14 U/L (12-78) (ALT/SGPT) Alkaline Phosphatase 137 U/L (45-117) Total Creatine Kinase 48 U/L (39-308) Troponin I 0.02 NG/ML (0.02-0.05) B-Type Natriuretic Peptide 463 PG/ML 490 PG/ML 312 PG/ML (0-100) (0-100) (0-100) Total Protein 7.1 GM/DL (6.4-8.2) Albumin 2.4 GM/DL (3.4-5.0) White Blood Count 11.4 TH/MM3 9.7 TH/MM3 11.4 TH/MM3 (4.0-11.0) (4.0-11.0) (4.0-11.0) Red Blood Count 3.73 MIL/MM3 3.45 MIL/MM3 3.51 MIL/MM3 (4.50-5.90) (4.50-5.90) (4.50-5.90) Hemoglobin 10.2 GM/DL 9.4 GM/DL 9.7 GM/DL (13.0-17.0) (13.0-17.0) (13.0-17.0) Hematocrit 31.1 % 29.1 % 30.0 % (39.0-51.0) (39.0-51.0) (39.0-51.0) Mean Corpuscular Volume 83.5 FL 84.5 FL 85.5 FL (80.0-100.0) (80.0-100.0) (80.0-100.0) Mean Corpuscular Hemoglobin 27.5 PG 27.3 PG 27.7 PG (27.0-34.0) (27.0-34.0) (27.0-34.0) Mean Corpuscular Hemoglobin 32.9 % 32.3 % 32.4 % Concent (32.0-36.0) (32.0-36.0) (32.0-36.0) Red Cell Distribution Width 19.9 % 19.2 % 19.1 % (11.6-17.2) (11.6-17.2) (11.6-17.2) Platelet Count 299 TH/MM3 245 TH/MM3 229 TH/MM3 (150-450) (150-450) (150-450) Mean Platelet Volume 9.8 FL 9.0 FL 9.4 FL (7.0-11.0) (7.0-11.0) (7.0-11.0) Neutrophils (%) (Auto) 76.3 % 71.2 % 72.6 % (16.0-70.0) (16.0-70.0) (16.0-70.0) Lymphocytes (%) (Auto) 14.1 % 15.9 % 15.3 % (9.0-44.0) (9.0-44.0) (9.0-44.0) Monocytes (%) (Auto) 8.1 % (0.0-8.0) 9.3 % (0.0-8.0) 10.0 % (0.0-8.0) Eosinophils (%) (Auto) 0.8 % (0.0-4.0) 2.7 % (0.0-4.0) 1.7 % (0.0-4.0) Basophils (%) (Auto) 0.7 % (0.0-2.0) 0.9 % (0.0-2.0) 0.4 % (0.0-2.0) Neutrophils # (Auto) 8.7 TH/MM3 6.9 TH/MM3 8.3 TH/MM3 (1.8-7.7) (1.8-7.7) (1.8-7.7) Lymphocytes # (Auto) 1.6 TH/MM3 1.5 TH/MM3 1.7 TH/MM3 (1.0-4.8) (1.0-4.8) (1.0-4.8) Monocytes # (Auto) 0.9 TH/MM3 0.9 TH/MM3 1.1 TH/MM3 (0-0.9) (0-0.9) (0-0.9) Eosinophils # (Auto) 0.1 TH/MM3 0.3 TH/MM3 0.2 TH/MM3 (0-0.4) (0-0.4) (0-0.4) Basophils # (Auto) 0.1 TH/MM3 0.1 TH/MM3 0.0 TH/MM3 (0-0.2) (0-0.2) (0-0.2) CBC Comment DIFF FINAL DIFF FINAL DIFF FINAL Differential Comment Urine Color YELLOW (YELLW/STRAW) Urine Turbidity HAZY (CLEAR) Urine pH 5.5 (5.0-8.5) Urine Specific [place] 1.017 (1.002-1.035) Urine Protein 100 mg/dL (NEG-TRACE) Urine Glucose (UA) NEG mg/dL (NEG) Urine Ketones NEG mg/dL (NEG) Urine Occult Blood SMALL (NEG) Urine Nitrite NEG (NEG) Urine Bilirubin NEG (NEG) Urine Urobilinogen LESS THAN 2.0 MG/DL (LESS THAN 2.0) Urine Leukocyte Esterase LARGE (NEG) Urine RBC 11 /hpf (0-3) Urine WBC /hpf (0-5) Urine WBC Clumps OCC (NONE) Urine Amorphous Sediment RARE Urine Bacteria OCC /hpf (NONE) Urine Hyaline Casts 7 /lpf (RARE) Urine Mucus FEW /lpf (OCC) Urine Yeast with Hyphae FEW (NONE) Urine Yeast (Budding) MOD (NONE) Microscopic Urinalysis Comment CULTURE INDICATED Result Diagram: 11/26/16 2699 11/26/16 0439 Microbiology Microbiology Date/Time Procedure Status Source Growth 11/24/16 17:40 Urine Culture - Final Complete Urine Random Urine Escherichia Coli Jolene Glabrata Imaging Last Impressions Chest X-Ray 11/26/16 0800 Signed Impressions: Service Date/Time: Saturday, November 26, 2016 09:11 - CONCLUSION: Apparent mild improvement in pulmonary edema. Elvis Dinh MD Patient/Family Conference Present at Family Conference: POA not available, Only able to reach POJennifer's Family Conference Time (mins): 20 Family Conference Location: Telephone Issues Discussed: unable to discuss as POA not available. Usually would want to discuss. * Palliative care role, purpose, approach * Additional medical, psychosocial, and spiritual history * Patients general health, functional status, and cognitive changes in the months leading up to the current hospitalization * Patient/family understanding of the current medical problems * Patient/family understanding of prognosis * Patients goals of care as best understood from advance directives and/or conversations and/or values * Current medical treatment options and benefits/burdens of those options * Likely scenarios comparing ongoing aggressive care with a transition to comfort measures only * Questions answered to the best of my ability * Palliative care contact information provided Assessment and Plan Disease Oriented Problem List: (1) Diastolic CHF, chronic (2) Anemia (3) Acute kidney injury superimposed on chronic kidney disease (4) CHF (congestive heart failure) (5) Atrial fibrillation with RVR (6) HTN (hypertension) (7) UTI (urinary tract infection) (8) Dementia Symptom Scale: Pertinent Non-Medical Issues Psychosocial: Spiritual: Legal: Ethical issues impacting care: Important Contacts Xi Martin home: [phone] Prognosis 81 year old with repeated hospitalization. Has diastolic CHF, afib, and renal insufficiency. Was only here last month. Discussed with attending physician. Pt likely will keep coming in and out of the hospital, at risk for sudden decompensation. Would be appropriate for hospice should goals of care be comfort oriented Code Status: Full Code (for now) Plan Capacity= has history of dementia. Could follow commands and answer question appropriately, but have difficult time recalling things, even her Niece's name. Questionable capacity to weigh risk and benefits of medical decisions. In addition, he endorse he would like medical team to run all medical decisions to Xi PIPER) anderson, and he states he is amenable for POA to make medical decision. Decision Maker= Xi randall) OWEN Code= Full- please see below. Goals of Care: I called Xi Martin (POA) and was not able to reach her. I was able to reach Xi's . First time I spoke , he said he will ask Xi to call back. Family did not call back, and I called again. endorses that iX is in a wake and will not be available, the earliest time available to talk is tomorrow as she currently at a Wake, which palliative care at that time will not be available. Xi Martin currently is in a wake. Discussed with Xi's , that pt has a signed DNR. However given his dementia, and today his desire for Xi to handle his medical decision, I will need to confirm with the POA (Xi)if she wish to honor DNR. I told Xi's I will not be present tomorrow, but she can call the hospital and let the nurse know, weather she want to honor the DNR or not. Payton is amenable to plan, and amenable for palliative care to speak with Xi, on Tuesday. Dyspnea/pain- currently denies dyspnea or pain. palliative will follow up. d/w with attending. Time Spent Total Floor Time (mins): 45 Face to Face Time (mins): 30 Thank you for the opportunity to participate in the care of Mr. Jo. Attestation To help prompt me to consider important information that might be impacting today's encounter and assessment, information from prior notes written by myself or my colleagues may have been "brought forward" into today's note. My signature on this note, however, is an attestation that I personally performed the exam, history, and/or decision-making noted today, and, unless otherwise indicated, the interactions with patient, family, and staff as well as the review of records all occurred today. I also attest that the listed assessment and stated plan reflect my best clinical judgment today based on the combination of historical information, prior notes, and today's exam/ interactions. When time spent is documented, it refers only to time spent today by the signer, or if indicated, combined time spent today by collaborating physician/nurse practitioner. Tommy Alvares MD Nov 26, 2016 15:23
--- NOTE | 2016-11-26 18:13 | HHI.PR ---
Subjective Remarks SOB is improved from admission. Objective Vitals Vital Signs Date Time Temp Pulse Resp B/P Pulse Ox O2 Delivery O2 Flow Rate FiO2 11/26/16 16:00 96.9 70 18 120/61 95 11/26/16 12:00 97.4 73 20 114/63 96 11/26/16 10:15 95 Nasal Cannula 2.00 11/26/16 08:00 97.2 63 19 130/61 96 11/26/16 04:00 95.9 71 20 115/63 95 11/26/16 00:00 96.3 73 20 117/64 95 11/25/16 22:03 Nasal Cannula 2.00 11/25/16 20:00 96.2 70 22 128/71 95 11/25/16 11/25/16 11/26/16 15:00 23:00 07:00 Intake Total 1080 ml 360 ml 120 ml Output Total 601 ml 900 ml 350 ml Balance 479 ml -540 ml -230 ml Intake Oral 1080 ml 360 ml 120 ml IV Total 0 ml 0 ml Output Urine Total 600 ml 900 ml 350 ml Stool Total 1 ml Result Diagram: 11/26/16 0439 11/26/16 0439 Imaging Last Impressions Chest X-Ray 11/24/16 1625 Signed Impressions: Service Date/Time: Thursday, November 24, 2016 16:27 - CONCLUSION: New pulmonary opacities and effusions characteristic of congestive heart failure. Elvis Dinh MD Objective Remarks GENERAL: This is a well-nourished, well-developed patient, in no apparent distress. CARDIOVASCULAR: Regular rate and rhythm without murmurs, gallops, or rubs. RESPIRATORY: Clear to auscultation. Breath sounds equal bilaterally. No wheezes , rales, or rhonchi. GASTROINTESTINAL: Abdomen soft, non-tender, nondistended. Normal active bowel sounds MUSCULOSKELETAL: Extremities without clubbing, cyanosis, or edema. NEURO: Alert & Oriented x4 to person, place, time, situation. Moves all ext x4 A/P Problem List: (1) CHF (congestive heart failure) Status: Acute Plan: - h/o diastolic dysfunction - clinical improvement in pt's edema - change bumex to PO - repeat BMP, Mag, in AM - anticipate d/c 11/27 (2) Atrial fibrillation with RVR Status: Chronic Plan: - case reviewed with Cardiology, Dr. Zafar - pauses appear less than 4 seconds & asymptomatic - will stop BB - continue digoxin and cardizem (3) CKD (chronic kidney disease) stage 3, GFR 30-59 ml/min Status: Chronic Plan: - improving - 1.9 (11/24/16), 1.69 (11/25) - observe - repeat BMP in AM (4) Diabetes mellitus Status: Chronic Plan: continue current medications Problem Qualifiers (1) CHF (congestive heart failure): Qualified Code: I50.33 - Acute on chronic diastolic congestive heart failure (2) Diabetes mellitus: Qualified Code: E11.8 - Type 2 diabetes mellitus with complication, with long- term current use of insulin Norberto Bradford DO Nov 26, 2016 18:13
[2016-11-26] MEDS: TAMSULOSIN HCL 0.4 MG CAP PO SCH (20:39)
[2016-11-26] MEDS: ATORVASTATIN 40 MG TAB PO SCH (20:40)
[2016-11-27] VITALS: BP 121/57; PULSE 80; RESP 20; O2SAT 93
[2016-11-27 02:45] VITALS: TEMP 95.2
[2016-11-27 04:00] VITALS: BP 103/59; PULSE 73; RESP 20; TEMP 96.4; O2SAT 94
[2016-11-27] MEDS: INDIVIDUALIZED INSULIN NOVOLOG SUPPLEMENTAL SCALE SQ SCH ×3 (05:21→17:23)
[2016-11-27 07:40] LABS: AUTOMATED NEUTROPHIL # 7.7 TH/MM3 (1.8-7.7); BASOPHIL # 0.1 TH/MM3 (0-0.2); BASOPHIL % 0.9 % (0.0-2.0); EOSINOPHIL # 0.3 TH/MM3 (0-0.4); EOSINOPHIL % 2.7 % (0.0-4.0); HEMATOCRIT 29.3 % (39.0-51.0); HEMO FLAGS DIFF FINAL; LYMPH % 15.2 % (9.0-44.0); LYMPHOCYTE # 1.6 TH/MM3 (1.0-4.8); MEAN CELL VOLUME 83.9 FL (80.0-100.0); MEAN CORPUSCULAR HEMOGLOBIN 27.2 PG (27.0-34.0); MEAN CORPUSCULAR HGB CONC 32.4 % (32.0-36.0); MONO % 8.4 % (0.0-8.0); NEUT % 72.8 % (16.0-70.0); PLATELET COUNT 239 TH/MM3 (150-450); RED CELL DISTRIBUTION WIDTH 19.6 % (11.6-17.2); WHITE BLOOD COUNT 10.6 TH/MM3 (4.0-11.0)
[2016-11-27 08:00] VITALS: BP 124/57; PULSE 74; RESP 17; TEMP 95.4; O2SAT 93
[2016-11-27 08:00] LABS: BICARBONATE 29.8 MEQ/L (21.0-32.0); MAGNESIUM 1.8 MG/DL (1.5-2.5); POTASSIUM 3.7 MEQ/L (3.5-5.1)
[2016-11-27] MEDS: INSULIN DETEMIR 100 UNITS/ML VIAL SQ SCH (09:00)
[2016-11-27] MEDS: MULTIVITAMIN TAB PO SCH (09:20)
[2016-11-27] MEDS: DILTIAZEM-CD 240 MG CAP ER PO SCH (09:20)
[2016-11-27] MEDS: PANTOPRAZOLE SOD 40 MG DELAYED RELEASE TAB PO SCH (09:21)
[2016-11-27] MEDS: MEMANTINE HCL 10 MG TAB PO SCH (09:21)
[2016-11-27] MEDS: ALLOPURINOL 100 MG TAB PO SCH (09:21)
[2016-11-27] MEDS: SODIUM CHLORIDE 0.9% FLUSH 10 ML FLUSH IV FLUSH SCH (09:21)
[2016-11-27] MEDS: FERROUS SULFATE 325 MG (65 MG ELEMENTAL IRON) TAB PO SCH (09:21)
[2016-11-27] MEDS: DIGOXIN 0.125 MG TAB PO SCH (09:21)
[2016-11-27] MEDS: ZINC SULFATE 220 MG CAP PO SCH (09:21)
[2016-11-27] MEDS: ASPIRIN EC 81 MG TABEC PO SCH (09:21)
[2016-11-27] MEDS: BUMETANIDE 1 MG TAB PO SCH ×2 (09:21→17:22)
[2016-11-27 12:00] VITALS: BP 127/64; PULSE 97; RESP 15; TEMP 95.6; O2SAT 92
[2016-11-27 16:00] VITALS: BP 114/56; PULSE 73; RESP 16; TEMP 95.8; O2SAT 93
[2016-11-27] MEDS ORDERED: LEVEMIR SQ (16:41)
[2016-11-27] MEDS ORDERED: FURO1TAB60 PO (16:41)
--- NOTE | 2016-11-27 16:49 | HHI.DCPOC ---
Discharge Care Plan Diagnosis: (1) CHF (congestive heart failure) (2) Acute kidney injury superimposed on chronic kidney disease (3) Diastolic CHF, chronic (4) Dementia (5) A-fib Goals to Promote Your Health * To prevent worsening of your condition and complications * To maintain your health at the optimal level Directions to Meet Your Goals Take your medications as prescribed Follow your dietary instruction Follow activity as directed Keep your appointments as scheduled Take your immunizations and boosters as scheduled If your symptoms worsen call your PCP, if no PCP go to Urgent Care Center or Emergency Room Smoking is Dangerous to Your Health. Avoid second hand smoke Call the 24-hour hour crisis hotline for domestic abuse at Norberto Bradford DO Nov 27, 2016 16:49
[2016-11-27] MEDS ORDERED: POTA10CA PO (16:57)
--- NOTE | 2016-11-27 16:58 | HHI.DS ---
Discharge Summary Admission Date Nov 24, 2016 at 18:53 Discharge Date: Nov 27, 2016 Admitting Diagnosis CHF/ADRI/UTI (1) CHF (congestive heart failure) Diagnosis: Principal (2) Atrial fibrillation with RVR Diagnosis: Secondary (3) CKD (chronic kidney disease) stage 3, GFR 30-59 ml/min Diagnosis: Secondary (4) Diabetes mellitus Diagnosis: Secondary Brief History 81- year old male with a PMHx of CKD, Anemia, HTN, Diabetes and A- fib brought to the ED from assisted living facility by [facility] complaining of generalized edema. Per [facility] the patient had the swelling since Tuesday, however, reportedly it is getting worse. The patient recently had a change in his diuretic and was started on Lasix yesterday. En route the patient was started on 2L of oxygen and was at 94-95%. At the patient's living facility the patient is not on any oxygen, however off O2 he was at 88% on RA. The patient denies any chest pain, shortness of breath, or pain anywhere. The patient's medical history was limited as he is a poor historian and unsure of his medical history. He admits to shortness of breath, but denies any chest pain, fever, chills, abdominal pain, diarrhea, etc. Patient was admitted for similar problems last month. CBC/BMP: 11/27/16 0638 11/27/16 0638 Significant Findings Laboratory Tests Test 11/24/16 11/24/16 11/25/16 11/26/16 17:00 17:40 04:58 04:39 Prothrombin Time 11.9 SEC (9.8-11.6) Activated Partial 33.8 SEC Thromboplast Time (24.3-30.1) Potassium Level 5.5 MEQ/L (3.5-5.1) Blood Urea Nitrogen 38 MG/DL (7-18) 37 MG/DL (7-18) 40 MG/DL (7-18) Creatinine 1.91 MG/DL 1.69 MG/DL 1.73 MG/DL (0.60-1.30) (0.60-1.30) (0.60-1.30) Estimat Glomerular Filtration 34 ML/MIN (>89) 39 ML/MIN (>89) 38 ML/MIN (>89) Rate Random Glucose 164 MG/DL 211 MG/DL 108 MG/DL (74-106) (74-106) (74-106) Alkaline Phosphatase 137 U/L (45-117) B-Type Natriuretic Peptide 463 PG/ML 490 PG/ML 312 PG/ML (0-100) (0-100) (0-100) Albumin 2.4 GM/DL (3.4-5.0) White Blood Count 11.4 TH/MM3 11.4 TH/MM3 (4.0-11.0) (4.0-11.0) Red Blood Count 3.73 MIL/MM3 3.45 MIL/MM3 3.51 MIL/MM3 (4.50-5.90) (4.50-5.90) (4.50-5.90) Hemoglobin 10.2 GM/DL 9.4 GM/DL 9.7 GM/DL (13.0-17.0) (13.0-17.0) (13.0-17.0) Hematocrit 31.1 % 29.1 % 30.0 % (39.0-51.0) (39.0-51.0) (39.0-51.0) Red Cell Distribution Width 19.9 % 19.2 % 19.1 % (11.6-17.2) (11.6-17.2) (11.6-17.2) Neutrophils (%) (Auto) 76.3 % 71.2 % 72.6 % (16.0-70.0) (16.0-70.0) (16.0-70.0) Monocytes (%) (Auto) 8.1 % (0.0-8.0) 9.3 % (0.0-8.0) 10.0 % (0.0-8.0) Neutrophils # (Auto) 8.7 TH/MM3 8.3 TH/MM3 (1.8-7.7) (1.8-7.7) Urine Turbidity HAZY (CLEAR) Urine Protein 100 mg/dL (NEG-TRACE) Urine Occult Blood SMALL (NEG) Urine Leukocyte Esterase LARGE (NEG) Urine RBC 11 /hpf (0-3) Urine WBC Clumps OCC (NONE) Urine Bacteria OCC /hpf (NONE) Urine Mucus FEW /lpf (OCC) Urine Yeast with Hyphae FEW (NONE) Urine Yeast (Budding) MOD (NONE) Monocytes # (Auto) 1.1 TH/MM3 (0-0.9) Chloride Level 108 MEQ/L (98-107) Test 11/27/16 06:38 Red Blood Count 3.50 MIL/MM3 (4.50-5.90) Hemoglobin 9.5 GM/DL (13.0-17.0) Hematocrit 29.3 % (39.0-51.0) Red Cell Distribution Width 19.6 % (11.6-17.2) Neutrophils (%) (Auto) 72.8 % (16.0-70.0) Monocytes (%) (Auto) 8.4 % (0.0-8.0) Blood Urea Nitrogen 39 MG/DL (7-18) Creatinine 1.40 MG/DL (0.60-1.30) Estimat Glomerular Filtration 49 ML/MIN (>89) Rate PE at Discharge GENERAL: This is a well-nourished, well-developed patient, in no apparent distress. CARDIOVASCULAR: Regular rate and rhythm without murmurs, gallops, or rubs. RESPIRATORY: Clear to auscultation. Breath sounds equal bilaterally. No wheezes , rales, or rhonchi. GASTROINTESTINAL: Abdomen soft, non-tender, nondistended. Normal active bowel sounds MUSCULOSKELETAL: Extremities without clubbing, cyanosis, or edema. NEURO: Alert & Oriented x4 to person, place, time, situation. Moves all ext x4 Hospital Course (1) CHF (congestive heart failure) Status: Acute Plan: - h/o diastolic dysfunction - clinical improvement in pt's edema - discharge on lasix 40mg PO bid - anticipate d/c 11/27 (2) Atrial fibrillation with RVR Status: Chronic Plan: - case reviewed with Cardiology, Dr. Zafar - pauses appear less than 4 seconds & asymptomatic - BB stopped - continue digoxin and cardizem (3) CKD (chronic kidney disease) stage 3, GFR 30-59 ml/min Status: Chronic Plan: - improving - 1.9 (11/24/16), 1.69 (11/25), 1.4 (11/27/16) - observe (4) Diabetes mellitus Status: Chronic Plan: continue current medications Pt Condition on Discharge: Stable Discharge Disposition: Discharge to SNF Discharge Instructions DIET: Follow Instructions for: Heart Healthy Diet Activities you can perform: Weight Bearing as Reza Follow up Referrals: PCP Follow-up - [address] Jalil Vazquez f/u with PCP, Dr. Jalil Vazquez, one week after discharge from SNF SNF[facility]/ with [facility] New Medications: Furosemide (Lasix) 40 Mg Tab 40 MG PO BID chf #60 Ref 0 TAB Changed Medications: Insulin Detemir Inj (Levemir Inj) 1,000 unit/ 10 ML Vial 18 UNITS SQ BID Do not mix with any other Insulin. Blood Sugar Management Days 30 Ref 0 VIAL (Changed from: 15 UNITS) Continued Medications: Allopurinol (Allopurinol) 100 Mg Tab 100 MG PO DAILY Gout #[address] Ref [address] (Aspirin EC) 81 Mg Tabdr 81 MG PO DAILY Ref 0 TAB Atorvastatin (Atorvastatin) 40 Mg Tab 40 MG PO HS Cholesterol Management #30 Ref 0 TAB Digoxin (Digoxin) 0.125 Mg Tab 0.125 MG PO DAILY afib #30 Ref 3 TAB Diltiazem CD 24 HR (Cardizem CD 24 HR) 240 Mg Caper 240 MG PO BID afib #60 Ref [address] (Ferrous Sulfate DR) 324 Mg Tabdr 325 MG PO DAILY Nutritional Supplement #30 Ref 0 TAB Memantine (Namenda) 10 Mg Tab 10 MG PO DAILY Alzheimer Disease #30 Ref 0 TAB Metoprolol Tartrate (Metoprolol Tartrate) 50 Mg Tab 50 MG PO BID #60 Ref 0 TAB Multiple Vitamin (Multiple Vitamin) 1 Tab 1 TAB PO DAILY Nutritional Supplement Ref 0 TAB Pantoprazole (Protonix) 40 Mg Tab 40 MG PO BID ulcer #60 Ref 0 TAB Tamsulosin (Flomax) 0.4 Mg Cap 0.4 MG PO HS Urine retention #30 Ref 3 CAP Discontinued Medications: Amoxicillin-Clavulanate (Amoxicillin-Clavulanate) 500-125 mg Tab 500 MG PO BID Infection Ref 0 TAB Furosemide (Furosemide) 20 Mg Tab 20 MG PO BID #60 Ref 0 TAB Insulin Lispro (Human) Inj (Humalog Inj) 1,000 Unit/10 Ml Vial 1-9 UNITS SQ ACHS Max dose at bedtime:( )units; sugars< 70,(0)units; sugars 150 -199,(1)unit; sugars 200-249,(3)units; sugars 250-299,(5)units; sugars 300-349,( 7)units; sugars more than 349,(9)units. Blood Sugar Management #1 Ref 0 VIAL Zinc Sulfate (Zinc Sulfate) 220 Mg Cap 220 MG PO DAILY Nutritional Supplement Ref 0 CAP Norberto Bradford DO Nov 27, 2016 16:58
== END 2016-11-27 19:48 | DRG 291 ==
LOC: NEPC 16:07 → NEDA 18:53 → N07A 21:07
PROVIDERS: ADMIT Hospitalist; ATTEND Hospitalist
DX: I13.0 Hypertensive heart and chronic kidney disease with heart failure and stage 1 through stage 4 chronic kidney disease, or unspecified chronic kidney disease (principal); I50.33 Acute on chronic diastolic (congestive) heart failure; N17.9 Acute kidney failure, unspecified; I42.9 Cardiomyopathy, unspecified; F03.90 Unspecified dementia, unspecified severity, without behavioral disturbance, psychotic disturbance, mood disturbance, and anxiety; N39.0 Urinary tract infection, site not specified; E11.22 Type 2 diabetes mellitus with diabetic chronic kidney disease; I48.91 Unspecified atrial fibrillation; N18.3 Chronic kidney disease, stage 3 (moderate); D64.9 Anemia, unspecified; M19.90 Unspecified osteoarthritis, unspecified site; M10.9 Gout, unspecified; I25.10 Atherosclerotic heart disease of native coronary artery without angina pectoris; Z51.5 Encounter for palliative care; Z66 Do not resuscitate; Z79.4 Long term (current) use of insulin
CPT/HCPCS: 71010; 71020; 80048; 80053; 81001; 82550; 82948; 83735; 83880; 84484; 85025; 85610; 85730; 87077; 87086; 87186; 93005; 94640; 94664; 96374; J1815

== ENCOUNTER 2016-12-17 10:02 | Emergency (ER) | payer MEDICARE ==
[~2016-12-17 10:02] MED LIST changes: +FURO1TAB60 PO; -GLIP5TAB8 PO; -LEVA250T14 PO; +LEVEMIR SQ; -METO-338 PO; +METO50TA PO; +MULTTAB67 PO; +POTA10CA PO
[2016-12-17 10:05] VITALS: BP 146/76; PULSE 104; RESP 20; TEMP 97.6; O2SAT 95
[2016-12-17] MEDS ORDERED: TRAD5TAB PO (10:15)
[2016-12-17] MEDS ORDERED: DILT120T PO (10:15)
[2016-12-17] MEDS ORDERED: ZINC220C3 PO (10:15)
[2016-12-17] MEDS ORDERED: TETANUS/DIPHTHERIA TOXOID ADULT 0.5 ML VIAL IM ONE (10:15)
[2016-12-17] MEDS ORDERED: NOVOLOGP2 SQ (10:15)
[2016-12-17] MEDS ORDERED: METO5TAB3 PO (10:15)
[2016-12-17] MEDS ORDERED: INSULIN ASPART 1,000 UNITS/10 ML VIAL SQ ONE (10:15)
[2016-12-17] MEDS ORDERED: LIDOCAINE 1%/EPINEPHrine 1:100,000 SOLN 20 ML VIAL INFIL ONE (10:15)
[2016-12-17] MEDS ORDERED: POTA-243 PO (10:15)
[2016-12-17] MEDS ORDERED: SENN8.6T36 PO (10:15)
[2016-12-17] MEDS ORDERED: ASCO500T PO (10:15)
[2016-12-17] MEDS ORDERED: GLIM4TAB PO (10:15)
--- NOTE | 2016-12-17 10:22 | PD ---
HPI Chief Complaint: Fall Time Seen by Provider: 10:06 Travel History International Travel<30 days: No Contact w/Intl Traveler<30days: No Traveled to known affect area: No History of Present Illness HPI The patient is a 81-year-old male who presents to the emergency department via EMS from an [facility] after a fall from a chair. Apparently the patient was being transferred from a wheelchair to a recliner when he fell forward, striking his head on the corner of a table. The patient denies any loss of consciousness, does note a laceration to the forehead which bled initially but is currently stopped. The patient does take aspirin, denies taking any other anticoagulants. He denies any facial pain, blurry vision, ocular changes, neck pain, chest pain, shortness breath, nausea, vomiting, or focal deficits. EMS does state they checked the patient's blood sugar in route to the hospital, was 432. The patient does have a history of diabetes and states they did not check his blood sugar this morning or administer insulin. The patient's symptoms are mild, exacerbated after falling from a wheelchair, and self resolving. PFSH Past Medical History Arthritis: Yes Asthma: No Atrial Fibrillation: Yes Blood Disorders: No Anxiety: Yes Depression: No Heart Rhythm Problems: Yes (a-fib) Cancer: No Cardiovascular Problems: Yes High Cholesterol: No Chemotherapy: No Chest Pain: No Congestive Heart Failure: Yes COPD: Yes Cerebrovascular Accident: No Diabetes: Yes Patient Takes Glucophage: No Endocrine: No Gastrointestinal Disorders: Yes Gout: Yes Genitourinary: No Hiatal Hernia: Yes Hypertension: Yes Immune Disorder: No Implanted Vascular Access Dvce: Yes Kidney Stones: No Musculoskeletal: Yes Neurologic: No Psychiatric: No Reproductive: No Respiratory: Yes (CHF; COPD) Migraines: No Radiation Therapy: No Renal Failure: No Seizures: No Sleep Apnea: No Thyroid Disease: No Ulcer: Yes Past Surgical History Abdominal Surgery: Yes Body Medical Devices: walker Cardiac Surgery: No Ear Surgery: No Endocrine Surgery: No Eye Surgery: No Genitourinary Surgery: No Gynecologic Surgery: No Oral Surgery: No Pacemaker: No Thoracic Surgery: No Other Surgery: Yes (as a child left hernia groin repair) Social History Alcohol Use: No (RARE) Tobacco Use: No Substance Use: No Allergies-Medications (Allergen,Severity, Reaction): Coded Allergies: *MDRO Multi-Drug Resistant Organism (Verified Adverse Reaction, Unknown, MRSA, 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 Digoxin 0.125 Mg Tab 0.125 Mg PO DAILY Flomax (Tamsulosin HCl) 0.4 Mg Cap 0.4 Mg PO HS Protonix (Pantoprazole Sodium) 40 Mg Tab 40 Mg PO BID Reported Novolog Inj (Insulin Aspart) 1,000 Unit/10 Ml Vial 0 SQ DIRECTED Sliding Scale as directed. Glimepiride 4 Mg Tab 4 Mg PO BIDAC Zinc Sulfate 220 Mg (50 Mg Zinc) Cap 220 Mg PO DAILY Tradjenta (Linagliptin) 5 Mg Tab 5 Mg PO DAILY Senna-Tabs (Sennosides) 8.6 Mg Tab 8.6 Mg PO DAILY Metolazone 5 Mg Tab 5 Mg PO DAILY Klor-Con 10 (Potassium Chloride) 10 Meq Tab 10 Meq PO DAILY Diltiazem (Diltiazem HCl) 120 Mg Tab 120 Mg PO DAILY Ascorbic Acid 500 Mg Tab 500 Mg PO Metoprolol Tartrate 50 Mg Tab 50 Mg PO BID Multiple Vitamin 1 Tab 1 Tab PO DAILY Aspirin EC (Aspirin) 81 Mg Tabdr 81 Mg PO DAILY Ferrous Sulfate DR (Ferrous Sulfate) 324 Mg Tabdr 325 Mg PO DAILY Namenda (Memantine) 10 Mg Tab 10 Mg PO DAILY Atorvastatin (Atorvastatin Calcium) 40 Mg Tab 40 Mg PO HS Allopurinol 100 Mg Tab 100 Mg PO DAILY Review of Systems Except as stated in HPI: all other systems reviewed are Neg Eyes: No: Blurred Vision, Visual changes HENT: No: Headaches, Neck Pain Cardiovascular: No: Chest Pain or Discomfort Respiratory: No: Shortness of Breath Gastrointestinal: No: Nausea, Vomiting Musculoskeletal: Positive: Edema, No: Weakness Neurologic: No: Weakness, Dizziness, Focal Abnormalities, Headache, Change in Mentation Physical Exam Narrative GENERAL: Awake, alert, very pleasant 81-year-old male who appears his stated age and is in no acute respiratory distress. SKIN: 3 cm somewhat jagged laceration over the anterior forehead. HEAD: 3 cm jagged laceration of the anterior forehead. EYES: Pupils equal and round. Pupils are 3 mm bilateral and reactive. Patient is wearing glasses. EOMs are intact. Patient is able to see fingers at a distance of 2 feet without difficulty. Mild edema inferior to left orbit but nontender over the left orbit. ENT: No nasal bleeding or discharge. Mucous membranes pink and moist. NECK: Trachea midline. No JVD. No tenderness of the cervical vertebrae. GASTROINTESTINAL: Abdomen soft, non-tender, nondistended. Ruiz catheter in place. MUSCULOSKELETAL: Mild pitting edema the lower extremities noted. NEUROLOGICAL: Awake and alert. No obvious cranial nerve deficits. Motor grossly within normal limits. Normal speech. Nonfocal. Moves all 4 extremities without difficulty. Oriented 3. PSYCHIATRIC: Appropriate mood and affect; insight and judgment normal. Data Data Last Documented VS Vital Signs Date Time Temp Pulse Resp B/P (MAP) Pulse Ox O2 Delivery O2 Flow Rate FiO2 12/17/16 10:05 97.6 104 20 146/76 (99) [address] Brain W/O Iv Contrast(Rout) (12/17/16 ) Lidocai-Epi 1%-1:100,000 Inj (Xylocaine- (12/17/16 10:15) Tetanus/Diphtheria Tox Adult (Tetanus/Di (12/17/16 10:15) Insulin Aspart Inj (Novolog Inj) (12/17/16 10:15) Lidocai-Epi 2%-1:100,000 Inj (Xylocaine- (12/17/16 11:00) MDM Medical Decision Making Medical Screen Exam Complete: Yes Emergency Medical Condition: Yes Medical Record Reviewed: Yes Interpretation(s) CT of the brain reveals scalp swelling, no acute hemorrhage. Differential Diagnosis Differential diagnosis includes laceration, closed head injury, intracranial hemorrhage, hyperglycemia, contusion, hematoma, orbital fracture. Narrative Course I had a discussion with the patient regarding chronic comorbidities, edema, and elevated blood glucose. The Accu-Chek was rechecked, was 431, EMS at 432. I had a discussion with the patient regarding blood work, fluids, however, the patient states he wants to get back to the [facility] to be with his son. The patient states they did not check his blood sugar this morning or administer insulin. After discussion with the patient was agreed he would receive 8 units of insulin subcutaneously, CT the brain would be performed, laceration would be repaired. The patient's laceration was repaired in a single layer fashion using 5-[address] the brain was negative. I do discussion with the patient he wants no further workup for his elevated glucose or blood work, he would like to return home immediately to the [facility] to take care of his son. The patient is advised to recheck his sugar and 2 hours and return if symptoms worsen or progress. Procedures Procedure Narrative LACERATION LOCATION: Forehead LENGTH: 3 cm NUMBER OF STITCHES/DILLON: 7 REPAIR: The area of the laceration was prepped with Betadine and sterilely draped. The laceration was infiltrated with 2% lidocaine with epinephrine. The wound was copiously irrigated and explored without evidence of foreign body , tendon injury or neurovascular injury. The wound was closed using 5-0 nylon. This was a single layer repair. A sterile dressing was applied. The patient was advised to keep the dressing clean and dry. Patient tolerated the procedure well. Diagnosis Primary Impression: Laceration of forehead Qualified Codes: S01.81XA - Laceration without foreign body of other part of head, initial encounter Additional Impression: Hyperglycemia Additional Instructions: Discharge back to [facility]. Suture removal in 5-7 days. Polysporin twice a day. Recheck blood sugar and 2 hours. Return if symptoms worsen or progress. Med/Other Pt SpecificInfo: No Change to Meds Disposition: 01 DISCHARGE HOME Condition: Stable Jan Alamo MD Dec 17, 2016 10:22
[2016-12-17] MEDS ORDERED: LIDOCAINE 2%/EPINEPHrine 1:100,000 30ML MDV INFIL ONE (10:30)
[2016-12-17] MEDS ORDERED: LIDOCAINE 2%/EPINEPHrine 1:100,000 50ML MDV ONE (11:00)
--- NOTE | 2016-12-17 11:06 | RADRPT ---
EXAM DATE/TIME: 12/17/2016 10:26 [facility] COMPARISON: No previous studies available for comparison. INDICATIONS : Trauma. Fall. Left forehead laceration. RADIATION DOSE: 64.50 CTDIvol (mGy) MEDICAL HISTORY : Chronic obstructive pulmonary disease. Congestive heart failure. Diabetes mellitus type 2.Hypertensio n. SURGICAL HISTORY : Inguinal hernia repair. ENCOUNTER: Initial ACUITY: 1 day PAIN SCALE: 4/10 LOCATION: Left cranial TECHNIQUE: Multiple contiguous axial images were obtained of the head. Using automated exposure control and adj ustment of the mA and/or kV according to patient size, radiation dose was kept as low as reasonably a chievable to obtain optimal diagnostic quality images. DICOM format image data is available electro nically for review and comparison. FINDINGS: There is no evidence for intracranial hemorrhage, mass effect, mass lesions, or edema. The visualize d bony structures appear intact. Slight degree of brain atrophy is seen. Slight periventricular whit e matter changes are seen nonspecific mostly consistent with chronic small vessel ischemic changes. There are no signs of acute infarction for technique. There is scalp swelling involving the left fron kumar region with prominence of the extra-axial CSF chronic in nature CONCLUSION: Scalp swelling. Aleksander Giles MD on December 17, 2016 at 11:03 Board Certified Radiologist. This report was verified electronically.
== END 2016-12-17 12:46 | disposition home or self-care (01) ==
LOC: PHED 10:02
DX: S01.81XA Laceration without foreign body of other part of head, initial encounter (principal); E11.65 Type 2 diabetes mellitus with hyperglycemia; I48.91 Unspecified atrial fibrillation; I50.9 Heart failure, unspecified; I11.0 Hypertensive heart disease with heart failure; J44.9 Chronic obstructive pulmonary disease, unspecified; Z23 Encounter for immunization; W04.XXXA Fall while being carried or supported by other persons, initial encounter; Y92.129 Unspecified place in nursing home as the place of occurrence of the external cause; Y99.8 Other external cause status
CPT/HCPCS: 12013; 70450; 90471; 90714; 96372; 99285; J1815

== ENCOUNTER 2017-01-02 23:11 | Emergency (ER) | payer MEDICARE ==
[~2017-01-02] VITALS: Ht 182.9 cm; Wt 103.6 kg
[~2017-01-02 23:11] MED LIST changes: +ASCO500T PO; -CARD240C6 PO; +DILT120T PO; +GLIM4TAB PO; +METO5TAB3 PO; +NOVOLOGP2 SQ; +POTA-243 PO; -POTA10CA PO; +SENN8.6T36 PO; +TRAD5TAB PO; +ZINC220C3 PO
[2017-01-02 23:24] VITALS: BP 114/65; PULSE 93; RESP 16; O2SAT 96
[2017-01-02] MEDS ORDERED: DILT120C7 PO (23:45)
--- NOTE | 2017-01-02 23:45 | PD ---
HPI Chief Complaint: Abnormal Results Time Seen by Provider: 23:23 Travel History International Travel<30 days: No Contact w/Intl Traveler<30days: No Traveled to known affect area: No History of Present Illness HPI The patient is an 81 year old male who presents to the [facility] emergency department with a history of his arm reportedly twitching and causing pain prior to arrival. The patient reports that he was given something for the twitching and this has improved. The patient unfortunately is somewhat of a poor historian. The patient according to ambulance services was brought into the emergency department related to high blood sugar. The patient's blood sugar prior to arrival was in the 500s. The patient is currently on hospice resides at a long term. The patient is unsure why he is on hospice. Further details regarding the patient's history is obtained from reviewing the electronic medical record. On review of systems, the patient denies any recent known fevers, cough, congestion, neck pain, chest pain, shortness of breath, abdominal pain, vomiting, diarrhea, one-sided weakness, slurred speech, dizziness, facial droop, or difficulty with word finding ability. The patient reports that he has had some constipation for the last couple of days. He did move his bowels in small about earlier today. PFS Past Medical History Narrative Medical As the patient is unable to recall most of his medical history, the patient's history is obtained from reviewing the electronic medical record and includes arthritis, diabetes, hypertension, hyperlipidemia, chronic renal insufficiency, anemia, atrial fibrillation, and diastolic congestive heart failure. Anemia: Yes Arthritis: Yes Asthma: No Atrial Fibrillation: Yes Blood Disorders: No Anxiety: Yes Depression: No Heart Rhythm Problems: Yes (a-fib) Cancer: No Cardiovascular Problems: Yes High Cholesterol: No Chemotherapy: No Chest Pain: No Congestive Heart Failure: Yes COPD: Yes Cerebrovascular Accident: No Diabetes: Yes Patient Takes Glucophage: Yes (GLIMEPIRIDE) Endocrine: No Gastrointestinal Disorders: Yes (GI HEMMORRHAGE) Gout: Yes Genitourinary: No Hiatal Hernia: Yes Hypertension: Yes Immune Disorder: No Implanted Vascular Access Dvce: Yes Kidney Stones: No Medical other: Yes (GASTRIC ULCER, UNSTEADY GAIT ) Musculoskeletal: Yes Neurologic: No Psychiatric: No Reproductive: No Respiratory: Yes (CHF; COPD) Migraines: No Radiation Therapy: No Renal Failure: Yes (CKD STAGE 3) Seizures: No Sleep Apnea: No Thyroid Disease: No Ulcer: Yes Past Surgical History Narrative Surgical The patient's past surgical history is significant for a hernia repair as a child. 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 Digoxin 0.125 Mg Tab 0.125 Mg PO DAILY Flomax (Tamsulosin HCl) 0.4 Mg Cap 0.4 Mg PO HS Protonix (Pantoprazole Sodium) 40 Mg Tab 40 Mg PO BID Reported Diltiazem ER 24 HR (Diltiazem HCl) 120 Mg Caper 240 Mg PO BID Novolog Inj (Insulin Aspart) 1,000 Unit/10 Ml Vial 0 SQ DIRECTED Sliding Scale as directed. Glimepiride 4 Mg Tab 4 Mg PO BIDAC Zinc Sulfate 220 Mg (50 Mg Zinc) Cap 220 Mg PO DAILY Tradjenta (Linagliptin) 5 Mg Tab 5 Mg PO DAILY Senna-Tabs (Sennosides) 8.6 Mg Tab 8.6 Mg PO DAILY Metolazone 5 Mg Tab 5 Mg PO DAILY Klor-Con 10 (Potassium Chloride) 10 Meq Tab 10 Meq PO DAILY Ascorbic Acid 500 Mg Tab 500 Mg PO Metoprolol Tartrate 50 Mg Tab 50 Mg PO BID Multiple Vitamin 1 Tab 1 Tab PO DAILY Aspirin EC (Aspirin) 81 Mg Tabdr 81 Mg PO DAILY Ferrous Sulfate DR (Ferrous Sulfate) 324 Mg Tabdr 325 Mg PO DAILY Namenda (Memantine) 10 Mg Tab 10 Mg PO DAILY Atorvastatin (Atorvastatin Calcium) 40 Mg Tab 40 Mg PO HS Allopurinol 100 Mg Tab 100 Mg PO DAILY Review of Systems ROS Limitations: Poor Historian Except as stated in HPI: all other systems reviewed are Neg General / Constitutional: No: Fever Eyes: No: Visual changes HENT: No: Headaches Cardiovascular: No: Chest Pain or Discomfort Respiratory: No: Shortness of Breath Gastrointestinal: Positive: Constipation, No: Nausea, Vomiting, Diarrhea Genitourinary: No: Dysuria Musculoskeletal: No: Pain Skin: No Rash Neurologic: No: Weakness Psychiatric: No: Depression Endocrine: No: Polydipsia Hematologic/Lymphatic: No: Easy Bruising Physical Exam Narrative General: The patient is a well-developed well-nourished male in no acute distress. Head and Neck exam: Head is normocephalic atraumatic. Eyes: EOMI, pupils are equal round and reactive to light. Nose: Midline septum with pink mucous membranes Mouth: Dentition unremarkable. Moist mucus membranes. Posterior oropharynx is not erythematous. No tonsillar hypertrophy. Uvula midline. Airway patent. Neck: No palpable lymphadenopathy. No nuchal rigidity. No thyromegaly. Cardiovascular: Irregularly irregular with a rate in the 90s consistent with atrial fibrillation on telemetry without murmurs, gallops, or rubs. Lungs: Clear to auscultation bilaterally. No wheezes, rhonchi, or rales. Abdomen: Soft, without tenderness to palpation in all 4 quadrants of the abdomen. No guarding, rebound, or rigidity. Normal bowel sounds are audible. No tenderness on palpation of McBurney's point. The patient has a chronic indwelling Ruiz catheter in place with cloudy urine noted. Extremities: No clubbing, cyanosis, or edema. 2+ pulses in all 4 extremities. No calf tenderness on palpation. Back: No costovertebral angle tenderness to palpation. Neurologic Exam: Cranial nerves 2-12 were intact on exam. Strength is 5/5 in all 4 extremities. No sensory deficits noted. Skin Exam: No rash noted. The patient has a bandage in place on bilateral heels. Bandages are clean, dry, and intact. The patient has a Band-Aid in place over the forehead with an underlying abrasion noted. Data Data Last Documented VS Vital Signs Date Time Temp Pulse Resp B/P (MAP) Pulse Ox O2 Delivery O2 Flow Rate FiO2 01/03/17 03:27 80 14 121/68 (85) 97 Room Air Orders Orders Complete Blood Count With Diff (01/02/17 23:52) Comprehensive Metabolic Panel (01/02/17 23:52) Troponin I (01/02/17 23:52) B-Type Natriuretic Peptide (01/02/17 23:52) Lipase (01/02/17 23:52) Urinalysis - C+S If Indicated (01/02/17 23:52) Magnesium (Mg) (01/02/17 23:52) Blood Gas Venous Ph (01/02/17 23:52) Beta Hydroxybutyrate (Acetone) (01/02/17 23:52) Chest, Single Ap (01/02/17 23:52) Iv Access Insert/Monitor (01/02/17 23:52) Ecg Monitoring (01/02/17 23:52) Oximetry (01/02/17 23:52) Sodium Chlor 0.9% 250 Ml Inj (Ns 250 Ml (01/03/17 00:00) Urine Culture (01/02/17 23:05) Ceftriaxone Inj (Rocephin Inj) (01/03/17 00:45) Insulin Human Regular Inj (Novolin R Inj (01/03/17 00:45) Blood Glucose (01/03/17 01:07) Potassium Chloride (Kcl) (01/03/17 02:45) Sodium Chlor 0.9% 250 Ml Inj (Ns 250 Ml (01/03/17 02:45) Labs Laboratory Tests Test 01/02/17 23:05 01/03/17 00:05 White Blood Count 10.0 TH/MM3 Red Blood Count 4.65 MIL/MM3 Hemoglobin 12.7 GM/DL Hematocrit 39.1 % Mean Corpuscular Volume 84.2 FL Mean Corpuscular Hemoglobin 27.4 PG Mean Corpuscular Hemoglobin Concent 32.6 % Red Cell Distribution Width 16.7 % Platelet Count 320 TH/MM3 Mean Platelet Volume 9.2 FL Neutrophils (%) (Auto) 67.5 % Lymphocytes (%) (Auto) 18.7 % Monocytes (%) (Auto) 11.2 % Eosinophils (%) (Auto) 1.6 % Basophils (%) (Auto) 1.0 % Neutrophils # (Auto) 6.7 TH/MM3 Lymphocytes # (Auto) 1.9 TH/MM3 Monocytes # (Auto) 1.1 TH/MM3 Eosinophils # (Auto) 0.2 TH/MM3 Basophils # (Auto) 0.1 TH/MM3 CBC Comment DIFF FINAL Differential Comment Urine Color LIGHT-YELLOW Urine Turbidity CLOUDY Urine pH 5.5 Urine Specific [place] 1.015 Urine Protein 30 mg/dL Urine Glucose (UA) 1000 mg/dL Urine Ketones NEG mg/dL Urine Occult Blood SMALL Urine Nitrite NEG Urine Bilirubin NEG Urine Urobilinogen LESS THAN 2.0 MG/DL Urine Leukocyte Esterase LARGE Urine RBC 13 /hpf Urine WBC /hpf Urine WBC Clumps MANY Urine Squamous Epithelial Cells 1 /hpf Urine Amorphous Sediment RARE Urine Bacteria MANY /hpf Microscopic Urinalysis Comment CULTURE INDICATED Blood Urea Nitrogen 62 MG/DL Creatinine 1.95 MG/DL Random Glucose 477 MG/DL Total Protein 7.5 GM/DL Albumin 2.5 GM/DL Calcium Level 8.9 MG/DL Magnesium Level 2.2 MG/DL Alkaline Phosphatase 138 U/L Aspartate Amino Transf (AST/SGOT) 20 U/L Alanine Aminotransferase (ALT/SGPT) 19 U/L Total Bilirubin 0.4 MG/DL Sodium Level 129 MEQ/L Potassium Level 3.1 MEQ/L Chloride Level 88 MEQ/L Carbon Dioxide Level 35.1 MEQ/L Anion Gap 6 MEQ/L Estimat Glomerular Filtration Rate 33 ML/MIN Troponin I 0.03 NG/ML B-Type Natriuretic Peptide 79 PG/ML Lipase 56 U/L B-Hydroxybutyrate 0.08 MMOL/L Venous Blood pH 7.38 [facility] Medical Decision Making Medical Screen Exam Complete: Yes Emergency Medical Condition: Yes Medical Record Reviewed: Yes Interpretation(s) Last Impressions Chest X-Ray 01/02/17 7940 Signed Impressions: Service Date/Time: Tuesday, January 03, 2017 00:02 - CONCLUSION: 1. Mild basilar airspace disease with trace pleural effusions. Findings improved from November 26 comparison. Old right humeral fracture. Ashutosh Almanza MD Differential Diagnosis Hyperglycemia related to infectious process, versus DKA, versus medication regimen alteration Narrative Course During the course of the patients emergency department visit, the patients history, examination, and differential diagnosis were reviewed with the patient. The patient had IV access obtained and blood work sent for analysis. The patient was placed on a monitoring engineer with oximetry and blood pressure monitoring. An ECG was done on arrival. The patient was initially provided normal saline at 250 mL bolus for his hyperglycemia wall workup included evaluation for possible acidosis. Venous blood gas revealed no evidence of acidosis. The patient was given regular insulin 5 units subcutaneous 1. Urinalysis revealed evidence of infection, therefore the patient was given Rocephin 1 g IV. This could be one of the reason that the patient's blood sugar is been more difficult to control. The patients laboratory studies were reviewed and remarkable for a white count 10, hemoglobin 12.7, platelets 320 with 11.2 monocytes, CMP is remarkable for sodium of 129, potassium 3.1, chloride 88, CO2 35.1, BUN 62, creatinine 1.95 in a patient with a history of renal insufficiency that appears to be somewhat similar to his baseline. Glucose 477. The patient was gently rehydrated. The patient was given potassium supplementation by mouth, alkaline phosphatase 138, lipase 56, BNP is 79, urinalysis shows small occult blood, large leukocyte esterase, 13 RBCs, innumerable WBCs, many clumps many bacteria. I review the patient's electronic medical record reveals an Escherichia coli positive urine culture that was sensitive to Bactrim. And ceftriaxone. The patient was given an initial dose of Rocephin 1 g IV. Beta hydroxybutyrate is 0.08. Radiology studies were reviewed and remarkable for a chest x-ray that shows mild bibasilar airspace disease with trace pleural effusions. Findings improved with comparison to prior films. Old right humeral fracture. The patient was gently rehydrated with another bolus of 250 mL of normal saline given his history of congestive heart failure. The patient's blood sugar was monitored and was beginning to improve and came down to 372. The patient will be discharged back to his long term with a prescription for Bactrim for his urinary tract infection and a potassium supplement orally due to his hypokalemia. The patient is resting comfortably and feels better, is alert and in no distress. The patients results and examination findings were discussed with the patient. The repeat examination is unremarkable and benign. The history, exam, diagnostic testing, and current condition do not suggest any significant pathology to warrant further testing, continued ED treatment, admission, or surgical evaluation at this point. The vital signs have been stable. The patient does not have uncontrollable pain, intractable vomiting, or other significant symptoms. The patient's condition is stable and appropriate for discharge. The patient will pursue further outpatient evaluation with a primary care physician or other designated or consulting physician as indicated in the discharge instructions. The patient expressed understanding and was agreeable with this plan. Diagnosis Primary Impression: UTI (urinary tract infection) Qualified Codes: T83.511A - Infection and inflammatory reaction due to indwelling urethral catheter, initial encounter; N39.0 - Urinary tract infection , site not specified Additional Impression: Hyperglycemia due to type 2 diabetes mellitus Qualified Codes: E11.65 - Type 2 diabetes mellitus with hyperglycemia; Z79.4 - halfway (current) use of insulin Referrals: Primary Care Physician 1 day Patient Instructions: Catheter-associated Urinary Tract Infection (ED), Diabetic Hyperglycemia (ED), General Instructions Med/Other Pt SpecificInfo: Prescription(s) given Scripts Sulfamethoxazole-Trimethoprim (Bactrim DS) 800-160 Mg Tab 1 TAB PO BID for Infection, #14 TAB 0 Refills Prov: Mee Casillas MD 01/03/17 Potassium Chloride ER (K-Tab) 10 Meq Tab 10 MEQ PO BID for Electrolyte Replacement, #10 TAB 0 Refills Prov: Mee Casillas MD 01/03/17 Disposition: 03 DISCHARGE TO SNF Condition: Stable Mee Casillas MD Jan 02, 2017 23:45
[2017-01-03 00:16] LABS: AUTOMATED NEUTROPHIL # 6.7 TH/MM3 (1.8-7.7); BASOPHIL # 0.1 TH/MM3 (0-0.2); EOSINOPHIL # 0.2 TH/MM3 (0-0.4); EOSINOPHIL % 1.6 % (0.0-4.0); HEMATOCRIT 39.1 % (39.0-51.0); HEMO FLAGS DIFF FINAL; LYMPH % 18.7 % (9.0-44.0); LYMPHOCYTE # 1.9 TH/MM3 (1.0-4.8); MEAN CELL VOLUME 84.2 FL (80.0-100.0); MEAN CORPUSCULAR HEMOGLOBIN 27.4 PG (27.0-34.0); MEAN CORPUSCULAR HGB CONC 32.6 % (32.0-36.0); MONO % 11.2 % (0.0-8.0); NEUT % 67.5 % (16.0-70.0); PLATELET COUNT 320 TH/MM3 (150-450); RED BLOOD COUNT 4.65 MIL/MM3 (4.50-5.90); RED CELL DISTRIBUTION WIDTH 16.7 % (11.6-17.2)
[2017-01-03 00:26] LABS: BACTERIA, URINE MANY /hpf; BLOOD, URINE SMALL (NEG); GLUCOSE,URINE 1000 mg/dL (NEG); KETONE, URINE NEG (NEG); NITRITE,URINE NEG (NEG); PH, URINE 5.5 (5.0-8.5); SQUAMOUS EPITHELIAL CELL URINE 1 /hpf (0-5); URINE COLOR LIGHT-YELLOW (YELLW/STRAW)
[2017-01-03 00:27] LABS: COMMENT (UR) CULTURE INDICATED; CULTURE IF INDICATED CULTURE INDICATED
--- NOTE | 2017-01-03 00:30 | RADRPT ---
EXAM DATE/TIME: 01/03/2017 00:02 [place] COMPARISON: CHEST PA & LAT, November 26, 2016, 9:11. CHEST SINGLE AP, November 24, 2016, 16:27. INDICATIONS : Cough and weakness MEDICAL HISTORY : Chronic obstructive pulmonary disease. Diabetes mellitus type II. Hypertension. CHF SURGICAL HISTORY : Inguinal hernia repair. ENCOUNTER: Initial ACUITY: 2 days PAIN SCORE: 7/10 LOCATION: Bilateral chest FINDINGS: A single view of the chest demonstrates mild basilar airspace disease. Probable trace pleural fluid. Findings improved from November 26. No pneumothorax. Heart size normal. CONCLUSION: 1. Mild basilar airspace disease with trace pleural effusions. Findings improved from November 26 adria rison. Old right humeral fracture. Ashutosh Almanza MD on January 03, 2017 at 0:27 Board Certified Radiologist. This report was verified electronically.
[2017-01-03] MEDS ORDERED: INSULIN HUMAN REGULAR 1,000 UNITS/10 ML VIAL SQ ONE (00:45)
[2017-01-03] MEDS ORDERED: cefTRIAXone INJ 1,000 MG in SODIUM CHLORIDE 0.9% INJ 100 ML IV ONE (00:45)
[2017-01-03 02:04] LABS: ALKALINE PHOSPHATASE 138 U/L (45-117); ALT (GPT) 19 U/L (12-78); ANION GAP 6 MEQ/L (5-15); AST (GOT) 20 U/L (15-37); BETA-HYDROXYBUTYRATE 0.08 MMOL/L (0.00-0.39); BICARBONATE 35.1 MEQ/L (21.0-32.0); BLOOD UREA NITROGEN 62 MG/DL (7-18); CHLORIDE 88 MEQ/L (98-107); GLOMERULAR FILTRATION RATE 33 ML/MIN (>89); MAGNESIUM 2.2 MG/DL (1.5-2.5); POTASSIUM 3.1 MEQ/L (3.5-5.1); SODIUM (NA) 129 MEQ/L (136-145); TOTAL BILIRUBIN ADULT 0.4 MG/DL (0.2-1.0)
[2017-01-03] MEDS ORDERED: POTASSIUM CHLORIDE 20 MEQ CONTROLLED RELEASE TAB PO ONE (02:45)
[2017-01-03] MEDS ORDERED: SODIUM CHLOR 0.9% 250 ML INJ 250 ML IV ONE ×2 (02:45)
[2017-01-03] MEDS ORDERED: K-TA10TA PO (02:59)
[2017-01-03] MEDS ORDERED: BACT800T5 PO (02:59)
[2017-01-03 03:27] VITALS: BP 121/68; PULSE 80; RESP 14; O2SAT 97
[2017-01-03 07:38] VITALS: BP 165/89; PULSE 97; RESP 17; TEMP 97.5; O2SAT 97
[2017-01-03 10:20] VITALS: BP 165/89
== END 2017-01-03 10:21 ==
LOC: NEPE 23:11
DX: T83.511A Infection and inflammatory reaction due to indwelling urethral catheter, initial encounter (principal); N39.0 Urinary tract infection, site not specified; B96.20 Unspecified Escherichia coli [E. coli] as the cause of diseases classified elsewhere; B96.89 Other specified bacterial agents as the cause of diseases classified elsewhere; I50.32 Chronic diastolic (congestive) heart failure; I48.91 Unspecified atrial fibrillation; Z79.4 Long term (current) use of insulin
CPT/HCPCS: 71010; 80053; 81001; 82010; 82800; 83690; 83735; 83880; 84484; 85025; 87077; 87086; 87186; 96361; 96365; 96372; 99284; J0696; J1815; J7050